=== PATIENT | female | born 1950 | race Caucasian/White ===

== ENCOUNTER 2020-09-16 12:19 | Outpatient (REF) | payer MEDICARE, OTHER, SELFPAY ==
[2020-09-16 13:24] LABS: MANUAL DIFF FLAG NO
[2020-09-16 13:33] LABS: Basophils Percent Auto 0.7 % (0-2); Eosinophils Absolute Auto 0.1 X10*3/uL (0.0-0.4); Hematocrit 36.9 % (37-47); Hemoglobin 12.5 g/dl (12.0-16.0); Imm Gran Abs Auto 0.02 X10*3/uL (0.00-0.03); Imm Gran Pct Auto 0.4 % (0.0-0.4); Lymphocytes Absolute Auto 1.4 X10*3/uL (1.2-4.9); Lymphocytes Percent Auto 30.1 % (20-40); Mean Corpuscular HGB Conc 33.9 g/dl (31.0-35.0); Mean Corpuscular Hemoglobin 30.9 pg (27.0-33.0); Mean Corpuscular Volume 91.1 fL (80-98); Mean Platelet Volume 9.8 fL (9.4-12.3); Monocytes Absolute Auto 0.3 X10*3/uL (0.1-1.2); Monocytes Percent Auto 6.4 % (2-11); Neutrophils Absolute Auto 2.8 X10*3/uL (2.0-8.3); Neutrophils Percent Auto 60.4 % (45-73); Platelet Count 177 X10*3/uL (160-400); Red Blood Count 4.05 X10*6/uL (4.20-5.50); White Blood Count 4.6 X10*3/uL (4.8-10.8)
[2020-09-16 13:52] LABS: Glucose Urine UA NEG (NEG); Leukocyte Esterase Urine NEG (NEG); Nitrite Urine NEG (NEG); PH 5.5 (5.0-8.0); Urine Blood NEG (NEG); Urine Ketones NEG (NEG); Urine Protein NEG (NEG-TRACE)
[2020-09-16 13:56] LABS: Creatinine Urine 144.68 mg/dL; Microalbum/Creatinine Ratio Ur 10.3 ug/mg cr
[2020-09-16 13:57] LABS: Appearance Urine HAZY; Color Urine YELLOW
[2020-09-16 13:58] LABS: Alanine Aminotransferase 53 U/L (0-31); Albumin Level 4.1 g/dL (3.5-5.0); Alkaline Phosphatase 108 U/L (39-117); Anion Gap 11 (12-20); Aspartate Amino Transferase 59 U/L (5-31); Bilirubin Total 0.6 mg/dL (0.0-1.0); Blood Urea Nitrogen 15 mg/dL (9-16); Calcium 8.7 mg/dL (8.4-10.2); Carbon Dioxide 30 mmol/L (22-29); Chloride 104 mmol/L (96-108); Cholesterol 141 mg/dL; Estimated Glomerular Filt Rate 45; Glucose Random 180 mg/dL (60-115); HDL Cholesterol 40 mg/dL; LDL Cholesterol Calculated 59 mg/dl; Potassium 4.8 mmol/l (3.3-5.1); Sodium 140 mmol/L (135-145); Total Protein 6.5 g/dL (6.5-8.0); Triglycerides 210 mg/dL
[2020-09-16 14:18] LABS: Free T4 (Free Thyroxine) 1.03 ng/dL (0.71-1.85); Thyroid Stimulating Hormone 4.19 mIU/mL (0.32-4.0)
== END 2020-09-16 12:20 | disposition home or self-care (01) ==
LOC: HO.LAB 12:19
PROVIDERS: PCP Internal Medicine; Visit Provider Internal Medicine
DX: E11.22 Type 2 diabetes mellitus with diabetic chronic kidney disease (principal); I12.9 Hypertensive chronic kidney disease with stage 1 through stage 4 chronic kidney disease, or unspecified chronic kidney disease; N18.2 Chronic kidney disease, stage 2 (mild); E78.5 Hyperlipidemia, unspecified; E03.9 Hypothyroidism, unspecified; E66.01 Morbid (severe) obesity due to excess calories; D62 Acute posthemorrhagic anemia; K21.9 Gastro-esophageal reflux disease without esophagitis
CPT/HCPCS: 36415; 80053; 80061; 81003; 82043; 84439; 84443; 85025

== ENCOUNTER 2021-02-23 13:05 | Outpatient (REF) | payer MEDICARE, OTHER, SELFPAY ==
[2021-02-23 13:44] LABS: MANUAL DIFF FLAG NO
[2021-02-23 13:53] LABS: Glucose Urine UA NEG (NEG); Leukocyte Esterase Urine NEG (NEG); Nitrite Urine NEG (NEG); Specific Gravity - Urine 1.015 (1.005-1.025); Urine Blood NEG (NEG); Urine Ketones NEG (NEG); Urine Protein NEG (NEG-TRACE)
[2021-02-23 13:55] LABS: Appearance Urine CLEAR; Color Urine YELLOW
[2021-02-23 14:14] LABS: Basophils Percent Auto 0.7 % (0-2); Eosinophils Absolute Auto 0.1 X10*3/uL (0.0-0.4); Eosinophils Percent Auto 2.3 % (0-4); Hematocrit 37.6 % (37-47); Hemoglobin 12.2 g/dl (12.0-16.0); Imm Gran Abs Auto 0.02 X10*3/uL (0.00-0.03); Imm Gran Pct Auto 0.5 % (0.0-0.4); Lymphocytes Absolute Auto 1.7 X10*3/uL (1.2-4.9); Lymphocytes Percent Auto 38.7 % (20-40); Mean Corpuscular HGB Conc 32.4 g/dl (31.0-35.0); Mean Corpuscular Hemoglobin 30.7 pg (27.0-33.0); Mean Corpuscular Volume 94.5 fL (80-98); Monocytes Absolute Auto 0.3 X10*3/uL (0.1-1.2); Monocytes Percent Auto 6.3 % (2-11); Neutrophils Absolute Auto 2.2 X10*3/uL (2.0-8.3); Neutrophils Percent Auto 51.5 % (45-73); Platelet Count 178 X10*3/uL (160-400); Red Blood Count 3.98 X10*6/uL (4.20-5.50); Red Cell Distribution Width 13.1 % (11.0-16.0); White Blood Count 4.3 X10*3/uL (4.8-10.8)
[2021-02-23 14:19] LABS: Creatinine Urine 133.57 mg/dL; Microalbum/Creatinine Ratio Ur 4.4 ug/mg cr
[2021-02-23 14:28] LABS: Alanine Aminotransferase 26 U/L (0-31); Albumin Level 4.1 g/dL (3.5-5.0); Alkaline Phosphatase 102 U/L (39-117); Anion Gap 12 (12-20); Aspartate Amino Transferase 34 U/L (5-31); Bilirubin Total 0.8 mg/dL (0.0-1.0); Blood Urea Nitrogen 25 mg/dL (9-16); Calcium 9.3 mg/dL (8.4-10.2); Carbon Dioxide 26 mmol/L (22-29); Chloride 104 mmol/L (96-108); Cholesterol 147 mg/dL; Estimated Glomerular Filt Rate 48; Glucose Fasting 120 mg/dL (60-99); HDL Cholesterol 41 mg/dL; Iron 69 mcg/dL (30-160); LDL Cholesterol Calculated 73 mg/dl; Percent Iron Saturation 19 % (15-50); Potassium 5.3 mmol/L (3.3-5.1); Sodium 137 mmol/L (135-145); Total Iron Binding Capacity 355 mcg/dL (228-428); Total Protein 6.5 g/dL (6.5-8.0); Triglycerides 169 mg/dL; Unsaturated Iron Binding 286 ug/dL
[2021-02-23 14:38] LABS: Free T4 (Free Thyroxine) 0.84 ng/dL (0.71-1.85); Thyroid Stimulating Hormone 3.15 uIU/mL (0.32-4.0)
== END 2021-02-23 13:06 | disposition home or self-care (01) ==
LOC: HO.LAB 13:05
PROVIDERS: PCP Internal Medicine; Visit Provider Internal Medicine
DX: E11.22 Type 2 diabetes mellitus with diabetic chronic kidney disease (principal); I12.9 Hypertensive chronic kidney disease with stage 1 through stage 4 chronic kidney disease, or unspecified chronic kidney disease; N18.2 Chronic kidney disease, stage 2 (mild); K92.2 Gastrointestinal hemorrhage, unspecified; E03.9 Hypothyroidism, unspecified; D62 Acute posthemorrhagic anemia; E78.00 Pure hypercholesterolemia, unspecified
CPT/HCPCS: 36415; 80053; 80061; 81003; 82043; 83540; 84439; 84443; 85025

== ENCOUNTER 2021-06-14 11:34 | Outpatient (REF) | payer MEDICARE, OTHER, SELFPAY ==
[2021-06-14 12:53] LABS: MANUAL DIFF FLAG NO
[2021-06-14 12:59] LABS: Basophils Percent Auto 0.5 % (0-2); Eosinophils Absolute Auto 0.1 X10*3/uL (0.0-0.4); Eosinophils Percent Auto 1.8 % (0-4); Hematocrit 35.6 % (37-47); Hemoglobin 11.6 g/dl (12.0-16.0); Imm Gran Abs Auto 0.01 X10*3/uL (0.00-0.03); Imm Gran Pct Auto 0.3 % (0.0-0.4); Lymphocytes Absolute Auto 1.5 X10*3/uL (1.2-4.9); Lymphocytes Percent Auto 39.8 % (20-40); Mean Corpuscular HGB Conc 32.6 g/dl (31.0-35.0); Mean Corpuscular Hemoglobin 30.6 pg (27.0-33.0); Mean Corpuscular Volume 93.9 fL (80-98); Mean Platelet Volume 9.6 fL (9.4-12.3); Monocytes Absolute Auto 0.3 X10*3/uL (0.1-1.2); Monocytes Percent Auto 7.6 % (2-11); Neutrophils Absolute Auto 1.9 X10*3/uL (2.0-8.3); Platelet Count 174 X10*3/uL (160-400); Red Blood Count 3.79 X10*6/uL (4.20-5.50); Red Cell Distribution Width 13.3 % (11.0-16.0); White Blood Count 3.8 X10*3/uL (4.8-10.8)
[2021-06-14 13:04] LABS: Glucose Urine UA NEG (NEG); Leukocyte Esterase Urine NEG (NEG); Nitrite Urine NEG (NEG); Urine Blood NEG (NEG); Urine Ketones NEG (NEG); Urine Protein NEG (NEG-TRACE)
[2021-06-14 13:08] LABS: Appearance Urine CLEAR; Color Urine YELLOW
[2021-06-14 13:18] LABS: Estimated Average Glucose 117 mg/dL; Hemoglobin A1c % 5.7 %
[2021-06-14 13:22] LABS: Alanine Aminotransferase 21 U/L (0-31); Albumin Level 3.9 g/dL (3.5-5.0); Alkaline Phosphatase 85 U/L (39-117); Anion Gap 14 (12-20); Aspartate Amino Transferase 33 U/L (5-31); Bilirubin Total 0.6 mg/dL (0.0-1.0); Blood Urea Nitrogen 14 mg/dL (9-16); Calcium 9.4 mg/dL (8.4-10.2); Carbon Dioxide 27 mmol/L (22-29); Chloride 103 mmol/L (96-108); Cholesterol 158 mg/dL; Estimated Glomerular Filt Rate 54; Glucose Fasting 107 mg/dL (60-99); HDL Cholesterol 43 mg/dL; LDL Cholesterol Calculated 84 mg/dl; Potassium 4.7 mmol/L (3.3-5.1); Sodium 139 mmol/L (135-145); Total Protein 6.2 g/dL (6.5-8.0); Triglycerides 155 mg/dL
[2021-06-14 13:34] LABS: Free T4 (Free Thyroxine) 0.99 ng/dL (0.71-1.85); Thyroid Stimulating Hormone 4.57 uIU/mL (0.32-4.0)
[2021-06-14 13:41] LABS: Creatinine Urine 77.28 mg/dL; Microalbum/Creatinine Ratio Ur 10.3 ug/mg cr
== END 2021-06-14 11:35 | disposition home or self-care (01) ==
LOC: HO.LAB 11:34
PROVIDERS: PCP Internal Medicine; Visit Provider Internal Medicine
DX: D62 Acute posthemorrhagic anemia (principal); I12.9 Hypertensive chronic kidney disease with stage 1 through stage 4 chronic kidney disease, or unspecified chronic kidney disease; B18.2 Chronic viral hepatitis C; E11.22 Type 2 diabetes mellitus with diabetic chronic kidney disease; K92.2 Gastrointestinal hemorrhage, unspecified; E78.00 Pure hypercholesterolemia, unspecified; E03.9 Hypothyroidism, unspecified; E66.01 Morbid (severe) obesity due to excess calories; Z68.42 Body mass index [BMI] 45.0-49.9, adult
CPT/HCPCS: 36415; 80053; 80061; 81003; 82043; 83036; 84439; 84443; 85025

== ENCOUNTER 2021-09-29 23:22 | Emergency (ER) | payer MEDICARE, OTHER, SELFPAY ==
[2021-09-30 00:07] VITALS: BP 198/123; PULSE 102; RESP 20; TEMP 36.8; O2SAT 95; BMI 42.0
--- NOTE | 2021-09-30 03:13 | ED.ABDPAIN ---
HPI - Abdominal Pain General Chief Complaint: Abdominal Pain Stated Complaint: CONSTIPATION Time Seen by Provider: 09/30/21 03:13 Source: patient Mode of arrival: ambulatory Limitations: no limitations History of Present Illness HPI narrative: patient with a history of diverticulitis and perforation with colostomy and then reversal. patient states she has a picket fence with so much diverticulii. Patient with a history of small intestine bleed that was treated with medication. Patient has diarrhea almost everyday. 3 days ago patient had some dietary indiscretion. On Sunday she had a normal BM but today she feels constipated with pain in the rectal area. Pertinent past history: diverticulitis Onset (ago): day(s) Pain Consistency: intermittent Severity: mild Associated symptoms: nausea Related Data Home Medications Medication Instructions Recorded Confirmed clonazepam 0.5 mg tablet 0.5 mg PO TID PRN 09/20/20 06/21/21 escitalopram oxalate 10 mg tablet 10 mg PO QAM 09/20/20 06/21/21 metformin 1,000 mg tablet 1,000 mg PO BID 09/20/20 06/21/21 Previous Rx's Medication Instructions Recorded montelukast 10 mg tablet 10 mg PO BEDTIME #90 tab 09/16/20 levothyroxine 100 mcg tablet 100 mcg PO QAM #90 tab 11/21/20 sucralfate 1 gram tablet 1 g PO BID #60 tab 12/10/20 pioglitazone 45 mg tablet 45 mg PO DAILY #90 tab 07/30/21 losartan 100 mg tablet 100 mg PO DAILY #90 tab 08/04/21 psyllium husk 0.4 gram capsule 0.4 g PO DAILY #30 cap 09/30/21 (Metamucil) Allergies Allergy/AdvReac Type Severity Reaction Status Date / Time adhesive tape [ADHESIVE TAPE] Allergy Mild RASH Verified 06/21/21 12:59 Cephalosporins Allergy Unknown ANAPHYLAXIS Verified 06/21/21 12:59 [CEPHALOSPORINS] gluten Allergy Unknown Unknown Verified 06/21/21 12:59 ketorolac Allergy Unknown hives Verified 06/21/21 12:59 lactase [From Dairy Aid] Allergy Unknown Unknown Verified 06/21/21 12:59 Penicillins [PENICILLINS] Allergy Unknown SWELLING Verified 06/21/21 12:59 Opioids - Morphine Analogues AdvReac Severe VERY SICK, Verified 06/21/21 12:59 [OPIOIDS - MORPHINE DIZZY, ANALOGUES] VOMITING Review of Systems Constitutional: Reports no additional constitutional complaints Eyes: Reports no additional eye complaints Denies dizziness Cardiovascular: Reports no additional cardiovascular complaints Respiratory: Reports as per HPI Gastrointestinal: Reports no additional gastrointestinal complaints Genitourinary: Reports no additional female genitourinary complaints Musculoskeletal: Reports no additional musculoskeletal complaints Skin/Breast: Denies rash Reports system reviewed and no additional complaints, except as documented, Denies dizziness and Denies Sensory deficit (Neuro) Psychiatric: Denies anxiety Physical Exam Vital Signs: Vital Signs: Last Vital Signs Temp 98.6 F 09/30/21 08:18 Pulse 88 09/30/21 08:18 Resp 19 09/30/21 08:18 BP 146/61 H 09/30/21 08:18 Pulse Ox 95 09/30/21 08:18 Body Mass Index 42.0 Const: General: healthy appearing Nutritional Appearance: obese Orientation/consciousness: oriented to person and patient oriented x3 Limitations: no limitations HENMT: Head: Yes normal to inspection Ears: external ears normal General nose exam: Normal external nose present Mouth: Normal oral and palatal mucosa present and oropharynx normal Throat: Yes posterior oropharynx normal Eyes: General: appearance normal, both eyes and all related structures Neck: Other: supple Neck: Yes normal visual inspection Chest: Chest palpation & inspection: normal inspection of the chest Resp: Auscultation: clear to auscultation bilaterally Cardio: Jugular venous distension: no JVD Rate: regular rate Rhythm: regular rhythm Heart sounds: S1 normal heart sound present and S2 normal heart sound present GI: Other: hyperactive BS, obese, diffusely tender. : General: Yes no CVA tenderness Back/Spine/Pelvis: Back: no CVA tenderness Skin: General skin exam: no rashes or lesions noted Neuro: General: oriented to person and patient oriented x3 Cranial nerves: Yes CN's II-XII intact bilaterally Motor exam (neuro): 5/5 motor strength present throughout Sensory Exam: No Sensory deficit (Neuro) Extrem: General: Yes normal to inspection Psych: Appearance: grossly normal Procedures Procedure Narrative Procedure Narrative: fecal disimpaction performed by me Course Reevaluation(s) Reevaluation #1: patient with fecal impaction that was removed, will give soap suds enema and dc home Time: 08:29 MDM - Abdominal Pain Lab Data Result diagrams: 09/30/21 05:27 09/30/21 05:27 Labs: Lab Results 09/30/21 09/30/21 Range/Units 05:27 05:27 WBC 7.6 (4.8-10.8) X10*3/uL RBC 4.17 L (4.20-5.50) X10*6/uL Hgb 12.8 (12.0-16.0) g/dl Hct 39.2 (37.0-47.0) % MCV 94.0 (80.0-98.0) fL MCH 30.7 (27.0-33.0) pg MCHC 32.7 (31.0-35.0) g/dl RDW 12.8 (11.0-16.0) % Plt Count 218 (160-400) X10*3/uL MPV 9.6 (9.4-12.3) fL Immature Gran % (Auto) 0.5 H (0.0-0.4) % Neut % (Auto) 79.8 H (45-73) % Lymph % (Auto) 16.3 L (20-40) % [place] % (Auto) 3.2 (2-11) % Eos % (Auto) 0.1 (0-4) % Baso % (Auto) 0.1 (0-2) % Lymph # (Auto) 1.2 (1.2-4.9) X10*3/uL [place] # (Auto) 0.2 (0.1-1.2) X10*3/uL Eos # (Auto) 0.0 (0.0-0.4) X10*3/uL Baso # (Auto) 0.0 (0.0-0.2) X10*3/uL Abs Immat Gran (auto) 0.04 H (0.00-0.03) X10*3/uL Absolute Neuts (auto) 6.1 (2.0-8.3) x10*3/uL Absolute Nucleated RBC 0.000 (0.0-0.012) X10*3/uL Nucleated RBC % (auto) 0.0 (0.0-0.2) /100WBC Sodium 141 (135-145) mmol/L Potassium 4.5 (3.3-5.1) mmol/L Chloride 101 (96-108) mmol/L Carbon Dioxide 29 (22-29) mmol/L Anion Gap 16 (12-20) BUN 15 (9-16) mg/dL Creatinine 1.06 (0.5-1.4) mg/dL Estim Creat Clear Calc 60.5 Estimated GFR 51 Random Glucose 163 H (60-115) mg/dL Calcium 9.4 (8.4-10.2) mg/dL Total Bilirubin 0.7 (0.0-1.0) mg/dL Direct Bilirubin 0.3 (0.0-0.5) mg/dL AST 40 H (5-31) U/L ALT 33 H (0-31) U/L Alkaline Phosphatase 88 (39-117) U/L Total Protein 7.0 (6.5-8.0) g/dL Albumin 4.4 (3.5-5.0) g/dL Lipase 19 (8-78) U/L Discharge Plan Discharge Clinical Impression: Fecal impaction in rectum Constipation Qualifiers: Constipation type: unspecified constipation type Qualified Code(s): K59.00 - Constipation, unspecified Patient Disposition: Home, Self-Care Instructions: Constipation (ED) Prescriptions: New psyllium husk [Metamucil] 0.4 gram capsule 0.4 g PO DAILY Qty: 30 RF: 0 No Action montelukast 10 mg tablet 10 mg PO BEDTIME Qty: 90 RF: 12 levothyroxine 100 mcg tablet 100 mcg PO QAM Qty: 90 RF: 3 sucralfate 1 gram tablet 1 g PO BID Qty: 60 RF: 3 pioglitazone 45 mg tablet 45 mg PO DAILY Qty: 90 RF: 1 losartan 100 mg tablet 100 mg PO DAILY Qty: 90 RF: 3 metformin 1,000 mg tablet 1,000 mg PO BID RF: 0 clonazepam 0.5 mg tablet 0.5 mg PO TID PRN (Reason: anxiety) RF: 0 escitalopram oxalate 10 mg tablet 10 mg PO QAM RF: 0 Referrals: Delonte Bishop MD [Primary Care Provider] - 5 days [facility] Past Medical History Medical History Acquired hypothyroidism Anemia due to acute blood loss Anxiety Arthralgia Asthma Benign essential hypertension Chronic kidney disease (CKD), stage II (mild) Depression Diabetes mellitus Gastrointestinal hemorrhage GERD without esophagitis Insomnia Morbid obesity with BMI of 45.0-49.9, adult Pure hypercholesterolemia Surgical History H/O wrist surgery History of colectomy History of colonoscopy History of D&C History of tonsillectomy Family History Family History Father No problems noted. Mother No problems noted. Other Substance abuse Social History Social History Alcohol intake: never Patient Tobacco Use Status: Never used Tobacco Use of substances other than those prescribed or required for medical reasons: No Advance Directives: No Advance Directives Information Provided: No
[2021-09-30 05:28] VITALS: BP 154/69; PULSE 86; RESP 20; O2SAT 96
[2021-09-30 05:33] LABS: Basophils Percent Auto 0.1 % (0-2); Eosinophils Percent Auto 0.1 % (0-4); Hematocrit 39.2 % (37.0-47.0); Hemoglobin 12.8 g/dl (12.0-16.0); Imm Gran Abs Auto 0.04 X10*3/uL (0.00-0.03); Imm Gran Pct Auto 0.5 % (0.0-0.4); Lymphocytes Absolute Auto 1.2 X10*3/uL (1.2-4.9); Lymphocytes Percent Auto 16.3 % (20-40); MANUAL DIFF FLAG NO; Mean Corpuscular HGB Conc 32.7 g/dl (31.0-35.0); Mean Corpuscular Hemoglobin 30.7 pg (27.0-33.0); Mean Platelet Volume 9.6 fL (9.4-12.3); Monocytes Absolute Auto 0.2 X10*3/uL (0.1-1.2); Monocytes Percent Auto 3.2 % (2-11); Neutrophils Absolute Auto 6.1 x10*3/uL (2.0-8.3); Neutrophils Percent Auto 79.8 % (45-73); Platelet Count 218 X10*3/uL (160-400); Red Blood Count 4.17 X10*6/uL (4.20-5.50); Red Cell Distribution Width 12.8 % (11.0-16.0); White Blood Count 7.6 X10*3/uL (4.8-10.8)
[2021-09-30 05:48] LABS: Alanine Aminotransferase 33 U/L (0-31); Albumin Level 4.4 g/dL (3.5-5.0); Alkaline Phosphatase 88 U/L (39-117); Anion Gap 16 (12-20); Aspartate Amino Transferase 40 U/L (5-31); Bilirubin Direct 0.3 mg/dL (0.0-0.5); Bilirubin Total 0.7 mg/dL (0.0-1.0); Blood Urea Nitrogen 15 mg/dL (9-16); Calcium 9.4 mg/dL (8.4-10.2); Carbon Dioxide 29 mmol/L (22-29); Chloride 101 mmol/L (96-108); Creatinine Clr Calc Pharmacy 60.5; Estimated Glomerular Filt Rate 51; Glucose Random 163 mg/dL (60-115); Lipase 19 U/L (8-78); Potassium 4.5 mmol/L (3.3-5.1); Sodium 141 mmol/L (135-145)
[2021-09-30 08:18] VITALS: BP 146/61; PULSE 88; RESP 19; TEMP 37; O2SAT 95
== END 2021-09-30 09:38 | disposition home or self-care (01) ==
PROVIDERS: Emergency Provider Emergency Medicine; PCP Internal Medicine
DX: K56.41 Fecal impaction (principal); E66.01 Morbid (severe) obesity due to excess calories; E11.22 Type 2 diabetes mellitus with diabetic chronic kidney disease; I12.9 Hypertensive chronic kidney disease with stage 1 through stage 4 chronic kidney disease, or unspecified chronic kidney disease; N18.2 Chronic kidney disease, stage 2 (mild)
CPT/HCPCS: 36415; 80053; 82248; 83690; 85025; 99284; 99285

== ENCOUNTER 2021-10-14 12:47 | Outpatient (REF) | payer MEDICARE, OTHER, SELFPAY ==
[2021-10-14 13:16] LABS: MANUAL DIFF FLAG NO
[2021-10-14 13:32] LABS: Basophils Percent Auto 0.5 % (0-2); Eosinophils Absolute Auto 0.1 X10*3/uL (0.0-0.4); Eosinophils Percent Auto 3.5 % (0-4); Hematocrit 38.1 % (37.0-47.0); Hemoglobin 12.4 g/dl (12.0-16.0); Imm Gran Abs Auto 0.01 X10*3/uL (0.00-0.03); Imm Gran Pct Auto 0.3 % (0.0-0.4); Lymphocytes Absolute Auto 1.3 X10*3/uL (1.2-4.9); Lymphocytes Percent Auto 35.9 % (20-40); Mean Corpuscular HGB Conc 32.5 g/dl (31.0-35.0); Mean Corpuscular Hemoglobin 30.1 pg (27.0-33.0); Mean Corpuscular Volume 92.5 fL (80.0-98.0); Mean Platelet Volume 9.5 fL (9.4-12.3); Monocytes Absolute Auto 0.3 X10*3/uL (0.1-1.2); Monocytes Percent Auto 7.1 % (2-11); Neutrophils Absolute Auto 1.9 x10*3/uL (2.0-8.3); Neutrophils Percent Auto 52.7 % (45-73); Platelet Count 175 X10*3/uL (160-400); Red Blood Count 4.12 X10*6/uL (4.20-5.50); Red Cell Distribution Width 12.9 % (11.0-16.0); White Blood Count 3.7 X10*3/uL (4.8-10.8)
[2021-10-14 14:01] LABS: Estimated Average Glucose 126 mg/dL
[2021-10-14 14:05] LABS: Alanine Aminotransferase 28 U/L (0-31); Alkaline Phosphatase 77 U/L (39-117); Anion Gap 14 (12-20); Aspartate Amino Transferase 38 U/L (5-31); Bilirubin Total 0.8 mg/dL (0.0-1.0); Blood Urea Nitrogen 15 mg/dL (9-16); Calcium 9.7 mg/dL (8.4-10.2); Carbon Dioxide 27 mmol/L (22-29); Chloride 104 mmol/L (96-108); Cholesterol 152 mg/dL; Estimated Glomerular Filt Rate 52; Glucose Fasting 130 mg/dL (60-99); HDL Cholesterol 41 mg/dL; LDL Cholesterol Calculated 72 mg/dl; Potassium 5.1 mmol/L (3.3-5.1); Sodium 140 mmol/L (135-145); Total Protein 6.5 g/dL (6.5-8.0); Triglycerides 199 mg/dL
[2021-10-14 14:25] LABS: TSH reflex Free T4 2.75 uIU/mL (0.32-4.0); Vitamin D 25-OH Total 51.4 ng/mL (>30)
[2021-10-14 15:06] LABS: Appearance Urine CLEAR; Color Urine YELLOW; Glucose Urine UA NEG (NEG); Leukocyte Esterase Urine TRACE (NEG); Nitrite Urine NEG (NEG); PH 6.5 (5.0-8.0); Specific Gravity - Urine <= 1.005 (1.005-1.025); UACC Culture Trigger YES; Urine Blood NEG (NEG); Urine Ketones NEG (NEG); Urine Protein NEG (NEG-TRACE)
[2021-10-14 15:18] LABS: RBC Urine 0-2 /HPF (0); WBC Urine 0-2 /HPF (0-4)
[2021-10-14 15:19] LABS: Bacteria Urine TRACE /LPF
[2021-10-14 15:39] LABS: Creatinine Urine 44.33 mg/dL; Microalbumin Urine < 5.0 mg/L
== END 2021-10-14 12:48 | disposition home or self-care (01) ==
LOC: HO.LAB 12:47
PROVIDERS: PCP Internal Medicine; Visit Provider Internal Medicine
DX: I10 Essential (primary) hypertension (principal); E55.9 Vitamin D deficiency, unspecified; E78.00 Pure hypercholesterolemia, unspecified; E11.9 Type 2 diabetes mellitus without complications
CPT/HCPCS: 36415; 80053; 80061; 81001; 82043; 82306; 83036; 84443; 85025; 87086

== ENCOUNTER 2022-02-21 12:46 | Outpatient (REF) | payer MEDICARE, OTHER, SELFPAY ==
[2022-02-21 12:58] LABS: MANUAL DIFF FLAG NO
[2022-02-21 13:17] LABS: Eosinophils Absolute Auto 0.2 X10*3/uL (0.0-0.4); Eosinophils Percent Auto 4.8 % (0-4); Hematocrit 37.8 % (37.0-47.0); Hemoglobin 12.5 g/dl (12.0-16.0); Imm Gran Abs Auto 0.01 X10*3/uL (0.00-0.03); Imm Gran Pct Auto 0.3 % (0.0-0.4); Lymphocytes Absolute Auto 1.7 X10*3/uL (1.2-4.9); Lymphocytes Percent Auto 42.2 % (20-40); Mean Corpuscular HGB Conc 33.1 g/dl (31.0-35.0); Mean Corpuscular Hemoglobin 31.2 pg (27.0-33.0); Mean Corpuscular Volume 94.3 fL (80.0-98.0); Mean Platelet Volume 9.5 fL (9.4-12.3); Monocytes Absolute Auto 0.3 X10*3/uL (0.1-1.2); Monocytes Percent Auto 6.8 % (2-11); Neutrophils Absolute Auto 1.8 x10*3/uL (2.0-8.3); Neutrophils Percent Auto 44.9 % (45-73); Platelet Count 180 X10*3/uL (160-400); Red Blood Count 4.01 X10*6/uL (4.20-5.50); Red Cell Distribution Width 13.1 % (11.0-16.0)
[2022-02-21 13:21] LABS: Estimated Average Glucose 126 mg/dL
[2022-02-21 13:49] LABS: Alanine Aminotransferase 31 U/L (0-31); Alkaline Phosphatase 92 U/L (39-117); Anion Gap 12 (12-20); Aspartate Amino Transferase 34 U/L (5-31); Bilirubin Total 0.7 mg/dL (0.0-1.0); Blood Urea Nitrogen 21 mg/dL (9-16); Calcium 9.4 mg/dL (8.4-10.2); Carbon Dioxide 29 mmol/L (22-29); Chloride 104 mmol/L (96-108); Cholesterol 171 mg/dL; Estimated Glomerular Filt Rate 54; Glucose Fasting 149 mg/dL (60-99); HDL Cholesterol 46 mg/dL; LDL Cholesterol Calculated 83 mg/dl; Potassium 4.6 mmol/L (3.3-5.1); Sodium 140 mmol/L (135-145); Total Protein 6.4 g/dL (6.5-8.0); Triglycerides 213 mg/dL
[2022-02-21 13:58] LABS: Free T4 (Free Thyroxine) 1.07 ng/dL (0.71-1.85)
[2022-02-21 14:20] LABS: Folate 18.2 ng/mL (> or = 4.0); Vitamin B12 318 pg/mL (200-900)
[2022-02-22 16:25] LABS: Appearance Urine CLEAR; Color Urine YELLOW; Glucose Urine UA NEG (NEG); Leukocyte Esterase Urine NEG (NEG); Nitrite Urine NEG (NEG); Specific Gravity - Urine <= 1.005 (1.005-1.025); Urine Blood NEG (NEG); Urine Ketones NEG (NEG); Urine Protein NEG (NEG-TRACE)
[2022-02-22 16:49] LABS: Creatinine Urine 45.16 mg/dL
== END 2022-02-21 12:47 | disposition home or self-care (01) ==
LOC: HO.LAB 12:46
PROVIDERS: PCP Internal Medicine; Visit Provider Internal Medicine
DX: I10 Essential (primary) hypertension (principal); E78.00 Pure hypercholesterolemia, unspecified; E55.9 Vitamin D deficiency, unspecified; E11.9 Type 2 diabetes mellitus without complications; E53.8 Deficiency of other specified B group vitamins; E03.9 Hypothyroidism, unspecified
CPT/HCPCS: 36415; 80053; 80061; 81003; 82043; 82306; 82607; 82746; 83036; 84439; 84443; 85025

== ENCOUNTER 2022-03-14 15:46 | Observation (INO) | payer MEDICARE, OTHER, SELFPAY ==
--- NOTE | ~2022-03-14 | CT_ITS ---
EXAMINATION: CTA OF THE HEAD AND NECK CLINICAL INFORMATION: Intermittent left visual loss. COMPARISON: None available. TECHNIQUE: Test bolus sequences followed by intravenous administration 75 mL of Omnipaque 350. Helical imaging was performed in the axial plane from the mediastinum to the skull vertex. Delayed postcontrast imaging of the head was also performed. The data was processed at the surgical technologist's workstation for generation of MIP sequences. Three-dimensional volume rendered reformatted images were also generated at an offline 3-D workstation. Stenoses are assessed in accordance with NASCET criteria unless otherwise indicated. This CT examination was performed using dose optimization techniques as appropriate, variously including the following: *Automated exposure control *Adjustment of mA and/or kV according to patient size (this includes techniques or standardized protocols for targeted exams where dose is matched to indication/reason for exam; i.e. extremities or head) *Use of iterative reconstruction technique DLP: 2266 mGy-cm. FINDINGS: CT head: There is no evidence of acute intracranial hemorrhage or territorial infarction. There is no loss of dior to white matter differentiation. No abnormal mass effect or midline shift is seen. No extra-axial fluid collections are identified. There is no abnormal enhancement. The ventricles are normal in size. There is no abnormal attenuation within the brain parenchyma. The osseous structures and soft tissues are normal. The mastoid air cells and visualized portions of the paranasal sinuses are well aerated. CTA neck: The imaged aortic arch and origins of the great vessels are normal. The common carotid arteries are widely patent. The carotid bifurcations are normal. The cervical internal carotid arteries are normal. The vertebral arteries opacify normally and are of normal caliber. The left vertebral artery is developmentally hypoplastic. There is a lobulated soft tissue density in the mediastinum on the left side adjacent to the aortic arch and main pulmonary artery which measures fluid attenuation, without mass effect. There is ossification of the posterior longitudinal ligament impressing upon the ventral thecal sac at the C3-C4 level. Mild subsegmental atelectatic changes noted in the lungs. CTA head: The intradural vertebral arteries and basilar artery are normal. The posterior cerebral arteries are widely patent. The internal carotid arteries are of normal caliber. The ROSHNI and MCA vascular complexes bilaterally are normal. The venous sinuses opacify normally. CT/CT angio head neck IMPRESSION: Normal CT angiogram of the head and neck. No vascular occlusion or significant stenosis. No acute intracranial process. Indeterminate lobulated fluid attenuation lesion in the anterior mediastinum in the region of the AP window which may represent a thymic epithelial neoplasm or thymic cyst. A nonemergent follow-up MRI of the chest without and with contrast is recommended for further characterization. Imaging findings reported to Dr. Milton at 8:17 PM on 03/14/2022.
--- NOTE | 2022-03-14 15:52 | ECG_ITS ---
Test Reason : HEADACHE Blood Pressure : / mmHG Vent. Rate : 069 BPM Atrial Rate : 069 BPM P-R Int : 176 ms QRS Dur : 098 ms QT Int : 378 ms P-R-T Axes : 067 -17 046 degrees QTc Int : 405 ms Normal sinus rhythm Normal ECG When compared with ECG of 23-DEC-2018 16:13, No significant change was found Referred By: Daphne Milton Electronically Signed By:Buddy Conde
[2022-03-14 15:57] VITALS: BP 168/72; BP 174/100; PULSE 78; PULSE 90; RESP 20; TEMP 37; O2SAT 100; O2SAT 97; BMI 44.0
[2022-03-14 16:08] LABS: Glucose, Whole Blood 130 mg/dL (60-115)
[2022-03-14 17:04] LABS: Glucose, Whole Blood 110 mg/dL (60-115)
--- NOTE | 2022-03-14 17:11 | ED.GENADULT ---
HPI - General Adult General Chief complaint: Headache Stated complaint: stroke - headache, left sided weakness Time Seen by Provider: 03/14/22 15:50 Source: patient and EMS Mode of arrival: EMS Limitations: no limitations History of Present Illness HPI narrative: Patient comes to the emergency room complaining headache and intermittent blurred/visual loss for the last 23 hours. Patient states that yesterday approximately 23 hours ago, patient started having significant headache in the front and on the left side. Patient states that she had visual changes, states that it seemed like she had a floater on the lateral aspect of the right eye and the whole visual field on the left. Patient states that the symptoms have been intermittent. Patient also states that she has been having difficulty finding words occasionally. Patient is not on any blood thinners, no other neurological deficits. Patient states that she has never been diagnosed with migraines and she usually does not get headaches. At this time, patient complaining of left-sided headache, vision in the right eye is within normal limits, mildly blurry on the left eye. Related Data Home Medications Medication Instructions Recorded Confirmed clonazepam 0.5 mg tablet 0.5 mg PO TID PRN 09/20/20 03/14/22 escitalopram oxalate 10 mg tablet 10 mg PO QAM 09/20/20 03/14/22 albuterol sulfate 90 mcg/actuation 1 puff PO QID PRN 03/14/22 03/14/22 aerosol inhaler Previous Rx's Medication Instructions Recorded losartan 100 mg tablet 100 mg PO DAILY #90 tab 08/04/21 metformin 1,000 mg tablet 1,000 mg PO BID 90 Days #180 tab 10/18/21 levothyroxine 100 mcg tablet 100 mcg PO QAM #90 tab 12/01/21 montelukast 10 mg tablet 10 mg PO BEDTIME #90 tab 12/03/21 pioglitazone 45 mg tablet 45 mg PO DAILY #90 tab 12/03/21 Allergies Allergy/AdvReac Type Severity Reaction Status Date / Time adhesive tape [ADHESIVE TAPE] Allergy Mild RASH Verified 02/28/22 13:51 Cephalosporins Allergy Unknown ANAPHYLAXIS Verified 02/28/22 13:51 [CEPHALOSPORINS] gluten Allergy Unknown Unknown Verified 02/28/22 13:51 ketorolac Allergy Unknown hives Verified 02/28/22 13:51 lactase [From Dairy Aid] Allergy Unknown Unknown Verified 02/28/22 13:51 Penicillins [PENICILLINS] Allergy Unknown SWELLING Verified 02/28/22 13:51 Opioids - Morphine Analogues AdvReac Severe VERY SICK, Verified 02/28/22 13:51 [OPIOIDS - MORPHINE DIZZY, ANALOGUES] VOMITING Review of Systems Review of Systems: Constitutional : No Weight loss, No Fever, No Chills, No Night Sweats, No Fatigue, No Malaise ENT/Mouth : No Hearing loss, No Ear Pain, No Nasal Congestion, No Sinus Pain, No Hoarseness, No sore throat, No Rhinorrhea, No Swallowing Difficulty Eyes: No Eye Pain, No Swelling, No Redness, No Foreign Body, No Discharge, complaining of intermittent visual changes, blurriness on both sides, intermittent Cardiovascular : No Chest Pain, No SOB, No Dyspnea on Exertion, No Orthopnea, No Edema, No Palpitations Respiratory : No Cough, No Sputum, No Wheezing, No Smoke Exposure, No Dyspnea Gastrointestinal : No Nausea, No Vomiting, No Diarrhea, No Constipation, No abdominal Pain, No Hematochezia, No Melena Genitourinary : no irregular bleeding, No Dysuria, No Urinary Frequency, No Hematuria, No Urinary Incontinence, No Urgency, No Flank Pain, No Urinary Flow Changes, No Hesitancy Musculoskeletal : No joint pain, No Myalgias, No Joint Swelling Skin : No Skin Lesions, No rash Neuro : No Weakness, No Numbness, No Paresthesias, No Loss of Consciousness, No Dizziness, complaining of a Headache Psych : No Anxiety/Panic, No Depression, No SI/HI/AH/VH, No Social Issues, Heme/Lymph: No Bruising, No Bleeding,No Lymphadenopathy Endocrine : No Polyuria, No Polydipsia, No Temperature Intolerance PMFSH Past Medical History Medical History Acquired hypothyroidism Anemia due to acute blood loss Anxiety Arthralgia Asthma Benign essential hypertension Chronic kidney disease (CKD), stage II (mild) Depression Diabetes mellitus Gastrointestinal hemorrhage GERD without esophagitis Insomnia Morbid obesity with BMI of 40.0-44.9, adult Morbid obesity with BMI of 45.0-49.9, adult Pure hypercholesterolemia Surgical History H/O wrist surgery History of colectomy History of colonoscopy History of D&C History of tonsillectomy Family History Family History Father No problems noted. Mother No problems noted. Other Substance abuse Social History Social History Housing: House Alcohol intake: never Patient Tobacco Use Status: Never used Tobacco Second Hand Smoke Exposure: No Advance Directives: Yes Advance Directives Information Provided: No Advance Directives on File: No service: No Current occupational status: retired Cognitive needs: No Hearing needs: No Vision needs: Yes Physical Exam ED Vital Signs: Vital Signs - 24 hr 03/14/22 15:57 Temperature 98.6 F Pulse Rate 78 Respiratory Rate 20 Blood Pressure 168/72 H Pulse Oximetry 97 BMI result Body Mass Index 44.0 Const Other: Appearance: Alert. Oriented X3. No acute distress. Eyes: Pupils equal, round and reactive to light. Visual hernandez tested, both within normal limits ENT: Pharynx normal. Neck: Normal inspection. Neck supple. No lymph nodes noted. No crepitus CVS: Normal heart rate and rhythm. Pulses normal. Normal S1 and S2 Respiratory: No respiratory distress. Breath sounds normal. No Wheezing. No rales Abdomen: Soft and nontender. No rigidity. No distention. Skin: Skin warm and dry. Normal skin color. Normal skin turgor. Extremities: No lower extremity edema. No Lacerations. No Rash Neuro: Oriented X 3. No motor deficit. No sensory deficit. Moving all extremities. No slurred speech. CN 2 through 12 grossly intact Psych: calm, cooperative, normal affect NIH Stroke Scale Level of Consciousness: Alert Level of Consciousness Questions: Answers both questions correctly Level of Consciousness Commands: Performs both tasks correctly Best Gaze: Normal Visual: No visual loss Facial Palsy: Normal Motor Arm (Right): No drift Motor Arm (Left): No drift Motor Leg (Right): No drift Motor Leg (Left): No drift Limb Ataxia: Absent Sensory: Normal Best Language: No aphasia Dysarthia: Normal Extinction and Inattention: No abnormality Score: 0 Course Course Course Narrative: Patient has been having intermittent symptoms for [address] and CTA pending. Patient is outside of the window of treatment if this would be a CVA. Patient likely having a CTA. However also patient describes that she has temporal pain on the left side. ESR and CRP pending along with all the other labs CT scan does not show any acute abnormalities. However, the patient will need a follow-up MRI to rule out a thymic epithelial neoplasm or thymic cyst At this time patient remains asymptomatic. Headache is nearly gone. It is possible that patient has migraine, but would be very strange for the patient to start having migraines at the age of 72 I discussed the patient with Dr. Berry, pt being admitted for TIA Medical Decision Making Lab Data Result diagrams: 03/14/22 17:25 03/14/22 17:25 Labs: Lab Results 03/14/22 03/14/22 03/14/22 Range/Units 16:05 16:46 16:59 WBC (4.8-10.8) X10*3/uL RBC (4.20-5.50) X10*6/uL Hgb (12.0-16.0) g/dl Hct (37.0-47.0) % MCV (80.0-98.0) fL MCH (27.0-33.0) pg MCHC (31.0-35.0) g/dl RDW (11.0-16.0) % Plt Count (160-400) X10*3/uL MPV (9.4-12.3) fL Immature Gran % (Auto) (0.0-0.4) % Neut % (Auto) (45-73) % Lymph % (Auto) (20-40) % Sandoval % (Auto) (2-11) % Eos % (Auto) (0-4) % Baso % (Auto) (0-2) % Lymph # (Auto) (1.2-4.9) X10*3/uL Sandoval # (Auto) (0.1-1.2) X10*3/uL Eos # (Auto) (0.0-0.4) X10*3/uL Baso # (Auto) (0.0-0.2) X10*3/uL Abs Immat Gran (auto) (0.00-0.03) X10*3/uL Absolute Neuts (auto) (2.0-8.3) x10*3/uL Absolute Nucleated RBC (0.0-0.012) X10*3/uL Nucleated RBC % (auto) (0.0-0.2) /100WBC ESR (0-20) MM/HR PT (9.9-13.0) SEC INR (0.9-1.1) Sodium (135-145) mmol/L Potassium (3.3-5.1) mmol/L Chloride (96-108) mmol/L Carbon Dioxide (22-29) mmol/L Anion Gap (12-20) BUN (9-16) mg/dL Creatinine (0.5-1.4) mg/dL Estim Creat Clear Calc Estimated GFR POC Glucose 130 H 110 (60-115) mg/dL Random Glucose (60-115) mg/dL Calcium (8.4-10.2) mg/dL Total Bilirubin (0.0-1.0) mg/dL Direct Bilirubin (0.0-0.5) mg/dL AST (5-31) U/L ALT (0-31) U/L Alkaline Phosphatase (39-117) U/L Troponin I High Sens (<3.5-17.0) ng/L C-Reactive Protein (< or = 0.50) mg/dL Total Protein (6.5-8.0) g/dL Albumin (3.5-5.0) g/dL COVID-19 (TERRELL) Negative (Negative) COVID-19 Clin Com See Note 03/14/22 03/14/22 03/14/22 Range/Units 16:59 17:25 17:25 WBC 5.9 (4.8-10.8) X10*3/uL RBC 4.28 (4.20-5.50) X10*6/uL Hgb 12.9 (12.0-16.0) g/dl Hct 39.6 (37.0-47.0) % MCV 92.5 (80.0-98.0) fL MCH 30.1 (27.0-33.0) pg MCHC 32.6 (31.0-35.0) g/dl RDW 13.0 (11.0-16.0) % Plt Count 195 (160-400) X10*3/uL MPV 9.2 L (9.4-12.3) fL Immature Gran % (Auto) 0.3 (0.0-0.4) % Neut % (Auto) 60.0 (45-73) % Lymph % (Auto) 30.8 (20-40) % Sandoval % (Auto) 7.1 (2-11) % Eos % (Auto) 1.3 (0-4) % Baso % (Auto) 0.5 (0-2) % Lymph # (Auto) 1.8 (1.2-4.9) X10*3/uL Sandoval # (Auto) 0.4 (0.1-1.2) X10*3/uL Eos # (Auto) 0.1 (0.0-0.4) X10*3/uL Baso # (Auto) 0.0 (0.0-0.2) X10*3/uL Abs Immat Gran (auto) 0.02 (0.00-0.03) X10*3/uL Absolute Neuts (auto) 3.6 (2.0-8.3) x10*3/uL Absolute Nucleated RBC 0.000 (0.0-0.012) X10*3/uL Nucleated RBC % (auto) 0.0 (0.0-0.2) /100WBC ESR (0-20) MM/HR PT 11.4 (9.9-13.0) SEC INR 1.0 (0.9-1.1) Sodium 141 (135-145) mmol/L Potassium 4.7 (3.3-5.1) mmol/L Chloride 102 (96-108) mmol/L Carbon Dioxide 31 H (22-29) mmol/L Anion Gap 13 (12-20) BUN 15 (9-16) mg/dL Creatinine 0.96 (0.5-1.4) mg/dL Estim Creat Clear Calc 65.4 Estimated GFR 57 POC Glucose (60-115) mg/dL Random Glucose 128 H (60-115) mg/dL Calcium 9.9 (8.4-10.2) mg/dL Total Bilirubin 0.9 (0.0-1.0) mg/dL Direct Bilirubin 0.3 (0.0-0.5) mg/dL AST 37 H (5-31) U/L ALT 31 (0-31) U/L Alkaline Phosphatase 92 (39-117) U/L Troponin I High Sens (<3.5-17.0) ng/L C-Reactive Protein (< or = 0.50) mg/dL Total Protein 6.7 (6.5-8.0) g/dL Albumin 4.0 (3.5-5.0) g/dL COVID-19 (TERRELL) (Negative) COVID-19 Clin Com 03/14/22 03/14/22 03/14/22 Range/Units 17:25 17:25 17:25 WBC (4.8-10.8) X10*3/uL RBC (4.20-5.50) X10*6/uL Hgb (12.0-16.0) g/dl Hct (37.0-47.0) % MCV (80.0-98.0) fL MCH (27.0-33.0) pg MCHC (31.0-35.0) g/dl RDW (11.0-16.0) % Plt Count (160-400) X10*3/uL MPV (9.4-12.3) fL Immature Gran % (Auto) (0.0-0.4) % Neut % (Auto) (45-73) % Lymph % (Auto) (20-40) % Sandoval % (Auto) (2-11) % Eos % (Auto) (0-4) % Baso % (Auto) (0-2) % Lymph # (Auto) (1.2-4.9) X10*3/uL Sandoval # (Auto) (0.1-1.2) X10*3/uL Eos # (Auto) (0.0-0.4) X10*3/uL Baso # (Auto) (0.0-0.2) X10*3/uL Abs Immat Gran (auto) (0.00-0.03) X10*3/uL Absolute Neuts (auto) (2.0-8.3) x10*3/uL Absolute Nucleated RBC (0.0-0.012) X10*3/uL Nucleated RBC % (auto) (0.0-0.2) /100WBC ESR 23 H (0-20) MM/HR PT (9.9-13.0) SEC INR (0.9-1.1) Sodium (135-145) mmol/L Potassium (3.3-5.1) mmol/L Chloride (96-108) mmol/L Carbon Dioxide (22-29) mmol/L Anion Gap (12-20) BUN (9-16) mg/dL Creatinine (0.5-1.4) mg/dL Estim Creat Clear Calc Estimated GFR POC Glucose (60-115) mg/dL Random Glucose (60-115) mg/dL Calcium (8.4-10.2) mg/dL Total Bilirubin (0.0-1.0) mg/dL Direct Bilirubin (0.0-0.5) mg/dL AST (5-31) U/L ALT (0-31) U/L Alkaline Phosphatase (39-117) U/L Troponin I High Sens 6.9 (<3.5-17.0) ng/L C-Reactive Protein 0.25 (< or = 0.50) mg/dL Total Protein (6.5-8.0) g/dL Albumin (3.5-5.0) g/dL COVID-19 (TERRELL) (Negative) COVID-19 Clin Com Imaging Data CT scan - head: Radiologist's impression: CTA neck: The imaged aortic arch and origins of the great vessels are normal. The common carotid arteries are widely patent. The carotid bifurcations are normal. The cervical internal carotid arteries are normal. The vertebral arteries opacify normally and are of normal caliber. The left vertebral artery is developmentally hypoplastic. There is a lobulated soft tissue density in the mediastinum on the left side adjacent to the aortic arch and main pulmonary artery which measures fluid attenuation, without mass effect. There is ossification of the posterior longitudinal ligament impressing upon the ventral thecal sac at the C3-C4 level. Mild subsegmental atelectatic changes noted in the lungs. CTA head: The intradural vertebral arteries and basilar artery are normal. The posterior cerebral arteries are widely patent. The internal carotid arteries are of normal caliber. The ROSHNI and MCA vascular complexes bilaterally are normal. The venous sinuses opacify normally. CT/CT angio head neck IMPRESSION: ? Normal CT angiogram of the head and neck. No vascular occlusion or significant stenosis. No acute intracranial process. ? Indeterminate lobulated fluid attenuation lesion in the anterior mediastinum in the region of the AP window which may represent a thymic epithelial neoplasm or thymic cyst. A nonemergent follow-up MRI of the chest without and with contrast is recommended for further characterization. Discharge Plan Discharge Clinical Impression: Brain TIA Patient Disposition: Admitted As Inpatient
[2022-03-14 17:24] LABS: COVID-19 Test Negative (Negative); IDNOW Serial# 16C4AD1C; Prothrombin Time 11.4 SEC (9.9-13.0)
[2022-03-14 17:31] LABS: MANUAL DIFF FLAG NO
[2022-03-14 17:38] LABS: Basophils Percent Auto 0.5 % (0-2); Eosinophils Absolute Auto 0.1 X10*3/uL (0.0-0.4); Eosinophils Percent Auto 1.3 % (0-4); Hematocrit 39.6 % (37.0-47.0); Hemoglobin 12.9 g/dl (12.0-16.0); Imm Gran Abs Auto 0.02 X10*3/uL (0.00-0.03); Imm Gran Pct Auto 0.3 % (0.0-0.4); Lymphocytes Absolute Auto 1.8 X10*3/uL (1.2-4.9); Lymphocytes Percent Auto 30.8 % (20-40); Mean Corpuscular HGB Conc 32.6 g/dl (31.0-35.0); Mean Corpuscular Hemoglobin 30.1 pg (27.0-33.0); Mean Corpuscular Volume 92.5 fL (80.0-98.0); Mean Platelet Volume 9.2 fL (9.4-12.3); Monocytes Absolute Auto 0.4 X10*3/uL (0.1-1.2); Monocytes Percent Auto 7.1 % (2-11); Neutrophils Absolute Auto 3.6 x10*3/uL (2.0-8.3); Platelet Count 195 X10*3/uL (160-400); Red Blood Count 4.28 X10*6/uL (4.20-5.50); White Blood Count 5.9 X10*3/uL (4.8-10.8)
[2022-03-14 17:45] LABS: C Reactive Protein 0.25 mg/dL (< or = 0.50)
[2022-03-14 17:48] LABS: Alanine Aminotransferase 31 U/L (0-31); Alkaline Phosphatase 92 U/L (39-117); Anion Gap 13 (12-20); Aspartate Amino Transferase 37 U/L (5-31); Bilirubin Direct 0.3 mg/dL (0.0-0.5); Bilirubin Total 0.9 mg/dL (0.0-1.0); Blood Urea Nitrogen 15 mg/dL (9-16); Calcium 9.9 mg/dL (8.4-10.2); Carbon Dioxide 31 mmol/L (22-29); Chloride 102 mmol/L (96-108); Creatinine Clr Calc Pharmacy 65.4; Estimated Glomerular Filt Rate 57; Glucose Random 128 mg/dL (60-115); Potassium 4.7 mmol/L (3.3-5.1); Sodium 141 mmol/L (135-145); Total Protein 6.7 g/dL (6.5-8.0)
[2022-03-14 17:53] LABS: Troponin-I High Sensitivity 6.9 ng/L (<3.5-17.0)
[2022-03-14] MEDS: Acetaminophen 325 MG TABLET 650 MG PO (18:02)
[2022-03-14 18:30] LABS: Erythrocyte Sedimentation Rate 23 MM/HR (0-20)
[2022-03-14] MEDS: iohexoL 350 MG/ML 100 ML INFUS..BTL IV (18:43)
--- NOTE | 2022-03-14 19:18 | PHA.MEDREC ---
Pharmacy Consult ? Medication Reconciliation Pharmacy has completed the medication reconciliation.
[2022-03-14 22:04] VITALS: BP 169/71; PULSE 70; RESP 20; TEMP 36.9; O2SAT 97
--- NOTE | 2022-03-14 22:46 | PM.IMHP ---
History of Present Illness Date of Service: 03/14/22 Chief Complaint: Headache this is a 72-year-old female with past medical history of hypothyroidism, anxiety, PTSD, depression, asthma, HTN, DM, insomnia, GERD, and history of GI bleed who presents to the hospital with complaints of of severe left-sided headache as well as vision disturbances. Patient reports that she was in the kitchen preparing dinner when all of a sudden she developed lateral visual lost in both eyes in the form of large floaters that blocked half of her vision. she reports this lasted few minutes, the right visual field was then recovered but then she developed left-sided lateral visual loss as well as significant 10/10 throbbing left-sided headache radiating to her neck. Patient reports that she felt like she had heavy speech, but did not have any numbness tingling or weakness in her arms or legs, no drooping of her face. Patient reports that she tried to sleep of the pain, did not use any alleviating medications. The next day she had an appointment with her psychiatrist, which she continued to have this severe 10/10 throbbing left-sided headache and therefore her psychiatrist advised her to call [phone] come to the hospital. Patient reports that she since being in the hospital receiving Tylenol her pain has now resolved. Patient otherwise denies any chest pain, no palpitations, no abdominal pain, no nausea or vomiting, no diarrhea constipation, no urinary symptoms and no lower extremity edema. On arrival to the hospital patient hemodynamically stable no significant abnormal vitals except for slightly elevated BP Labs reviewed show unremarkable findings Head and neck CT angiogram shows normal CT angiogram of the head and neck, no vascular occlusion or significant stenosis, no acute intracranial process. CT angiogram of the head and neck also showed intermediate lobulated fluid attenuation lesion in the anterior mediastinum in the region of the AP window which may represent a thymic epithelial neoplasm or thymic cyst. MRI follow-up recommended Review of Systems Review of Systems: Yes all other systems are reviewed and are negative [facility] Medical History Acquired hypothyroidism Anemia due to acute blood loss Anxiety Arthralgia Asthma Benign essential hypertension Chronic kidney disease (CKD), stage II (mild) Depression Diabetes mellitus Gastrointestinal hemorrhage GERD without esophagitis Insomnia Morbid obesity with BMI of 40.0-44.9, adult Morbid obesity with BMI of 45.0-49.9, adult Pure hypercholesterolemia Family History Father No problems noted. Mother No problems noted. Other Substance abuse Surgical History H/O wrist surgery History of colectomy History of colonoscopy History of D&C History of tonsillectomy Social History Housing: House Alcohol intake: never Patient Tobacco Use Status: Never used Tobacco Second Hand Smoke Exposure: No Advance Directives: Yes Advance Directives Information Provided: No Advance Directives on File: No service: No Current occupational status: retired Cognitive needs: No Hearing needs: No Vision needs: Yes Meds Allergies Allergy/AdvReac Type Severity Reaction Status Date / Time adhesive tape [ADHESIVE TAPE] Allergy Mild RASH Verified 02/28/22 13:51 Cephalosporins Allergy Unknown ANAPHYLAXIS Verified 02/28/22 13:51 [CEPHALOSPORINS] gluten Allergy Unknown Unknown Verified 02/28/22 13:51 ketorolac Allergy Unknown hives Verified 02/28/22 13:51 lactase [From Dairy Aid] Allergy Unknown Unknown Verified 02/28/22 13:51 Penicillins [PENICILLINS] Allergy Unknown SWELLING Verified 02/28/22 13:51 Opioids - Morphine Analogues AdvReac Severe VERY SICK, Verified 02/28/22 13:51 [OPIOIDS - MORPHINE DIZZY, ANALOGUES] VOMITING Active Medications: Current Medications Pharmacy Consult (Consult Rx Perform Med Rec) 1 each MISCELLANE ONCE PRN PRN Reason: Consult order Home Medications Medication Instructions Recorded Confirmed Last Taken Type clonazepam 0.5 mg tablet 0.5 mg PO TID PRN 09/20/20 03/14/22 03/14/22 History escitalopram oxalate 10 mg tablet 10 mg PO QAM 09/20/20 03/14/22 03/14/22 History albuterol sulfate 90 mcg/actuation 1 puff PO QID PRN 03/14/22 03/14/22 Unknown History aerosol inhaler Physical Exam Vital Signs and Narrative: Vital Signs: Last Vital Signs Temp 98.5 F 03/14/22 22:04 Pulse 70 03/14/22 22:04 Resp 20 03/14/22 22:04 BP 169/71 H 03/14/22 22:04 Pulse Ox 97 03/14/22 22:04 BMI result Body Mass Index 44.0 Const: General: cooperative and no acute distress Orientation/consciousness: patient oriented x3 Eyes: General: appearance normal, both eyes and all related structures Pupils: Equal, round and reactive pupils present Resp: Effort & Inspection: normal respiratory effort Auscultation: clear to auscultation bilaterally Cardio: Rate: regular rate Rhythm: regular rhythm GI: Palpation (GI): Soft to palpation Auscultation: normal bowel sounds Skin: General skin exam: no rashes or lesions noted Neuro: Other: No neurological deficits, no visual field defect, strength is 5/5 in all extremities General: patient oriented x3 Cranial nerves: Yes Equal, round and reactive pupils present Cognition (Neuro): normal cognition Extrem: General: Yes normal to inspection and Yes no pedal edema Results Labs CBC and Chem 7: 03/15/22 04:54 03/15/22 04:54 Labs: Laboratory Results - last 24 hr 03/14/22 03/14/22 03/14/22 16:05 16:46 16:59 MCV MCH MCHC RDW Plt Count MPV Immature Gran % (Auto) Neut % (Auto) Lymph % (Auto) Wharton % (Auto) Eos % (Auto) Baso % (Auto) Lymph # (Auto) Wharton # (Auto) Eos # (Auto) Baso # (Auto) Abs Immat Gran (auto) Absolute Neuts (auto) Absolute Nucleated RBC Nucleated RBC % (auto) ESR PT INR Anion Gap Estim Creat Clear Calc Estimated GFR POC Glucose 130 H 110 Random Glucose Calcium Total Bilirubin Direct Bilirubin AST ALT Alkaline Phosphatase Troponin I High Sens C-Reactive Protein Total Protein Albumin COVID-19 (TERRELL) Negative COVID-19 Clin Com See Note 03/14/22 03/14/22 03/14/22 16:59 17:25 17:25 MCV 92.5 MCH 30.1 MCHC 32.6 RDW 13.0 Plt Count 195 MPV 9.2 L Immature Gran % (Auto) 0.3 Neut % (Auto) 60.0 Lymph % (Auto) 30.8 Wharton % (Auto) 7.1 Eos % (Auto) 1.3 Baso % (Auto) 0.5 Lymph # (Auto) 1.8 Wharton # (Auto) 0.4 Eos # (Auto) 0.1 Baso # (Auto) 0.0 Abs Immat Gran (auto) 0.02 Absolute Neuts (auto) 3.6 Absolute Nucleated RBC 0.000 Nucleated RBC % (auto) 0.0 ESR PT 11.4 INR 1.0 Anion Gap 13 Estim Creat Clear Calc 65.4 Estimated GFR 57 POC Glucose Random Glucose 128 H Calcium 9.9 Total Bilirubin 0.9 Direct Bilirubin 0.3 AST 37 H ALT 31 Alkaline Phosphatase 92 Troponin I High Sens C-Reactive Protein Total Protein 6.7 Albumin 4.0 COVID-19 (TERRELL) COVID-19 [employer] 03/14/22 03/14/22 03/14/22 17:25 17:25 17:25 MCV MCH MCHC RDW Plt Count MPV Immature Gran % (Auto) Neut % (Auto) Lymph % (Auto) Wharton % (Auto) Eos % (Auto) Baso % (Auto) Lymph # (Auto) Wharton # (Auto) Eos # (Auto) Baso # (Auto) Abs Immat Gran (auto) Absolute Neuts (auto) Absolute Nucleated RBC Nucleated RBC % (auto) ESR 23 H PT INR Anion Gap Estim Creat Clear Calc Estimated GFR POC Glucose Random Glucose Calcium Total Bilirubin Direct Bilirubin AST ALT Alkaline Phosphatase Troponin I High Sens 6.9 C-Reactive Protein 0.25 Total Protein Albumin COVID-19 (TERRELL) COVID-19 Clin Com Imaging Radiologist's Impressions: Impressions Head/Neck CTA 03/14/22 18:50 IMPRESSION: Normal CT angiogram of the head and neck. No vascular occlusion or significant stenosis. No acute intracranial process. Indeterminate lobulated fluid attenuation lesion in the anterior mediastinum in the region of the AP window which may represent a thymic epithelial neoplasm or thymic cyst. A nonemergent follow-up MRI of the chest without and with contrast is recommended for further characterization. Imaging findings reported to Dr. Milton at 8:17 PM on 03/14/2022. Assessment and Plan (1) Headache: Status: Acute (2) Visual loss: Status: Acute Plan 72-year-old female who presents to the hospital with headache, and intermittent visual loss will be admitted for further evaluation # headache - migraine versus TIA - will consult Neurology, patient at this time reports that she is claustrophobic and may not tolerate MRI - will hold off on ordering MRI pending evaluation by neurology # visual loss - described above large floaters blocking lateral half of vision - no visual loss on physical exam - recommended MRI but patient at this time reports that she has claustrophobia and may not tolerate MRI, pending neurology evaluation for further recommendation # diabetes - low-dose sliding scale insulin, diabetic diet # history of anxiety, depression and PTSD - continue home medications # hypertension - elevated - continue home antihypertensives DVT prophylaxis: Early ambulation Quality Stroke Does the patient have a stroke diagnosis?: No VTE Prior VTE?: No VTE Risk Level:: Medical - low VTE Device Contraindication: Treatment Not Indicated VTE Drug Contraindication: Treatment Not Indicated
[2022-03-15 04:22] VITALS: BP 139/66; PULSE 74; RESP 16; TEMP 36.8; O2SAT 99
[2022-03-15 04:59] LABS: MANUAL DIFF FLAG NO
[2022-03-15 05:00] LABS: Basophils Percent Auto 0.5 % (0-2); Eosinophils Absolute Auto 0.2 X10*3/uL (0.0-0.4); Eosinophils Percent Auto 2.8 % (0-4); Hemoglobin 12.4 g/dl (12.0-16.0); Imm Gran Abs Auto 0.01 X10*3/uL (0.00-0.03); Imm Gran Pct Auto 0.2 % (0.0-0.4); Lymphocytes Absolute Auto 2.3 X10*3/uL (1.2-4.9); Lymphocytes Percent Auto 37.9 % (20-40); Mean Corpuscular HGB Conc 32.6 g/dl (31.0-35.0); Mean Corpuscular Hemoglobin 30.2 pg (27.0-33.0); Mean Corpuscular Volume 92.5 fL (80.0-98.0); Mean Platelet Volume 9.1 fL (9.4-12.3); Monocytes Absolute Auto 0.5 X10*3/uL (0.1-1.2); Neutrophils Absolute Auto 3.1 x10*3/uL (2.0-8.3); Neutrophils Percent Auto 50.6 % (45-73); Platelet Count 186 X10*3/uL (160-400); Red Blood Count 4.11 X10*6/uL (4.20-5.50); White Blood Count 6.1 X10*3/uL (4.8-10.8)
[2022-03-15 05:15] LABS: Anion Gap 15 (12-20); Blood Urea Nitrogen 16 mg/dL (9-16); Calcium 9.5 mg/dL (8.4-10.2); Carbon Dioxide 24 mmol/L (22-29); Chloride 104 mmol/L (96-108); Creatinine Clr Calc Pharmacy 64.7; Estimated Glomerular Filt Rate 56; Glucose Random 126 mg/dL (60-115); Potassium 4.6 mmol/L (3.3-5.1); Sodium 138 mmol/L (135-145)
[2022-03-15 07:10] VITALS: BP 160/84; PULSE 79; RESP 15; TEMP 36.6; O2SAT 94
[2022-03-15 07:11] LABS: Glucose, Whole Blood 138 mg/dL (60-115)
[2022-03-15] MEDS: Levothyroxine Sodium 100 MCG TABLET PO (08:40)
--- NOTE | 2022-03-15 08:44 | PC.NURSE ---
pt a&ox3, vss - elevated blood pressure, pt reports not taking medication yesterday. denies any pain at this time. medicated per provider order, no insulin coverage needed. pt does not have IV access - flush not given. no new orders at this time.
--- NOTE | 2022-03-15 09:35 | MHC.CM.PN ---
Attempted to meet with patient in regards to discharge planning. Patient currently sleeping. No family present. Will attempt to meet again. Continue to monitor for d/c needs.
[2022-03-15] MEDS: Losartan Potassium 50 MG TABLET 100 MG PO (11:14)
[2022-03-15] MEDS: Pioglitazone HCL 45 MG TABLET PO (11:15)
--- NOTE | 2022-03-15 11:18 | PC.NURSE ---
medications held pending actos from pharmacy, and pt questions. medicated per provider order. escitalopram held per pt request - normally takes medication in the evening. pharmacy notified.
[2022-03-15 11:27] VITALS: BP 174/88; PULSE 68; RESP 19; O2SAT 96
--- NOTE | 2022-03-15 11:27 | PC.NURSE ---
pt a&ox3, vss, R upper arm IV infiltrated - removed. pt denies any pain at this time.
--- NOTE | 2022-03-15 11:57 | MHC.CM.PN ---
Met with pt to discuss discharge planning: pt resides alone, has no services and drives. Li kingx x4, Declined OBS notice signature and states her HCP is with her commonwealth attorney. Pt states she will arrange her own transportation home. CM to follow.
--- NOTE | 2022-03-15 12:29 | PM.NEUROCN ---
History of Present Illness Data of Consult Service Date: 03/15/22 Primary Care Provider: Delonte Bishop MD HPI Reason for consult: Blurred vision and headache 72 years old woman who was in usual state of health at home working in a kitchen when suddenly she had blurred vision in her right eye and little bit later in her left eye. It was like a floater in front of her eyes. In few minutes right eye cleared and then left eye had a floor in front. Little later she had severe left-sided headache. Head was split in the middle and Karen of the head was hurting. He said that she never had such headaches and she denied having headaches. Looking at her previous records she had suffered from a concussion in the past in 2017 and at that time suffered from headaches. Also she had multiple nonspecific complaints including vertigo, blurred vision or loss of vision in the past or at least episodes of that. One EEG was abnormal but there was no clear indication of epilepsy. Even this time her mentation remained intact. She came to hospital stating that blurred vision disappeared after an hour to but headache continued for many hours. She slept and next morning headache was resolved. There was no recent trauma or cold or flu-like illness. Review of Systems Review of Systems: No recent cold or flu-like illness PMFSH Past Medical History Medical History Acquired hypothyroidism Anemia due to acute blood loss Anxiety Arthralgia Asthma Benign essential hypertension Chronic kidney disease (CKD), stage II (mild) Depression Diabetes mellitus Gastrointestinal hemorrhage GERD without esophagitis Insomnia Morbid obesity with BMI of 40.0-44.9, adult Morbid obesity with BMI of 45.0-49.9, adult Pure hypercholesterolemia Family History Family History Father No problems noted. Mother No problems noted. Other Substance abuse Surgical History Surgical History H/O wrist surgery History of colectomy History of colonoscopy History of D&C History of tonsillectomy Social History Social History Housing: House Alcohol intake: never Patient Tobacco Use Status: Never used Tobacco Second Hand Smoke Exposure: No Advance Directives: Yes Advance Directives Information Provided: No Advance Directives on File: No service: No Current occupational status: retired Cognitive needs: No Hearing needs: No Vision needs: Yes Meds Allergies Allergy/AdvReac Type Severity Reaction Status Date / Time adhesive tape [ADHESIVE TAPE] Allergy Mild RASH Verified 02/28/22 13:51 Cephalosporins Allergy Unknown ANAPHYLAXIS Verified 02/28/22 13:51 [CEPHALOSPORINS] gluten Allergy Unknown Unknown Verified 02/28/22 13:51 ketorolac Allergy Unknown hives Verified 02/28/22 13:51 lactase [From Dairy Aid] Allergy Unknown Unknown Verified 02/28/22 13:51 Penicillins [PENICILLINS] Allergy Unknown SWELLING Verified 02/28/22 13:51 Opioids - Morphine Analogues AdvReac Severe VERY SICK, Verified 02/28/22 13:51 [OPIOIDS - MORPHINE DIZZY, ANALOGUES] VOMITING Active Medications: Current Medications Acetaminophen (Acetaminophen 325 Mg Tablet) 650 mg PO Q6H PRN PRN Reason: Pain, Mild (Pain Scale 1-3) Albuterol Sulfate (Albuterol Sulfate 90 Mcg 8 Gm Inhaler) 1 puff INHALE QID PRN PRN Reason: Shortness Of Breath Clonazepam (Clonazepam 0.5 Mg Tablet) 0.5 mg PO BEDTIME MITCH Clonazepam (Clonazepam 0.5 Mg Tablet) 0.75 mg PO DAILY [facility] Dextrose (Dextrose 50 % 25 Gm/50 Ml Syringe) 25 gm IVPUSH Q15M PRN; Protocol PRN Reason: per Hypoglycemia Standing Ord. Docusate Sodium (Docusate Sodium 100 Mg Capsule) 100 mg PO DAILY PRN PRN Reason: Constipation Escitalopram Oxalate (Escitalopram Oxalate 10 Mg Tablet) 10 mg PO BEDTIME [facility] Glucose (Glucose Gel 15 Gm Gel..Gram.) 15 gm PO Q15M PRN; Protocol PRN Reason: per Hypoglycemia Standing Ord. Insulin Human Lispro (Insulin Lispro 100 Unit/Ml 3 Ml Vial) 0 unit SUBCUT QIDACHS [facility]; Protocol Last Admin: 03/15/22 08:22 Dose: Not Given Documented by: Levothyroxine Sodium (Levothyroxine Sodium 100 Mcg Tablet) 100 mcg PO DAILY@0630 [facility] Last Admin: 03/15/22 08:40 Dose: 100 mcg Documented by: Losartan Potassium (Losartan Potassium 50 Mg Tablet) 100 mg PO DAILY [facility]; Protocol Last Admin: 03/15/22 11:14 Dose: 100 mg Documented by: Montelukast Sodium (Montelukast Sodium 10 Mg Tablet) 10 mg PO BEDTIME MITCH Ondansetron HCl (Ondansetron Hcl 4 Mg/2 Ml Vial) 4 mg IVPUSH Q8H PRN PRN Reason: Nausea and Vomiting Pharmacy Consult (Consult Rx Perform Med Rec) 1 each MISCELLANE ONCE PRN PRN Reason: Consult order Pioglitazone HCl (Pioglitazone Hcl 45 Mg Tablet) 45 mg PO DAILY [facility] Last Admin: 03/15/22 11:15 Dose: 45 mg Documented by: Sodium Chloride (0.9 % Sodium Chloride Flush 3 Ml Syringe) 3 ml IVFLUSH QSHIFT [facility] Last Admin: 03/15/22 08:40 Dose: Not Given Documented by: Home Medications Medication Instructions Recorded Confirmed Last Taken Type clonazepam 0.5 mg tablet 0.75 mg PO DAILY 09/20/20 03/15/22 03/14/22 History escitalopram oxalate 10 mg tablet 10 mg PO QAM 09/20/20 03/14/22 03/14/22 History albuterol sulfate 90 mcg/actuation 1 puff PO QID PRN 03/14/22 03/14/22 Unknown History aerosol inhaler clonazepam 0.5 mg tablet 1 tab PO BEDTIME 03/15/22 03/15/22 Unknown History Physical Exam Vital Signs: Vital Signs: Last Vital Signs Temp 97.9 F 03/15/22 07:10 Pulse 68 03/15/22 11:27 Resp 19 03/15/22 11:27 BP 174/88 H 03/15/22 11:27 Pulse Ox 96 03/15/22 11:27 BMI result Body Mass Index 44.0 Neuro: Other: Alert and awake with normal spontaneity of speech fluency comprehension and affect. Pupils are 3-4 mm with full visual hernandez and normal extraocular muscles. Face is symmetrical. There is no focal weakness. Deep tendon reflexes were trace to absent with flexor plantars. Affect was normal. Results Labs CBC & Chem 7: 03/15/22 04:54 03/15/22 04:54 Labs: Short CBC 03/14/22 03/15/22 Range/Units 17:25 04:54 WBC 5.9 6.1 (4.8-10.8) X10*3/uL Hgb 12.9 12.4 (12.0-16.0) g/dl Hct 39.6 38.0 (37.0-47.0) % Plt Count 195 186 (160-400) X10*3/uL BMP 03/14/22 03/15/22 17:25 04:54 Sodium 141 138 Potassium 4.7 4.6 Chloride 102 104 Carbon Dioxide 31 H 24 BUN 15 16 Creatinine 0.96 0.97 Calcium 9.9 9.5 Liver Function 03/14/22 Range/Units 17:25 Total Bilirubin 0.9 (0.0-1.0) mg/dL Direct Bilirubin 0.3 (0.0-0.5) mg/dL AST 37 H (5-31) U/L ALT 31 (0-31) U/L Alkaline Phosphatase 92 (39-117) U/L Albumin 4.0 (3.5-5.0) g/dL CTA of brain and neck did not reveal any significant abnormality. Assessment and Plan (1) Headache: Status: Acute 72 years old woman who is overall history is suggestive of migraine with aura. Because of her description that she never had migraine before performing a CTA of brain and neck was reasonable to rule out aneurysm. No such lesion was noted. Otherwise I would also consider an outpatient ophthalmology evaluation to rule out any condition causing high intracranial or intraocular pressure. She should make an appointment to see Dr. Harman after an eye appointment. Procedures Date of Service Date of Service: 03/15/22
--- NOTE | 2022-03-15 13:36 | P.DS_ITS ---
DS: Providers Provider Date of Service: 03/15/22 Date of admission: 03/14/22 22:39 Primary care physician: Delonte Bishop MD Consults: 03/14/22 22:39 Consult to Neurology Routine Consulting Provider: [facility] Reason for consultation: TIA? Has provider been notified: No DS: Diagnosis Discharge Diagnosis (1) Headache: Status: Acute DS: Summary Hospital Course Hospital Course: History of presenting illness Chief Complaint: Headache 72-year-old female with past medical history of hypothyroidism, anxiety, PTSD, depression, asthma, HTN, DM, insomnia, GERD, and history of GI bleed who presents to the hospital with complaints of of severe left-sided headache as well as vision disturbances.? Patient reports that she was in the kitchen preparing dinner when all of a sudden she developed lateral visual lost in both eyes in the form of large floaters that blocked half of her vision.? she reports this lasted few minutes, the right visual field was then recovered but then she developed left-sided lateral visual loss as well as significant 10/10 throbbing left-sided headache radiating to her neck.? Patient reports that she felt like she had heavy speech, but did not have any numbness tingling or weakness in her arms or legs, no drooping of her face.? Patient reports that she tried to sleep of the pain, did not use any alleviating medications.? The next day she had an appointment with her psychiatrist, which she continued to have this severe 10/10 throbbing left-sided headache and therefore her psychiatrist advised her to call [phone] come to the hospital.? Patient reports that she since being in the hospital receiving Tylenol her pain has now resolved. Patient otherwise denies any chest pain, no palpitations, no abdominal pain, no nausea or vomiting, no diarrhea constipation, no urinary symptoms and no lower extremity edema. On arrival to the hospital patient hemodynamically stable no significant abnormal vitals except for slightly elevated BP Labs reviewed show unremarkable findings Head and neck CT angiogram shows normal CT angiogram of the head and neck, no vascular occlusion or significant stenosis, no acute intracranial process. CT angiogram of the head and neck also showed intermediate lobulated fluid attenuation lesion in the anterior mediastinum in the region of the AP window which may represent a thymic epithelial neoplasm or thymic cyst.? MRI follow-up recommended. hospital course 72-year-old female who presents to the hospital with headache, and intermittent visual loss admitted to medical floor with a diagnosis of headache, all symptoms of headache and visual loss resolved with no recurrent episodes during hospitalization patient evaluated by Dr. Fung and he felt symptoms are likely related to migraine with aura he recommend outpatient ophthalmology follow up,and also recommended follow-up with Dr. Harman , CT angiogram of head and neck showed no vascular occlusion or significant stenosis. In regard to diabetes and hypertension she has been recommended to follow diabetic diet and home medication For history of anxiety, depression and PTSD, no acute decompensation noted continue home medication morbid obesity recommended low-calorie diet and weight reduction CT angiogram of head and neck showed indeterminate lobulated fluid attenuation lesion in the anterior mediastinum in the region of the AP window which may represent a thymic epithelial neoplasm or a thymic cyst,non emergent follow-up MRI of the chest without and with contrast is recommended for further characterization informed this abnormal result to the patient and recommend follow-up with PCP for outpatient MRI Time Spent with Patient Time attestation: Total time spent providing and/or coordinating discharge services: Discharge coordination time: Greater than 30 minutes Quality: Safe Use of Opioids Does Pt have an Active Cancer Diagnosis on the Problem List?: No Quality: Stroke Does the patient have a stroke diagnosis?: No Physical Exam Vital Signs: Vital Signs: Last Vital Signs Temp 97.9 F 03/15/22 07:10 Pulse 68 03/15/22 11:27 Resp 19 03/15/22 11:27 BP 174/88 H 03/15/22 11:27 Pulse Ox 96 03/15/22 11:27 BMI result Body Mass Index 44.0 Const: Other: General awake alert in no acute distress. Neck supple no JVD. CVS regular rate rhythm, Respiratory lungs clear to auscultation, no respiratory distress, no wheeze, no rhonchi. Gastrointestinal abdomen soft, nontender, bowel sounds audible Extremities noedema. Neuro nonfocal . Skin no rash DS: Data Data Completed and Pending Labs on day of discharge: Laboratory Results - last 24 hr 03/14/22 03/14/22 03/14/22 16:05 16:46 16:59 WBC RBC Hgb Hct MCV MCH MCHC RDW Plt Count MPV Immature Gran % (Auto) Neut % (Auto) Lymph % (Auto) [place] % (Auto) Eos % (Auto) Baso % (Auto) Lymph # (Auto) [place] # (Auto) Eos # (Auto) Baso # (Auto) Abs Immat Gran (auto) Absolute Neuts (auto) Absolute Nucleated RBC Nucleated RBC % (auto) ESR PT INR Sodium Potassium Chloride Carbon Dioxide Anion Gap BUN Creatinine Estim Creat Clear Calc Estimated GFR POC Glucose 130 H 110 Random Glucose Calcium Total Bilirubin Direct Bilirubin AST ALT Alkaline Phosphatase Troponin I High Sens C-Reactive Protein Total Protein Albumin COVID-19 (TERRELL) Negative COVID-19 Clin Com See Note 03/14/22 03/14/22 03/14/22 16:59 17:25 17:25 WBC 5.9 RBC 4.28 Hgb 12.9 Hct 39.6 MCV 92.5 MCH 30.1 MCHC 32.6 RDW 13.0 Plt Count 195 MPV 9.2 L Immature Gran % (Auto) 0.3 Neut % (Auto) 60.0 Lymph % (Auto) 30.8 [place]oshone % (Auto) 7.1 Eos % (Auto) 1.3 Baso % (Auto) 0.5 Lymph # (Auto) 1.8 [place] # (Auto) 0.4 Eos # (Auto) 0.1 Baso # (Auto) 0.0 Abs Immat Gran (auto) 0.02 Absolute Neuts (auto) 3.6 Absolute Nucleated RBC 0.000 Nucleated RBC % (auto) 0.0 ESR PT 11.4 INR 1.0 Sodium 141 Potassium 4.7 Chloride 102 Carbon Dioxide 31 H Anion Gap 13 BUN 15 Creatinine 0.96 Estim Creat Clear Calc 65.4 Estimated GFR 57 POC Glucose Random Glucose 128 H Calcium 9.9 Total Bilirubin 0.9 Direct Bilirubin 0.3 AST 37 H ALT 31 Alkaline Phosphatase 92 Troponin I High Sens C-Reactive Protein Total Protein 6.7 Albumin 4.0 COVID-19 (TERRELL) COVID-19 [facility] Com 03/14/22 03/14/22 03/14/22 17:25 17:25 17:25 WBC RBC Hgb Hct MCV MCH MCHC RDW Plt Count MPV Immature Gran % (Auto) Neut % (Auto) Lymph % (Auto) [place] % (Auto) Eos % (Auto) Baso % (Auto) Lymph # (Auto) [place] # (Auto) Eos # (Auto) Baso # (Auto) Abs Immat Gran (auto) Absolute Neuts (auto) Absolute Nucleated RBC Nucleated RBC % (auto) ESR 23 H PT INR Sodium Potassium Chloride Carbon Dioxide Anion Gap BUN Creatinine Estim Creat Clear Calc Estimated GFR POC Glucose Random Glucose Calcium Total Bilirubin Direct Bilirubin AST ALT Alkaline Phosphatase Troponin I High Sens 6.9 C-Reactive Protein 0.25 Total Protein Albumin COVID-19 (TERRELL) COVID-19 Clin Com 03/15/22 03/15/22 03/15/22 04:54 04:54 07:06 WBC 6.1 RBC 4.11 L Hgb 12.4 Hct 38.0 MCV 92.5 MCH 30.2 MCHC 32.6 RDW 13.0 Plt Count 186 MPV 9.1 L Immature Gran % (Auto) 0.2 Neut % (Auto) 50.6 Lymph % (Auto) 37.9 [place] % (Auto) 8.0 Eos % (Auto) 2.8 Baso % (Auto) 0.5 Lymph # (Auto) 2.3 [place] # (Auto) 0.5 Eos # (Auto) 0.2 Baso # (Auto) 0.0 Abs Immat Gran (auto) 0.01 Absolute Neuts (auto) 3.1 Absolute Nucleated RBC 0.000 Nucleated RBC % (auto) 0.0 ESR PT INR Sodium 138 Potassium 4.6 Chloride 104 Carbon Dioxide 24 Anion Gap 15 BUN 16 Creatinine 0.97 Estim Creat Clear Calc 64.7 Estimated GFR 56 POC Glucose 138 H Random Glucose 126 H Calcium 9.5 Total Bilirubin Direct Bilirubin AST ALT Alkaline Phosphatase Troponin I High Sens C-Reactive Protein Total Protein Albumin COVID-19 (TERRELL) COVID-19 Clin Com Discharge Plan Discharge Patient Disposition: Home, Self-Care Discharge Diagnosis: migraine with aura indeterminate lobulated lesion in anterior mediastinum Referrals: Delonte Bishop MD [Primary Care Provider] - 1 Week Discharge Medications: Continued losartan 100 mg tablet 100 mg PO DAILY Qty: 90 3RF levothyroxine 100 mcg tablet 100 mcg PO QAM Qty: 90 3RF pioglitazone 45 mg tablet 45 mg PO DAILY Qty: 90 1RF montelukast 10 mg tablet 10 mg PO BEDTIME Qty: 90 4RF albuterol sulfate 90 mcg/actuation HFA aerosol inhaler 1 puff PO QID PRN (Reason: Shortness Of Breath) 0RF clonazepam 0.5 mg tablet 1 tab PO BEDTIME 0RF metformin 1,000 mg tablet 1,000 mg PO BID 90 Days Qty: 180 3RF clonazepam 0.5 mg tablet 0.75 mg PO DAILY 0RF escitalopram oxalate 10 mg tablet 10 mg PO QAM 0RF Discharge Orders: Discharge Order (Routine); Ordered 03/15/22 Ordered By: Jessica Duncan Diet: diabetic diet Activity on Discharge: As tolerated Stand Alone Forms: Patient Portal Discharge page Care Plan Goals: admitted with headache and visual loss all symptoms resolved likely migraine with aura recommend outpatient follow-up with Dr. Harman and with procurement analyst Health Concerns: diabetes mellitus/ hypertension resume all home medications as before. Plan of Treatment: call to make follow-up appointment with Dr. Lee and with Dr. Harman call to make appointment, outpatient follow-up with primary care physician to obtain non emergent MRI chest with and without contrast for further characterization indeterminate lobulated fluid attenuation lesion in the anterior mediastinum. Assessment: as per discharge summary
== END 2022-03-15 14:05 | disposition home or self-care (01) ==
LOC: HO.ED 21:58 → HO.EDOVER 22:56
PROVIDERS: Admitting Provider Internal Medicine; Emergency Provider Emergency Medicine; PCP Internal Medicine; Visit Provider Hospitalist
DX: R51.9 Headache, unspecified (principal); H54.7 Unspecified visual loss; E11.22 Type 2 diabetes mellitus with diabetic chronic kidney disease; I12.9 Hypertensive chronic kidney disease with stage 1 through stage 4 chronic kidney disease, or unspecified chronic kidney disease; N18.2 Chronic kidney disease, stage 2 (mild); E03.9 Hypothyroidism, unspecified; E78.00 Pure hypercholesterolemia, unspecified; E66.01 Morbid (severe) obesity due to excess calories; K21.9 Gastro-esophageal reflux disease without esophagitis; J98.59 Other diseases of mediastinum, not elsewhere classified; F41.8 Other specified anxiety disorders; F43.10 Post-traumatic stress disorder, unspecified; Z68.41 Body mass index [BMI] 40.0-44.9, adult; Z87.820 Personal history of traumatic brain injury; Z20.822 Contact with and (suspected) exposure to COVID-19; Z88.0 Allergy status to penicillin; Z88.8 Allergy status to other drugs, medicaments and biological substances; Z88.6 Allergy status to analgesic agent; Z91.02 Food additives allergy status; Z91.011 Allergy to milk products; Z79.84 Long term (current) use of oral hypoglycemic drugs; Z79.899 Other long term (current) drug therapy
CPT/HCPCS: 36415; 70496; 70498; 80048; 80076; 82947; 84484; 85025; 85610; 85652; 86140; 87635; 93005; 96374; 96375; 99219; 99284; 99285; Q9967

== ENCOUNTER 2023-09-06 11:41 | Outpatient (REF) | payer MEDICARE, OTHER, SELFPAY ==
[2023-09-06 12:03] LABS: MANUAL DIFF FLAG NO
[2023-09-06 12:17] LABS: Basophils Percent Auto 0.9 % (0-2); Eosinophils Absolute Auto 0.1 X10*3/uL (0.0-0.4); Eosinophils Percent Auto 2.5 % (0-4); Hematocrit 41.9 % (37.0-47.0); Hemoglobin 14.6 g/dl (12.0-16.0); Imm Gran Abs Auto 0.03 X10*3/uL (0.00-0.03); Imm Gran Pct Auto 0.7 % (0.0-0.4); Lymphocytes Absolute Auto 1.4 X10*3/uL (1.2-4.9); Lymphocytes Percent Auto 32.1 % (20-40); Mean Corpuscular HGB Conc 34.8 g/dl (31.0-35.0); Mean Corpuscular Hemoglobin 31.5 pg (27.0-33.0); Mean Corpuscular Volume 90.5 fL (80.0-98.0); Mean Platelet Volume 10.2 fL (9.4-12.3); Monocytes Absolute Auto 0.3 X10*3/uL (0.1-1.2); Monocytes Percent Auto 5.7 % (2-11); Neutrophils Absolute Auto 2.6 x10*3/uL (2.0-8.3); Neutrophils Percent Auto 58.1 % (45-73); Platelet Count 159 X10*3/uL (160-400); Red Blood Count 4.63 X10*6/uL (4.20-5.50); Red Cell Distribution Width 12.6 % (11.0-16.0); White Blood Count 4.4 X10*3/uL (4.8-10.8)
[2023-09-06 12:41] LABS: Hemoglobin A1c % > 14.0 % (<6.0)
[2023-09-06 13:17] LABS: Alanine Aminotransferase 117 U/L (0-31); Albumin Level 4.1 g/dL (3.5-5.0); Alkaline Phosphatase 310 U/L (39-117); Anion Gap 15 (12-20); Aspartate Amino Transferase 106 U/L (5-31); Bilirubin Total 1.1 mg/dL (0.0-1.0); Blood Urea Nitrogen 12 mg/dL (9-16); Calcium 9.6 mg/dL (8.4-10.2); Carbon Dioxide 26 mmol/L (22-29); Chloride 98 mmol/L (96-108); Cholesterol 179 mg/dL (<200); Estimated Glomerular Filt Rate 49; HDL Cholesterol 58 mg/dL (>40); LDL Cholesterol Calculated 71 mg/dL (<100); Potassium 4.4 mmol/L (3.3-5.1); Sodium 135 mmol/L (135-145); Total Protein 7.2 g/dL (6.5-8.0); Triglycerides 254 mg/dL (<150)
[2023-09-06 13:21] LABS: Free T4 (Free Thyroxine) 0.93 ng/dL (0.71-1.85); Thyroid Stimulating Hormone 7.74 uIU/mL (0.32-4.0); Vitamin D 25-OH Total 32.5 ng/mL (>30)
[2023-09-06 13:22] LABS: Glucose Fasting 471 mg/dL (60-99)
[2023-09-06 13:31] LABS: Folate 14.9 ng/mL (> or = 4.0); Vitamin B12 627 pg/mL (200-900)
== END 2023-09-06 11:42 | disposition home or self-care (01) ==
LOC: HO.LAB 11:41
PROVIDERS: PCP Internal Medicine; Visit Provider Internal Medicine
DX: E55.9 Vitamin D deficiency, unspecified (principal); E53.8 Deficiency of other specified B group vitamins; E03.9 Hypothyroidism, unspecified; E78.00 Pure hypercholesterolemia, unspecified; I10 Essential (primary) hypertension; E11.9 Type 2 diabetes mellitus without complications
CPT/HCPCS: 36415; 80053; 80061; 82306; 82607; 82746; 83036; 84439; 84443; 85025

== ENCOUNTER 2023-09-07 13:39 | Outpatient (REF) | payer MEDICARE, OTHER, SELFPAY ==
[2023-09-07 13:45] LABS: Appearance Urine Clear; Color Urine Yellow; Glucose Urine UA >=1000 mg/dL (Negative); Leukocyte Esterase Urine Negative (Negative); Nitrite Urine Negative (Negative); PH 5.5 (5.0-9.0); Specific Gravity - Urine 1.025 (1.005-1.025); UMIC TRIGGER UACC YES; Urine Blood Negative (Negative); Urine Ketones Negative (Negative); Urine Protein Negative (Neg-Trace)
[2023-09-07 13:53] LABS: Bacteria Urine None Seen (None Seen); Hyaline Casts Urine 0-2 /LPF (0-2); RBC Urine 0-2 /HPF (0-2); Squamous Epithelial Cell Urine 0-2 /HPF (0-2); WBC Urine 0-5 /HPF (0-5)
[2023-09-07 14:21] LABS: Creatinine Urine 19.68 mg/dL; Microalbum/Creatinine Ratio Ur 30.4 ug/mg cr (<30)
== END 2023-09-07 13:40 | disposition home or self-care (01) ==
LOC: HO.LNP 13:39
PROVIDERS: Visit Provider Internal Medicine
DX: E11.9 Type 2 diabetes mellitus without complications (principal)
CPT/HCPCS: 81001; 82043; 82570

== ENCOUNTER 2023-12-14 14:34 | Outpatient (AMB) | payer MEDICARE, OTHER, SELFPAY ==
--- NOTE | 2023-12-14 14:35 | A.OFFPC_ITS ---
Vital Signs 12/14/23 14:36 Height 5 ft 4 in Weight 198 lb 6 oz BMI 34.0 BP 132/82 Blood Pressure Location Lt brachial Position Sitting Pulse 80 Pulse Source Pulse Oximeter Pulse Oximetry (%) 96 Oxygen Delivery Method Room Air Intake Visit Reasons: DM, Medication f/u, rescheduled from 09/21 Assistant Import Manager Required: No Accompanied by: Self / Same As Patient Allergies adhesive tape [ADHESIVE TAPE] Allergy (Mild, Verified 12/14/23 15:02) RASH Cephalosporins [CEPHALOSPORINS] Allergy (Unknown, Verified 12/14/23 15:02) ANAPHYLAXIS gluten Allergy (Unknown, Verified 12/14/23 15:02) Unknown ketorolac Allergy (Unknown, Verified 12/14/23 15:02) hives lactase [From Dairy Aid] Allergy (Unknown, Verified 12/14/23 15:02) Unknown Penicillins [PENICILLINS] Allergy (Unknown, Verified 12/14/23 15:02) SWELLING Opioids - Morphine Analogues [OPIOIDS - MORPHINE ANALOGUES] Adverse Reaction (Severe, Verified 12/14/23 15:02) VERY SICK, DIZZY, VOMITING Medication List - Last Reconciled 12/16/23 by Delonte Bishop MD albuterol sulfate 90 mcg/actuation 1 puff PO QID PRN clonazepam 0.5 mg PO BEDTIME escitalopram oxalate 10 mg PO QAM levothyroxine 100 mcg PO QAM losartan 100 mg PO DAILY metformin 1,000 mg PO BID 90 days montelukast 10 mg PO BEDTIME pioglitazone 45 mg PO DAILY Tobacco use date assessed: 12/14/23 Fall risk assessment: No Falls in past year Dental Screening Dental Screen Date: 12/14/23 Did you have a dental visit in the last 12 months?: No Did you have a dental problem in the last 6 months where you did not have access to dental care?: No Was dental information given to patient?: No HPI DM, Medication f/u, rescheduled from 09/21 HPI Details Patient comes in today for her follow up visit - she has not been back since February 2022 Patient states that she currently feels okay States that sometime back in 2021 a couple of months after her last visit, she fell and could not move because of her injuries States that she was laid up in bed for about 10 months due to her left leg/knee (hamstring?) injury but did not consider getting medically checked out and did not go for any physical therapy and decided to just give her injuries time to heal on their own States that she aggravated her injury after she recovered when she fell from her bed and got laid up for another 6 months Adds that she also took herself off Metformin over a year ago sometime when she was recovering from her injuries as she felt like they were making her gain weight and was bothering her stomach States that she has lost a lot of weight since she was last here and feels that her blood sugar should be much better controlled by this time She denies any headaches or dizziness Denies any chest pains, no shortness of breath No nausea /vomiting, no abdominal pain No change in bowel habits noted Patient had her las follow up labs done back on 09/03/23 - to discuss her results [facility] Medical History (Updated 12/16/23 @ 23:05 by Delonte Bishop MD) Obesity (BMI 30-39.9) Morbid obesity with BMI of 40.0-44.9, adult Insomnia Arthralgia Morbid obesity with BMI of 45.0-49.9, adult Depression Anxiety GERD without esophagitis Acquired hypothyroidism Gastrointestinal hemorrhage Anemia due to acute blood loss Asthma Chronic kidney disease (CKD), stage II (mild) Diabetes mellitus Pure hypercholesterolemia Benign essential hypertension Surgical History History of colonoscopy H/O wrist surgery History of colectomy History of D&C History of tonsillectomy Family History Father No problems noted. Mother No problems noted. Other Substance abuse Social History Housing: House Alcohol intake: never Patient Tobacco Use Status: Never used Tobacco e-Cigarette/Vaping Use: Never Used Second Hand Smoke Exposure: No service: No Current occupational status: retired Cognitive needs: No Hearing needs: No Vision needs: Yes Questionnaire PHQ-9 Over the last 2 weeks, how often have you been bothered by any of the following problems? 1. Little interest or pleasure in doing things: not at all 2. Feeling down, depressed, or hopeless: not at all 3. Trouble falling or staying asleep, or sleeping too much: not at all 4. Feeling tired or having little energy: not at all 5. Poor appetite or overeating: not at all 6. Feeling bad about yourself - or that you are a failure or have let yourself or your family down: not at all 7. Trouble concentrating on things, such as reading the newspaper or watching television: not at all 8. Moving or speaking so slowly that other people could have noticed. Or the opposite - being so fidgety or restless that you have been moving around a lot more than usual: not at all 9. Thoughts that you would be better off or of hurting yourself in some way: not at all Total score: 0 Depression Screening Interpretation: Negative Depression Screening Done: Yes 32313 - PHQ-9 Billing: Yes Source: Developed by Drs. Tim Mendoza, Carole Israel, Jose Cruz Gonzales and colleagues, with an educational hugh from [employer]. Thrive Questionnaire Date Thrive assessed: 12/14/23 I am a: Patient What is your living situation today?: I have a steady place to live Within the past 12 months, did the food you bought not last and you didn't have the money to get more?: Never true Within the past 12 months, did you worry whether your food would run out before you got money to buy more?: Never true Do you have trouble paying for medicines?: No Do you have trouble getting transportation to medical appointments?: No Do you have trouble paying your heating and electricity bill?: No Do you have trouble taking care of your child, family member or friend?: No Do you have trouble with day-to-day activities such as bathing, preparing meals, shopping, managing finances, etc.?: No Are you currently unemployed and looking for a job?: No Are you interested in more education?: No Please select the resources that you would like help with: None Currently or been in a relationship where the following occur: no concerns reported THRIVE Score: 0 AUDIT C Alcohol Use Questionnaire (AUDIT-C) 1. How often do you have a drink containing alcohol?: Never 3. How often do you have six or more drinks on one occasion?: Never Total Score: 0 Score Reviewed/Action Taken: Yes ISIDRA-7 AMB Questionnaire ISIDRA-7 Date ISIDRA - 7 assessed: 12/14/23 Feeling nervous, anxious, or on edge: 0 = Not at all Not being able to stop or control worryin = Not at all Worrying too much about different things: 0 = Not at all Trouble relaxin = Not at all Being so restless that it is hard to sit still: 0 = Not at all Becoming easily annoyed or irritable: 0 = Not at all Feeling afraid as if something awful might happen: 0 = Not at all Total ISIDRA-7 score (0-4 normal; 5-9 mild; 10-14 moderate; 15-21 severe): 0 Source: Developed by Drs. Tim Mendoza, Carole Israel, Jose Cruz Gonzales and colleagues, with an educational hugh from [employer]. Review of Systems Const Denies chills, Reports fatigue, Denies fever(s) and Denies headache(s) ENT Denies dysphagia, Denies dizziness, Denies otalgia, Denies headache(s), Denies odynophagia, Denies sinus pain and Denies sore throat Card Denies chest pain, Denies palpitations and Denies dyspnea Resp Denies cough and Denies dyspnea GI Denies abdominal pain, Denies constipation, Denies dysphagia, Denies heartburn, Denies diarrhea, Denies nausea, Denies odynophagia and Denies vomiting Denies difficulty voiding, Denies nocturia and Denies dysuria Musc Reports back pain, Reports arthralgias (recurrent, over multiple joint) and Reports muscle cramps (in both legs - on and off at night lately) Skin/Breast Denies rash Neuro Denies dizziness and Denies headache(s) Endo Reports fatigue and Denies palpitations Physical exam (Primary Care) Vital Signs: Last Vital Signs Pulse 80 12/14/23 14:36 BP 132/82 12/14/23 14:36 Pulse Ox 96 12/14/23 14:36 Oxygen Delivery Method Room Air 12/14/23 14:36 BMI result Body Mass Index 34.0 Tobacco/Smoking Status: Tobacco use Status Tobacco use date assessed 12/14/23 12/14/23 14:37 Patient Tobacco Use Status Never used Tobacco 12/14/23 14:37 e-Cigarette/Vaping Use Never Used 02/02/24 14:37 PHQ-9: PHQ-9 Score PHQ-9: Total score 0 12/14/23 15:04 Depression Screening Interpretation: Negative Thrive Assessment: Date of Thrive Assessment Date Thrive assessed 12/14/23 12/14/23 14:37 Currently or been in a relationship where the following occur: no concerns reported Const General: no acute distress and alert HENMT Ears: TM's normal bilaterally and EAC's normal Throat: Yes posterior oropharynx normal and Yes tonsils normal (no TP congestion noted) Neck Neck: Yes no lymphadenopathy and Yes supple Thyroid: Thyroid normal Resp Auscultation: clear to auscultation bilaterally, no rales and no wheezes Cardio Rate: regular rate Rhythm: regular rhythm Heart sounds: no murmurs GI Palpation (GI): Soft to palpation and nontender Auscultation: normal bowel sounds General: Yes no CVA tenderness Back/Spine/Pelvis Back: no CVA tenderness Skin Rashes: no rashes Extrem General: Yes no clubbing, cyanosis or edema Results AMB Hemoglobin A1c AMB Hemoglobin A1c 14.0 % Last Edit by Ramon Abreu on 12/14/23 14:50 Results Reviewed Results Reviewed: Laboratory Last Values Hgb A1c (Clinic) 14.0 % (4.0-6.0) H 12/14/23 14:50 Laboratory Tests 09/06/23 09/06/23 09/06/23 12:01 12:01 12:01 WBC 4.4 L Hgb 14.6 Hct 41.9 Plt Count 159 L Sodium 135 Potassium 4.4 Creatinine 1.09 Estimated GFR 49 Fasting Glucose 471 H* Hgb A1c (Clinic) Hemoglobin A1c % > 14.0 H Calcium 9.6 AST 106 H ALT 117 H Triglycerides 254 H Cholesterol 179 LDL Cholesterol, Calc 71 HDL Cholesterol 58 Vitamin B12 627 25-OH Vitamin D Total 32.5 TSH 7.74 H Free T4 0.93 Ur Specific [place] Urine Protein Urine Glucose (UA) Urine Blood Urine Nitrite Ur Leukocyte Esterase Microalb/Creat Ratio 09/07/23 09/07/23 12/14/23 07:58 07:58 14:50 WBC Hgb Hct Plt Count Sodium Potassium Creatinine Estimated GFR Fasting Glucose Hgb A1c (Clinic) 14.0 H Hemoglobin A1c % Calcium AST ALT Triglycerides Cholesterol LDL Cholesterol, Calc HDL Cholesterol Vitamin B12 25-OH Vitamin D Total TSH Free T4 Ur Specific [place] 1.025 Urine Protein Negative Urine Glucose (UA) >=1000 H Urine Blood Negative Urine Nitrite Negative Ur Leukocyte Esterase Negative Microalb/Creat Ratio 30.4 H Assessment and Plan Assessment & Plan (1) Diabetes mellitus: Code(s): E11.9 - Type 2 diabetes mellitus without complications Qualifiers: Diabetes mellitus type: type 2 Diabetes mellitus manager terminal insulin use: without retirement use Diabetes mellitus complication status: with kidney complications Diabetes mellitus complication detail: with chronic kidney disease Chronic kidney disease stage: stage 2 (mild) Qualified Code(s): E11.22 - Type 2 diabetes mellitus with diabetic chronic kidney disease; N18.2 - Chronic kidney disease, stage 2 (mild) Plan: Both her in-office HgbA1c done today and her HgbA1c done back in August 2023 were both at 14.0% - goal is at least <7.0% Reinforced diabetic diet Patient was on Metformin 1000 mg BID and Pioglitazone 45 mg QD in the past but she self-discontinued the medications over a year ago and is hoping that with diet and her weight loss, her diabetes would remain under control with just diet modification alone but have advised her that based on her HgbA1c at this time, diet modification alone is not possible and that he should be on some medications for her diabetes Will have her go get some follow-up labs done first and we will then determine what medications to more appropriately put her on for her diabetes (2) Benign essential hypertension: Code(s): I10 - Essential (primary) hypertension Plan: Reinforced low sodium diet - goal is systolic BP of at least 130 to 140 mm Continue Losartan 100 mg QD (3) Chronic kidney disease (CKD), stage II (mild): Code(s): N18.2 - Chronic kidney disease, stage 2 (mild) Plan: Stable - will continue to monitor GFR and renal function (4) Pure hypercholesterolemia: Code(s): E78.00 - Pure hypercholesterolemia, unspecified Plan: Results of her labs done back in August 2023 reviewed and discussed with patient Reinforced low cholesterol diet Will recheck her labs DAVID for follow up (5) Elevated LFTs: Code(s): R79.89 - Other specified abnormal findings of blood chemistry Plan: Patient's LFTs were significantly elevated on his labs done back in August 2023, with his AST and ALT both at over 100 U/L Will have patient recheck her labs and LFTs DAVID for follow up Will also add a few additional workups to evaluate her elevated ALTs further (6) Acquired hypothyroidism: Code(s): E03.9 - Hypothyroidism, unspecified Plan: Patient is clinically euthyroid; TFTs are normal on her labs back in August 2023 Continue Levothyroxine at 100 mcg QD (7) Asthma: Code(s): J45.909 - Unspecified asthma, uncomplicated Qualifiers: Asthma severity: mild Asthma persistence: intermittent Asthma complication type: uncomplicated Qualified Code(s): J45.20 - Mild intermittent asthma, uncomplicated Plan: Continue Montelukast 10 mg QD and Ventolin HFA 2 puffs QID PRN (8) GERD without esophagitis: Code(s): K21.9 - Gastro-esophageal reflux disease without esophagitis Plan: Dietary restrictions reinforced Continue Prilosec OTC 20 mg daily (9) Insomnia: Code(s): G47.00 - Insomnia, unspecified Qualifiers: Insomnia type: unspecified Qualified Code(s): G47.00 - Insomnia, unspecified Plan: Sleep hygiene reinforced (10) Anxiety: Code(s): F41.9 - Anxiety disorder, unspecified Plan: Continue Clonazepam 0.5 mg 1 tablet Q HS (11) Depression: Code(s): F32.9 - Major depressive disorder, single episode, unspecified Qualifiers: Depression Type: major depressive disorder Major depression recurrence: recurrent Active/Remission status: currently active Major depression episode severity: unspecified Qualified Code(s): F33.9 - Major depressive disorder, recurrent, unspecified Plan: Continue Lexapro 10 mg QD Follow-up with Psychiatry (Dr. Han)? as scheduled (12) Obesity (BMI 30-39.9): Code(s): E66.9 - Obesity, unspecified Plan: Reinforced diet; exercise is unrealistic given patient's physical issues and comorbidities although she has lost a lot of weight since she was last here in 2021 Plan Follow up in 2 months Orders: Orders AMB Hemoglobin A1c 12/14/23 Z13.9 - Encounter for screening, unspecified Comprehensive [place]. Panel Fast 12/14/23 E78.00 - Pure hypercholesterolemia, unspecified Complete Blood Count Auto Diff 12/14/23 D64.9 - Anemia, unspecified Microalbumin, Random (w Creat) 12/14/23 E11.9 - Type 2 diabetes mellitus without complications Lipid Panel 12/14/23 E78.00 - Pure hypercholesterolemia, unspecified Free T4 (Free Thyroxine) 12/14/23 E03.9 - Hypothyroidism, unspecified Thyroid Stimulating Hormone 12/14/23 E03.9 - Hypothyroidism, unspecified Vitamin D 25-OH Total 12/14/23 E55.9 - Vitamin D deficiency, unspecified UA CC w/rflx Micro + Cult 12/14/23 R30.0 - Dysuria Gamma Glutamyl Transpeptidase 12/14/23 R79.89 - Other specified abnormal findings of blood chemistry Hepatitis A,B,C Profile 12/14/23 R79.89 - Other specified abnormal findings of blood chemistry Coding Level of Care Code Est Pt Level 4 (91817) Diagnoses Type 2 diabetes mellitus with stage 2 chronic kidney disease, without long-term current use of insulin E11.22; N18.2 Diabetes mellitus type: type 2 Diabetes mellitus retirement insulin use: without manager terminal use Diabetes mellitus complication status: with kidney complications Diabetes mellitus complication detail: with chronic kidney disease Chronic kidney disease stage: stage 2 (mild) Benign essential hypertension I10 Chronic kidney disease (CKD), stage II (mild) N18.2 Pure hypercholesterolemia E78.00 Elevated LFTs R79.89 Acquired hypothyroidism E03.9 Mild intermittent asthma without complication J45.20 Asthma severity: mild Asthma persistence: intermittent Asthma complication type: uncomplicated GERD without esophagitis K21.9 Insomnia, unspecified type G47.00 Insomnia type: unspecified Anxiety F41.9 Episode of recurrent major depressive disorder, unspecified depression episode severity F33.9 Depression Type: major depressive disorder Major depression recurrence: recurrent Active/Remission status: currently active Major depression episode severity: unspecified Obesity (BMI 30-39.9) E66.9
[2023-12-14 14:36] VITALS: BP 132/82; PULSE 80; O2SAT 96; BMI 34.0
== END 2023-12-14 15:26 | disposition home or self-care (01) ==
PROVIDERS: PCP Internal Medicine; Visit Provider Internal Medicine
DX: I12.9 Hypertensive chronic kidney disease with stage 1 through stage 4 chronic kidney disease, or unspecified chronic kidney disease (principal); E11.22 Type 2 diabetes mellitus with diabetic chronic kidney disease; F33.9 Major depressive disorder, recurrent, unspecified; N18.2 Chronic kidney disease, stage 2 (mild); E78.00 Pure hypercholesterolemia, unspecified; R79.89 Other specified abnormal findings of blood chemistry; E03.9 Hypothyroidism, unspecified; J45.20 Mild intermittent asthma, uncomplicated; K21.9 Gastro-esophageal reflux disease without esophagitis; G47.00 Insomnia, unspecified; F41.9 Anxiety disorder, unspecified; E66.9 Obesity, unspecified
CPT/HCPCS: 83036; 99214

== ENCOUNTER 2023-12-18 11:04 | Outpatient (REF) | payer MEDICARE, OTHER, SELFPAY ==
[2023-12-18 11:55] LABS: Basophils Percent Auto 1.1 % (0-2); Eosinophils Percent Auto 1.1 % (0-4); Hemoglobin 14.3 g/dl (12.0-16.0); Imm Gran Abs Auto 0.01 X10*3/uL (0.00-0.03); Imm Gran Pct Auto 0.3 % (0.0-0.4); Lymphocytes Absolute Auto 1.5 X10*3/uL (1.2-4.9); Lymphocytes Percent Auto 38.7 % (20-40); MANUAL DIFF FLAG NO; Mean Corpuscular HGB Conc 34.9 g/dl (31.0-35.0); Mean Corpuscular Hemoglobin 31.3 pg (27.0-33.0); Mean Corpuscular Volume 89.7 fL (80.0-98.0); Monocytes Absolute Auto 0.2 X10*3/uL (0.1-1.2); Monocytes Percent Auto 6.4 % (2-11); Neutrophils Percent Auto 52.4 % (45-73); Platelet Count 145 X10*3/uL (160-400); Red Blood Count 4.57 X10*6/uL (4.20-5.50); Red Cell Distribution Width 12.8 % (11.0-16.0); White Blood Count 3.8 X10*3/uL (4.8-10.8)
[2023-12-18 14:13] LABS: Alanine Aminotransferase 49 U/L (0-31); Albumin Level 3.9 g/dL (3.5-5.0); Alkaline Phosphatase 256 U/L (39-117); Anion Gap 15 (12-20); Aspartate Amino Transferase 49 U/L (5-31); Bilirubin Total 0.9 mg/dL (0.0-1.0); Blood Urea Nitrogen 12 mg/dL (9-16); Calcium 9.1 mg/dL (8.4-10.2); Carbon Dioxide 28 mmol/L (22-29); Chloride 96 mmol/L (96-108); Cholesterol 190 mg/dL (<200); Estimated Glomerular Filt Rate 52; Free T4 (Free Thyroxine) 1.05 ng/dL (0.71-1.85); Gamma Glutamyl Transpeptidase 1119 U/L (7-33); HDL Cholesterol 59 mg/dL (>40); LDL Cholesterol Calculated 87 mg/dL (<100); Potassium 4.1 mmol/L (3.3-5.1); Sodium 135 mmol/L (135-145); Thyroid Stimulating Hormone 8.71 uIU/mL (0.32-4.0); Total Protein 6.8 g/dL (6.5-8.0); Triglycerides 221 mg/dL (<150)
[2023-12-18 14:25] LABS: Glucose Fasting 415 mg/dL (60-99)
[2023-12-19 07:35] LABS: HBS Num1 72.57 mIU/mL (0-7.99); HBc Num1 2.56 S/CO (0.00-0.79); HBsAGNum1 0.44 S/CO (0.00-0.99); Hepatitis A Antibody IgM 0.24 Index (0-0.79); Hepatitis B Surface Antigen Negative (Negative); ~HepC Num1 0.05 S/CO (0.00-0.79); ~Hepatitis A Antibody IgM Nonreactive (Nonreactive); ~Hepatitis B Surface Antibody REACTIVE (Nonreactive); ~Hepatitis C Antibody Nonreactive (Nonreactive)
[2023-12-19 09:32] LABS: HBc Num2 2.55 S/CO; HBc Num3 2.34 S/CO; Hepatitis B Core Antibody Reactive (Nonreactive)
== END 2023-12-18 11:05 | disposition home or self-care (01) ==
LOC: HO.LAB 11:04
PROVIDERS: PCP Internal Medicine; Visit Provider Internal Medicine
DX: E78.00 Pure hypercholesterolemia, unspecified (principal); D64.9 Anemia, unspecified; E03.9 Hypothyroidism, unspecified; E55.9 Vitamin D deficiency, unspecified; R79.89 Other specified abnormal findings of blood chemistry
CPT/HCPCS: 36415; 80053; 80061; 82306; 82977; 84439; 84443; 85025; 86704; 86706; 86709; 86803; 87340

== ENCOUNTER 2023-12-19 15:02 | Outpatient (REF) | payer MEDICARE, OTHER, SELFPAY ==
[2023-12-19 15:32] LABS: Appearance Urine Clear; Color Urine Yellow; Glucose Urine UA >=1000 mg/dL (Negative); Leukocyte Esterase Urine Negative (Negative); Nitrite Urine Negative (Negative); PH 6.5 (5.0-9.0); UMIC TRIGGER UACC YES; Urine Blood Negative (Negative); Urine Ketones Trace mg/dL (Negative); Urine Protein Negative (Neg-Trace)
[2023-12-19 15:43] LABS: Bacteria Urine None Seen (None Seen); Hyaline Casts Urine 0-2 /LPF (0-2); RBC Urine 0-2 /HPF (0-2); Squamous Epithelial Cell Urine 0-2 /HPF (0-2); WBC Urine 0-5 /HPF (0-5)
[2023-12-19 15:48] LABS: Creatinine Urine 42.53 mg/dL
== END 2023-12-19 15:03 | disposition home or self-care (01) ==
LOC: HO.LNP 15:02
PROVIDERS: Visit Provider Internal Medicine
DX: E11.9 Type 2 diabetes mellitus without complications (principal)
CPT/HCPCS: 81001; 82043; 82570

== ENCOUNTER 2024-02-07 12:02 | Outpatient (REF) | payer MEDICARE, OTHER, SELFPAY ==
[2024-02-07 12:24] LABS: MANUAL DIFF FLAG NO
[2024-02-07 13:52] LABS: Appearance Urine Clear; Color Urine Yellow; Glucose Urine UA >=1000 mg/dL (Negative); Leukocyte Esterase Urine Negative (Negative); Nitrite Urine Negative (Negative); UMIC TRIGGER UACC YES; Urine Blood Negative (Negative); Urine Ketones Negative (Negative); Urine Protein Negative (Neg-Trace)
[2024-02-07 13:56] LABS: Bacteria Urine None Seen (None Seen); Hyaline Casts Urine 0-2 /LPF (0-2); RBC Urine 0-2 /HPF (0-2); Squamous Epithelial Cell Urine 0-2 /HPF (0-2); WBC Urine 0-5 /HPF (0-5)
[2024-02-07 13:57] LABS: Estimated Average Glucose 306 mg/dL; Hemoglobin A1c % 12.3 % (<6.0)
[2024-02-07 14:01] LABS: Basophils Percent Auto 0.8 % (0-2); Eosinophils Absolute Auto 0.1 X10*3/uL (0.0-0.4); Eosinophils Percent Auto 1.3 % (0-4); Hematocrit 43.1 % (37.0-47.0); Imm Gran Abs Auto 0.01 X10*3/uL (0.00-0.03); Imm Gran Pct Auto 0.3 % (0.0-0.4); Lymphocytes Absolute Auto 1.3 X10*3/uL (1.2-4.9); Lymphocytes Percent Auto 32.8 % (20-40); Mean Corpuscular HGB Conc 34.8 g/dl (31.0-35.0); Mean Corpuscular Hemoglobin 31.1 pg (27.0-33.0); Mean Corpuscular Volume 89.2 fL (80.0-98.0); Mean Platelet Volume 10.4 fL (9.4-12.3); Monocytes Absolute Auto 0.3 X10*3/uL (0.1-1.2); Monocytes Percent Auto 6.4 % (2-11); Neutrophils Absolute Auto 2.3 x10*3/uL (2.0-8.3); Neutrophils Percent Auto 58.4 % (45-73); Platelet Count 152 X10*3/uL (160-400); Red Blood Count 4.83 X10*6/uL (4.20-5.50); Red Cell Distribution Width 12.5 % (11.0-16.0); White Blood Count 3.9 X10*3/uL (4.8-10.8)
[2024-02-07 14:36] LABS: Creatinine Urine 77.03 mg/dL
[2024-02-07 14:37] LABS: Alanine Aminotransferase 44 U/L (0-31); Albumin Level 4.4 g/dL (3.5-5.0); Alkaline Phosphatase 207 U/L (39-117); Anion Gap 17 (12-20); Aspartate Amino Transferase 50 U/L (5-31); Blood Urea Nitrogen 12 mg/dL (9-16); Calcium 10.6 mg/dL (8.4-10.2); Carbon Dioxide 29 mmol/L (22-29); Chloride 97 mmol/L (96-108); Cholesterol 204 mg/dL (<200); Estimated Glomerular Filt Rate > 60; HDL Cholesterol 58 mg/dL (>40); LDL Cholesterol Calculated 101 mg/dL (<100); Potassium 4.4 mmol/L (3.3-5.1); Sodium 139 mmol/L (135-145); Total Protein 7.6 g/dL (6.5-8.0); Triglycerides 225 mg/dL (<150)
[2024-02-07 14:40] LABS: Glucose Fasting 358 mg/dL (60-99)
[2024-02-07 14:52] LABS: Free T4 (Free Thyroxine) 1.03 ng/dL (0.71-1.85); Thyroid Stimulating Hormone 7.85 uIU/mL (0.32-4.0); Vitamin D 25-OH Total 35.7 ng/mL (>30)
== END 2024-02-07 12:03 | disposition home or self-care (01) ==
LOC: HO.LAB 12:02
PROVIDERS: PCP Internal Medicine; Visit Provider Internal Medicine
DX: E78.00 Pure hypercholesterolemia, unspecified (principal); D64.9 Anemia, unspecified; E03.9 Hypothyroidism, unspecified; E55.9 Vitamin D deficiency, unspecified; E11.9 Type 2 diabetes mellitus without complications; R30.0 Dysuria
CPT/HCPCS: 36415; 80053; 80061; 81001; 82043; 82306; 82570; 83036; 84439; 84443; 85025

== ENCOUNTER 2024-02-12 14:43 | Outpatient (AMB) | payer MEDICARE, OTHER, SELFPAY ==
--- NOTE | 2024-02-12 15:00 | MHC.PC.OV ---
Vital Signs 02/12/24 15:02 Height 5 ft 4 in Weight 194 lb 4 oz BMI 33.3 BP 122/74 Blood Pressure Location Lt brachial Position Sitting Pulse 78 Pulse Source Pulse Oximeter Pulse Oximetry (%) 97 Oxygen Delivery Method Room Air Intake Visit Reasons: 2mth f/u Intake Note: Patient is here to follow up on DM, GERD, CKD, HTN. 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: Not Required per policy Accompanied by: Self / Same As Patient Allergies adhesive tape [ADHESIVE TAPE] Allergy (Mild, Verified 05/16/24 12:35) RASH Cephalosporins [CEPHALOSPORINS] Allergy (Unknown, Verified 05/16/24 12:35) ANAPHYLAXIS gluten Allergy (Unknown, Verified 05/16/24 12:35) Unknown ketorolac Allergy (Unknown, Verified 05/16/24 12:35) hives lactase [From Dairy Aid] Allergy (Unknown, Verified 05/16/24 12:35) Unknown Penicillins [PENICILLINS] Allergy (Unknown, Verified 05/16/24 12:35) SWELLING Opioids - Morphine Analogues [OPIOIDS - MORPHINE ANALOGUES] Adverse Reaction (Severe, Verified 05/16/24 12:35) VERY SICK, DIZZY, VOMITING Medication List - Last Reconciled 05/16/24 by Delonte Bishop MD albuterol sulfate 90 mcg/actuation 1 puff PO QID PRN clonazepam 0.5 mg PO BEDTIME escitalopram oxalate 10 mg PO QAM ezetimibe 10 mg PO DAILY 90 days levofloxacin 500 mg PO DAILY 10 days levothyroxine 100 mcg PO QAM losartan 100 mg PO DAILY metformin ER 500 mg PO DAILY 90 days metronidazole 500 mg PO TID montelukast 10 mg PO BEDTIME primidone 50 mg PO DAILY sitagliptin phosphate (Januvia) 100 mg PO DAILY Tobacco use date assessed: 02/12/24 Dental Screening Dental Screen Date: 12/14/23 HPI 2mth f/u HPI Details Patient comes in today for her follow up visit States that she feels okay Has been experiencing increased pain of her right small (5th) finger lately Relates that she recently fell and must have injured her finger during the fall Relates also (+) mild swelling of the finger recently She denies any headaches or dizziness Denies any chest pains, no SOB No nausea/vomiting, no abdominal pain No change in bowel habits noted She had her follow up labs done a few days ago - to discuss her results [facility] Medical History Obesity (BMI 30-39.9) Morbid obesity with BMI of 40.0-44.9, adult Insomnia Arthralgia Morbid obesity with BMI of 45.0-49.9, adult Depression Anxiety GERD without esophagitis Acquired hypothyroidism Gastrointestinal hemorrhage Anemia due to acute blood loss Asthma Chronic kidney disease (CKD), stage II (mild) Diabetes mellitus Pure hypercholesterolemia Benign essential hypertension Surgical History History of colonoscopy (~07/2019) H/O wrist surgery History of colectomy History of D&C History of tonsillectomy Family History Father No problems noted. Mother No problems noted. Other Substance abuse Social History Housing: House Alcohol intake: never Patient Tobacco Use Status: Never used Tobacco e-Cigarette/Vaping Use: Never Used Second Hand Smoke Exposure: No service: No Current occupational status: retired Cognitive needs: No Hearing needs: No Vision needs: Yes Questionnaire Thrive Questionnaire Date Thrive assessed: 12/14/23 ISIDRA-7 AMB Questionnaire ISIDRA-7 Date ISIDRA - 7 assessed: 12/14/23 Source: Developed by Drs. Tim Mendoza, Carole Israel, Jose Cruz Gonzales and colleagues, with an educational hugh from [employer]. Review of Systems Const Denies chills, Reports fatigue, Denies fever(s) and Denies headache(s) ENT Denies dysphagia, Denies dizziness, Denies otalgia, Denies headache(s), Denies neck pain, Denies odynophagia, Denies sinus pain and Denies sore throat Card Denies chest pain, Denies palpitations and Denies dyspnea Resp Denies cough and Denies dyspnea GI Denies abdominal pain, Denies constipation, Denies dysphagia, Denies heartburn, Denies diarrhea, Denies nausea, Denies odynophagia and Denies vomiting Denies difficulty voiding, Denies nocturia, Denies dysuria and Denies urinary urgency Musc Details: (+) some pain and swelling of the right 5th finger - see HPI Reports back pain, Reports arthralgias (recurrent, over multiple joint), Reports muscle cramps (in both legs - on and off at night ) and Denies neck pain Skin/Breast Denies rash Neuro Denies dizziness and Denies headache(s) Endo Reports fatigue and Denies palpitations Physical exam (Primary Care) Vital Signs: Last Vital Signs Pulse 78 02/12/24 15:02 BP 122/74 02/12/24 15:02 Pulse Ox 97 02/12/24 15:02 Oxygen Delivery Method Room Air 02/12/24 15:02 BMI result Body Mass Index 33.3 Tobacco/Smoking Status: Tobacco use Status Tobacco use date assessed 02/12/24 02/12/24 15:07 Patient Tobacco Use Status Never used Tobacco 02/12/24 15:07 e-Cigarette/Vaping Use Never Used 02/12/24 15:07 Thrive Assessment: Date of Thrive Assessment Date Thrive assessed 12/14/23 02/12/24 15:07 Const General: no acute distress and alert HENMT Ears: TM's normal bilaterally and EAC's normal Throat: Yes posterior oropharynx normal and Yes tonsils normal (no TP congestion noted) Neck Neck: Yes no lymphadenopathy and Yes supple Thyroid: Thyroid normal Resp Auscultation: clear to auscultation bilaterally, no rales and no wheezes Cardio Rate: regular rate Rhythm: regular rhythm Heart sounds: no murmurs GI Palpation (GI): Soft to palpation and nontender Auscultation: normal bowel sounds General: Yes no CVA tenderness Back/Spine/Pelvis Back: no CVA tenderness Skin Rashes: no rashes Extrem General: Yes no clubbing, cyanosis or edema Right upper extremity: Extremity exam: right hand Details: tenderness Location: of the 5th digit Location: involving the entire digit and swelling Location: of the 5th digit (mild) Location: involving the entire digit Results Reviewed Results Reviewed: Laboratory Tests 12/18/23 02/07/24 02/07/24 Unknown 12:23 12:23 WBC 3.9 L Hgb 15.0 Hct 43.1 Plt Count 152 L Sodium 139 Potassium 4.4 Creatinine 0.91 Estimated GFR > 60 Fasting Glucose 358 H* Hemoglobin A1c % 12.3 H Calcium 10.6 H D GGT 1119 H AST 50 H ALT 44 H Alkaline Phosphatase 207 H Triglycerides 225 H Cholesterol 204 H LDL Cholesterol, Calc 101 H HDL Cholesterol 58 25-OH Vitamin D Total 35.7 TSH 7.85 H Free T4 1.03 Ur Specific [place] Urine Protein Urine Glucose (UA) Urine Blood Urine Nitrite Ur Leukocyte Esterase Microalb/Creat Ratio 02/07/24 12:59 WBC Hgb Hct Plt Count Sodium Potassium Creatinine Estimated GFR Fasting Glucose Hemoglobin A1c % Calcium GGT AST ALT Alkaline Phosphatase Triglycerides Cholesterol LDL Cholesterol, Calc HDL Cholesterol 25-OH Vitamin D Total TSH Free T4 Ur Specific [place] 1.020 Urine Protein Negative Urine Glucose (UA) >=1000 H Urine Blood Negative Urine Nitrite Negative Ur Leukocyte Esterase Negative Microalb/Creat Ratio 48.0 H Assessment and Plan Assessment & Plan (1) Diabetes mellitus: Code(s): E11.9 - Type 2 diabetes mellitus without complications Qualifiers: Diabetes mellitus type: type 2 Diabetes mellitus long-term insulin use: without long-term use Diabetes mellitus complication status: with kidney complications Diabetes mellitus complication detail: with chronic kidney disease Chronic kidney disease stage: stage 2 (mild) Qualified Code(s): E11.22 - Type 2 diabetes mellitus with diabetic chronic kidney disease; N18.2 - Chronic kidney disease, stage 2 (mild) Plan: Her HgbA1c was at 12.3% on her labs done a few days ago (in-office HgbA1c was at 14.0% a couple of months ago) - goal is at least <7.0% Reinforced diabetic diet Patient was on Metformin 1000 mg BID and Pioglitazone 45 mg QD in the past but she self-discontinued the medications over a year ago and was hoping that with diet and her weight loss, her diabetes would remain under control with just diet modification alone Have advised patient that based on her HgbA1c at this time, diet modification alone is not possible and that she should be on some medications to help get her diabetes under control Continue Januvia 100 mg QD Will go ahead and start her additionally on Metformin ER 500 mg QD (2) Benign essential hypertension: Code(s): I10 - Essential (primary) hypertension Plan: Reinforced low sodium diet - goal is systolic BP of at least 130 to 140 mm Continue Losartan 100 mg QD (3) Chronic kidney disease (CKD), stage II (mild): Code(s): N18.2 - Chronic kidney disease, stage 2 (mild) Plan: Stable - will continue to monitor GFR and renal function (4) Pure hypercholesterolemia: Code(s): E78.00 - Pure hypercholesterolemia, unspecified Plan: Results of her labs done a few days ago reviewed and discussed with patient Reinforced low cholesterol diet Will start her on Ezetimibe 10 mg QD Will recheck her labs and fasting lipids in 3 months for follow up (5) Elevated LFTs: Code(s): R79.89 - Other specified abnormal findings of blood chemistry Plan: Patient's LFTs were significantly elevated on his labs done back in August 2023, with his AST and ALT both at over 100 U/L They have improved significantly on his recent labs Will continue to monitor her LFTs regularly (6) Acquired hypothyroidism: Code(s): E03.9 - Hypothyroidism, unspecified Plan: Patient is clinically euthyroid; TFTs are normal on her labs back in August 2023 Continue Levothyroxine at 100 mcg QD Will recheck her TFTs in 3 months for follow up (7) Asthma: Code(s): J45.909 - Unspecified asthma, uncomplicated Qualifiers: Asthma severity: mild Asthma persistence: intermittent Asthma complication type: uncomplicated Qualified Code(s): J45.20 - Mild intermittent asthma, uncomplicated Plan: Continue Montelukast 10 mg QD and Ventolin HFA 2 puffs QID PRN (8) Pain in finger of right hand: Code(s): M79.644 - Pain in right finger(s) Plan: Will send patient for x-rays of the right 5th finger for further evaluation (9) GERD without esophagitis: Code(s): K21.9 - Gastro-esophageal reflux disease without esophagitis Plan: Dietary restrictions reinforced Continue Prilosec OTC 20 mg daily (10) Insomnia: Code(s): G47.00 - Insomnia, unspecified Qualifiers: Insomnia type: unspecified Qualified Code(s): G47.00 - Insomnia, unspecified Plan: Sleep hygiene reinforced (11) Anxiety: Code(s): F41.9 - Anxiety disorder, unspecified Plan: Continue Clonazepam 0.5 mg 1 tablet Q HS (12) Depression: Code(s): F32.9 - Major depressive disorder, single episode, unspecified Qualifiers: Depression Type: major depressive disorder Major depression recurrence: recurrent Active/Remission status: currently active Major depression episode severity: unspecified Qualified Code(s): F33.9 - Major depressive disorder, recurrent, unspecified Plan: Continue Lexapro 10 mg QD Follow-up with Psychiatry (Dr. Han)? as scheduled (13) Obesity (BMI 30-39.9): Code(s): E66.9 - Obesity, unspecified Plan: Reinforced diet; exercise is unrealistic given patient's physical issues and comorbidities although she has lost a lot of weight since she was last here in 2021 Plan Follow up in 3 months Orders: Orders XR finger RT min 2V 02/12/24 M79.644 - Pain in right finger(s), M79.89 - Other specified soft tissue disorders, Z91.81 - History of falling Complete Blood Count Auto Diff 3 Months D64.9 - Anemia, unspecified Thyroid Stimulating Hormone 3 Months E03.9 - Hypothyroidism, unspecified Comprehensive [place]. Panel Fast 3 Months E78.00 - Pure hypercholesterolemia, unspecified Lipid Panel 3 Months E78.00 - Pure hypercholesterolemia, unspecified Free T4 (Free Thyroxine) 3 Months E03.9 - Hypothyroidism, unspecified Vitamin B12 and Folate 3 Months E53.8 - Deficiency of other specified B group vitamins Vitamin D 25-OH Total 3 Months E55.9 - Vitamin D deficiency, unspecified UA CC w/rflx Micro + Cult 3 Months R30.0 - Dysuria Microalbumin, Random (w Creat) 3 Months E11.9 - Type 2 diabetes mellitus without complications Hemoglobin A1c 3 Months E11.9 - Type 2 diabetes mellitus without complications Medications: New ezetimibe 10 mg PO DAILY 90 tabs 1RF 90 days metformin ER 500 mg PO DAILY 90 tabs 1RF 90 days Coding Level of Care Code Est Pt Level 4 (58465) Complex EM visit Add On G2211 Diagnoses Type 2 diabetes mellitus with stage 2 chronic kidney disease, without long-term current use of insulin E11.22; N18.2 Diabetes mellitus type: type 2 Diabetes mellitus long-term insulin use: without long-term use Diabetes mellitus complication status: with kidney complications Diabetes mellitus complication detail: with chronic kidney disease Chronic kidney disease stage: stage 2 (mild) Benign essential hypertension I10 Chronic kidney disease (CKD), stage II (mild) N18.2 Pure hypercholesterolemia E78.00 Elevated LFTs R79.89 Acquired hypothyroidism E03.9 Mild intermittent asthma without complication J45.20 Asthma severity: mild Asthma persistence: intermittent Asthma complication type: uncomplicated Pain in finger of right hand M79.644 GERD without esophagitis K21.9 Insomnia, unspecified type G47.00 Insomnia type: unspecified Anxiety F41.9 Episode of recurrent major depressive disorder, unspecified depression episode severity F33.9 Depression Type: major depressive disorder Major depression recurrence: recurrent Active/Remission status: currently active Major depression episode severity: unspecified Obesity (BMI 30-39.9) E66.9
[2024-02-12 15:02] VITALS: BP 122/74; PULSE 78; O2SAT 97; BMI 33.3
== END 2024-02-12 15:56 | disposition home or self-care (01) ==
PROVIDERS: PCP Internal Medicine; Visit Provider Internal Medicine
DX: I12.9 Hypertensive chronic kidney disease with stage 1 through stage 4 chronic kidney disease, or unspecified chronic kidney disease (principal); E11.22 Type 2 diabetes mellitus with diabetic chronic kidney disease; N18.2 Chronic kidney disease, stage 2 (mild); F33.9 Major depressive disorder, recurrent, unspecified; E78.00 Pure hypercholesterolemia, unspecified; R79.89 Other specified abnormal findings of blood chemistry; E03.9 Hypothyroidism, unspecified; J45.20 Mild intermittent asthma, uncomplicated; M79.644 Pain in right finger(s); K21.9 Gastro-esophageal reflux disease without esophagitis; G47.00 Insomnia, unspecified; F41.9 Anxiety disorder, unspecified; E66.9 Obesity, unspecified
CPT/HCPCS: 99214; G2211

== ENCOUNTER 2024-05-07 09:31 | Emergency (ER) | payer MEDICARE, OTHER, SELFPAY ==
--- NOTE | ~2024-05-07 | CT_ITS ---
EXAMINATION: CT ABDOMEN AND PELVIS WITH CONTRAST CLINICAL INFORMATION: Left lower quadrant abdominal pain COMPARISON: 06/09/2020 TECHNIQUE: Multidetector volumetric images were obtained from the superior aspect of the liver through the pubic symphysis following administration 85 mL of Omnipaque 350 intravenous contrast. Sagittal and coronal reformatted images were obtained on the technologist's workstation. Oral contrast: No This CT examination was performed using dose optimization techniques as appropriate, variously including the following: *Automated exposure control *Adjustment of mA and/or kV according to patient size (this includes techniques or standardized protocols for targeted exams where dose is matched to indication/reason for exam; i.e. extremities or head) *Use of iterative reconstruction technique DLP: 773 mGy-cm FINDINGS: LUNG BASES: The visualized lung bases are unremarkable. LIVER, GALLBLADDER, AND BILIARY TREE: Liver is of low attenuation due to hepatic steatosis, without intrahepatic masses or ductal dilatation. There is cholelithiasis without cholecystitis. CBD is not dilated and reveals no evidence of choledocholithiasis. PANCREAS: Unremarkable. SPLEEN: Unremarkable. ADRENAL GLANDS: Unremarkable. KIDNEYS AND URETERS: The kidneys are normal in size, shape, and attenuation. No hydronephrosis, hydroureter, or calculi seen. No perinephric stranding. BLADDER: Unremarkable. GASTROINTESTINAL TRACT: The small and large bowel are unremarkable. The appendix is unremarkable. There are changes of sigmoid colon diverticulosis is minimal mesenteric fat stranding likely related to early mild diverticulitis. No evidence of perforation or abscess formation. ABDOMINAL WALL: There are postsurgical changes on the anterior abdominal wall most likely umbilical hernia repair LYMPH NODES: Normal. VASCULAR: Unremarkable. PELVIC VISCERA: Unremarkable. OSSEOUS STRUCTURES: There are mild multilevel degenerative changes in lumbar spine without fractures or lytic or blastic lesions CT/CT abdomen pelvis w IV con IMPRESSION: 1. Early mild sigmoid colon diverticulitis. 2. Cholelithiasis without cholecystitis. 3. Hepatic steatosis. Fleischner guidelines were followed.
[2024-05-07 09:45] VITALS: BP 170/90; BP 176/79; PULSE 66; PULSE 77; RESP 18; TEMP 36.7; O2SAT 96; O2SAT 97; BMI 34.6
[2024-05-07 10:20] LABS: MANUAL DIFF FLAG NO
[2024-05-07 10:22] LABS: Eosinophils Absolute Auto 0.1 X10*3/uL (0.0-0.4); Eosinophils Percent Auto 1.8 % (0-4); Hematocrit 35.5 % (37.0-47.0); Hemoglobin 12.6 g/dl (12.0-16.0); Imm Gran Abs Auto 0.01 X10*3/uL (0.00-0.03); Imm Gran Pct Auto 0.3 % (0.0-0.4); Lymphocytes Absolute Auto 1.5 X10*3/uL (1.2-4.9); Lymphocytes Percent Auto 40.1 % (20-40); Mean Corpuscular HGB Conc 35.5 g/dl (31.0-35.0); Mean Corpuscular Hemoglobin 31.6 pg (27.0-33.0); Mean Platelet Volume 9.5 fL (9.4-12.3); Monocytes Absolute Auto 0.3 X10*3/uL (0.1-1.2); Monocytes Percent Auto 7.3 % (2-11); Neutrophils Absolute Auto 1.9 x10*3/uL (2.0-8.3); Neutrophils Percent Auto 49.5 % (45-73); Platelet Count 126 X10*3/uL (160-400); Red Blood Count 3.99 X10*6/uL (4.20-5.50); Red Cell Distribution Width 12.8 % (11.0-16.0); White Blood Count 3.8 X10*3/uL (4.8-10.8)
[2024-05-07 10:40] LABS: Alanine Aminotransferase 33 U/L (0-31); Albumin Level 3.7 g/dL (3.5-5.0); Alkaline Phosphatase 121 U/L (39-117); Anion Gap 13 (12-20); Aspartate Amino Transferase 46 U/L (5-31); Blood Urea Nitrogen 13 mg/dL (9-16); Calcium 9.4 mg/dL (8.4-10.2); Carbon Dioxide 27 mmol/L (22-29); Chloride 105 mmol/L (96-108); Creatinine Clr Calc Pharmacy 38.5; Estimated Glomerular Filt Rate 37; Glucose Random 257 mg/dL (60-115); Lipase 10 U/L (8-78); Potassium 4.2 mmol/L (3.3-5.1); Sodium 141 mmol/L (135-145); Total Protein 6.3 g/dL (6.5-8.0)
[2024-05-07 11:40] LABS: Appearance Urine Clear; Color Urine Yellow; Glucose Urine UA 250 mg/dL (Negative); Leukocyte Esterase Urine Trace (Negative); Nitrite Urine Negative (Negative); UMIC TRIGGER UACC YES; Urine Blood Negative (Negative); Urine Ketones Negative (Negative); Urine Protein Negative (Neg-Trace)
[2024-05-07 11:45] LABS: Bacteria Urine None Seen (None Seen); Hyaline Casts Urine 0-2 /LPF (0-2); RBC Urine 0-2 /HPF (0-2); Squamous Epithelial Cell Urine 0-2 /HPF (0-2); WBC Urine 0-5 /HPF (0-5)
[2024-05-07] MEDS: iohexoL 350 MG/ML 100 ML INFUS..BTL IV (12:14)
[2024-05-07 12:15] VITALS: BP 180/80; PULSE 67; RESP 19; TEMP 37; O2SAT 99
[2024-05-07 14:27] VITALS: BP 184/80; PULSE 74; RESP 16; TEMP 36.5; O2SAT 97
--- NOTE | 2024-05-07 14:35 | ED_ITS ---
HPI - Abdominal Pain General Chief Complaint: Abdominal Pain Stated Complaint: LLQ PAIN,DIARRHEA PER EMS Time Seen by Provider: 05/07/24 10:10 Source: patient Mode of arrival: ambulatory Limitations: no limitations History of Present Illness ED Provider: Dr. Diamond HPI narrative: Patient with a long history of complicated diverticulitis with perforation and resection and colostomy reversal who now has LLQ pain with diarrhea no blood MD elicited complaint: abdominal pain Pertinent past history: diverticulitis Onset (ago): day(s) Pain Consistency: constant Severity: moderate Related Data Home Medications ?Medication ?Instructions ?Recorded ?Confirmed escitalopram oxalate 10 mg tablet 10 mg PO QAM 09/20/20 12/14/23 clonazepam 0.5 mg tablet 0.5 mg PO BEDTIME 12/16/23 12/14/23 Previous Rx's ?Medication ?Instructions ?Recorded albuterol sulfate 90 mcg/actuation 1 puff PO QID PRN shortness of 05/17/22 aerosol inhaler breath or wheezing #18 ea losartan 100 mg tablet 100 mg PO DAILY #90 tabs 07/06/23 levothyroxine 100 mcg tablet 100 mcg PO QAM #90 tabs 10/23/23 montelukast 10 mg tablet 10 mg PO BEDTIME #90 tabs 01/01/24 ezetimibe 10 mg tablet 10 mg PO DAILY 90 days #90 tabs 02/12/24 metformin 500 mg tablet,extended 500 mg PO DAILY 90 days #90 tabs 02/12/24 release 24 hr sitagliptin phosphate 100 mg 100 mg PO DAILY #30 tabs 04/21/24 tablet (Januvia) levofloxacin 500 mg tablet 500 mg PO DAILY 10 days #10 tabs 05/07/24 metronidazole 500 mg tablet 500 mg PO TID #30 tabs 05/07/24 Allergies Allergy/AdvReac Type Severity Reaction Status Date / Time adhesive tape [ADHESIVE TAPE] Allergy Mild RASH Verified 05/07/24 09:52 Cephalosporins Allergy Unknown ANAPHYLAXIS Verified 05/07/24 09:52 [CEPHALOSPORINS] gluten Allergy Unknown Unknown Verified 05/07/24 09:52 ketorolac Allergy Unknown hives Verified 05/07/24 09:52 lactase [From Dairy Aid] Allergy Unknown Unknown Verified 05/07/24 09:52 Penicillins [PENICILLINS] Allergy Unknown SWELLING Verified 05/07/24 09:52 Opioids - Morphine Analogues AdvReac Severe VERY SICK, Verified 05/07/24 09:52 [OPIOIDS - MORPHINE DIZZY, ANALOGUES] VOMITING Review of Systems Review of Systems Yes all other systems are reviewed and are negative Denies Sensory deficit (Neuro) PMFSH Past Medical History Medical History Obesity (BMI 30-39.9) Morbid obesity with BMI of 40.0-44.9, adult Insomnia Arthralgia Morbid obesity with BMI of 45.0-49.9, adult Depression Anxiety GERD without esophagitis Acquired hypothyroidism Gastrointestinal hemorrhage Anemia due to acute blood loss Asthma Chronic kidney disease (CKD), stage II (mild) Diabetes mellitus Pure hypercholesterolemia Benign essential hypertension Surgical History History of colonoscopy (~07/2019) H/O wrist surgery History of colectomy History of D&C History of tonsillectomy Family History Family History Father No problems noted. Mother No problems noted. Other Substance abuse Social History Social History Housing: House Alcohol intake: never Patient Tobacco Use Status: Never used Tobacco e-Cigarette/Vaping Use: Never Used Second Hand Smoke Exposure: No service: No Current occupational status: retired Cognitive needs: No Hearing needs: No Vision needs: Yes Physical Exam ED Vital Signs: Vital Signs - 24 hr 05/07/24 09:45 05/07/24 12:15 05/07/24 14:27 Temperature 98.0 F 98.6 F 97.7 F Pulse Rate 66 67 74 Respiratory Rate 18 19 16 Blood Pressure 176/79 H 180/80 H 184/80 H Pulse Oximetry 97 99 97 Oxygen Delivery Method Room Air Room Air Room Air BMI result Body Mass Index 34.6 Const Other: obese female Nutritional Appearance: obese Orientation/consciousness: oriented to person and patient oriented x3 Limitations: no limitations HENMT Head: Yes normal to inspection Ears: external ears normal General nose exam: Normal external nose present Mouth: Normal oral and palatal mucosa present and oropharynx normal Throat: Yes posterior oropharynx normal Eyes General: appearance normal, both eyes and all related structures Neck Neck: Yes normal visual inspection Chest Chest palpation & inspection: normal inspection of the chest Resp Auscultation: clear to auscultation bilaterally Cardio Jugular venous distension: no JVD Rate: regular rate Rhythm: regular rhythm Heart sounds: S1 normal heart sound present and S2 normal heart sound present GI Other: lower abdominal tenderness, left greater than right General: Yes no CVA tenderness Back/Spine/Pelvis Back: no CVA tenderness Skin General skin exam: no rashes or lesions noted Neuro General: oriented to person and patient oriented x3 Cranial nerves: Yes CN's II-XII intact bilaterally Motor exam (neuro): 5/5 motor strength present throughout Sensory Exam: No Sensory deficit (Neuro) Extrem General: Yes normal to inspection Psych Appearance: grossly normal Course Reevaluation(s) Reevaluation #1: patient with mild diverticulitis will start levaquin and flagy and dc home Time: 14:40 Medical Decision Making Differential Diagnosis Differential Diagnoses: The differential diagnosis associated with the presentation includes (diverticulitis, abdominal abscess, abdominal perforation) Admission/Observation Consideration of admission/observation: Escalation of care including admission/observation considered (upon arrival patient considered for admission) Lab Data 05/07/24 10:12 05/07/24 10:12 Labs: Lab Results 05/07/24 05/07/24 Range/Units 10:12 11:30 WBC 3.8 L (4.8-10.8) X10*3/uL RBC 3.99 L (4.20-5.50) X10*6/uL Hgb 12.6 (12.0-16.0) g/dl Hct 35.5 L (37.0-47.0) % MCV 89.0 (80.0-98.0) fL MCH 31.6 (27.0-33.0) pg MCHC 35.5 H (31.0-35.0) g/dl RDW 12.8 (11.0-16.0) % Plt Count 126 L (160-400) X10*3/uL MPV 9.5 (9.4-12.3) fL Immature Gran % (Auto) 0.3 (0.0-0.4) % Neut % (Auto) 49.5 (45-73) % Lymph % (Auto) 40.1 H (20-40) % [place] % (Auto) 7.3 (2-11) % Eos % (Auto) 1.8 (0-4) % Baso % (Auto) 1.0 (0-2) % Lymph # (Auto) 1.5 (1.2-4.9) X10*3/uL [place] # (Auto) 0.3 (0.1-1.2) X10*3/uL Eos # (Auto) 0.1 (0.0-0.4) X10*3/uL Baso # (Auto) 0.0 (0.0-0.2) X10*3/uL Abs Immat Gran (auto) 0.01 (0.00-0.03) X10*3/uL Absolute Neuts (auto) 1.9 L (2.0-8.3) x10*3/uL Absolute Nucleated RBC 0.000 (0.0-0.012) X10*3/uL Nucleated RBC % (auto) 0.0 (0.0-0.2) /100WBC Sodium 141 (135-145) mmol/L Potassium 4.2 (3.3-5.1) mmol/L Chloride 105 (96-108) mmol/L Carbon Dioxide 27 (22-29) mmol/L Anion Gap 13 (12-20) BUN 13 (9-16) mg/dL Creatinine 1.38 (0.5-1.4) mg/dL Estim Creat Clear Calc 38.5 Estimated GFR 37 Random Glucose 257 H (60-115) mg/dL Calcium 9.4 D (8.4-10.2) mg/dL Total Bilirubin 1.0 (0.0-1.0) mg/dL AST 46 H (5-31) U/L ALT 33 H (0-31) U/L Alkaline Phosphatase 121 H (39-117) U/L Total Protein 6.3 L (6.5-8.0) g/dL Albumin 3.7 (3.5-5.0) g/dL Lipase 10 (8-78) U/L Urine Color Yellow Urine Appearance Clear Urine pH 6.0 (5.0-9.0) Ur Specific [place] 1.010 (1.005-1.025) Urine Protein Negative (Neg-Trace) mg/dL Urine Glucose (UA) 250 H (Negative) mg/dL Urine Ketones Negative (Negative) mg/dL Urine Blood Negative (Negative) Urine Nitrite Negative (Negative) Ur Leukocyte Esterase Trace H (Negative) Urine RBC 0-2 (0-2) /HPF Urine WBC 0-5 (0-5) /HPF Ur Squamous Epith Cells 0-2 (0-2) /HPF Urine Bacteria None Seen (None Seen) Hyaline Casts 0-2 (0-2) /LPF Radiology Impression Discussion of test interpretation with radiology: I have reviewed the radiologist's reading. (there is mild diverticulitis) Chronic Conditions Patient?s care impacted by: Diabetes and Other (diverticulitis) Medications Administered Discontinued Medications Generic Name Dose Route Start Last Admin Trade Name Freq PRN Reason Stop Dose Admin Iohexol 100 ml 05/07/24 12:14 05/07/24 12:14 Iohexol 350 Mg/Ml 100 Ml Infus..Btl IV 05/07/24 12:15 85 ml ONCE ONE Administration Levofloxacin 500 mg 05/07/24 14:40 05/07/24 14:59 Levofloxacin 500 Mg Tablet PO 05/07/24 14:41 500 mg ONCE ONE Administration Metronidazole 500 mg 05/07/24 14:40 05/07/24 14:59 Metronidazole 500 Mg Tablet PO 05/07/24 14:41 500 mg ONCE ONE Administration Discharge Plan Discharge Clinical Impression: Diverticulitis Patient Disposition: Home, Self-Care Instructions: Diverticulitis (ED) Additional Instructions: clear liquid diet for 3 days Prescriptions: New levofloxacin 500 mg tablet 500 mg PO DAILY 10 Days Qty: 10 0RF metronidazole 500 mg tablet 500 mg PO TID Qty: 30 0RF No Action albuterol sulfate 90 mcg/actuation HFA aerosol inhaler 1 puff PO QID PRN (Reason: shortness of breath or wheezing) Qty: 18 5RF losartan 100 mg tablet 100 mg PO DAILY Qty: 90 3RF levothyroxine 100 mcg tablet 100 mcg PO QAM Qty: 90 3RF montelukast 10 mg tablet 10 mg PO BEDTIME Qty: 90 4RF Januvia 100 mg tablet 100 mg PO DAILY Qty: 30 3RF clonazepam 0.5 mg tablet 0.5 mg PO BEDTIME escitalopram oxalate 10 mg tablet 10 mg PO QAM metformin 500 mg tablet extended release 24 hr 500 mg PO DAILY 90 Days Qty: 90 1RF ezetimibe 10 mg tablet 10 mg PO DAILY 90 Days Qty: 90 1RF Referrals: Delonte Bishop MD [Primary Care Provider] - 5 days Interventions: ED Discharge Assessment Last Done: 05/07/24 15:45 Discharge Date/Time: 05/07/24 15:46 Print Language: Armenian
[2024-05-07] MEDS: metroNIDAZOLE 500 MG TABLET PO (14:59)
[2024-05-07] MEDS: levoFLOXacin 500 MG TABLET PO (14:59)
[2024-05-07 15:45] VITALS: BP 184/80; PULSE 74; RESP 18; TEMP 36.5; O2SAT 97
== END 2024-05-07 15:46 | disposition home or self-care (01) ==
PROVIDERS: Emergency Provider Emergency Medicine; PCP Internal Medicine
DX: R10.32 Left lower quadrant pain (principal); R19.7 Diarrhea, unspecified; J45.909 Unspecified asthma, uncomplicated; I12.9 Hypertensive chronic kidney disease with stage 1 through stage 4 chronic kidney disease, or unspecified chronic kidney disease; E11.22 Type 2 diabetes mellitus with diabetic chronic kidney disease; N18.2 Chronic kidney disease, stage 2 (mild)
CPT/HCPCS: 36415; 74177; 80053; 81001; 83690; 85025; 99284; Q9967

== ENCOUNTER 2024-05-13 11:52 | Outpatient (REF) | payer MEDICARE, OTHER, SELFPAY ==
[2024-05-13 12:15] LABS: MANUAL DIFF FLAG NO
[2024-05-13 12:45] LABS: Basophils Percent Auto 0.8 % (0-2); Eosinophils Absolute Auto 0.1 X10*3/uL (0.0-0.4); Eosinophils Percent Auto 2.1 % (0-4); Hematocrit 38.7 % (37.0-47.0); Imm Gran Abs Auto 0.02 X10*3/uL (0.00-0.03); Imm Gran Pct Auto 0.5 % (0.0-0.4); Lymphocytes Absolute Auto 1.4 X10*3/uL (1.2-4.9); Lymphocytes Percent Auto 36.1 % (20-40); Mean Corpuscular HGB Conc 33.6 g/dl (31.0-35.0); Mean Corpuscular Hemoglobin 30.7 pg (27.0-33.0); Mean Corpuscular Volume 91.3 fL (80.0-98.0); Mean Platelet Volume 10.2 fL (9.4-12.3); Monocytes Absolute Auto 0.2 X10*3/uL (0.1-1.2); Monocytes Percent Auto 6.1 % (2-11); Neutrophils Percent Auto 54.4 % (45-73); Platelet Count 141 X10*3/uL (160-400); Red Blood Count 4.24 X10*6/uL (4.20-5.50); Red Cell Distribution Width 13.2 % (11.0-16.0); White Blood Count 3.7 X10*3/uL (4.8-10.8)
[2024-05-13 12:59] LABS: Estimated Average Glucose 269 mg/dL
[2024-05-13 13:31] LABS: Alanine Aminotransferase 23 U/L (0-31); Albumin Level 3.9 g/dL (3.5-5.0); Alkaline Phosphatase 157 U/L (39-117); Anion Gap 12 (12-20); Aspartate Amino Transferase 37 U/L (5-31); Bilirubin Total 0.6 mg/dL (0.0-1.0); Blood Urea Nitrogen 9 mg/dL (9-16); Carbon Dioxide 29 mmol/L (22-29); Chloride 102 mmol/L (96-108); Cholesterol 117 mg/dL (<200); Estimated Glomerular Filt Rate 42; Glucose Fasting 275 mg/dL (60-99); HDL Cholesterol 50 mg/dL (>40); LDL Cholesterol Calculated 41 mg/dL (<100); Potassium 4.9 mmol/L (3.3-5.1); Sodium 138 mmol/L (135-145); Total Protein 6.6 g/dL (6.5-8.0); Triglycerides 133 mg/dL (<150)
[2024-05-13 13:36] LABS: Free T4 (Free Thyroxine) 0.91 ng/dL (0.71-1.85); Thyroid Stimulating Hormone 15.46 uIU/mL (0.32-4.0); Vitamin D 25-OH Total 28.7 ng/mL (>30)
[2024-05-13 14:06] LABS: Folate 7.3 ng/mL (> or = 4.0); Vitamin B12 283 pg/mL (200-900)
== END 2024-05-13 11:53 | disposition home or self-care (01) ==
LOC: HO.LAB 11:52
PROVIDERS: PCP Internal Medicine; Visit Provider Internal Medicine
DX: D64.9 Anemia, unspecified (principal); E03.9 Hypothyroidism, unspecified; E78.00 Pure hypercholesterolemia, unspecified; E53.8 Deficiency of other specified B group vitamins; E11.9 Type 2 diabetes mellitus without complications; E55.9 Vitamin D deficiency, unspecified
CPT/HCPCS: 36415; 80053; 80061; 82306; 82607; 82746; 83036; 84439; 84443; 85025

== ENCOUNTER 2024-05-14 14:45 | Outpatient (REF) | payer MEDICARE, OTHER, SELFPAY ==
[2024-05-14 15:00] LABS: Appearance Urine Clear; Color Urine Yellow; Glucose Urine UA >=1000 mg/dL (Negative); Leukocyte Esterase Urine Negative (Negative); Nitrite Urine Negative (Negative); Specific Gravity - Urine 1.015 (1.005-1.025); UMIC TRIGGER UACC YES; Urine Blood Negative (Negative); Urine Ketones Negative (Negative); Urine Protein Negative (Neg-Trace)
[2024-05-14 15:05] LABS: Bacteria Urine None Seen (None Seen); Hyaline Casts Urine 0-2 /LPF (0-2); RBC Urine 0-2 /HPF (0-2); Squamous Epithelial Cell Urine 0-2 /HPF (0-2); WBC Urine 0-5 /HPF (0-5)
[2024-05-14 15:25] LABS: Creatinine Urine 23.27 mg/dL
== END 2024-05-14 14:46 | disposition home or self-care (01) ==
LOC: HO.LNP 14:45
PROVIDERS: Visit Provider Internal Medicine
DX: R30.0 Dysuria (principal); E11.9 Type 2 diabetes mellitus without complications
CPT/HCPCS: 81001; 81003; 82043; 82570

== ENCOUNTER 2024-05-16 12:21 | Outpatient (AMB) | payer MEDICARE, OTHER, SELFPAY ==
--- NOTE | 2024-05-16 12:32 | MHC.PC.OV ---
Vital Signs 05/16/24 12:33 Height 5 ft 4 in Weight 197 lb 0.4 oz BMI 33.8 BP 130/82 Blood Pressure Location Lt brachial Position Sitting Pulse 79 Pulse Source Pulse Oximeter Pulse Oximetry (%) 98 Oxygen Delivery Method Room Air Intake Visit Reasons: DM, hyperlipidemia, HTN Allergies adhesive tape [ADHESIVE TAPE] Allergy (Mild, Verified 05/16/24 12:55) RASH Cephalosporins [CEPHALOSPORINS] Allergy (Unknown, Verified 05/16/24 12:55) ANAPHYLAXIS gluten Allergy (Unknown, Verified 05/16/24 12:55) Unknown ketorolac Allergy (Unknown, Verified 05/16/24 12:55) hives lactase [From Dairy Aid] Allergy (Unknown, Verified 05/16/24 12:55) Unknown Penicillins [PENICILLINS] Allergy (Unknown, Verified 05/16/24 12:55) SWELLING Opioids - Morphine Analogues [OPIOIDS - MORPHINE ANALOGUES] Adverse Reaction (Severe, Verified 05/16/24 12:55) VERY SICK, DIZZY, VOMITING Medication List - Last Reconciled 05/16/24 by Delonte Bishop MD albuterol sulfate 90 mcg/actuation 1 puff PO QID PRN clonazepam 0.5 mg PO BEDTIME escitalopram oxalate 10 mg PO QAM ezetimibe 10 mg PO DAILY 90 days levofloxacin 500 mg PO DAILY 10 days levothyroxine 100 mcg PO QAM losartan 100 mg PO DAILY metformin ER 500 mg PO DAILY 90 days metronidazole 500 mg PO TID montelukast 10 mg PO BEDTIME primidone 50 mg PO DAILY sitagliptin phosphate (Januvia) 100 mg PO DAILY Tobacco use date assessed: 02/12/24 Fall risk assessment: No Falls in past year Last assessed Fall Risk: 05/16/24 Dental Screening Dental Screen Date: 12/14/23 HPI DM, hyperlipidemia, HTN HPI Details Patient comes in today for her follow up visit She went to the ER last week for increasing LLQ abdominal pain Work ups done in the ER, including abdominal and pelvic CT, revealed (+) mild sigmoid diverticulitis and patient was started on Levofloxacin and Metronidazole and discharged home States that she is currently finishing up her Abx Rx and is now feeling a lot better, with significant improvement of her LLQ abdominal pain Patient states that she currently feels okay She denies any headaches or dizziness Denies any chest pains, no SOB No nausea/vomiting and no change in bowel habits noted She had her follow up labs done a few days ago - to discuss her results Patient adds that years ago, she used to get Rx for Nizoral cream from ENT that she applies into her ears when needed for increased itching and rash - would like to see if she can get this prescribed for her now and she will still use this only as needed [facility] Medical History (Updated 05/16/24 @ 13:42 by Delonte Bishop MD) Vitamin D deficiency Obesity (BMI 30-39.9) Morbid obesity with BMI of 40.0-44.9, adult Insomnia Arthralgia Morbid obesity with BMI of 45.0-49.9, adult Depression Anxiety GERD without esophagitis Acquired hypothyroidism Gastrointestinal hemorrhage Anemia due to acute blood loss Asthma Chronic kidney disease (CKD), stage II (mild) Diabetes mellitus Pure hypercholesterolemia Benign essential hypertension Surgical History History of colonoscopy (~07/2019) H/O wrist surgery History of colectomy History of D&C History of tonsillectomy Family History Father No problems noted. Mother No problems noted. Other Substance abuse Social History Housing: House Alcohol intake: never Patient Tobacco Use Status: Never used Tobacco e-Cigarette/Vaping Use: Never Used Second Hand Smoke Exposure: No service: No Current occupational status: retired Cognitive needs: No Hearing needs: No Vision needs: Yes Questionnaire Thrive Questionnaire Date Thrive assessed: 12/14/23 AUDIT C Alcohol Use Questionnaire (AUDIT-C) 1. How often do you have a drink containing alcohol?: Never 3. How often do you have six or more drinks on one occasion?: Never Total Score: 0 Score Reviewed/Action Taken: Yes ISIDRA-7 AMB Questionnaire ISIDRA-7 Date ISIDRA - 7 assessed: 12/14/23 Source: Developed by Drs. Tim Mendoza, Carole Israel, Jose Cruz Gonzales and colleagues, with an educational hugh from [employer]. Review of Systems Const Denies chills, Reports fatigue, Denies fever(s) and Denies headache(s) ENT Denies dysphagia, Denies dizziness, Denies otalgia, Denies headache(s), Denies neck pain, Denies odynophagia, Denies sinus pain and Denies sore throat Card Denies chest pain, Denies palpitations and Denies dyspnea Resp Denies cough and Denies dyspnea GI Denies abdominal pain, Denies constipation, Denies dysphagia, Denies heartburn, Denies diarrhea, Denies nausea, Denies odynophagia and Denies vomiting Denies difficulty voiding, Denies nocturia, Denies dysuria and Denies urinary urgency Musc Reports back pain, Reports arthralgias (recurrent, over multiple joints), Reports muscle cramps (in both legs - on and off at night ) and Denies neck pain Skin/Breast Denies rash Neuro Denies dizziness and Denies headache(s) Endo Reports fatigue and Denies palpitations Physical exam (Primary Care) Vital Signs: Last Vital Signs Pulse 79 05/16/24 12:33 BP 130/82 05/16/24 12:33 Pulse Ox 98 05/16/24 12:33 Oxygen Delivery Method Room Air 05/16/24 12:33 BMI result Body Mass Index 33.8 Tobacco/Smoking Status: Tobacco use Status Tobacco use date assessed 02/12/24 05/16/24 12:32 Patient Tobacco Use Status Never used Tobacco 05/16/24 12:32 e-Cigarette/Vaping Use Never Used 05/16/24 12:32 Thrive Assessment: Date of Thrive Assessment Date Thrive assessed 12/14/23 05/16/24 12:32 Const General: no acute distress and alert HENMT Ears: TM's normal bilaterally and EAC's normal Throat: Yes posterior oropharynx normal and Yes tonsils normal (no TP congestion noted) Neck Neck: Yes no lymphadenopathy and Yes supple Thyroid: Thyroid normal Resp Auscultation: clear to auscultation bilaterally, no rales and no wheezes Cardio Rate: regular rate Rhythm: regular rhythm Heart sounds: no murmurs GI Palpation (GI): Soft to palpation and nontender Auscultation: normal bowel sounds General: Yes no CVA tenderness Back/Spine/Pelvis Back: no CVA tenderness Skin Rashes: no rashes Extrem General: Yes no clubbing, cyanosis or edema Results Reviewed Results Reviewed: Laboratory Tests 02/07/24 05/13/24 05/14/24 12:23 12:14 07:46 WBC 3.7 L Hgb 13.0 Hct 38.7 Plt Count 141 L Sodium 138 Potassium 4.9 Creatinine 1.24 Estimated GFR 42 Fasting Glucose 275 H Hemoglobin A1c % 11.0 H Calcium 9.0 AST 37 H ALT 23 Triglycerides 133 Cholesterol 117 LDL Cholesterol, Calc 41 HDL Cholesterol 50 Vitamin B12 283 25-OH Vitamin D Total 28.7 L TSH 7.85 H 15.46 H Free T4 0.91 Urine pH 7.0 Ur Specific Harmony 1.015 Urine Protein Negative Urine Glucose (UA) >=1000 H Urine Blood Negative Urine Nitrite Negative Ur Leukocyte Esterase Negative Microalb/Creat Ratio 30.0 H Assessment and Plan Assessment & Plan (1) Sigmoid diverticulitis: Code(s): K57.32 - Diverticulitis of large intestine without perforation or abscess without bleeding Plan: Resolving - she is currently still finishing up her Levofloxacin 500 mg QD and Metronidazole 500 mg TID (Rx were prescribed for a total of 10 days) States that she is down to one more day of her Abx but she still has some twinges of pain over her LLQ States that she has a lot of problems with Levofloxacin (dizziness, insomnia and diarrhea) and prefers not to continue on this once she is done with her original Rx Will extend her Metronidazole 500 mg TID for another 4 to 5 days to help clear up her diverticulitis further She is advised to call IF her symptoms still do not completely clear up after her Abx extension - may need to start her on a different Abx then (2) Diabetes mellitus: Code(s): E11.9 - Type 2 diabetes mellitus without complications Qualifiers: Diabetes mellitus type: type 2 Diabetes mellitus longterm insulin use: without termite inspector use Diabetes mellitus complication status: with kidney complications Diabetes mellitus complication detail: with chronic kidney disease Chronic kidney disease stage: stage 2 (mild) Qualified Code(s): E11.22 - Type 2 diabetes mellitus with diabetic chronic kidney disease; N18.2 - Chronic kidney disease, stage 2 (mild) Plan: Her HgbA1c is now down to 11.0% on her recent labs (was at 12.3% a few months ago) - goal is at least <7.0% Reinforced diabetic diet Continue Januvia 100 mg QD and Metformin ER 500 mg QD - advised that she is doing well on her current Rx but patient now states that her Januvia Rx is costing her over $500 / month and she cannot afford to continue on it and is looking for more reasonable alternatives Have advised her that the older generics, including Pioglitazone and the Sulfonylureas, can all cause significant weight gain, which was one of the main reasons she stopped taking her Rx on her own a couple of years ago Have instructed her to reach out to her insurance company to find out if they will cover either Onglyza or Tradjenta as cheaper alternatives and to let me know as soon as she finds out the answer (3) Benign essential hypertension: Code(s): I10 - Essential (primary) hypertension Plan: Reinforced low sodium diet - goal is systolic BP of at least 130 to 140 mm Continue Losartan 100 mg QD (4) Chronic kidney disease (CKD), stage II (mild): Code(s): N18.2 - Chronic kidney disease, stage 2 (mild) Plan: Stable - will continue to monitor GFR and renal function (5) Pure hypercholesterolemia: Code(s): E78.00 - Pure hypercholesterolemia, unspecified Plan: Results of her labs done a few days ago reviewed and discussed with patient - she is advised that her cholesterol numbers have improved significantly from previous, much more than I anticipated Reinforced low cholesterol diet Continue Ezetimibe 10 mg QD Will recheck her labs and fasting lipids in 3 months for follow up (6) Elevated LFTs: Code(s): R79.89 - Other specified abnormal findings of blood chemistry Plan: Patient's LFTs were significantly elevated on his labs done back in August 2023, with his AST and ALT both at over 100 U/L They have improved significantly on his recent labs and they are now almost back to normal Will continue to monitor her LFTs regularly (7) Acquired hypothyroidism: Code(s): E03.9 - Hypothyroidism, unspecified Plan: Patient is clinically euthyroid; her TFTs were normal on her labs back in August 2023 but her TSH has since increased to over 15 uIU/ml on her recent labs Free T4 level remains normal but at the lower end of the normal range Patient now admits that she takes her Levothyroxine everyday but does not take it on an empty stomach and takes it sometimes with juices or other random drinks Will have her continue on Levothyroxine 100 mcg QD for now but have instructed her to start taking this first thing in the morning on an empty stomach with only water as her drink and she should not eat or drink anything else for the next 30 minutes Will recheck her TFTs in 3 months for follow up (8) Asthma: Code(s): J45.909 - Unspecified asthma, uncomplicated Qualifiers: Asthma severity: mild Asthma persistence: intermittent Asthma complication type: uncomplicated Qualified Code(s): J45.20 - Mild intermittent asthma, uncomplicated Plan: Continue Montelukast 10 mg QD and Ventolin HFA 2 puffs QID PRN (9) Vitamin D deficiency: Code(s): E55.9 - Vitamin D deficiency, unspecified Plan: She is advised that her Vitamin D level is low on her recent labs Will start her on Vitamin D3 2000 units QD - advised that she can get this OTC if her insurance will not cover the Rx (10) Pain in finger of right hand: Code(s): M79.644 - Pain in right finger(s) Plan: She was previously sent for x-rays of the right 5th finger for further evaluation but she has not gotten it done yet She is presently unable to fully extend her finger and states that it still feels sore She is advised to go and get her x-rays done DAVID for further evaluation (11) GERD without esophagitis: Code(s): K21.9 - Gastro-esophageal reflux disease without esophagitis Plan: Dietary restrictions reinforced Continue Prilosec OTC 20 mg daily (12) Insomnia: Code(s): G47.00 - Insomnia, unspecified Qualifiers: Insomnia type: unspecified Qualified Code(s): G47.00 - Insomnia, unspecified Plan: Sleep hygiene reinforced (13) Anxiety: Code(s): F41.9 - Anxiety disorder, unspecified Plan: Continue Clonazepam 0.5 mg 1 tablet Q HS (14) Depression: Code(s): F32.9 - Major depressive disorder, single episode, unspecified Qualifiers: Depression Type: major depressive disorder Major depression recurrence: recurrent Active/Remission status: currently active Major depression episode severity: unspecified Qualified Code(s): F33.9 - Major depressive disorder, recurrent, unspecified Plan: Continue Lexapro 10 mg QD Follow-up with Psychiatry (Dr. Han)? as scheduled (15) Obesity (BMI 30-39.9): Code(s): E66.9 - Obesity, unspecified Plan: Reinforced diet; exercise is unrealistic given patient's physical issues and comorbidities although she has lost a lot of weight since she was last here in 2021 Plan Follow up in 3 months Orders: Orders Hemoglobin A1c 3 Months E11.9 - Type 2 diabetes mellitus without complications Complete Blood Count Auto Diff 3 Months D64.9 - Anemia, unspecified Thyroid Stimulating Hormone 3 Months E03.9 - Hypothyroidism, unspecified UA CC w/rflx Micro + Cult 3 Months R30.0 - Dysuria Vitamin D 25-OH Total 3 Months E55.9 - Vitamin D deficiency, unspecified Comprehensive [place]. Panel Fast 3 Months E78.00 - Pure hypercholesterolemia, unspecified Lipid Panel 3 Months E78.00 - Pure hypercholesterolemia, unspecified Free T4 (Free Thyroxine) 3 Months E03.9 - Hypothyroidism, unspecified Microalbumin, Random (w Creat) 3 Months E11.9 - Type 2 diabetes mellitus without complications Vitamin B12 and Folate 3 Months E53.8 - Deficiency of other specified B group vitamins Medications: New cholecalciferol (vitamin D3) 50 mcg PO DAILY 90 days 90 caps 3RF E55.9 - Vitamin D deficiency, unspecified ketoconazole 2% 1 appl topical DAILY 30 grams 0RF pruritic rash metronidazole 500 mg PO Q8H 5 days 15 tabs 0RF diverticulitis Coding Level of Care Code Est Pt Level 4 (78781) Complex EM visit Add On G2211 Diagnoses Sigmoid diverticulitis K57.32 Type 2 diabetes mellitus with stage 2 chronic kidney disease, without long-term current use of insulin E11.22; N18.2 Diabetes mellitus type: type 2 Diabetes mellitus termite inspector insulin use: without termite inspector use Diabetes mellitus complication status: with kidney complications Diabetes mellitus complication detail: with chronic kidney disease Chronic kidney disease stage: stage 2 (mild) Benign essential hypertension I10 Chronic kidney disease (CKD), stage II (mild) N18.2 Pure hypercholesterolemia E78.00 Elevated LFTs R79.89 Acquired hypothyroidism E03.9 Mild intermittent asthma without complication J45.20 Asthma severity: mild Asthma persistence: intermittent Asthma complication type: uncomplicated Vitamin D deficiency E55.9 Pain in finger of right hand M79.644 GERD without esophagitis K21.9 Insomnia, unspecified type G47.00 Insomnia type: unspecified Anxiety F41.9 Episode of recurrent major depressive disorder, unspecified depression episode severity F33.9 Depression Type: major depressive disorder Major depression recurrence: recurrent Active/Remission status: currently active Major depression episode severity: unspecified Obesity (BMI 30-39.9) E66.9
[2024-05-16 12:33] VITALS: BP 130/82; PULSE 79; O2SAT 98; BMI 33.8
== END 2024-05-16 13:27 | disposition home or self-care (01) ==
PROVIDERS: PCP Internal Medicine; Visit Provider Internal Medicine
DX: I12.9 Hypertensive chronic kidney disease with stage 1 through stage 4 chronic kidney disease, or unspecified chronic kidney disease (principal); E11.22 Type 2 diabetes mellitus with diabetic chronic kidney disease; F33.9 Major depressive disorder, recurrent, unspecified; N18.2 Chronic kidney disease, stage 2 (mild); K57.32 Diverticulitis of large intestine without perforation or abscess without bleeding; E78.00 Pure hypercholesterolemia, unspecified; R79.89 Other specified abnormal findings of blood chemistry; E03.9 Hypothyroidism, unspecified; J45.20 Mild intermittent asthma, uncomplicated; E55.9 Vitamin D deficiency, unspecified; M79.644 Pain in right finger(s); K21.9 Gastro-esophageal reflux disease without esophagitis
CPT/HCPCS: 99214; G2211

== ENCOUNTER 2024-07-08 14:22 | Outpatient (AMB) | payer MEDICARE, OTHER, SELFPAY ==
--- NOTE | 2024-07-08 14:33 | A.OFFVIS_ITS ---
Vital Signs 07/08/24 14:37 Height 5 ft 4 in Weight 200 lb 2.876 oz BMI 34.4 BP 98/68 Blood Pressure Location Rt brachial Position Sitting Pulse 86 Pulse Source Pulse Oximeter Intake Visit Reasons: T2DM/LVM Intake Note: New patient present today for Diabetes Mellitus. Last Diabetic Eye exam: January 2024 Last Podiatry Visit: Does not see a Hairspring Vibrator Random Glucose:464 mg/dl 2:46 pm, re-check 433 mg/dL, 3:43 pm HgA1C: 11.0% 05/13/2024 Knit Goods Cutter Hand Required: No Accompanied by: Self / Same As Patient Allergies adhesive tape [ADHESIVE TAPE] Allergy (Mild, Verified 07/08/24 14:39) RASH Cephalosporins [CEPHALOSPORINS] Allergy (Unknown, Verified 07/08/24 14:39) ANAPHYLAXIS gluten Allergy (Unknown, Verified 07/08/24 14:39) Unknown ketorolac Allergy (Unknown, Verified 07/08/24 14:39) hives lactase [From Dairy Aid] Allergy (Unknown, Verified 07/08/24 14:39) Unknown Penicillins [PENICILLINS] Allergy (Unknown, Verified 07/08/24 14:39) SWELLING Opioids - Morphine Analogues [OPIOIDS - MORPHINE ANALOGUES] Adverse Reaction (Severe, Verified 07/08/24 14:39) VERY SICK, DIZZY, VOMITING HPI Comments Details: This is a 74-year-old female with a past medical history of type 2 diabetes, diverticulitis, vitamin-D deficiency, morbid obesity, GERD, hypothyroidism, asthma , hypertension and CKD stage 3 presenting for initial diabetic consult. The patient was diagnosed with type 2 diabetes at age 50. She has not seen Endocrinology in the past. Her hemoglobin A1c was 11% on 05/13/2024. This had decreased from 12.3% on 02/07/2024. A1c was over 14% in August 2023. Per chart review patient has chronic hyperglycemia. Her initial POC today is 464. She had cranberry juice and boiled eggs in the afternoon for lunch. Patient denies symptoms of hyperglycemia. States she feels completely fine. Specifically no blurry vision, weakness, nausea, dizziness, confusion, vomiting, chest pain or shortness of breath. No polyuria/polydipsia. She does not monitor BG. Her current regimen is metformin extended release 500 mg once daily and Januvia 100 mg. She was previously on Actos which resulted in weight gain. She has been off of this for more than a year. Diet: awful, dairy free and gluten free and no ruffage due to diverticulitis. Eats eggs, tuna fish sandwiches and dairy/gluten free ice cream every day. No cookies or cakes. Hypoglycemia symptoms: none Hyperglycemia symptoms: none Eye exam: up to date Microvascular complications: nephropathy (CKD), no retinopathy but she has cataracts Macrovascular complications: none Hypertension: treated with Losartan 100 mg. Blood pressure is soft today, but she denies dizziness. Hyperlipidemia: treated with Zetia 10 mg. LDL at goal <100. ROS: Constitutional: No unexplained weight loss, fever, chills, fatigue or night sweats. Eyes: No vision changes, blurry vision, double vision, eye pain, eye redness, eye discharge. Respiratory: No shortness of breath, cough or sputum production. Cardiovascular: No chest pain, chest pressure or chest discomfort. No palpitations or pedal edema. Gastrointestinal: No anorexia, nausea, vomiting or diarrhea. No abdominal pain or blood in stool. Genitourinary: No dysuria, hematuria, urinary frequency. Neurologic: No headache, dizziness, syncope, unilateral weakness, ataxia, numbness or tingling in the extremities. Skin: No rash or itching. Endocrine: No cold or heat intolerance. No polyuria or polydipsia. Physical exam: Constitutional: Alert, in no distress. Eyes: Pupils are equal, round and reactive to light. Extraocular muscles intact. Mouth/Throat: No oral lesions. Neck: Supple, Full range of motion. No lymphadenopathy. No palpable thyroid masses. Respiratory: Clear to auscultation. Cardiovascular: S1 S2 regular. No murmurs. Neurologic: No focal neurological deficits. Symmetric patellar reflexes. Moves all extremities spontaneously. Sensation intact bilaterally. Skin: No rashes or discoloration Extremities: Warm and well perfused. No clubbing, cyanosis or edema. Right foot: Warm and well perfused. No clubbing, cyanosis or edema. DP pulse 2+.Intact sensation to monofilament. Left foot: Warm and well perfused. No clubbing, cyanosis or edema. DP pulse 2+. Intact sensation to monofilament. [facility] Medical History (Updated 07/08/24 @ 16:02 by KIMBERLY Madrigal) Type 2 diabetes mellitus with hyperglycemia Vitamin D deficiency Obesity (BMI 30-39.9) Morbid obesity with BMI of 40.0-44.9, adult Insomnia Arthralgia Morbid obesity with BMI of 45.0-49.9, adult Depression Anxiety GERD without esophagitis Acquired hypothyroidism Gastrointestinal hemorrhage Anemia due to acute blood loss Asthma Chronic kidney disease (CKD), stage II (mild) Diabetes mellitus Pure hypercholesterolemia Benign essential hypertension Surgical History History of colonoscopy (~07/2019) H/O wrist surgery History of colectomy History of D&C History of tonsillectomy Family History Father No problems noted. Mother No problems noted. Other Substance abuse Social History Housing: House Alcohol intake: never Patient Tobacco Use Status: Never used Tobacco e-Cigarette/Vaping Use: Never Used Second Hand Smoke Exposure: No service: No Current occupational status: retired Cognitive needs: No Hearing needs: No Vision needs: Yes Physical Exam Vital Signs: Last Vital Signs Pulse 86 07/08/24 14:37 BP 98/68 07/08/24 14:37 BMI result Body Mass Index 34.4 Results Reviewed Results Reviewed: Laboratory Last Values Glucose (Clinic) 464 mg/dL (60-115) H* 07/08/24 14:46 Laboratory Tests 05/07/24 05/13/24 05/14/24 10:12 12:14 07:46 Creatinine 1.38 1.24 Estimated GFR 37 42 Hemoglobin A1c % 11.0 H Triglycerides 133 Cholesterol 117 LDL Cholesterol, Calc 41 HDL Cholesterol 50 TSH 15.46 H Urine Creatinine 23.27 Urine Microalbumin 7.0 Microalb/Creat Ratio 30.0 H Assessment & Plan Assessment & Plan (1) Type 2 diabetes mellitus with hyperglycemia: Code(s): E11.65 - Type 2 diabetes mellitus with hyperglycemia Category: Medical Qualifiers: Diabetes mellitus predatory animal exterminator insulin use: with predatory animal exterminator use Qualified Code(s): E11.65 - Type 2 diabetes mellitus with hyperglycemia; Z79.4 - predatory animal exterminator (current) use of insulin (2) Morbid obesity with BMI of 45.0-49.9, adult: Code(s): E66.01 - Morbid (severe) obesity due to excess calories; Z68.42 - Body mass index [BMI] 45.0-49.9, adult Category: Medical Plan In summary this is a 74-year-old female with a long history of type 2 diabetes which is currently poorly controlled who presents with hyperglycemia. Patient declined short-acting insulin in the office today. She was given water to drink and her POC decreased to 433. Advised patient this is still very high and recommended administering insulin and monitoring in the office over the next hour to get blood glucose under 400. We discussed that blood glucose over this threshold puts her at risk for DKA which can result in rapid progression to coma and . She verbalizes understanding. Patient continued to adamantly decline insulin in the office. States she will continue to drink water and call 911 if she develops symptoms of hyperglycemia to be transported to ED. Reviewed case with Dr. Mcknight. The patient provided the following written instructions: Januvia not likely to be beneficial at this point. Stop medication. Patient agreeable to start basal bolus insulin. Prescribed Lantus Solostar 10 units nightly. Referred to critical care educator for titration. Increase metformin ER to 500 mg twice daily. Discussed side effects and CKD with the patient. I would not increase higher in this patient with CKD. Will bring her back in a couple of weeks for recheck and repeat creatinine at that time. Submitted Mounjaro 2.5 mg once weekly. She denies contraindications to GLP1. Side effects reviewed in detail with the patient. Discussed cardiovascular benefits and weight loss with this type of medication. Discussed possible link with increased depression and suicidal thoughts. FDA is still investigating this. She will contact the office if she experiences mood changes on it and stop the indication. Given prescription for Humalog advised to take 6 units if blood glucose before meals is over 200. She is very hesitant about this and may not start at this time. Advised patient still beneficial to have script on hand particularly with hyperglycemia in office today. She agrees. Ordered glucometer and freestyle Raven. Referred urgently to critical care educator. Lifestyle modifications reviewed in detail with the patient. Review treatment of hypo and hyperglycemia. Glucose tabs sent to pharmacy. Follow up in 1-2 weeks for diabetes. Orders: Referrals Diabetes Education Referral E11.65 - Type 2 diabetes mellitus with hyperglycemia Medications: New blood-glucose meter,continuous (FreeStyle Raven 3 [place]) as directed 1 ea 0RF insulin glargine (Lantus Solostar U-100 Insulin) 10 units (0.1 mL) subcut .qhs 15 mL 4RF blood-glucose meter (FreeStyle Lite Meter kit) check glucose up to 5 times a day 1 ea 0RF E11.9 - Type 2 diabetes mellitus without complications lancets (FreeStyle Lancets) Use as directed to monitor glucose up to 5 times daily 200 ea 5RF blood-glucose sensor (FreeStyle Raven 3 Sensor device) apply new sensor every 14 days as directed 2 ea 11RF pen needle, diabetic (BD Ultra-Fine Mini Pen Needle) As directed 100 ea 5RF blood sugar diagnostic (FreeStyle Lite Strips) As directed to check glucose up to 5 times daily 200 ea 5RF tirzepatide (Mounjaro) for 4 weeks 2.5 mg (0.5 mL) subcut QWEEK 2 mL 3RF insulin lispro (Humalog KwikPen (U-100) Insulin) Administer 6 units before meals if your glucose is greater than 200 6 units (0.06 mL) subcut TID 15 mL 5RF glucose (Dex4 Glucose) until symptoms of low blood sugar are controlled 16 grams (4 x 4 gram) PO Q15M PRN 60 tabs 1RF hypoglycemia Changed From metformin ER 500 mg PO DAILY 90 days 90 tabs 1RF To metformin ER 500 mg PO BID 90 days 180 tabs 1RF Discontinued metronidazole Discontinued Reason: Doctor's Order 500 mg PO TID 30 tabs 0RF sitagliptin phosphate (Januvia) Discontinued Reason: Doctor's Order 100 mg PO DAILY 30 tabs 3RF metronidazole Discontinued Reason: Patient Completed Course 500 mg PO Q8H 5 days 15 tabs 0RF diverticulitis Coding Level of Care Code New Pt Level 5 (65481) Complex EM visit Add On G2211 Diagnoses Type 2 diabetes mellitus with hyperglycemia, with long-term current use of insulin E11.65; Z79.4 Diabetes mellitus senior living insulin use: with senior living use Morbid obesity with BMI of 45.0-49.9, adult E66.01; Z68.42 Time Spent (min) 70 Comment Reviewing chart/labs, direct patient care, consulting precepting physician, completing doc
[2024-07-08 14:37] VITALS: BP 98/68; PULSE 86; BMI 34.4
[2024-07-08 14:52] LABS: Glucose, Whole Blood 464 mg/dL (60-115)
[2024-07-08 15:45] LABS: Glucose, Whole Blood 433 mg/dL (60-115)
== END 2024-07-08 15:53 | disposition home or self-care (01) ==
PROVIDERS: PCP Internal Medicine; Visit Provider Physician Assistant Medical
DX: E11.65 Type 2 diabetes mellitus with hyperglycemia (principal); Z79.4 Long term (current) use of insulin; E66.01 Morbid (severe) obesity due to excess calories; Z68.34 Body mass index [BMI] 34.0-34.9, adult
CPT/HCPCS: 99205; G2211

== ENCOUNTER → 2024-07-08 14:22 | Outpatient (BNVA) | payer MEDICARE, OTHER, SELFPAY | PROVIDERS: PCP Internal Medicine; Visit Provider Physician Assistant Medical | DX: E11.65 Type 2 diabetes mellitus with hyperglycemia (principal); E66.01 Morbid (severe) obesity due to excess calories; Z79.4 Long term (current) use of insulin; Z68.34 Body mass index [BMI] 34.0-34.9, adult | CPT/HCPCS: 82947; 99202 ==

== ENCOUNTER 2024-07-25 12:52 | Outpatient (REF) | payer MEDICARE, OTHER, SELFPAY ==
[2024-07-25 15:48] LABS: Estimated Glomerular Filt Rate 51
== END 2024-07-25 12:53 | disposition home or self-care (01) ==
LOC: HO.LAB 12:52
PROVIDERS: PCP Internal Medicine; Visit Provider Physician Assistant Medical
DX: E11.65 Type 2 diabetes mellitus with hyperglycemia (principal); E66.01 Morbid (severe) obesity due to excess calories; Z68.42 Body mass index [BMI] 45.0-49.9, adult; Z79.4 Long term (current) use of insulin
CPT/HCPCS: 36415; 82565; 82947; 99212

== ENCOUNTER 2024-07-25 12:52 | Outpatient (AMB) | payer MEDICARE, OTHER, SELFPAY ==
--- NOTE | 2024-07-25 12:56 | A.OFFVIS_ITS ---
Vital Signs 07/25/24 12:58 Height 5 ft 4 in Weight 198 lb 6.656 oz BMI 34.1 BP 114/68 Blood Pressure Location Rt brachial Position Sitting Pulse 75 Pulse Source Pulse Oximeter Intake Visit Reasons: Diabetes/LVM Intake Note: Patient present today for a follow-up on Type 2 Diabetes Mellitus. Caitlin is on backorder, confirmed with [facility]. Last Diabetic Eye exam: January 2024 Last Podiatry Visit: Does not see a Thimble Press Operator Most [id number]: 11.0% 05/13/2024 Random Glucose: 382 mg/dL, Today Head Turning Machine Operator Required: No Accompanied by: Self / Same As Patient Allergies adhesive tape [ADHESIVE TAPE] Allergy (Mild, Verified 07/08/24 14:39) RASH Cephalosporins [CEPHALOSPORINS] Allergy (Unknown, Verified 07/08/24 14:39) ANAPHYLAXIS gluten Allergy (Unknown, Verified 07/08/24 14:39) Unknown ketorolac Allergy (Unknown, Verified 07/08/24 14:39) hives lactase [From Dairy Aid] Allergy (Unknown, Verified 07/08/24 14:39) Unknown Penicillins [PENICILLINS] Allergy (Unknown, Verified 07/08/24 14:39) SWELLING Opioids - Morphine Analogues [OPIOIDS - MORPHINE ANALOGUES] Adverse Reaction (Severe, Verified 07/08/24 14:39) VERY SICK, DIZZY, VOMITING HPI Comments Details: This is a 74-year-old female with a past medical history of type 2 diabetes, diverticulitis, vitamin-D deficiency, morbid obesity, GERD, hypothyroidism, asthma , hypertension and CKD stage 3 presenting for continued diabetic management. She was last seen by me 07/08/24 for an initial consult. The patient was diagnosed with type 2 diabetes at age 50. Her hemoglobin A1c was 11% on 05/13/2024. This had decreased from 12.3% on 02/07/2024. A1c was over 14% in August 2023. Her POC is 382. Patient denies symptoms of hyperglycemia. Specifically no blurry vision, weakness, nausea, dizziness, confusion, vomiting, chest pain or shortness of breath. No polyuria/polydipsia. She picked up the fingerstick glucometer, but she says she is not using it and never will. Freestyle libre3 was not dispensed. It has come to my attention today there is a nationwide backorder. Her current regimen is metformin extended release 500 mg once twice daily. Pharmacy did not dispense pen needles for Lantus so she has not started it yet. She has an appointment with the visual educator and would like teaching done then. She stopped the Januvia as directed. She was previously on Actos which resulted in weight gain. She is not using the short acting insulin. Mounjaro 2.5 mg is back ordered so she did not receive this either. She is very prone to yeast infections. Diet reviewed previously: awful, dairy free and gluten free and no ruffage due to diverticulitis. Eats eggs, tuna fish sandwiches and dairy/gluten free ice cream every day. No cookies or cakes. Hypoglycemia symptoms: none Hyperglycemia symptoms: none Eye exam: up to date Microvascular complications: nephropathy (CKD), no retinopathy but she has cataracts Macrovascular complications: none Hypertension: treated with Losartan 100 mg. Hyperlipidemia: treated with Zetia 10 mg. LDL at goal <100. She plans to get flu, COVID-19 and RSV vaccines at the pharmacy. ROS: Constitutional: No unexplained weight loss, fever, chills, fatigue or night sweats. Eyes: No vision changes, blurry vision, double vision, eye pain, eye redness, eye discharge. Respiratory: No shortness of breath, cough or sputum production. Cardiovascular: No chest pain, chest pressure or chest discomfort. No palpitations or pedal edema. Gastrointestinal: No anorexia, nausea, vomiting or diarrhea. No abdominal pain or blood in stool. Genitourinary: No dysuria, hematuria, urinary frequency. Neurologic: No headache, dizziness, syncope, unilateral weakness, ataxia, numbness or tingling in the extremities. Skin: No rash or itching. Endocrine: No cold or heat intolerance. No polyuria or polydipsia. Physical exam: Constitutional: Alert, in no distress. Eyes: Pupils are equal, round and reactive to light. Extraocular muscles intact. Respiratory: Clear to auscultation. Cardiovascular: S1 S2 regular. No murmurs. Neurologic: No focal neurological deficits. Symmetric patellar reflexes. Moves all extremities spontaneously. Sensation intact bilaterally. Skin: No rashes or discoloration Extremities: Warm and well perfused. No clubbing, cyanosis or edema. [facility] Medical History (Updated 07/08/24 @ 16:02 by KIMBERLY Madrigal) Type 2 diabetes mellitus with hyperglycemia Vitamin D deficiency Obesity (BMI 30-39.9) Morbid obesity with BMI of 40.0-44.9, adult Insomnia Arthralgia Morbid obesity with BMI of 45.0-49.9, adult Depression Anxiety GERD without esophagitis Acquired hypothyroidism Gastrointestinal hemorrhage Anemia due to acute blood loss Asthma Chronic kidney disease (CKD), stage II (mild) Diabetes mellitus Pure hypercholesterolemia Benign essential hypertension Surgical History History of colonoscopy (~07/2019) H/O wrist surgery History of colectomy History of D&C History of tonsillectomy Family History Father No problems noted. Mother No problems noted. Other Substance abuse Social History Housing: House Alcohol intake: never Patient Tobacco Use Status: Never used Tobacco e-Cigarette/Vaping Use: Never Used Second Hand Smoke Exposure: No service: No Current occupational status: retired Cognitive needs: No Hearing needs: No Vision needs: Yes Physical Exam Vital Signs: Last Vital Signs Pulse 75 07/25/24 12:58 BP 114/68 07/25/24 12:58 BMI result Body Mass Index 34.1 Assessment & Plan Assessment & Plan (1) Type 2 diabetes mellitus with hyperglycemia: Code(s): E11.65 - Type 2 diabetes mellitus with hyperglycemia Category: Medical Qualifiers: Diabetes mellitus halfway insulin use: with yarn conditioner use Qualified Code(s): E11.65 - Type 2 diabetes mellitus with hyperglycemia; Z79.4 - weapons mechanic (current) use of insulin (2) Morbid obesity with BMI of 45.0-49.9, adult: Code(s): E66.01 - Morbid (severe) obesity due to excess calories; Z68.42 - Body mass index [BMI] 45.0-49.9, adult Category: Medical Plan In summary this is a 74-year-old female with a history of type 2 diabetes which is currently poorly controlled. The patient provided the following written instructions: Prescribed Lantus Solostar 10 units nightly at initial visit. Pen needles sent to pharmacy again. Continue metformin ER to 500 mg twice daily. Discussed side effects and CKD with the patient. I would not increase higher in this patient with CKD. Recheck creatinine today. Mounjaro backordered. Sent Ozempic 0.25 mg weekly as alternative. She denies contraindications to GLP1. Side effects reviewed in detail with the patient. Discussed cardiovascular benefits and weight loss with this type of medication. Discussed possible link with increased depression and suicidal thoughts. FDA is still investigating this. She will contact the office if she experiences mood changes on it and stop the indication. She has the prescription for Humalog and has been advised to take 6 units if blood glucose before meals is over 200. She does not plan to start it. Sent Dexcom7 since freestyle libre3 is unavailable. Patient instructed to contact the office if she is unable to get any of these prescriptions from her pharmacy. Lifestyle modifications reviewed in detail with the patient. Review treatment of hypo and hyperglycemia. Follow up in 4-5 weeks for diabetes. Orders: Orders Creatinine Today E11.65 - Type 2 diabetes mellitus with hyperglycemia, Z79.4 - penitentiary (current) use of insulin Medications: New blood-glucose sensor (Dexcom G7 Sensor device) apply new sensor every 10 days as directed 3 ea 11RF pen needle, diabetic (BD [place] 2nd Gen Pen Needle) As directed 200 ea 5RF semaglutide (Ozempic) for 4 weeks 0.25 mg (0.368 mL) subcut QWEEK 3 mL 0RF blood-glucose meter,continuous (Dexcom G7 Latin Professor) As directed 1 ea 0RF Discontinued pen needle, diabetic (BD Ultra-Fine Mini Pen Needle) Discontinued Reason: Doctor's Order As directed 100 ea 5RF tirzepatide (Mounjaro) for 4 weeks Discontinued Reason: Doctor's Order 2.5 mg (0.5 mL) subcut QWEEK 2 mL 3RF Patient Instructions: The starting dose of Mounjaro was backordered. I sent a prescription for Ozempic (semaglutide) 0.25 mg once weekly instead. Please let me know if you don't pick it up at the pharmacy within the next week. I sent the needles for the lantus insulin pen again to the pharmacy. Please let me know if you don't pick it up at the pharmacy within the next week. Freestyle Libre3 meter is backordered. I sent the dexcom G7 continuous glucose monitor instead. Please let me know if you don't pick it up at the pharmacy within the next week. Please continue Metformin 500 mg twice daily. Coding Level of Care Code Est Pt Level 5 (45410) Complex EM visit Add On G2211 Diagnoses Type 2 diabetes mellitus with hyperglycemia, with long-term current use of insulin E11.65; Z79.4 Diabetes mellitus yarn conditioner insulin use: with halfway use Morbid obesity with BMI of 45.0-49.9, adult E66.01; Z68.42 Time Spent (min) 56 Comment direct patient care and completing documentation
[2024-07-25 12:58] VITALS: BP 114/68; PULSE 75; BMI 34.1
[2024-07-25 13:12] LABS: Glucose, Whole Blood 382 mg/dL (60-115)
== END 2024-07-25 13:43 | disposition home or self-care (01) ==
PROVIDERS: PCP Internal Medicine; Visit Provider Physician Assistant Medical
DX: E11.65 Type 2 diabetes mellitus with hyperglycemia (principal); Z79.4 Long term (current) use of insulin; E66.09 Other obesity due to excess calories; Z68.34 Body mass index [BMI] 34.0-34.9, adult

== ENCOUNTER 2024-08-11 12:55 | Outpatient (AMB) | payer MEDICARE, OTHER, SELFPAY ==
--- NOTE | 2024-08-11 14:02 | A.OFFVIS_ITS ---
Intake Intake Visit Reasons: T2DM/CONFIRMED [place] Equipment Repairer Required: No Accompanied by: Self / Same As Patient Allergies adhesive tape [ADHESIVE TAPE] Allergy (Mild, Verified 07/08/24 14:39) RASH Cephalosporins [CEPHALOSPORINS] Allergy (Unknown, Verified 07/08/24 14:39) ANAPHYLAXIS gluten Allergy (Unknown, Verified 07/08/24 14:39) Unknown ketorolac Allergy (Unknown, Verified 07/08/24 14:39) hives lactase [From Dairy Aid] Allergy (Unknown, Verified 07/08/24 14:39) Unknown Penicillins [PENICILLINS] Allergy (Unknown, Verified 07/08/24 14:39) SWELLING Opioids - Morphine Analogues [OPIOIDS - MORPHINE ANALOGUES] Adverse Reaction (Severe, Verified 07/08/24 14:39) VERY SICK, DIZZY, VOMITING HPI Comprehensive Diabetes Asmnt Most Recent Diabetes Results: Hemoglobin A1c 6.5 % 05/05/20 Microalb/Creat Ratio 30.0 ug/mg cr (<30) H 05/14/24 Cholesterol 117 mg/dL (<200) 05/13/24 HDL Cholesterol 50 mg/dL (>40) 05/13/24 Triglycerides 133 mg/dL (<150) 05/13/24 Creatinine 1.05 mg/dL (0.5-1.4) 07/25/24 Blood Urea Nitrogen 9 mg/dL (9-16) 05/13/24 Sodium 138 mmol/L (135-145) 05/13/24 Potassium 4.9 mmol/L (3.3-5.1) 05/13/24 Chloride 102 mmol/L (96-108) 05/13/24 Carbon Dioxide 29 mmol/L (22-29) 05/13/24 Calcium 9.0 mg/dL (8.4-10.2) 05/13/24 AST 37 U/L (5-31) H 05/13/24 ALT 23 U/L (0-31) 05/13/24 Total Protein 6.6 g/dL (6.5-8.0) 05/13/24 Albumin 3.9 g/dL (3.5-5.0) 05/13/24 [facility] Medical History (Updated 07/08/24 @ 16:02 by KIMBERLY Madrigal) Type 2 diabetes mellitus with hyperglycemia Vitamin D deficiency Obesity (BMI 30-39.9) Morbid obesity with BMI of 40.0-44.9, adult Insomnia Arthralgia Morbid obesity with BMI of 45.0-49.9, adult Depression Anxiety GERD without esophagitis Acquired hypothyroidism Gastrointestinal hemorrhage Anemia due to acute blood loss Asthma Chronic kidney disease (CKD), stage II (mild) Diabetes mellitus Pure hypercholesterolemia Benign essential hypertension Surgical History History of colonoscopy (~07/2019) H/O wrist surgery History of colectomy History of D&C History of tonsillectomy Family History Father No problems noted. Mother No problems noted. Other Substance abuse Social History Housing: House Alcohol intake: never Patient Tobacco Use Status: Never used Tobacco e-Cigarette/Vaping Use: Never Used Second Hand Smoke Exposure: No service: No Current occupational status: retired Cognitive needs: No Hearing needs: No Vision needs: Yes Assessment & Plan Assessment & Plan (1) Type 2 diabetes mellitus with hyperglycemia: Code(s): E11.65 - Type 2 diabetes mellitus with hyperglycemia Qualifiers: Diabetes mellitus shelter insulin use: with shelter use Qualified Code(s): E11.65 - Type 2 diabetes mellitus with hyperglycemia; Z79.4 - adjunct faculty for medical terminology (current) use of insulin Plan: Insulin/Incretin?Mimetic Education visit Patient will be starting Lantus 10 units daily, Ozempic 0.25 mg weekly Instructed patient to contact pharmacy regarding Humalog, Dexcom G7 sensors and pen needles scripts Patient has not received these items from the pharmacy Patient Education: Patient was instructed and provided with demonstration of the following: Insulin action and Incretin Mimetics medication storage how to set up medication pen/or syringe and vial Handwashing insulin injection site rotation Site rotation recognizing hypertrophy Testing blood glucose Removing and disposing needle from insulin pen Safe disposal of sharps Target blood sugar Signs/ symptoms/treatment of hypoglycemia/hyperglycemia expiration of open insulin pen Patient verbalized understanding of education provided and was able to demonstrate proper use of inject into injection pillow Reviewed rule of 15s to treat glucose under 70 mg/dL All questions were answered and patient was advised to contact the office with any questions or concerns. Patient at visit to set up an insert Dexcom G7 Instructed patient sensors water proof you can shower, or swim do not submerge sensor in water for over 30 minutes Is sensor falls off cannot put back in you need to replace sensor, customer service number given to patient for sensor replacement Sensor placed on the back of R arm Patient left visit with sensor in warmup Reviewed how to interpret trend arrows Reminded patient that to check finger sticks if symptoms do not match sensor reading. Discussed lag time between finger stick and sensor data.? Instructed patient she should always keep blood glucometer for backup testing if needed Reviewed delay of CGM from fingersticks Reminded pt that if symptoms do not match sensor still needs to check fingersticks. Portions of this note were created using voice recognition software, please excuse any words or phrases that may have been misinterpreted. Patient Instructions: Patient instruction: CGM provides information on blood glucose control throughout the day, including hyperglycemia and hypoglycemia. ? Continue to monitor blood glucose as instructed. Follow nutrition guidelines provided. Report any discomfort promptly to health care provider. ?Stay well-hydrated. You can bathe ,shower, swim and exercise while wearing the glucose sensor. Do not submerge glucose sensor in water for more than 30 minutes. Coding Level of Care Code Est Pt Level 1 (90072) Diagnoses Type 2 diabetes mellitus with hyperglycemia, with long-term current use of insulin E11.65; Z79.4 Diabetes mellitus shelter insulin use: with termite inspector use
== END 2024-08-11 14:04 | disposition home or self-care (01) ==
PROVIDERS: PCP Internal Medicine; Visit Provider Registered Nurse Diabetes Educator
DX: E11.65 Type 2 diabetes mellitus with hyperglycemia (principal); Z79.4 Long term (current) use of insulin

== ENCOUNTER → 2024-08-11 12:55 | Outpatient (BNVA) | payer MEDICARE, OTHER, SELFPAY | PROVIDERS: PCP Internal Medicine; Visit Provider Registered Nurse Diabetes Educator | DX: E11.65 Type 2 diabetes mellitus with hyperglycemia (principal); Z79.4 Long term (current) use of insulin | CPT/HCPCS: 99211 ==

== ENCOUNTER 2024-08-29 11:38 | Outpatient (AMB) | payer MEDICARE, OTHER, SELFPAY ==
[2024-08-29 11:41] VITALS: BP 132/86; PULSE 82; BMI 34.0
--- NOTE | 2024-08-29 11:41 | A.OFFVIS_ITS ---
Vital Signs 08/29/24 11:41 Height 5 ft 4 in Weight 198 lb 3.129 oz BMI 34.0 BP 132/86 Blood Pressure Location Lt brachial Position Sitting Pulse 82 Pulse Source Pulse Oximeter Intake Visit Reasons: diabetes CGM review/CONFIRMED Intake Note: Patient present today to follow up on Type 2 Diabetes Mellitus. Last Diabetic Eye exam: January 2024 Last Podiatry Visit: Does not see a Bottler Random Glucose: 210 mg/dl HgA1C: 13.6% Prison Keeper Required: No Accompanied by: Self / Same As Patient Allergies adhesive tape [ADHESIVE TAPE] Allergy (Mild, Verified 08/29/24 11:47) RASH Cephalosporins [CEPHALOSPORINS] Allergy (Unknown, Verified 08/29/24 11:47) ANAPHYLAXIS gluten Allergy (Unknown, Verified 08/29/24 11:47) Unknown ketorolac Allergy (Unknown, Verified 08/29/24 11:47) hives lactase [From Dairy Aid] Allergy (Unknown, Verified 08/29/24 11:47) Unknown Penicillins [PENICILLINS] Allergy (Unknown, Verified 08/29/24 11:47) SWELLING Opioids - Morphine Analogues [OPIOIDS - MORPHINE ANALOGUES] Adverse Reaction (Severe, Verified 08/29/24 11:47) VERY SICK, DIZZY, VOMITING HPI Comments Details: This is a 74-year-old female with a past medical history of type 2 diabetes, diverticulitis, vitamin-D deficiency, morbid obesity, GERD, hypothyroidism, asthma, hypertension and CKD stage 3 presenting for continued diabetic management. She was last seen by me 07/25/24. The patient was diagnosed with type 2 diabetes at age 50. Her hemoglobin A1c is 13.6% today. POC 210. Patient denies symptoms of hyperglycemia. Specifically no blurry vision, weakness, nausea, dizziness, confusion, vomiting, chest pain or shortness of breath. No polyuria/polydipsia. She picked up the fingerstick glucometer, but she says she is not using it and never will. Patient says the Dexcom reader placed by the para educator fell off. We do not have any glucose readings to review today. The pharmacy has not dispensed a prescription yet. I am looking into the prior authorization. Her current regimen is metformin extended release 500 mg once twice daily. She started Lantus 10 units nightly about 2 weeks ago as well as Ozempic 0.25 mg weekly. She has some nausea on Ozempic, but it only lasts 1 or 2 days. She was previously on Actos which resulted in weight gain. She is not using the short acting insulin. Diet reviewed previously: awful, dairy free and gluten free and no ruffage due to diverticulitis. Eats eggs, tuna fish sandwiches and dairy/gluten free ice cream every day. No cookies or cakes. Hypoglycemia symptoms: none Hyperglycemia symptoms: none Eye exam: up to date Microvascular complications: nephropathy (CKD), no retinopathy but she has cataracts Macrovascular complications: none Hypertension: treated with Losartan 100 mg. Hyperlipidemia: treated with Zetia 10 mg. LDL at goal <100. ROS: Constitutional: No unexplained weight loss, fever, chills, fatigue or night sweats. Eyes: No vision changes, blurry vision, double vision, eye pain, eye redness, eye discharge. Respiratory: No shortness of breath, cough or sputum production. Cardiovascular: No chest pain, chest pressure or chest discomfort. No palpitations or pedal edema. Gastrointestinal: No anorexia, vomiting or diarrhea. No abdominal pain or blood in stool. Genitourinary: No dysuria, hematuria, urinary frequency. Neurologic: No headache, dizziness, syncope, unilateral weakness, ataxia, numbness or tingling in the extremities. Skin: No rash or itching. Endocrine: No cold or heat intolerance. No polyuria or polydipsia. Physical exam: Constitutional: Alert, in no distress. Eyes: Pupils are equal, round and reactive to light. Extraocular muscles intact. Respiratory: Clear to auscultation. Cardiovascular: S1 S2 regular. No murmurs. Neurologic: No focal neurological deficits. Symmetric patellar reflexes. Moves all extremities spontaneously. Sensation intact bilaterally. Skin: No rashes or discoloration Extremities: Warm and well perfused. No clubbing, cyanosis or edema. [facility] Medical History (Updated 07/08/24 @ 16:02 by KIMBERLY Madrigal) Type 2 diabetes mellitus with hyperglycemia Vitamin D deficiency Obesity (BMI 30-39.9) Morbid obesity with BMI of 40.0-44.9, adult Insomnia Arthralgia Morbid obesity with BMI of 45.0-49.9, adult Depression Anxiety GERD without esophagitis Acquired hypothyroidism Gastrointestinal hemorrhage Anemia due to acute blood loss Asthma Chronic kidney disease (CKD), stage II (mild) Diabetes mellitus Pure hypercholesterolemia Benign essential hypertension Surgical History History of colonoscopy (~07/2019) H/O wrist surgery History of colectomy History of D&C History of tonsillectomy Family History Father No problems noted. Mother No problems noted. Other Substance abuse Social History Housing: House Alcohol intake: never Patient Tobacco Use Status: Never used Tobacco e-Cigarette/Vaping Use: Never Used Second Hand Smoke Exposure: No service: No Current occupational status: retired Cognitive needs: No Hearing needs: No Vision needs: Yes Physical Exam Vital Signs: Last Vital Signs Pulse 82 08/29/24 11:41 BP 132/86 08/29/24 11:41 BMI result Body Mass Index 34.0 Results AMB Hemoglobin A1c AMB Hemoglobin A1c 13.6 % Last Edit by DOMINIC Tinoco on 08/29/24 12:01 Results Reviewed Results Reviewed: Laboratory Last Values Glucose (Clinic) 210 mg/dL (60-115) H 08/29/24 11:50 Hgb A1c (Clinic) 13.6 % (4.0-6.0) H 08/29/24 12:00 Assessment & Plan Assessment & Plan (1) Type 2 diabetes mellitus with hyperglycemia: Code(s): E11.65 - Type 2 diabetes mellitus with hyperglycemia Category: Medical Qualifiers: Diabetes mellitus halfway insulin use: with halfway use Qualified Code(s): E11.65 - Type 2 diabetes mellitus with hyperglycemia; Z79.4 - long-term (current) use of insulin (2) Morbid obesity with BMI of 45.0-49.9, adult: Code(s): E66.01 - Morbid (severe) obesity due to excess calories; Z68.42 - Body mass index [BMI] 45.0-49.9, adult Category: Medical Plan In summary this is a 74-year-old female with a history of type 2 diabetes with nephropathy who currently started Lantus and Ozempic and is also taking metformin. I placed a Dexcom G7 sensor on the patient today. She left with reader in the waiting period. We will look into the prior authorization for her prescription for the Dexcom G7 sensors. She is not willing to do fingerstick glucose checks. Continue current regimen. Follow up in 2 weeks to review CGM for type 2 diabetes. She is having labs done in September. Added BNP for screening. If this is greater than 50 I will order an echocardiogram. Patient instructed to contact the office if she is unable to get any of these prescriptions from her pharmacy. Lifestyle modifications reviewed in detail with the patient. Review treatment of hypo and hyperglycemia. Orders: Orders AMB Hemoglobin A1c Today E11.65 - Type 2 diabetes mellitus with hyperglycemia, Z13.9 - Encounter for screening, unspecified, Z79.4 - long-term (current) use of insulin B Type Natriuretic Peptide Today E11.9 - Type 2 diabetes mellitus without complications Coding Level of Care Code Est Pt Level 4 (77195) Complex EM visit Add On G2211 Diagnoses Type 2 diabetes mellitus with hyperglycemia, with long-term current use of in sulin E11.65; Z79.4 Diabetes mellitus rat exterminator insulin use: with rat exterminator use Morbid obesity with BMI of 45.0-49.9, adult E66.01; Z68.42
[2024-08-29 11:54] LABS: Glucose, Whole Blood 210 mg/dL (60-115)
== END 2024-08-29 12:24 | disposition home or self-care (01) ==
PROVIDERS: PCP Internal Medicine; Visit Provider Physician Assistant Medical
DX: E11.65 Type 2 diabetes mellitus with hyperglycemia (principal); Z79.4 Long term (current) use of insulin; E66.01 Morbid (severe) obesity due to excess calories; Z68.42 Body mass index [BMI] 45.0-49.9, adult; Z13.9 Encounter for screening, unspecified

== ENCOUNTER → 2024-08-29 11:38 | Outpatient (BNVA) | payer MEDICARE, OTHER, SELFPAY | PROVIDERS: PCP Internal Medicine; Visit Provider Physician Assistant Medical | DX: E11.65 Type 2 diabetes mellitus with hyperglycemia (principal); E11.22 Type 2 diabetes mellitus with diabetic chronic kidney disease; E11.21 Type 2 diabetes mellitus with diabetic nephropathy; I12.9 Hypertensive chronic kidney disease with stage 1 through stage 4 chronic kidney disease, or unspecified chronic kidney disease; N18.2 Chronic kidney disease, stage 2 (mild); E78.5 Hyperlipidemia, unspecified; E66.01 Morbid (severe) obesity due to excess calories; Z68.34 Body mass index [BMI] 34.0-34.9, adult; Z79.4 Long term (current) use of insulin | CPT/HCPCS: 82947; 83036; 99212 ==

== ENCOUNTER 2024-09-10 11:31 | Outpatient (REF) | payer MEDICARE, OTHER, SELFPAY ==
[2024-09-10 12:08] LABS: MANUAL DIFF FLAG NO
[2024-09-10 12:22] LABS: Basophils Percent Auto 0.8 % (0-2); Eosinophils Absolute Auto 0.1 X10*3/uL (0.0-0.4); Eosinophils Percent Auto 1.8 % (0-4); Hematocrit 39.3 % (37.0-47.0); Hemoglobin 13.8 g/dl (12.0-16.0); Imm Gran Abs Auto 0.01 X10*3/uL (0.00-0.03); Imm Gran Pct Auto 0.3 % (0.0-0.4); Lymphocytes Absolute Auto 1.6 X10*3/uL (1.2-4.9); Lymphocytes Percent Auto 41.4 % (20-40); Mean Corpuscular HGB Conc 35.1 g/dl (31.0-35.0); Mean Corpuscular Hemoglobin 31.6 pg (27.0-33.0); Mean Corpuscular Volume 89.9 fL (80.0-98.0); Monocytes Absolute Auto 0.3 X10*3/uL (0.1-1.2); Monocytes Percent Auto 6.7 % (2-11); Neutrophils Absolute Auto 1.9 x10*3/uL (2.0-8.3); Platelet Count 126 X10*3/uL (160-400); Red Blood Count 4.37 X10*6/uL (4.20-5.50); Red Cell Distribution Width 12.9 % (11.0-16.0); White Blood Count 3.9 X10*3/uL (4.8-10.8)
[2024-09-10 12:30] LABS: Estimated Average Glucose 263 mg/dL; Hemoglobin A1C 330.9178 umol/L; Hemoglobin A1c % 10.8 % (<6.0); Total Hemoglobin (HGBA1C) 3488.4018 umol/L
[2024-09-10 12:47] LABS: B Type Natriuretic Peptide 88 pg/mL (<100)
[2024-09-10 13:09] LABS: Alanine Aminotransferase 37 U/L (0-31); Albumin Level 3.9 g/dL (3.5-5.0); Alkaline Phosphatase 115 U/L (39-117); Anion Gap 14 (12-20); Aspartate Amino Transferase 56 U/L (5-31); Bilirubin Total 0.8 mg/dL (0.0-1.0); Blood Urea Nitrogen 19 mg/dL (9-16); Calcium 9.1 mg/dL (8.4-10.2); Carbon Dioxide 26 mmol/L (22-29); Chloride 104 mmol/L (96-108); Cholesterol 129 mg/dL (<200); Estimated Glomerular Filt Rate 60; Glucose Fasting 176 mg/dL (60-99); HDL Cholesterol 41 mg/dL (>40); LDL Cholesterol Calculated 56 mg/dL (<100); Potassium 4.3 mmol/L (3.3-5.1); Sodium 140 mmol/L (135-145); Total Protein 6.7 g/dL (6.5-8.0); Triglycerides 164 mg/dL (<150)
[2024-09-10 13:20] LABS: Free T4 (Free Thyroxine) 1.16 ng/dL (0.71-1.85); Thyroid Stimulating Hormone 3.82 uIU/mL (0.32-4.0); Vitamin D 25-OH Total 35.3 ng/mL (>30)
[2024-09-10 13:33] LABS: Folate 9.4 ng/mL (> or = 4.0); Vitamin B12 301 pg/mL (200-900)
== END 2024-09-10 11:32 | disposition home or self-care (01) ==
LOC: HO.LAB 11:31
PROVIDERS: Physician Assistant Medical; PCP Internal Medicine; Visit Provider Internal Medicine
DX: E11.9 Type 2 diabetes mellitus without complications (principal); D64.9 Anemia, unspecified; E03.9 Hypothyroidism, unspecified; E55.9 Vitamin D deficiency, unspecified; E78.00 Pure hypercholesterolemia, unspecified; E53.8 Deficiency of other specified B group vitamins
CPT/HCPCS: 36415; 80053; 80061; 82306; 82607; 82746; 83036; 83880; 84439; 84443; 85025

== ENCOUNTER 2024-09-11 15:24 | Outpatient (REF) | payer MEDICARE, OTHER, SELFPAY ==
[2024-09-11 15:31] LABS: Appearance Urine Clear; Color Urine Yellow; Glucose Urine UA Negative (Negative); Leukocyte Esterase Urine Negative (Negative); Nitrite Urine Negative (Negative); PH 5.5 (5.0-9.0); Urine Blood Negative (Negative); Urine Ketones Negative (Negative); Urine Protein Negative (Neg-Trace)
[2024-09-11 16:10] LABS: Microalbum/Creatinine Ratio Ur 15.1 ug/mg cr (<30)
== END 2024-09-11 15:25 | disposition home or self-care (01) ==
LOC: HO.LNP 15:24
PROVIDERS: Visit Provider Internal Medicine
DX: E11.9 Type 2 diabetes mellitus without complications (principal); R30.0 Dysuria
CPT/HCPCS: 81003; 82043; 82570

== ENCOUNTER 2024-09-12 12:20 | Outpatient (AMB) | payer MEDICARE, OTHER, SELFPAY ==
[2024-09-12 12:23] VITALS: BP 122/74; PULSE 75; O2SAT 97; BMI 33.2
--- NOTE | 2024-09-12 12:23 | MHC.PC.OV ---
Vital Signs 09/12/24 12:23 Height 5 ft 4 in Weight 193 lb 8 oz BMI 33.2 BP 122/74 Blood Pressure Location Lt brachial Position Sitting Pulse 75 Pulse Source Pulse Oximeter Pulse Oximetry (%) 97 Oxygen Delivery Method Room Air Intake Visit Reasons: DM, hypothyroidism, hyperlipidemia, HTN Investigative Agent Required: No Accompanied by: Self / Same As Patient Allergies adhesive tape [ADHESIVE TAPE] Allergy (Mild, Verified 09/12/24 13:07) RASH Cephalosporins [CEPHALOSPORINS] Allergy (Unknown, Verified 09/12/24 13:07) ANAPHYLAXIS gluten Allergy (Unknown, Verified 09/12/24 13:07) Unknown ketorolac Allergy (Unknown, Verified 09/12/24 13:07) hives lactase [From Dairy Aid] Allergy (Unknown, Verified 09/12/24 13:07) Unknown Penicillins [PENICILLINS] Allergy (Unknown, Verified 09/12/24 13:07) SWELLING Opioids - Morphine Analogues [OPIOIDS - MORPHINE ANALOGUES] Adverse Reaction (Severe, Verified 09/12/24 13:07) VERY SICK, DIZZY, VOMITING Medication List - Last Reconciled 09/12/24 by Delonte Bishop MD albuterol sulfate 90 mcg/actuation 1 puff PO QID PRN blood sugar diagnostic (FreeStyle Lite Strips) As directed to check glucose up to 5 times daily blood-glucose meter (FreeStyle Lite Meter kit) check glucose up to 5 times a day blood-glucose meter,continuous (Dexcom G7 Planning Management It Specialist) As directed blood-glucose sensor (Dexcom G7 Sensor device) apply new sensor every 10 days as directed cholecalciferol (vitamin D3) 50 mcg PO DAILY 90 days clonazepam 0.5 mg PO BEDTIME escitalopram oxalate 10 mg PO QAM ezetimibe 10 mg PO DAILY 90 days glucose (Dex4 Glucose) 16 grams (4 x 4 gram) PO Q15M PRN insulin glargine (Lantus Solostar U-100 Insulin) 10 units (0.1 mL) subcut .qhs insulin lispro (Humalog KwikPen (U-100) Insulin) 6 units (0.06 mL) subcut TID ketoconazole 2% 1 appl topical DAILY lancets (FreeStyle Lancets) Use as directed to monitor glucose up to 5 times daily levothyroxine 100 mcg PO QAM losartan 100 mg PO DAILY metformin ER 500 mg PO BID 90 days montelukast 10 mg PO BEDTIME pen needle, diabetic (BD Melba 2nd Gen Pen Needle) As directed up to 4 times daily primidone 50 mg PO DAILY semaglutide (Ozempic) 0.25 mg (0.368 mL) subcut QWEEK Tobacco use date assessed: 09/12/24 Fall risk assessment: 2 + Falls in past year Last assessed Fall Risk: 09/12/24 Dental Screening Dental Screen Date: 09/12/24 Did you have a dental visit in the last 12 months?: Yes Did you have a dental problem in the last 6 months where you did not have access to dental care?: No Was dental information given to patient?: Patient has dentist HPI DM, hypothyroidism, hyperlipidemia, HTN HPI Details Patient comes in today for her follow up visit States that she feels okay She denies any headaches or dizziness Denies any chest pains, no SOB No nausea/vomiting but relates that she's had on and off abdominal pain (mostly over the lower abdomen) for years now and also has frequent/recurrent loose stools Relates that she was seeing Dr. Lara in the past for GI follow up but has not seen GI since Dr. Lara retired a few years ago and would like to get a referral to go back to see GI again for her stomach and bowel issues She is also requesting for a referral to rheumatology for her joint pains, which she's had for years now More recently, she notes that her right thumb seems to be locking up on her a lot and it sometimes gets painful States that she was referred to rheumatology a few years ago but she was never seen - states that she was advised that the doctor was not there when she presented for her scheduled appt back in 2019 and she was never given another appt since She had her follow up labs done a couple of days ago - to discuss her results FOR[facility]LY [facility], [facility] Medical History (Updated 09/14/24 @ 05:57 by Delonte Bishop MD) Type 2 diabetes mellitus with hyperglycemia Vitamin D deficiency Obesity (BMI 30-39.9) Insomnia Arthralgia Depression Anxiety GERD without esophagitis Acquired hypothyroidism Gastrointestinal hemorrhage Anemia due to acute blood loss Asthma Chronic kidney disease (CKD), stage II (mild) Diabetes mellitus Pure hypercholesterolemia Benign essential hypertension Surgical History History of colonoscopy (~07/2019) H/O wrist surgery History of colectomy History of D&C History of tonsillectomy Family History Father No problems noted. Mother No problems noted. Other Substance abuse Social History Housing: House Alcohol intake: never Patient Tobacco Use Status: Never used Tobacco e-Cigarette/Vaping Use: Never Used Second Hand Smoke Exposure: No service: No Current occupational status: retired Cognitive needs: No Hearing needs: No Vision needs: Yes Questionnaire PHQ-9 Over the last 2 weeks, how often have you been bothered by any of the following problems? 1. Little interest or pleasure in doing things: not at all 2. Feeling down, depressed, or hopeless: not at all 3. Trouble falling or staying asleep, or sleeping too much: not at all 4. Feeling tired or having little energy: not at all 5. Poor appetite or overeating: not at all 6. Feeling bad about yourself - or that you are a failure or have let yourself or your family down: not at all 7. Trouble concentrating on things, such as reading the newspaper or watching television: not at all 8. Moving or speaking so slowly that other people could have noticed. Or the opposite - being so fidgety or restless that you have been moving around a lot more than usual: not at all 9. Thoughts that you would be better off or of hurting yourself in some way: not at all Total score: 0 Depression Screening Interpretation: Negative Depression Screening Done: Yes 98142 - PHQ-9 Billing: Yes Source: Developed by Drs. Tim Mendoza, Carole Israel, Jose Cruz Gonzales and colleagues, with an educational hugh from [employer]. Thrive Questionnaire Date Thrive assessed: 09/12/24 I am a: Patient What is your living situation today?: I have a steady place to live Within the past 12 months, did the food you bought not last and you didn't have the money to get more?: Never true Within the past 12 months, did you worry whether your food would run out before you got money to buy more?: Never true Do you have trouble paying for medicines?: No Do you have trouble getting transportation to medical appointments?: No Do you have trouble paying your heating and electricity bill?: No Do you have trouble taking care of your child, family member or friend?: No Do you have trouble with day-to-day activities such as bathing, preparing meals, shopping, managing finances, etc.?: No Are you currently unemployed and looking for a job?: No Are you interested in more education?: No Please select the resources that you would like help with: None Currently or been in a relationship where the following occur: No concerns reported THRIVE Score: 0 AUDIT C Alcohol Use Questionnaire (AUDIT-C) 1. How often do you have a drink containing alcohol?: Never 3. How often do you have six or more drinks on one occasion?: Never Total Score: 0 Score Reviewed/Action Taken: Yes ISIDRA-7 AMB Questionnaire ISIDRA-7 Date ISIDRA - 7 assessed: 09/12/24 Feeling nervous, anxious, or on edge: 0 = Not at all Not being able to stop or control worryin = Not at all Worrying too much about different things: 0 = Not at all Trouble relaxin = Not at all Being so restless that it is hard to sit still: 0 = Not at all Becoming easily annoyed or irritable: 0 = Not at all Feeling afraid as if something awful might happen: 0 = Not at all Total ISIDRA-7 score (0-4 normal; 5-9 mild; 10-14 moderate; 15-21 severe): 0 Source: Developed by Drs. Tim Mendoza, Carole Israel, Jose Cruz Gonzales and colleagues, with an educational hugh from [employer]. Review of Systems Const Denies chills, Reports fatigue, Denies fever(s) and Denies headache(s) ENT Denies dysphagia, Denies dizziness, Denies otalgia, Denies headache(s), Denies neck pain, Denies odynophagia and Denies sore throat Card Denies chest pain, Denies palpitations and Denies dyspnea Resp Denies chest congestion, Denies cough and Denies dyspnea GI Reports abdominal pain (frequent, mostly over the lower abdomen - chronic), Denies constipation, Denies dysphagia, Denies heartburn, Reports diarrhea (recurrent), Denies nausea, Denies odynophagia and Denies vomiting Denies difficulty voiding, Denies nocturia, Denies dysuria and Denies urinary urgency Musc Reports back pain, Reports arthralgias (recurrent, over multiple joints), Reports muscle cramps (in both legs - on and off at night ) and Denies neck pain Skin/Breast Denies rash Neuro Denies dizziness and Denies headache(s) Endo Reports fatigue and Denies palpitations Physical exam (Primary Care) Vital Signs: Last Vital Signs Pulse 75 09/12/24 12:23 BP 122/74 09/12/24 12:23 Pulse Ox 97 09/12/24 12:23 Oxygen Delivery Method Room Air 09/12/24 12:23 BMI result Body Mass Index 33.2 Tobacco/Smoking Status: Tobacco use Status Tobacco use date assessed 09/12/24 09/12/24 12:34 Patient Tobacco Use Status Never used Tobacco 09/12/24 12:34 e-Cigarette/Vaping Use Never Used 09/12/24 12:34 PHQ-9: PHQ-9 Score PHQ-9: Total score 0 09/12/24 16:07 Depression Screening Interpretation: Negative Thrive Assessment: Date of Thrive Assessment Date Thrive assessed 09/12/24 09/12/24 12:34 Currently or been in a relationship where the following occur: No concerns reported Const General: no acute distress and alert HENMT Ears: TM's normal bilaterally and EAC's normal Throat: Yes posterior oropharynx normal and Yes tonsils normal (no TP congestion noted) Neck Neck: Yes no lymphadenopathy and Yes supple Thyroid: Thyroid normal Resp Auscultation: clear to auscultation bilaterally, no rales and no wheezes Cardio Rate: regular rate Rhythm: regular rhythm Heart sounds: no murmurs GI Palpation (GI): Soft to palpation and nontender Auscultation: normal bowel sounds General: Yes no CVA tenderness Back/Spine/Pelvis Back: no CVA tenderness Skin Rashes: no rashes Extrem General: Yes no clubbing, cyanosis or edema Results Reviewed Results Reviewed: Laboratory Tests 08/29/24 09/10/24 09/11/24 12:00 12:05 09:37 WBC 3.9 L Hgb 13.8 Hct 39.3 Plt Count 126 L Sodium 140 Potassium 4.3 Creatinine 0.92 Estimated GFR 60 Fasting Glucose 176 H Hgb A1c (Clinic) 13.6 H Hemoglobin A1c % 10.8 H Calcium 9.1 AST 56 H ALT 37 H Triglycerides 164 H Cholesterol 129 LDL Cholesterol, Calc 56 HDL Cholesterol 41 Vitamin B12 301 25-OH Vitamin D Total 35.3 TSH 3.82 Free T4 1.16 Ur Specific [place] 1.010 Urine Protein Negative Urine Glucose (UA) Negative Urine Blood Negative Urine Nitrite Negative Ur Leukocyte Esterase Negative Microalb/Creat Ratio 15.1 Coding Level of Care Code Est Pt Level 4 (14402) Complex EM visit Add On G2211 Diagnoses Type 2 diabetes mellitus with stage 2 chronic kidney disease, without long-term current use of insulin E11.22; N18.2 Diabetes mellitus type: type 2 Diabetes mellitus longitudinal float operator insulin use: without longitudinal float operator use Diabetes mellitus complication status: with kidney complications Diabetes mellitus complication detail: with chronic kidney disease Chronic kidney disease stage: stage 2 (mild) Benign essential hypertension I10 Pure hypercholesterolemia E78.00 Chronic kidney disease (CKD), stage II (mild) N18.2 Elevated LFTs R79.89 Acquired hypothyroidism E03.9 Mild intermittent asthma without complication J45.20 Asthma severity: mild Asthma persistence: intermittent Asthma complication type: uncomplicated Vitamin D deficiency E55.9 Arthralgia, unspecified joint M25.50 Joint pain location: unspecified GERD without esophagitis K21.9 Chronic diarrhea K52.9 Insomnia, unspecified type G47.00 Insomnia type: unspecified Anxiety F41.9 Episode of recurrent major depressive disorder, unspecified depression episode severity F33.9 Depression Type: major depressive disorder Major depression recurrence: recurrent Active/Remission status: currently active Major depression episode severity: unspecified Obesity (BMI 30-39.9) E66.9 Assessment & Plan Assessment & Plan (1) Diabetes mellitus: Code(s): E11.9 - Type 2 diabetes mellitus without complications Category: Medical Qualifiers: Diabetes mellitus type: type 2 Diabetes mellitus nursing home insulin use: without longitudinal float operator use Diabetes mellitus complication status: with kidney complications Diabetes mellitus complication detail: with chronic kidney disease Chronic kidney disease stage: stage 2 (mild) Qualified Code(s): E11.22 - Type 2 diabetes mellitus with diabetic chronic kidney disease; N18.2 - Chronic kidney disease, stage 2 (mild) Plan: Her HgbA1c was at 10.8% on her labs done a couple of days ago although her in-office HgbA1c came out at 13.6% at the endocrinology office a couple of weeks ago - goal is at least <7.0% Reinforced diabetic diet Continue Lantus 10 units Q HS, Ozempic 0.25 mg SQ once a week and Metformin ER 500 mg BID She experienced significant weight gain with Pioglitazone and sulfonylureas in the past Follow up with endocrinology as scheduled (2) Benign essential hypertension: Code(s): I10 - Essential (primary) hypertension Category: Medical Plan: Reinforced low sodium diet - goal is systolic BP of at least 130 to 140 mm or less Continue Losartan 100 mg QD (3) Pure hypercholesterolemia: Code(s): E78.00 - Pure hypercholesterolemia, unspecified Category: Medical Plan: Results of her labs done a couple of days ago reviewed and discussed with patient Reinforced low cholesterol diet Continue Ezetimibe 10 mg QD Will recheck her labs and fasting lipids in 3 months for follow up (4) Chronic kidney disease (CKD), stage II (mild): Code(s): N18.2 - Chronic kidney disease, stage 2 (mild) Category: Medical Plan: Her renal function appears to be stable on her recent labs Will continue to monitor her GFR and renal function regularly (5) Elevated LFTs: Code(s): R79.89 - Other specified abnormal findings of blood chemistry Category: Medical Plan: Patient's LFTs have increased again on her recent labs - are most likely due to hepatosteatosis and should improve with weight loss Will continue to monitor her LFTs regularly (6) Acquired hypothyroidism: Code(s): E03.9 - Hypothyroidism, unspecified Category: Medical Plan: Her TFTs are normal on her recent labs Continue Levothyroxine 100 mcg QD Will recheck her TFTs in 3 months for follow up (7) Asthma: Code(s): J45.909 - Unspecified asthma, uncomplicated Category: Medical Qualifiers: Asthma severity: mild Asthma persistence: intermittent Asthma complication type: uncomplicated Qualified Code(s): J45.20 - Mild intermittent asthma, uncomplicated Plan: Continue Montelukast 10 mg QD and Ventolin HFA 2 puffs QID PRN (8) Vitamin D deficiency: Code(s): E55.9 - Vitamin D deficiency, unspecified Category: Medical Plan: Continue Vitamin D3 2000 units QD (9) Arthralgia: Code(s): M25.50 - Pain in unspecified joint Category: Medical Qualifiers: Joint pain location: unspecified Qualified Code(s): M25.50 - Pain in unspecified joint Plan: Per request, will refer again to rheumatology for further evaluation and management (10) GERD without esophagitis: Code(s): K21.9 - Gastro-esophageal reflux disease without esophagitis Category: Medical Plan: Dietary restrictions reinforced Continue Prilosec OTC 20 mg QD (11) Chronic diarrhea: Code(s): K52.9 - Noninfective gastroenteritis and colitis, unspecified Category: Medical Plan: Will refer her to GI for further evaluation and management (12) Insomnia: Code(s): G47.00 - Insomnia, unspecified Category: Medical Qualifiers: Insomnia type: unspecified Qualified Code(s): G47.00 - Insomnia, unspecified Plan: Sleep hygiene reinforced (13) Anxiety: Code(s): F41.9 - Anxiety disorder, unspecified Category: Medical Plan: Continue Clonazepam 0.5 mg 1 tablet Q HS (14) Depression: Code(s): F32.9 - Major depressive disorder, single episode, unspecified Category: Medical Qualifiers: Depression Type: major depressive disorder Major depression recurrence: recurrent Active/Remission status: currently active Major depression episode severity: unspecified Qualified Code(s): F33.9 - Major depressive disorder, recurrent, unspecified Plan: Continue Lexapro 10 mg QD Follow-up with Psychiatry (Dr. Han)? as scheduled (15) Obesity (BMI 30-39.9): Code(s): E66.9 - Obesity, unspecified Category: Medical Plan: Reinforced diet; exercise is unrealistic given patient's physical issues and comorbidities Plan Follow up in 4 months Orders: Orders Complete Blood Count Auto Diff 4 Months D64.9 - Anemia, unspecified [employer]. Panel Fast 4 Months E78.00 - Pure hypercholesterolemia, unspecified Lipid Panel 4 Months E78.00 - Pure hypercholesterolemia, unspecified Hemoglobin A1c 4 Months E11.9 - Type 2 diabetes mellitus without complications Referrals Gastroenterology Referral K52.9 - Noninfective gastroenteritis and colitis, unspecified, R10.9 - Unspecified abdominal pain Rheumatology Referral M25.50 - Pain in unspecified joint, M65.311 - Trigger thumb, right thumb
== END 2024-09-12 13:26 | disposition home or self-care (01) ==
LOC: HO.HMCH 12:20
PROVIDERS: PCP Internal Medicine; Visit Provider Internal Medicine
DX: I12.9 Hypertensive chronic kidney disease with stage 1 through stage 4 chronic kidney disease, or unspecified chronic kidney disease (principal); E11.22 Type 2 diabetes mellitus with diabetic chronic kidney disease; N18.2 Chronic kidney disease, stage 2 (mild); F33.9 Major depressive disorder, recurrent, unspecified; E78.00 Pure hypercholesterolemia, unspecified; R79.89 Other specified abnormal findings of blood chemistry; E03.9 Hypothyroidism, unspecified; J45.20 Mild intermittent asthma, uncomplicated; E55.9 Vitamin D deficiency, unspecified; M25.50 Pain in unspecified joint; K21.9 Gastro-esophageal reflux disease without esophagitis; K52.9 Noninfective gastroenteritis and colitis, unspecified

== ENCOUNTER → 2024-09-12 12:20 | Outpatient (BNVA) | payer MEDICARE, OTHER, SELFPAY | PROVIDERS: PCP Internal Medicine; Visit Provider Internal Medicine | DX: I12.9 Hypertensive chronic kidney disease with stage 1 through stage 4 chronic kidney disease, or unspecified chronic kidney disease (principal); E11.22 Type 2 diabetes mellitus with diabetic chronic kidney disease; N18.2 Chronic kidney disease, stage 2 (mild); E78.00 Pure hypercholesterolemia, unspecified; R79.89 Other specified abnormal findings of blood chemistry; E03.9 Hypothyroidism, unspecified; E55.9 Vitamin D deficiency, unspecified; M25.50 Pain in unspecified joint; K21.9 Gastro-esophageal reflux disease without esophagitis; K52.9 Noninfective gastroenteritis and colitis, unspecified; F41.9 Anxiety disorder, unspecified; F33.9 Major depressive disorder, recurrent, unspecified; E66.9 Obesity, unspecified | CPT/HCPCS: 99212 ==

== ENCOUNTER 2024-09-17 15:27 | Outpatient (AMB) | payer MEDICARE, OTHER, SELFPAY ==
--- NOTE | 2024-09-17 15:58 | A.OFFVIS_ITS ---
Intake Intake Visit Reasons: 60 min Prison Guard Supervisor Required: No Accompanied by: Self / Same As Patient Allergies adhesive tape [ADHESIVE TAPE] Allergy (Mild, Verified 09/12/24 13:07) RASH Cephalosporins [CEPHALOSPORINS] Allergy (Unknown, Verified 09/12/24 13:07) ANAPHYLAXIS gluten Allergy (Unknown, Verified 09/12/24 13:07) Unknown ketorolac Allergy (Unknown, Verified 09/12/24 13:07) hives lactase [From Dairy Aid] Allergy (Unknown, Verified 09/12/24 13:07) Unknown Penicillins [PENICILLINS] Allergy (Unknown, Verified 09/12/24 13:07) SWELLING Opioids - Morphine Analogues [OPIOIDS - MORPHINE ANALOGUES] Adverse Reaction (Severe, Verified 09/12/24 13:07) VERY SICK, DIZZY, VOMITING HPI Comprehensive Diabetes Asmnt Most Recent Diabetes Results: Hemoglobin A1c 6.5 % 05/05/20 Microalb/Creat Ratio 15.1 ug/mg cr (<30) 09/11/24 Cholesterol 129 mg/dL (<200) 09/10/24 HDL Cholesterol 41 mg/dL (>40) 09/10/24 Triglycerides 164 mg/dL (<150) H 09/10/24 Creatinine 0.92 mg/dL (0.5-1.4) 09/10/24 Blood Urea Nitrogen 19 mg/dL (9-16) H 09/10/24 Sodium 140 mmol/L (135-145) 09/10/24 Potassium 4.3 mmol/L (3.3-5.1) 09/10/24 Chloride 104 mmol/L (96-108) 09/10/24 Carbon Dioxide 26 mmol/L (22-29) 09/10/24 Calcium 9.1 mg/dL (8.4-10.2) 09/10/24 AST 56 U/L (5-31) H 09/10/24 ALT 37 U/L (0-31) H 09/10/24 Total Protein 6.7 g/dL (6.5-8.0) 09/10/24 Albumin 3.9 g/dL (3.5-5.0) 09/10/24 [facility] Medical History (Updated 09/14/24 @ 05:57 by Delonte Bishop MD) Type 2 diabetes mellitus with hyperglycemia Vitamin D deficiency Obesity (BMI 30-39.9) Insomnia Arthralgia Depression Anxiety GERD without esophagitis Acquired hypothyroidism Gastrointestinal hemorrhage Anemia due to acute blood loss Asthma Chronic kidney disease (CKD), stage II (mild) Diabetes mellitus Pure hypercholesterolemia Benign essential hypertension Surgical History History of colonoscopy (~07/2019) H/O wrist surgery History of colectomy History of D&C History of tonsillectomy Family History Father No problems noted. Mother No problems noted. Other Substance abuse Social History Housing: House Alcohol intake: never Patient Tobacco Use Status: Never used Tobacco e-Cigarette/Vaping Use: Never Used Second Hand Smoke Exposure: No service: No Current occupational status: retired Cognitive needs: No Hearing needs: No Vision needs: Yes Assessment & Plan Assessment & Plan (1) Diabetes mellitus: Code(s): E11.9 - Type 2 diabetes mellitus without complications Qualifiers: Diabetes mellitus type: type 2 Diabetes mellitus intermission coordinator insulin use: without halfway use Diabetes mellitus complication status: with kidney complications Diabetes mellitus complication detail: with chronic kidney disease Chronic kidney disease stage: stage 2 (mild) Qualified Code(s): E11.22 - Type 2 diabetes mellitus with diabetic chronic kidney disease; N18.2 - Chronic kidney disease, stage 2 (mild) Plan: Diabetes self-management education and support participation record Assessment/scale: 1= needs instructed? 2= needs review? 3= comprehend keep point? 4= demonstrates understanding/ competent? NC= Not Covered Topics Learning Objective: Initial visit Initial or post srvc Initial or post srvc Initial or post srvc Initial or post srvc Initial or post srvc Post srvc Comments Pre Edu-assessment/plan Outcome or reassess Outcome or reassess Outcome or reassess Outcome or reassess Outcome or reassess Outcome or reassess Diabetes pathophysiology 1 Healthy eating 2 Being active 1 Taking medication 1 Monitoring glucose 2 Acute complication 1 Chronic complicated 1 Lifestyle and healthy coping 2 Diabetes distress in support 1 ?Diabetes pathophysiology: ?Defined diabetes med identify own type of diabetes; list 3 options for treating diabetes Healthy eating: ?Described effect of type, amount and ?timing of food on blood glucose; list 3 methods for planning meal Being active: ?State effect of exercise on blood glucose level Taking medication: ?State effect of diabetes medications on diabetes; name diabetes medications taking, action and side effects Monitoring glucose: ?Identify recommended blood glucose targets and personal target Acute complication: ?List symptoms and treatment of hyper and hypoglycemia, DKA, sick day guidelines and guidelines for severe weather or situations of crisis and diabetes supply manage Chronic complication: ?To find the relationship of blood glucose levels to long- term complications of diabetes in screening and preventative measures Lifestyle and healthy coping: ?Described lifestyle and healthy coping strategies to rule out diabetes self-management Diabetes to stress and support: ?Recognize Diabetes to stress and be able to identified support options Learning objectives: The patient was provided with verbal and written education on the following topics as outlined below. The patient met all learning objectives and was able to verbalize understanding and provide teach back of education topics discussed . The patient was provided with the opportunity to ask questions and all questions were answered. 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 Lantus 10 units What is Diabetes? Pathophysiology How the body produces and uses insulin Identify type of DM Risk factors Signs of Diabetes Brief overview of Diabetes Management Monitoring blood sugar Following a meal plan Regular exercise Maintaining a healthy weight Taking medication as needed Members of the care team (PCP, RN, MA, RD, CDE, reinforcing iron and rebar workers) Blood glucose monitoring When/how often to test Target blood sugar ranges Introduction to Nutrition Importance of healthy diet in managing DM Diet is personalized to individual preference Review patient?s regular diet/food preferences Who prepares meals/does food shopping/ Dining out?/ Barriers? How diet effects glucose Eating 3 balanced meals a day with small, healthy snacks between meals Review food groups Carbohydrates: What is a carbohydrate/Which food/food groups are considered carbohydrates Effect of carbohydrates on blood glucose Portion sizes Reading food labels Basic carb counting (if applicable per nursing assessment) Plate method Meal planning Recommendations: Follow plate method, consistent carbs and read nutritional labels. Smart Goal: Pt will identify foods satinder she is currently eating that contain Carbohydrates Educational Materials: The patient was provided with the following written educational materials: Planning Healthy Meals Handout Patient Response to instructions: Comprehension of Instructions: Fair Readiness to make changes: Contemplation How confident they feel about making changes: Positive Portions of this note were created using voice recognition software, please excuse any words or phrases that may have been misinterpreted. Patient Instructions: Include regular daily activity. ADA recommends 30 minutes of exercise 5 days a week. Weight loss talk to PCP or Firer Locomotive Crane before starting new plan. Test blood sugar as directed; Fasting and 2hpp largest meal. Watch trends in results. Utilize results and to assess how food, physical activity and medications affect blood sugar results. Bring glucometer or CGM to next visit. Be knowledgeable about diabetes medication, its action, side effects, efficacy, toxicity, prescribed dosage, appropriate timing and frequency of administration, effect of missed and delayed doses and instructions for storage, travel and safety. Problem solving techniques to monitor hypo/hyperglycemia episodes and treatments. Reduce risk reduction behaviors, smoking cessation, regular eye, foot and dental examinations. Coding Level of Care Code Est Pt Level 1 (70577) Diagnoses Type 2 diabetes mellitus with stage 2 chronic kidney disease, without long-term current use of insulin E11.22; N18.2 Diabetes mellitus type: type 2 Diabetes mellitus halfway insulin use: without intermission coordinator use Diabetes mellitus complication status: with kidney complications Diabetes mellitus complication detail: with chronic kidney disease Chronic kidney disease stage: stage 2 (mild)
== END 2024-09-17 16:18 | disposition home or self-care (01) ==
LOC: HO.ENCR 15:27
PROVIDERS: PCP Internal Medicine; Visit Provider Registered Nurse Diabetes Educator
DX: E11.22 Type 2 diabetes mellitus with diabetic chronic kidney disease (principal); N18.2 Chronic kidney disease, stage 2 (mild)

== ENCOUNTER → 2024-09-17 15:27 | Outpatient (BNVA) | payer MEDICARE, OTHER, SELFPAY | PROVIDERS: PCP Internal Medicine; Visit Provider Registered Nurse Diabetes Educator | DX: E11.22 Type 2 diabetes mellitus with diabetic chronic kidney disease (principal); N18.2 Chronic kidney disease, stage 2 (mild) | CPT/HCPCS: 99211 ==

== ENCOUNTER 2024-09-19 13:22 | Outpatient (AMB) | payer MEDICARE, OTHER, SELFPAY ==
--- NOTE | 2024-09-19 13:24 | A.OFFVIS_ITS ---
Vital Signs 09/19/24 13:31 Height 5 ft 4 in Weight 193 lb BMI 33.1 BP 124/78 Blood Pressure Location Rt brachial Position Sitting Pulse 80 Pulse Source Pulse Oximeter Intake Visit Reasons: T2DM/CONFIRMED Intake Note: Patient present today to follow up on Type 2 Diabetes Mellitus. Last Diabetic Eye exam: January 2024 Last Podiatry Visit: Does not see a Cabinet Assembler Most Recent HgA1C: 13.8%, 09/10/2024 Random Glucose: 158 mg/dL, Today Bellmaker Required: No Accompanied by: Self / Same As Patient Allergies adhesive tape [ADHESIVE TAPE] Allergy (Mild, Verified 09/12/24 13:07) RASH Cephalosporins [CEPHALOSPORINS] Allergy (Unknown, Verified 09/12/24 13:07) ANAPHYLAXIS gluten Allergy (Unknown, Verified 09/12/24 13:07) Unknown ketorolac Allergy (Unknown, Verified 09/12/24 13:07) hives lactase [From Dairy Aid] Allergy (Unknown, Verified 09/12/24 13:07) Unknown Penicillins [PENICILLINS] Allergy (Unknown, Verified 09/12/24 13:07) SWELLING Opioids - Morphine Analogues [OPIOIDS - MORPHINE ANALOGUES] Adverse Reaction (Severe, Verified 09/12/24 13:07) VERY SICK, DIZZY, VOMITING HPI Comments Details: This is a 74-year-old female with a past medical history of type 2 diabetes, diverticulitis, vitamin-D deficiency, morbid obesity, GERD, hypothyroidism, asthma, hypertension and CKD stage 3 presenting for continued diabetic management. The patient was diagnosed with type 2 diabetes at age 50. Her hemoglobin A1c is 13.6% a few weeks ago here, and it is 10.8% when she had it checked in primary care. Patient denies symptoms of hyperglycemia. Specifically no blurry vision, weakness, nausea, dizziness, confusion, vomiting, chest pain or shortness of breath. No polyuria/polydipsia. Dexcom reader was set up for her 2 days ago so there are only a couple days of data I reviewed: 189 average 35% range 64% high 1% very high 0% low Her current regimen is metformin extended release 500 mg twice daily. She takes Lantus 10 units nightly and Ozempic 0.25 mg weekly. She was previously on Actos which resulted in weight gain. She is not using the short acting insulin. Diet reviewed previously: awful, dairy free and gluten free and no ruffage due to diverticulitis. Eats eggs, tuna fish sandwiches and dairy/gluten free ice cream every day. No cookies or cakes. Hypoglycemia symptoms: none Hyperglycemia symptoms: none Eye exam: up to date Microvascular complications: nephropathy (CKD however since she initiated her new regimen creatine and GFR improved and on her recent labs they are normal, no retinopathy but she has cataracts Macrovascular complications: none Hypertension: treated with Losartan 100 mg. Hyperlipidemia: treated with Zetia 10 mg. LDL at goal <100. ROS: Constitutional: No unexplained weight loss, fever, chills, fatigue or night sweats. Respiratory: No shortness of breath Cardiovascular: No chest pain Neurologic: No headache, dizziness, syncope, unilateral weakness, ataxia, numbness or tingling in the extremities. Skin: No rash or itching. Endocrine: No cold or heat intolerance. No polyuria or polydipsia. Physical exam: Constitutional: Alert, in no distress. Eyes: Pupils are equal, round and reactive to light. Extraocular muscles intact. Respiratory: Clear to auscultation. Cardiovascular: S1 S2 regular. No murmurs. Skin: No rashes or discoloration Extremities: Warm and well perfused. No clubbing, cyanosis or edema. [facility] Medical History (Updated 09/14/24 @ 05:57 by Delonte Bishop MD) Type 2 diabetes mellitus with hyperglycemia Vitamin D deficiency Obesity (BMI 30-39.9) Insomnia Arthralgia Depression Anxiety GERD without esophagitis Acquired hypothyroidism Gastrointestinal hemorrhage Anemia due to acute blood loss Asthma Chronic kidney disease (CKD), stage II (mild) Diabetes mellitus Pure hypercholesterolemia Benign essential hypertension Surgical History History of colonoscopy (~07/2019) H/O wrist surgery History of colectomy History of D&C History of tonsillectomy Family History Father No problems noted. Mother No problems noted. Other Substance abuse Social History Housing: House Alcohol intake: never Patient Tobacco Use Status: Never used Tobacco e-Cigarette/Vaping Use: Never Used Second Hand Smoke Exposure: No service: No Current occupational status: retired Cognitive needs: No Hearing needs: No Vision needs: Yes Physical Exam Vital Signs: Last Vital Signs Pulse 80 09/19/24 13:31 BP 124/78 09/19/24 13:31 BMI result Body Mass Index 33.1 Results Reviewed Results Reviewed: Laboratory Last Values Glucose (Clinic) 158 mg/dL (60-115) H 09/19/24 13:36 Laboratory Tests 09/10/24 12:05 Creatinine 0.92 Estimated GFR 60 Hemoglobin A1c % 10.8 H Triglycerides 164 H Cholesterol 129 LDL Cholesterol, Calc 56 HDL Cholesterol 41 Assessment & Plan Assessment & Plan (1) Type 2 diabetes mellitus with hyperglycemia: Code(s): E11.65 - Type 2 diabetes mellitus with hyperglycemia Category: Medical Qualifiers: Diabetes mellitus intermodal dispatcher insulin use: with alf use Qualified Code(s): E11.65 - Type 2 diabetes mellitus with hyperglycemia; Z79.4 - supervisor intermediates (current) use of insulin (2) Morbid obesity with BMI of 45.0-49.9, adult: Code(s): E66.01 - Morbid (severe) obesity due to excess calories; Z68.42 - Body mass index [BMI] 45.0-49.9, adult Category: Medical Plan In summary this is a 74-year-old female with uncontrolled type 2 diabetes with nephropathy with improving glycemic control. Increase Lantus to 14 units nightly. Increase Ozempic to 0.5 mg weekly. Continue metformin extended release 500 mg twice daily. She will continue to follow with the staff educator. Lifestyle modifications reviewed in detail with the patient. Review treatment of hypo and hyperglycemia. She has glucose tablets. Follow up in 4 weeks for type 2 diabetes. Medications: New semaglutide (Ozempic) 0.5 mg (0.736 mL) subcut QWEEK 3 mL 1RF Changed From insulin glargine (Lantus Solostar U-100 Insulin) 10 units (0.1 mL) subcut .qhs 15 mL 4RF To insulin glargine (Lantus Solostar U-100 Insulin) 14 units (0.14 mL) subcut .qhs 15 mL 4RF Discontinued semaglutide (Ozempic) for 4 weeks Discontinued Reason: Doctor's Order 0.25 mg (0.368 mL) subcut QWEEK 3 mL 0RF Patient Instructions: Increase Lantus to 14 units nightly. Increase Ozempic to 0.5 mg once weekly. Continue Metformin ER 500 mg twice daily. Coding Level of Care Code Est Pt Level 4 (91534) Complex EM visit Add On G2211 Diagnoses Type 2 diabetes mellitus with hyperglycemia, with long-term current use of insulin E11.65; Z79.4 Diabetes mellitus intermodal dispatcher insulin use: with intermodal dispatcher use Morbid obesity with BMI of 45.0-49.9, adult E66.01; Z68.42
[2024-09-19 13:31] VITALS: BP 124/78; PULSE 80; BMI 33.1
[2024-09-19 13:41] LABS: Glucose, Whole Blood 158 mg/dL (60-115)
== END 2024-09-19 14:16 | disposition home or self-care (01) ==
PROVIDERS: PCP Internal Medicine; Visit Provider Physician Assistant Medical
DX: E11.65 Type 2 diabetes mellitus with hyperglycemia (principal); Z79.4 Long term (current) use of insulin; E66.01 Morbid (severe) obesity due to excess calories; Z68.42 Body mass index [BMI] 45.0-49.9, adult

== ENCOUNTER → 2024-09-19 13:22 | Outpatient (BNVA) | payer MEDICARE, OTHER, SELFPAY | PROVIDERS: PCP Internal Medicine; Visit Provider Physician Assistant Medical | DX: E11.65 Type 2 diabetes mellitus with hyperglycemia (principal); E66.01 Morbid (severe) obesity due to excess calories; Z79.4 Long term (current) use of insulin; Z68.33 Body mass index [BMI] 33.0-33.9, adult | CPT/HCPCS: 82947; 99212 ==

== ENCOUNTER 2024-09-29 15:29 | Outpatient (AMB) | payer MEDICARE, OTHER, SELFPAY ==
--- NOTE | 2024-09-29 15:47 | MHC.AMDMED ---
Intake Intake Visit Reasons: dm Accompanied by: Self / Same As Patient Allergies adhesive tape [ADHESIVE TAPE] Allergy (Mild, Verified 09/12/24 13:07) RASH Cephalosporins [CEPHALOSPORINS] Allergy (Unknown, Verified 09/12/24 13:07) ANAPHYLAXIS gluten Allergy (Unknown, Verified 09/12/24 13:07) Unknown ketorolac Allergy (Unknown, Verified 09/12/24 13:07) hives lactase [From Dairy Aid] Allergy (Unknown, Verified 09/12/24 13:07) Unknown Penicillins [PENICILLINS] Allergy (Unknown, Verified 09/12/24 13:07) SWELLING Opioids - Morphine Analogues [OPIOIDS - MORPHINE ANALOGUES] Adverse Reaction (Severe, Verified 09/12/24 13:07) VERY SICK, DIZZY, VOMITING HPI Comprehensive Diabetes Asmnt Most Recent Diabetes Results: Hemoglobin A1c 6.5 % 05/05/20 Microalb/Creat Ratio 15.1 ug/mg cr (<30) 09/11/24 Cholesterol 129 mg/dL (<200) 09/10/24 HDL Cholesterol 41 mg/dL (>40) 09/10/24 Triglycerides 164 mg/dL (<150) H 09/10/24 Creatinine 0.92 mg/dL (0.5-1.4) 09/10/24 Blood Urea Nitrogen 19 mg/dL (9-16) H 09/10/24 Sodium 140 mmol/L (135-145) 09/10/24 Potassium 4.3 mmol/L (3.3-5.1) 09/10/24 Chloride 104 mmol/L (96-108) 09/10/24 Carbon Dioxide 26 mmol/L (22-29) 09/10/24 Calcium 9.1 mg/dL (8.4-10.2) 09/10/24 AST 56 U/L (5-31) H 09/10/24 ALT 37 U/L (0-31) H 09/10/24 Total Protein 6.7 g/dL (6.5-8.0) 09/10/24 Albumin 3.9 g/dL (3.5-5.0) 09/10/24 [facility] Medical History (Updated 09/14/24 @ 05:57 by Delonte Bishop MD) Type 2 diabetes mellitus with hyperglycemia Vitamin D deficiency Obesity (BMI 30-39.9) Insomnia Arthralgia Depression Anxiety GERD without esophagitis Acquired hypothyroidism Gastrointestinal hemorrhage Anemia due to acute blood loss Asthma Chronic kidney disease (CKD), stage II (mild) Diabetes mellitus Pure hypercholesterolemia Benign essential hypertension Surgical History History of colonoscopy (~07/2019) H/O wrist surgery History of colectomy History of D&C History of tonsillectomy Family History Father No problems noted. Mother No problems noted. Other Substance abuse Social History Housing: House Alcohol intake: never Patient Tobacco Use Status: Never used Tobacco e-Cigarette/Vaping Use: Never Used Second Hand Smoke Exposure: No service: No Current occupational status: retired Cognitive needs: No Hearing needs: No Vision needs: Yes Assessment & Plan Assessment & Plan (1) Diabetes mellitus: Code(s): E11.9 - Type 2 diabetes mellitus without complications Qualifiers: Diabetes mellitus type: type 2 Diabetes mellitus superintendent container terminal insulin use: without fdc use Diabetes mellitus complication status: with kidney complications Diabetes mellitus complication detail: with chronic kidney disease Chronic kidney disease stage: stage 2 (mild) Qualified Code(s): E11.22 - Type 2 diabetes mellitus with diabetic chronic kidney disease; N18.2 - Chronic kidney disease, stage 2 (mild) Plan Personal Continuous Glucose Monitor: Patients CGM information reviewed, Pt uses Dexcom G7 Sensor data: Hypoglycemia: ? 0% Hyperglycemia:? 63% Time in Range:? 37% Average glucose for the last 2 weeks? 194 mg/dL Patient is currently taking Lantus 14 units nightly Patient has no episodes of hypoglycemia still running above target Suggested to patient she increase Lantus from 14 units to 16 units, she has a follow-up appointment with Susie physician's office administrative assistant on 10/21/2024 Reviewed how to interpret trend arrows Reminded patient that to check finger sticks if symptoms do not match sensor reading. Discussed lag time between finger stick and sensor data.? Patient able to insert sensor independently in office without issue.? Portions of this note were created using voice recognition software, please excuse any words or phrases that may have been misinterpreted. Patient Instructions: Contact certified breastfeeding educator with questions or concerns Follow-up in 3 months after next A1c Coding Level of Care Code Est Pt Level 1 (59936) Diagnoses Type 2 diabetes mellitus with stage 2 chronic kidney disease, without long-term current use of insulin E11.22; N18.2 Diabetes mellitus type: type 2 Diabetes mellitus superintendent container terminal insulin use: without superintendent container terminal use Diabetes mellitus complication status: with kidney complications Diabetes mellitus complication detail: with chronic kidney disease Chronic kidney disease stage: stage 2 (mild)
== END 2024-09-29 15:49 | disposition home or self-care (01) ==
PROVIDERS: PCP Internal Medicine; Visit Provider Registered Nurse Diabetes Educator
DX: E11.22 Type 2 diabetes mellitus with diabetic chronic kidney disease (principal); N18.2 Chronic kidney disease, stage 2 (mild)

== ENCOUNTER → 2024-09-29 15:29 | Outpatient (BNVA) | payer MEDICARE, OTHER, SELFPAY | PROVIDERS: PCP Internal Medicine; Visit Provider Registered Nurse Diabetes Educator | DX: E11.22 Type 2 diabetes mellitus with diabetic chronic kidney disease (principal); N18.2 Chronic kidney disease, stage 2 (mild) | CPT/HCPCS: 99211 ==

== ENCOUNTER 2024-10-21 13:32 | Outpatient (AMB) | payer MEDICARE, OTHER, SELFPAY ==
--- NOTE | 2024-10-21 13:34 | MHC.OFFVIS ---
Vital Signs 10/21/24 13:35 Height 5 ft 4.17 in Weight 193 lb BMI 32.9 BP 124/54 L Blood Pressure Location Lt brachial Position Sitting Pulse 87 Pulse Source Pulse Oximeter Intake Visit Reasons: DM/CONF Intake Note: Patient present today for T2DM Last Diabetic eye exam: 01/2024 Last Podiatry Visit: Doesn't have one Random Glucose: 124 mg/dl HgA1C: 10.8% 09/10/24 Top Stitcher Required: No Accompanied by: Self / Same As Patient Allergies adhesive tape [ADHESIVE TAPE] Allergy (Mild, Verified 10/21/24 13:43) RASH Cephalosporins [CEPHALOSPORINS] Allergy (Unknown, Verified 10/21/24 13:43) ANAPHYLAXIS gluten Allergy (Unknown, Verified 10/21/24 13:43) Unknown ketorolac Allergy (Unknown, Verified 10/21/24 13:43) hives lactase [From Dairy Aid] Allergy (Unknown, Verified 10/21/24 13:43) Unknown Penicillins [PENICILLINS] Allergy (Unknown, Verified 10/21/24 13:43) SWELLING Opioids - Morphine Analogues [OPIOIDS - MORPHINE ANALOGUES] Adverse Reaction (Severe, Verified 10/21/24 13:43) VERY SICK, DIZZY, VOMITING HPI Comments Details: This is a 74-year-old female with a past medical history of type 2 diabetes, diverticulitis, vitamin-D deficiency, morbid obesity, GERD, hypothyroidism, asthma, hypertension and CKD stage 3 presenting for continued diabetic management. The patient was diagnosed with type 2 diabetes at age 50. Her hemoglobin A1c is 10.8% 09/10/24. Reviewed Dexcom download 10/08/2024-10/21/2024 Average glucose 148 Standard deviation 19 mg/dL Time in range 93% Hyperglycemia 7% 0% hypoglycemia Only 3 of 14 days with CGM data. Patient says she did not have a sensor on because she was hesitant to change it, but she did finally do this. Re-educated her on sensor application and told her to call the office if she would like to come in and have it placed. Her current regimen is metformin extended release 500 mg twice daily, Lantus 16 units nightly and Ozempic 0.5 mg weekly. She was previously on Actos which resulted in weight gain. Hypoglycemia symptoms: none Hyperglycemia symptoms: none Eye exam: up to date Microvascular complications: nephropathy (CKD and microalbuminuria though with recent improvement in glycemic control and medication adjustments her creatinine and GFR are normal and there is no microalbuminuria on her recent urinalysis). no retinopathy but she has cataracts Macrovascular complications: none Hypertension: treated with Losartan 100 mg. Hyperlipidemia: treated with Zetia 10 mg. LDL at goal <100. ROS: Constitutional: No unexplained weight loss, fever, chills, fatigue or night sweats. Respiratory: No shortness of breath Cardiovascular: No chest pain Neurologic: No headache, dizziness, syncope, unilateral weakness, ataxia, numbness or tingling in the extremities. Skin: No rash or itching. Endocrine: No cold or heat intolerance. No polyuria or polydipsia. Physical exam: Constitutional: Alert, in no distress. Eyes: Pupils are equal, round and reactive to light. Extraocular muscles intact. Neck: No lymphadenopathy or thyroid enlargement. Respiratory: Clear to auscultation. Cardiovascular: S1 S2 regular. No murmurs. Skin: No rashes or discoloration Extremities: Warm and well perfused. No clubbing, cyanosis or edema. [facility] Medical History (Updated 09/14/24 @ 05:57 by Delonte Bishop MD) Type 2 diabetes mellitus with hyperglycemia Vitamin D deficiency Obesity (BMI 30-39.9) Insomnia Arthralgia Depression Anxiety GERD without esophagitis Acquired hypothyroidism Gastrointestinal hemorrhage Anemia due to acute blood loss Asthma Chronic kidney disease (CKD), stage II (mild) Diabetes mellitus Pure hypercholesterolemia Benign essential hypertension Surgical History History of colonoscopy (~07/2019) H/O wrist surgery History of colectomy History of D&C History of tonsillectomy Family History Father No problems noted. Mother No problems noted. Other Substance abuse Social History Housing: House Alcohol intake: never Patient Tobacco Use Status: Never used Tobacco e-Cigarette/Vaping Use: Never Used Second Hand Smoke Exposure: No service: No Current occupational status: retired Cognitive needs: No Hearing needs: No Vision needs: Yes Physical Exam Vital Signs: Last Vital Signs Pulse 87 10/21/24 13:35 BP 124/54 L 10/21/24 13:35 BMI result Body Mass Index 32.9 Results Reviewed Results Reviewed: Laboratory Last Values Glucose (Clinic) 124 mg/dL (60-115) H 10/21/24 13:45 Laboratory Tests Laboratory Tests 09/10/24 12:05 B-Natriuretic Peptide 88 Laboratory Tests 09/11/24 09:37 Urine Creatinine 39.60 Urine Microalbumin 6.0 Microalb/Creat Ratio 15.1 09/10/24 12:05 Creatinine 0.92 Estimated GFR 60 Hemoglobin A1c % 10.8 H Triglycerides 164 H Cholesterol 129 LDL Cholesterol, Calc 56 HDL Cholesterol 41 Assessment & Plan Assessment & Plan (1) Type 2 diabetes mellitus with hyperglycemia: Code(s): E11.65 - Type 2 diabetes mellitus with hyperglycemia Category: Medical Qualifiers: Diabetes mellitus intermediate insulin use: with intermediate school teacher use Qualified Code(s): E11.65 - Type 2 diabetes mellitus with hyperglycemia; Z79.4 - [facility] (current) use of insulin (2) Morbid obesity with BMI of 45.0-49.9, adult: Code(s): E66.01 - Morbid (severe) obesity due to excess calories; Z68.42 - Body mass index [BMI] 45.0-49.9, adult Category: Medical Plan In summary this is a 74-year-old female with type 2 diabetes with inadequate CGM data to review today, but the available data shows diabetes is controlled. Her insurance says it will stop covering Lantus in November so I sent Basaglar 16 units nightly to see if they will cover it. Continue Ozempic to 0.5 mg weekly. Continue metformin extended release 500 mg twice daily. She will continue to follow with the medical scientific officer. Lifestyle modifications reviewed in detail with the patient. Review treatment of hypo and hyperglycemia. She has glucose tablets. Follow up scheduled for type 2 diabetes. Medications: New insulin glargine (Basaglar KwikPen U-100 Insulin) Replaces Lantus. 16 units (0.16 mL) subcut QPM 15 mL 5RF Discontinued insulin lispro (Humalog KwikPen (U-100) Insulin) Administer 6 units before meals if your glucose is greater than 200 Discontinued Reason: Doctor's Order 6 units (0.06 mL) subcut TID 15 mL 5RF Coding Level of Care Code Est Pt Level 4 (22676) Complex EM visit Add On G2211 Diagnoses Type 2 diabetes mellitus with hyperglycemia, with long-term current use of insulin E11.65; Z79.4 Diabetes mellitus intermediate school teacher insulin use: with intermediate school teacher use Morbid obesity with BMI of 45.0-49.9, adult E66.01; Z68.42
[2024-10-21 13:35] VITALS: BP 124/54; PULSE 87; BMI 32.9
[2024-10-21 13:49] LABS: Glucose, Whole Blood 124 mg/dL (60-115)
--- OUTSIDE RECORDS SUMMARY | 2024-10-22 21:42 | XMS_ITS | Continuity of Care Document ---
Author Organization [employer] [facility] Address [address] [place] [address] Phone Care Team Providers Care Loading Machine Operator Helper Name Role Phone Yulissa PAYAN FAC, Josep Nickerson Unavaila ble Advance Directives Directive Yes / No Effective Date File Name No Information Encounters Encounter Description Practice Location Reason(s) For Visit Diagnoses Date Provider Providers Copied on Encounter [employer] [facility], [address] [place], [place], [id number], tel:[phone] [employer] [facility] No Information Yulissa Car. [address] [place], [place], [id number], [place]. tel:[phone] Family History Family Member Type Diagnosis Age At Onset No Information Payers Payer name Insurance type Covered green party ID Authorerickcharity brepaula(s) [facility] [id number] [facility] CI [id number] Social History Type Description Quantity Date Captured [...]
== END 2024-10-21 14:17 | disposition home or self-care (01) ==
PROVIDERS: PCP Internal Medicine; Visit Provider Physician Assistant Medical
DX: E11.65 Type 2 diabetes mellitus with hyperglycemia (principal); Z79.4 Long term (current) use of insulin; E66.01 Morbid (severe) obesity due to excess calories; Z68.42 Body mass index [BMI] 45.0-49.9, adult

== ENCOUNTER → 2024-10-21 13:32 | Outpatient (BNVA) | payer MEDICARE, OTHER, SELFPAY | PROVIDERS: PCP Internal Medicine; Visit Provider Physician Assistant Medical | DX: E11.65 Type 2 diabetes mellitus with hyperglycemia (principal); E66.01 Morbid (severe) obesity due to excess calories; Z79.4 Long term (current) use of insulin; Z68.32 Body mass index [BMI] 32.0-32.9, adult | CPT/HCPCS: 82947; 99212 ==

== ENCOUNTER 2024-11-25 10:31 | Outpatient (AMB) | payer MEDICARE, OTHER, SELFPAY ==
--- NOTE | 2024-11-25 10:36 | A.OFFVIS_ITS ---
Vital Signs 11/25/24 10:47 Height 5 ft 4 in Weight 184 lb 4.903 oz BMI 31.6 BP 132/90 H Blood Pressure Location Rt brachial Position Sitting Pulse 76 Pulse Source Pulse Oximeter Pulse Oximetry (%) 99 Oxygen Delivery Method Room Air Intake Visit Reasons: [place] screening ref Dr. Bishop Intake Note: NEW PATIENT Reason; Screening Prior hx of colo/egd? Previously est w/ Dr. Lara. Pt states she had colo/egd ~ 7 years ago. No record on file. Pt likely a poor historian. Concerns/Questions? Pt has extensive GI hx including hemorrhaging. Pt also reports occasional difficulty with bowel / fecal inconsistencies. Allergies adhesive tape [ADHESIVE TAPE] Allergy (Mild, Verified 11/25/24 10:37) RASH Cephalosporins [CEPHALOSPORINS] Allergy (Unknown, Verified 11/25/24 10:37) ANAPHYLAXIS gluten Allergy (Unknown, Verified 11/25/24 10:37) Unknown ketorolac Allergy (Unknown, Verified 11/25/24 10:37) hives lactase [From Dairy Aid] Allergy (Unknown, Verified 11/25/24 10:37) Unknown Penicillins [PENICILLINS] Allergy (Unknown, Verified 11/25/24 10:37) SWELLING Opioids - Morphine Analogues [OPIOIDS - MORPHINE ANALOGUES] Adverse Reaction (Severe, Verified 11/25/24 10:37) VERY SICK, DIZZY, VOMITING HPI HPI [place] screening ref Dr. Bishop: Details: 74 year old? female with Renae improvement in of diabetes, chronic diarrhea, vitamin-D deficiency, sigmoid diverticulitis, obesity, transaminitis,, GERD, hypothyroidism, GI bleed, asthma, CKD stage 2 hypercholesteremia, hypertension is here today for pre colonoscopy screening.? Patient was sent to us by her PCP.? Last colonoscopy in July of 2019. Patient was admitted to hospital for GI bleed. Patient had normal colonoscopy and upper endoscopy. Slow bleeding from small intestine determined. Patient has a history of sigmoid resection with colostomy revision. Since then patient reports that her bowels have never been normal. She has been having frequent diarrhea and has to avoid surgery. Family history of colitis. Patient's mom has a history of colitis. Family history of diverticular disease and diverticulitis.? Patient reports acid reflux, however states if is controlled with PPI. No history of CRC.? Denies history of difficulty with sedation or anesthesia in the past.? Negative for history of sleep apnea.? Denies any history of cardiac, renal, pulmonary, or hepatic disease.?? No history of infectious? diseases like hepatitis A, B, C, HIV or tuberculosis.? Patient is not on any anticoagulation [facility] Medical History Type 2 diabetes mellitus with hyperglycemia Vitamin D deficiency Obesity (BMI 30-39.9) Insomnia Arthralgia Depression Anxiety GERD without esophagitis Acquired hypothyroidism Gastrointestinal hemorrhage Anemia due to acute blood loss Asthma Chronic kidney disease (CKD), stage II (mild) Diabetes mellitus Pure hypercholesterolemia Benign essential hypertension Surgical History History of colonoscopy (~07/2019) H/O wrist surgery History of colectomy History of D&C History of tonsillectomy Family History Father No problems noted. Mother No problems noted. Other Substance abuse Social History Housing: House Alcohol intake: never Patient Tobacco Use Status: Never used Tobacco e-Cigarette/Vaping Use: Never Used Second Hand Smoke Exposure: No service: No Current occupational status: retired Cognitive needs: No Hearing needs: No Vision needs: Yes Review of Systems Const Denies weight gain and Denies weight loss ENT Reports no additional complaints, Denies dysphagia and Denies odynophagia Card Reports no additional complaints Resp Reports no additional complaints GI Denies abdominal pain, Denies belching, Denies melena, Reports bloating, Denies change in bowel habits, Reports constipation, Denies dysphagia, Denies excessive flatus, Denies dyspepsia, Reports heartburn (Occasional it), Denies diarrhea, Reports loose stools, Denies nausea, Denies odynophagia and Denies vomiting Musc Reports no additional complaints Neuro Reports no additional complaints Psych Reports no additional complaints Endo Reports no additional complaints Physical Exam Vital Signs: Last Vital Signs Pulse 76 11/25/24 10:47 BP 132/90 H 11/25/24 10:47 Pulse Ox 99 11/25/24 10:47 Oxygen Delivery Method Room Air 11/25/24 10:47 BMI result Body Mass Index 31.6 Const General: healthy appearing and no acute distress Nutritional Appearance: obese Orientation/consciousness: patient oriented x3 Resp Effort & Inspection: normal respiratory effort, able to speak in complete sent ences, no tracheal deviation and symmetric chest movement Auscultation: clear to auscultation bilaterally Cardio Rate: regular rate GI Inspection: No distended and Yes scar (Surgical) Palpation (GI): Soft to palpation, not firm, nontender and No hepatosplenomegaly present Auscultation: normal bowel sounds General: Yes no CVA tenderness Back/Spine/Pelvis Back: no CVA tenderness Skin General skin exam: elasticity normal, turgor normal and dry skin Neuro General: patient oriented x3 Psych Appearance: grossly normal Mental Status: mental status grossly normal Assessment & Plan Assessment & Plan (1) GERD without esophagitis: Code(s): K21.9 - Gastro-esophageal reflux disease without esophagitis Category: Medical (2) Screen for colon cancer: Code(s): Z12.11 - Encounter for screening for malignant neoplasm of colon (3) Chronic diarrhea: Code(s): K52.9 - Noninfective gastroenteritis and colitis, unspecified Category: Medical (4) Abdominal pain: Code(s): R10.9 - Unspecified abdominal pain Category: Medical Qualifiers: Abdominal location: left lower quadrant Qualified Code(s): R10.32 - Left lower quadrant pain (5) Vitamin D deficiency: Code(s): E55.9 - Vitamin D deficiency, unspecified Category: Medical (6) Sigmoid diverticulitis: Code(s): K57.32 - Diverticulitis of large intestine without perforation or abscess without bleeding Category: Medical (7) Postprandial abdominal bloating: Code(s): R14.0 - Abdominal distension (gaseous) Plan Patient will try to take Benefiber with pre and probiotics. Increase fluid intake and activity to promote better bowel motility. Patient reports diarrhea frequently throughout the day. Patient can take [id number]-lipfxbu Imodium. We will rule out IBD, malabsorption, check her thyroid panel. Will check GI panel. Most likely patient has constipation and diarrhea is because patient edema eating enough fiber. Patient describes periods of diarrhea then constipation for couple days. Patient will return in 3 weeks and we will discuss going for colonoscopy. She is agreeable to this plan and verbalizes understanding of instructions. She was given the opportunity to ask questions and all questions answered. Thank you for allowing me to participate in her care Orders: Orders Vitamin B12 and Folate Today R19.7 - Diarrhea, unspecified GI Panel Today R19.7 - Diarrhea, unspecified TSH reflex Free T4 Today K59.00 - Constipation, unspecified C Reactive Protein Today K58.9 - Irritable bowel syndrome, unspecified Calprotectin, Fecal Today R15.9 - Full incontinence of feces Vitamin D 25-OH (D2 and D3) Today E55.9 - Vitamin D deficiency, unspecified Transglutaminase Ab IgG Today R10.9 - Unspecified abdominal pain Transglutaminase IgA Today R10.9 - Unspecified abdominal pain Coding Level of Care Code New Pt Level 4 (73412) Diagnoses GERD without esophagitis K21.9 Screen for colon cancer Z12.11 Chronic diarrhea K52.9 Left lower quadrant abdominal pain R10.32 Abdominal location: left lower quadrant Vitamin D deficiency E55.9 Sigmoid diverticulitis K57.32 Postprandial abdominal bloating R14.0 Time Spent (min) 45 Comment 30 minutes spent with patient and additional 15 minute spent reviewing her records
[2024-11-25 10:47] VITALS: BP 132/90; PULSE 76; O2SAT 99; BMI 31.6
== END 2024-11-25 13:27 | disposition home or self-care (01) ==
PROVIDERS: PCP Internal Medicine; Visit Provider Nurse Practitioner Family
DX: K52.9 Noninfective gastroenteritis and colitis, unspecified (principal); K21.9 Gastro-esophageal reflux disease without esophagitis; K57.32 Diverticulitis of large intestine without perforation or abscess without bleeding; Z12.11 Encounter for screening for malignant neoplasm of colon
CPT/HCPCS: 99204

== ENCOUNTER → 2024-11-25 10:31 | Outpatient (BNVA) | payer MEDICARE, OTHER, SELFPAY | PROVIDERS: PCP Internal Medicine; Visit Provider Nurse Practitioner Family | DX: Z12.11 Encounter for screening for malignant neoplasm of colon (principal); K21.9 Gastro-esophageal reflux disease without esophagitis; K52.9 Noninfective gastroenteritis and colitis, unspecified; K57.32 Diverticulitis of large intestine without perforation or abscess without bleeding; R10.32 Left lower quadrant pain; R14.0 Abdominal distension (gaseous); E55.9 Vitamin D deficiency, unspecified | CPT/HCPCS: 99202 ==

== ENCOUNTER 2024-12-12 14:18 | Outpatient (AMB) | payer MEDICARE, OTHER, SELFPAY ==
--- NOTE | 2024-12-12 14:21 | A.OFFVIS_ITS ---
Vital Signs 12/12/24 14:23 Height 5 ft 4 in Weight 180 lb 12.465 oz BMI 31.0 BP 132/84 Blood Pressure Location Rt brachial Position Sitting Pulse 78 Pulse Source Pulse Oximeter Intake Visit Reasons: DM Intake Note: Patient present today to follow up on Type 2 Diabetes Mellitus. Last Diabetic Eye exam: 12/05/2024 Last Podiatry Visit: Does not see a Vice President Payer Random Glucose: 97 mg/dl HgA1C: 6.1% 12/12/2024 Nephrology Social Worker Required: No Accompanied by: Self / Same As Patient Allergies adhesive tape [ADHESIVE TAPE] Allergy (Mild, Verified 12/12/24 14:29) RASH Cephalosporins [CEPHALOSPORINS] Allergy (Unknown, Verified 12/12/24 14:29) ANAPHYLAXIS gluten Allergy (Unknown, Verified 12/12/24 14:29) Unknown ketorolac Allergy (Unknown, Verified 12/12/24 14:29) hives lactase [From Dairy Aid] Allergy (Unknown, Verified 12/12/24 14:29) Unknown Penicillins [PENICILLINS] Allergy (Unknown, Verified 12/12/24 14:29) SWELLING Opioids - Morphine Analogues [OPIOIDS - MORPHINE ANALOGUES] Adverse Reaction (Severe, Verified 12/12/24 14:29) VERY SICK, DIZZY, VOMITING HPI Comments Details: This is a 74-year-old female with a past medical history of type 2 diabetes, diverticulitis, vitamin-D deficiency, morbid obesity, GERD, hypothyroidism, asthma, hypertension and CKD stage 3 presenting for continued diabetic management. The patient was diagnosed with type 2 diabetes at age 50. Hemoglobin a1c today 12/12/24 6.1%. Her hemoglobin A1c was 10.8% 09/10/24. Reviewed Dexcom download 10/08/2024-10/21/2024 Average glucose 148 Standard deviation 19 mg/dL Time in range 99% Hyperglycemia 1% 0% hypoglycemia GMI 6.4% Her current regimen is metformin extended release 500 mg twice daily, Lantus 16 units nightly and Ozempic 0.5 mg weekly. She was previously on Actos which resulted in weight gain. Hypoglycemia symptoms: none Hyperglycemia symptoms: none Eye exam: up to date Microvascular complications: nephropathy (CKD and microalbuminuria though with recent improvement in glycemic control and medication adjustments her creatinine and GFR are normal and there is no microalbuminuria on her recent urinalysis). no retinopathy but she has cataracts Macrovascular complications: none Hypertension: treated with Losartan 100 mg. Hyperlipidemia: treated with Zetia 10 mg. LDL at goal <100. ROS: Constitutional: No unexplained weight loss, fever, chills, fatigue or night sweats. Respiratory: No shortness of breath Cardiovascular: No chest pain Neurologic: No headache, dizziness, syncope, unilateral weakness, ataxia, numbness or tingling in the extremities. Skin: No rash or itching. Endocrine: No cold or heat intolerance. No polyuria or polydipsia. Physical exam: Constitutional: Alert, in no distress. Eyes: Pupils are equal, round and reactive to light. Extraocular muscles intact. Neck: No lymphadenopathy or thyroid enlargement. Respiratory: Clear to auscultation. Cardiovascular: S1 S2 regular. No murmurs. Skin: No rashes or discoloration Extremities: Warm and well perfused. No clubbing, cyanosis or edema. [facility] Medical History Type 2 diabetes mellitus with hyperglycemia Vitamin D deficiency Obesity (BMI 30-39.9) Insomnia Arthralgia Depression Anxiety GERD without esophagitis Acquired hypothyroidism Gastrointestinal hemorrhage Anemia due to acute blood loss Asthma Chronic kidney disease (CKD), stage II (mild) Diabetes mellitus Pure hypercholesterolemia Benign essential hypertension Surgical History History of colonoscopy (~07/2019) H/O wrist surgery History of colectomy History of D&C History of tonsillectomy Family History Father No problems noted. Mother No problems noted. Other Substance abuse Social History Housing: House Alcohol intake: never Patient Tobacco Use Status: Never used Tobacco e-Cigarette/Vaping Use: Never Used Second Hand Smoke Exposure: No service: No Current occupational status: retired Cognitive needs: No Hearing needs: No Vision needs: Yes Physical Exam Vital Signs: Last Vital Signs Pulse 78 12/12/24 14:23 BP 132/84 12/12/24 14:23 BMI result Body Mass Index 31.0 Office Procedures Glucose Monitoring Details Details: see HPI 88545 - Glucose monitoring, continuous-physician I&R Procedure code (CPT) selection complete Results AMB Hemoglobin A1c AMB Hemoglobin A1c 6.1 % Last Edit by DOMINIC Escoto on 12/12/24 14:55 Results Reviewed Results Reviewed: Laboratory Last Values Glucose (Clinic) 97 mg/dL (60-115) 12/12/24 14:41 Laboratory Tests 09/10/24 09/11/24 12/12/24 12:05 09:37 14:45 Hgb A1c (Clinic) 6.1 H B-Natriuretic Peptide 88 Triglycerides 164 H Cholesterol 129 LDL Cholesterol, Calc 56 HDL Cholesterol 41 Vitamin B12 301 Urine Creatinine 39.60 Urine Microalbumin 6.0 Microalb/Creat Ratio 15.1 Assessment & Plan Assessment & Plan (1) Type 2 diabetes mellitus with hyperglycemia: Code(s): E11.65 - Type 2 diabetes mellitus with hyperglycemia Category: Medical Qualifiers: Diabetes mellitus 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 Her insurance says it will stop covering Lantus in November so I resubmitted Basaglar 16 units nightly to see if they will cover it. She was instructed to call if they do not fill this. She has four lantus pens left. Continue Ozempic to 0.5 mg weekly. Continue metformin extended release 500 mg twice daily. She will continue to follow with the community health educator. Lifestyle modifications reviewed in detail with the patient. Review treatment of hypo and hyperglycemia. She has glucose tablets. Follow up in 3 months for Type II diabetes. Orders: Orders AMB Hemoglobin A1c Today E11.65 - Type 2 diabetes mellitus with hyperglycemia, Z79.4 - terminal gauger (current) use of insulin AMB Glucose Monitoring Today E11.9 - Type 2 diabetes mellitus without complications Medications: Refilled insulin glargine (Basaglar KwikPen U-100 Insulin) Replaces Lantus. 16 units (0.16 mL) subcut QPM 15 mL 5RF semaglutide (Ozempic) 0.5 mg (0.736 mL) subcut QWEEK 3 mL 3RF Discontinued insulin glargine (Lantus Solostar U-100 Insulin) Discontinued Reason: Doctor's Order 14 units (0.14 mL) subcut .qhs 15 mL 4RF Coding Level of Care Code Est Pt Level 4 (01223) Diagnoses Type 2 diabetes mellitus with hyperglycemia, with long-term current use of insulin E11.65; Z79.4 Diabetes mellitus local company intermodal truck driver insulin use: with jail use CPT Codes Details - CPT: 27833 - Glucose monitoring, continuous-physician I&R ([id number])
[2024-12-12 14:23] VITALS: BP 132/84; PULSE 78; BMI 31.0
[2024-12-12 14:46] LABS: Glucose, Whole Blood 97 mg/dL (60-115)
== END 2024-12-12 15:12 | disposition home or self-care (01) ==
PROVIDERS: PCP Internal Medicine; Visit Provider Physician Assistant Medical
DX: E11.65 Type 2 diabetes mellitus with hyperglycemia (principal); Z79.4 Long term (current) use of insulin

== ENCOUNTER → 2024-12-12 14:18 | Outpatient (BNVA) | payer MEDICARE, OTHER, SELFPAY | PROVIDERS: PCP Internal Medicine; Visit Provider Physician Assistant Medical | DX: E11.65 Type 2 diabetes mellitus with hyperglycemia (principal); E55.9 Vitamin D deficiency, unspecified; E66.01 Morbid (severe) obesity due to excess calories; Z79.4 Long term (current) use of insulin; Z68.31 Body mass index [BMI] 31.0-31.9, adult | CPT/HCPCS: 82947; 83036; 99212 ==

== ENCOUNTER 2024-12-22 12:27 | Outpatient (AMB) | payer MEDICARE, OTHER, SELFPAY ==
--- NOTE | 2024-12-22 12:53 | MHC.AMDMED ---
Intake Intake Visit Reasons: 60 minutes/Confirmed Allergies adhesive tape [ADHESIVE TAPE] Allergy (Mild, Verified 12/12/24 14:29) RASH Cephalosporins [CEPHALOSPORINS] Allergy (Unknown, Verified 12/12/24 14:29) ANAPHYLAXIS gluten Allergy (Unknown, Verified 12/12/24 14:29) Unknown ketorolac Allergy (Unknown, Verified 12/12/24 14:29) hives lactase [From Dairy Aid] Allergy (Unknown, Verified 12/12/24 14:29) Unknown Penicillins [PENICILLINS] Allergy (Unknown, Verified 12/12/24 14:29) SWELLING Opioids - Morphine Analogues [OPIOIDS - MORPHINE ANALOGUES] Adverse Reaction (Severe, Verified 12/12/24 14:29) VERY SICK, DIZZY, VOMITING HPI Comprehensive Diabetes Asmnt Most Recent Diabetes Results: Hemoglobin A1c 6.5 % 05/05/20 Microalb/Creat Ratio 15.1 ug/mg cr (<30) 09/11/24 Cholesterol 129 mg/dL (<200) 09/10/24 HDL Cholesterol 41 mg/dL (>40) 09/10/24 Triglycerides 164 mg/dL (<150) H 09/10/24 Creatinine 0.92 mg/dL (0.5-1.4) 09/10/24 Blood Urea Nitrogen 19 mg/dL (9-16) H 09/10/24 Sodium 140 mmol/L (135-145) 09/10/24 Potassium 4.3 mmol/L (3.3-5.1) 09/10/24 Chloride 104 mmol/L (96-108) 09/10/24 Carbon Dioxide 26 mmol/L (22-29) 09/10/24 Calcium 9.1 mg/dL (8.4-10.2) 09/10/24 AST 56 U/L (5-31) H 09/10/24 ALT 37 U/L (0-31) H 09/10/24 Total Protein 6.7 g/dL (6.5-8.0) 09/10/24 Albumin 3.9 g/dL (3.5-5.0) 09/10/24 COUNTS INCLUDE 234 BEDS AT THE [facility] Medical History Type 2 diabetes mellitus with hyperglycemia Vitamin D deficiency Obesity (BMI 30-39.9) Insomnia Arthralgia Depression Anxiety GERD without esophagitis Acquired hypothyroidism Gastrointestinal hemorrhage Anemia due to acute blood loss Asthma Chronic kidney disease (CKD), stage II (mild) Diabetes mellitus Pure hypercholesterolemia Benign essential hypertension Surgical History History of colonoscopy (~07/2019) H/O wrist surgery History of colectomy History of D&C History of tonsillectomy Family History Father No problems noted. Mother No problems noted. Other Substance abuse Social History Housing: House Alcohol intake: never Patient Tobacco Use Status: Never used Tobacco e-Cigarette/Vaping Use: Never Used Second Hand Smoke Exposure: No service: No Current occupational status: retired Cognitive needs: No Hearing needs: No Vision needs: Yes Assessment & Plan Assessment & Plan (1) Diabetes mellitus: Code(s): E11.9 - Type 2 diabetes mellitus without complications Qualifiers: Diabetes mellitus type: type 2 Diabetes mellitus long-term insulin use: without intermediate manager use Diabetes mellitus complication status: with kidney complications Diabetes mellitus complication detail: with chronic kidney disease Chronic kidney disease stage: stage 2 (mild) Qualified Code(s): E11.22 - Type 2 diabetes mellitus with diabetic chronic kidney disease; N18.2 - Chronic kidney disease, stage 2 (mild) Plan Diabetes self-management education and support participation record Assessment/scale: 1= needs instructed? 2= needs review? 3= comprehend keep point? 4= demonstrates understanding/ competent? NC= Not Covered Topics Learning Objective: Initial visit Initial or post srvc Initial or post srvc Initial or post srvc Initial or post srvc Initial or post srvc Post srvc Comments Pre Edu-assessment/plan Outcome or reassess Outcome or reassess Outcome or reassess Outcome or reassess Outcome or reassess Outcome or reassess Diabetes pathophysiology 1 3 Healthy eating 2 3 Being active 1 3 Taking medication 1 3 Monitoring glucose 2 3 Acute complication 1 Chronic complicated 1 3 Lifestyle and healthy coping 2 Diabetes distress in support 1 3 ?Diabetes pathophysiology: ?Defined diabetes med identify own type of diabetes; list 3 options for treating diabetes Healthy eating: ?Described effect of type, amount and ?timing of food on blood glucose; list 3 methods for planning meal Being active: ?State effect of exercise on blood glucose level Taking medication: ?State effect of diabetes medications on diabetes; name diabetes medications taking, action and side effects Monitoring glucose: ?Identify recommended blood glucose targets and personal target Acute complication: ?List symptoms and treatment of hyper and hypoglycemia, DKA, sick day guidelines and guidelines for severe weather or situations of crisis and diabetes supply manage Chronic complication: ?To find the relationship of blood glucose levels to long-term complications of diabetes in screening and preventative measures Lifestyle and healthy coping: ?Described lifestyle and healthy coping strategies to rule out diabetes self-management Diabetes to stress and support: ?Recognize Diabetes to stress and be able to identified support options Learning objectives: The patient was provided with verbal and written education on the following topics as outlined below. The patient met all learning objectives and was able to verbalize understanding and provide teach back of education topics discussed . The patient was provided with the opportunity to ask questions and all questions were answered. 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 Ozempic 0.5 mg weekly Reviewed insulin action of Basaglar let patient know that she can take Basaglar with in [address] up daily dose time. If she wishes to move Basaglar from 10:00pm to 9:00 pm she can do it next time she takes Basaglar. Exercise Medical clearance Effect of exercise on blood sugar Start slowly and gradually increase pace/duration over time Goal amount of exercise Checking blood glucose/have a source of carbs with you Diabetes Complications: ?Nephropathy :Kidney Disease ?diabetes can damage the kidneys, which is not only can cause them to fail but can make them lose their ability to filter waste from the blood? ?Retinopathy: Eye complications ?Retinopathy? is the commonest long-term complication of diabetes. It is leading cause of blindness Besides, Retinopathy-People with diabetes? are also prone to cataract and Glaucoma. ?Neuropathy: Nerve damage -It involves temporary or permanent damage to nerve tissue. Nerve tissue gets injured mainly due to decreased blood flow and rise in blood glucose levels. This damage can lead to pain , or loss of sensation it can also include sexual dysfunction in both men and women ? Infections poor healing: People with diabetes? have increased susceptibility to various infections, such as? pneumonias, pyelonephritis, carbuncles and diabetic ulcers. This may be due to poor blood supply, reduced cellular immunity or hyperglycemia. ?Heart Disease And Stroke: People with diabetes are four times more prone to develop Heart disease than those who do not have diabetes ?Depression: Feeling down once in awhile is normal, but some people feel sadness that just won't go away. Life for them seems hopeless. Feeling this way most of the day for two weeks or more is a sign of serious depression ?Gum Disease: People get gum disease when plaque destroys the gums and bone around the teeth. People with diabetes can get gum disease from having high blood glucose levels for a long time Lifestyle Work Travel Stress management Problem solving Know your goals A1C Blood sugar targets Blood pressure Cholesterol/LDL Urine microalbumin Smart Goal Assessment: Pt will identify foods satinder she is currently eating that contain Carbohydrates Pt met goal 75% New Goal:? Patient will make appointment with agency manager for foot care, before next visit with early childhood educator aide Educational Materials: The patient was provided with the following written educational materials: ADCES 7 Healthy Behaviors Reducing Risks handout Patient Response to instructions: Comprehension of Instructions: Readiness to make changes: a How confident they feel about making changes: Portions of this note were created using voice recognition software, please excuse any words or phrases that may have been misinterpreted. Patient Instructions: Follow up with eye Doctor about when to resume Ozempic Follow up with critical care educator in 5 months Include regular daily activity. ADA recommends 30 minutes of exercise 5 days a week. Weight loss talk to PCP or Rvda Master Certified Rv Technician before starting new plan. Test blood sugar as directed; Fasting and 2hpp largest meal. Watch trends in results. Utilize results and to assess how food, physical activity and medications affect blood sugar results. Bring glucometer or CGM to next visit. Be knowledgeable about diabetes medication, its action, side effects, efficacy, toxicity, prescribed dosage, appropriate timing and frequency of administration, effect of missed and delayed doses and instructions for storage, travel and safety. Problem solving techniques to monitor hypo/hyperglycemia episodes and treatments. Reduce risk reduction behaviors, smoking cessation, regular eye, foot and dental examinations. Coding Level of Care Code Est Pt Level 1 (91447) Diagnoses Type 2 diabetes mellitus with stage 2 chronic kidney disease, without long-term current use of insulin E11.22; N18.2 Diabetes mellitus type: type 2 Diabetes mellitus intermediate manager insulin use: without intermediate manager use Diabetes mellitus complication status: with kidney complications Diabetes mellitus complication detail: with chronic kidney disease Chronic kidney disease stage: stage 2 (mild)
== END 2024-12-22 13:54 | disposition home or self-care (01) ==
PROVIDERS: PCP Internal Medicine; Visit Provider Registered Nurse Diabetes Educator
DX: E11.22 Type 2 diabetes mellitus with diabetic chronic kidney disease (principal); N18.2 Chronic kidney disease, stage 2 (mild)

== ENCOUNTER → 2024-12-22 12:27 | Outpatient (BNVA) | payer MEDICARE, OTHER, SELFPAY | PROVIDERS: PCP Internal Medicine; Visit Provider Registered Nurse Diabetes Educator | DX: E11.22 Type 2 diabetes mellitus with diabetic chronic kidney disease (principal); N18.2 Chronic kidney disease, stage 2 (mild) | CPT/HCPCS: 99211 ==

== ENCOUNTER 2024-12-23 10:07 | Outpatient (AMB) | payer MEDICARE, OTHER, SELFPAY ==
--- NOTE | 2024-12-23 10:09 | MHC.OFFVIS ---
Vital Signs 12/23/24 10:22 Height 5 ft 4 in Weight 180 lb 5.41 oz BMI 31.0 BP 142/100 H Blood Pressure Location Lt brachial Position Sitting Pulse 78 Pulse Source Pulse Oximeter Pulse Oximetry (%) 98 Oxygen Delivery Method Room Air Intake Visit Reasons: Joint Pain Intake Note: Patient presents for joint pain. I have joint pain on both hand especially on Rt thumb triggered finger Lf hand thumb lower joint. Feel spine on my pain and toes. I been feeling joint pain for the past 10 years. I take Tylenol helps a little. Allergies adhesive tape [ADHESIVE TAPE] Allergy (Mild, Verified 12/23/24 10:18) RASH Cephalosporins [CEPHALOSPORINS] Allergy (Unknown, Verified 12/23/24 10:18) ANAPHYLAXIS gluten Allergy (Unknown, Verified 12/23/24 10:18) Unknown ketorolac Allergy (Unknown, Verified 12/23/24 10:18) hives lactase [From Dairy Aid] Allergy (Unknown, Verified 12/23/24 10:18) Unknown Penicillins [PENICILLINS] Allergy (Unknown, Verified 12/23/24 10:18) SWELLING Opioids - Morphine Analogues [OPIOIDS - MORPHINE ANALOGUES] Adverse Reaction (Severe, Verified 12/23/24 10:18) VERY SICK, DIZZY, VOMITING Medication List - Last Reconciled 12/23/24 by Sylvia Minaya MD albuterol sulfate 90 mcg/actuation 1 puff PO QID PRN blood sugar diagnostic (FreeStyle Lite Strips) As directed to check glucose up to 5 times daily blood-glucose meter (FreeStyle Lite Meter kit) check glucose up to 5 times a day blood-glucose meter,continuous (Dexcom G7 Auto Body Repairer) As directed blood-glucose sensor (Dexcom G7 Sensor device) apply new sensor every 10 days as directed cholecalciferol (vitamin D3) 50 mcg PO DAILY 90 days clonazepam 0.5 mg PO BEDTIME escitalopram oxalate 10 mg PO QAM ezetimibe 10 mg PO DAILY 90 days glucose (Dex4 Glucose) 16 grams (4 x 4 gram) PO Q15M PRN insulin glargine (Basaglar KwikPen U-100 Insulin) 16 units (0.16 mL) subcut QPM ketoconazole 2% 1 appl topical DAILY lancets (FreeStyle Lancets) Use as directed to monitor glucose up to 5 times daily levothyroxine 100 mcg PO QAM losartan 100 mg PO DAILY metformin ER 500 mg PO BID 90 days montelukast 10 mg PO BEDTIME pen needle, diabetic (BD Melba 2nd Gen Pen Needle) As directed up to 4 times daily primidone 50 mg PO DAILY semaglutide (Ozempic) 0.5 mg (0.736 mL) subcut QWEEK HPI Comments Details: Patient is a 74 y.o. 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 She had XRs which revealed L spine OA, bilateral 1st CMC OA, hand OA, Knee OA. And since then has been managing this conservatively with Tylenol Today asking for treatment options for her L spine and bilateral hand OA [facility] Medical History Type 2 diabetes mellitus with hyperglycemia Vitamin D deficiency Obesity (BMI 30-39.9) Insomnia Arthralgia Depression Anxiety GERD without esophagitis Acquired hypothyroidism Gastrointestinal hemorrhage Anemia due to acute blood loss Asthma Chronic kidney disease (CKD), stage II (mild) Diabetes mellitus Pure hypercholesterolemia Benign essential hypertension Surgical History History of colonoscopy (~07/2019) H/O wrist surgery History of colectomy History of D&C History of tonsillectomy Family History Father No problems noted. Mother No problems noted. Other Substance abuse Social History Housing: House Alcohol intake: never Patient Tobacco Use Status: Never used Tobacco e-Cigarette/Vaping Use: Never Used Second Hand Smoke Exposure: No service: No Current occupational status: retired Cognitive needs: No Hearing needs: No Vision needs: Yes Review of Systems Const Details: Review of Systems Constitutional: Denies fever, chills, weight loss ENT: Denies vision changes, eye pain or eye redness, dental caries, dry mouth GI: Denies nausea, vomiting, diarrhea, abdominal pain, change in BM Pulm: Denies SOB, DEAN, hemoptysis, wheezing Cards: Denies chest pain, palpitations Skin: Denies Raynaud's, rash, nail changes, photosensitivity, STUDIO ARTIST: Denies headaches, weakness, paresthesias, recurrent falls MSK: as per HPI All other systems reviewed and are unremarkable except noted above Physical Exam Vital Signs: Last Vital Signs Pulse 78 12/23/24 10:22 BP 142/100 H 12/23/24 10:22 Pulse Ox 98 12/23/24 10:22 Oxygen Delivery Method Room Air 12/23/24 10:22 BMI result Body Mass Index 31.0 Vital signs reviewed Physical Examination CONSTITUITIONAL Patient alert and cooperative. Well appearing and in no apparent painful distress HEENT Conjunctiva and sclera clear. ?Pupils equal round and reactive to light. ?No lymphadenopathy. ? CHEST/RESPIRATORY SYSTEM Normal respiratory effort and able to speak in complete sentences. ?Clear to auscultation bilaterally. ?No crackles, rales, rhonchi, wheezes heard. CARDIAC SYSTEM Regular rate and rhythm. ?S1 and S2 heard no murmurs. ?Radial pulses intact bilaterally MSK Hands: ?Good digital librarian strength bilaterally. Flexion contraction noted to the 5th digit on the right the PIP (previous injury) ?No synovitis noted to the MCPs, PIPs or DIPs. ?No tenderness to palpation of these joints. Nodule felt at the 1st A1 ollie, this nodule was tender to palpation but no active triggering in the office. Heberden's nodes noted. Wrists: ?Full range of motion at the wrists without pain. ?No tenderness to palpation or synovitis noted to the wrists. Elbows: Full range of motion without pain. No tenderness, weakness, swelling, increased warmth or erythema. Shoulders: Full range of motion without pain. No tenderness, weakness, swelling, increased warmth or erythema. Hips: Full range of motion without pain. Hip bursa: No tenderness to palpation Knees: ?Full range of motion. ?No tenderness, swelling, increased warmth or erythema.?No effusion or crepitations Ankles: Full range of motion. ?No tenderness, swelling, increased warmth or erythema.? Feet: ?Negative squeeze test. ?No tenderness to palpation or swelling of the MTPs. Tender points:?No tenderness to palpation of the bilateral trapezius, supraspinatus, greater trochanters, anterior costochondral junctions, bilateral gluteal areas, bilateral suboccipital muscle insertions SKIN Skin intact without rashes. Assessment & Plan Assessment & Plan (1) Osteoarthritis of hands, bilateral: Code(s): M19.041 - Primary osteoarthritis, right hand; M19.042 - Primary osteoarthritis, left hand Category: Medical Qualifiers: Osteoarthritis type: primary Qualified Code(s): M19.041 - Primary osteoarthritis, right hand; M19.042 - Primary osteoarthritis, left hand Plan: #Primary bilateral OA Patient is a 74-year-old female with hypertension, diabetes and hyperlipidemia who presents for evaluation of hand pain, trigger finger and low back pain. With respect to her hand pain previous x-rays done (not seen) consistent with osteoarthritis which is confirmed on examination evidence of Heberden's nodes. I discussed topical diclofenac using this up to 4 times a day Plan - topical diclofenac 4 times a day - parafin wax bath at home - RTC 1 year or sooner (2) Trigger thumb of right hand: Code(s): M65.311 - Trigger thumb, right thumb Category: Medical Plan: #Right hand trigger thumb Patient is left-handed but complaining of right hand trigger thumb and this was confirmed on examination with tenderness to palpation over the A1 ollie. At this time conservative measures such as splinting and topical diclofenac Plan - Splinting x 6 weeks - Topical diclofenac 4 times a day (3) Lumbar degenerative disc disease: Code(s): M51.369 - Other intervertebral disc degeneration, lumbar region without mention of lumbar back pain or lower extremity pain Category: Medical Qualifiers: Disc-related pain type: discogenic back pain only Qualified Code(s): M51.360 - Other intervertebral disc degeneration, lumbar region with discogenic back pain only Plan: #L spine, low back pain Patient with chronic longstanding L-spine/low back pain. Treatment options are limited at this time. Discussed injections, physical therapy and chiropractors. Patient had this time does not want to pursue injections, physical therapy or chiropractors. Plan I spent 30 minutes reviewing the record and labs, taking a history, examining the patient, discussing the treatment plan and documenting in the medical record Medications: New diclofenac sodium 1% (Arthritis Pain (diclofenac)) apply to single knee, ankle, foot; for foot includes sole/toes/top of foot 4 grams topical QID 100 grams 5RF M19.041 - Primary osteoarthritis, right hand, M19.042 - Primary osteoarthritis, left hand Coding Level of Care Code New Pt Level 3 (57631) Diagnoses Primary osteoarthritis of both hands M19.041; M19.042 Osteoarthritis type: primary Trigger thumb of right hand M65.311 Degeneration of intervertebral disc of lumbar region with discogenic back pain M51.360 Disc-related pain type: discogenic back pain only
[2024-12-23 10:22] VITALS: BP 142/100; PULSE 78; O2SAT 98; BMI 31.0
== END 2024-12-23 11:02 | disposition home or self-care (01) ==
LOC: HO.RHE 10:07
PROVIDERS: PCP Internal Medicine; Visit Provider Student in an Organized Health Care Education/Training Program
DX: M19.041 Primary osteoarthritis, right hand (principal); M19.042 Primary osteoarthritis, left hand; M65.311 Trigger thumb, right thumb; M51.360 Other intervertebral disc degeneration, lumbar region with discogenic back pain only
CPT/HCPCS: 99203

== ENCOUNTER → 2024-12-23 10:07 | Outpatient (BNVA) | payer MEDICARE, OTHER, SELFPAY | PROVIDERS: PCP Internal Medicine; Visit Provider Student in an Organized Health Care Education/Training Program | DX: M19.041 Primary osteoarthritis, right hand (principal); M65.311 Trigger thumb, right thumb; M19.042 Primary osteoarthritis, left hand; M51.360 Other intervertebral disc degeneration, lumbar region with discogenic back pain only; E11.22 Type 2 diabetes mellitus with diabetic chronic kidney disease; I12.9 Hypertensive chronic kidney disease with stage 1 through stage 4 chronic kidney disease, or unspecified chronic kidney disease; N18.2 Chronic kidney disease, stage 2 (mild); E78.5 Hyperlipidemia, unspecified | CPT/HCPCS: 99202 ==

== ENCOUNTER 2025-01-20 13:02 | Outpatient (REF) | payer MEDICARE, OTHER, SELFPAY ==
[2025-01-20 13:27] LABS: MANUAL DIFF FLAG NO
[2025-01-20 13:53] LABS: Basophils Percent Auto 0.6 % (0-2); Eosinophils Absolute Auto 0.1 X10*3/uL (0.0-0.4); Eosinophils Percent Auto 1.4 % (0-4); Hematocrit 40.8 % (37.0-47.0); Hemoglobin 13.9 g/dl (12.0-16.0); Imm Gran Abs Auto 0.01 X10*3/uL (0.00-0.03); Imm Gran Pct Auto 0.2 % (0.0-0.4); Lymphocytes Absolute Auto 1.9 X10*3/uL (1.2-4.9); Lymphocytes Percent Auto 38.3 % (20-40); Mean Corpuscular HGB Conc 34.1 g/dl (31.0-35.0); Mean Corpuscular Hemoglobin 30.1 pg (27.0-33.0); Mean Corpuscular Volume 88.3 fL (80.0-98.0); Mean Platelet Volume 9.9 fL (9.4-12.3); Monocytes Absolute Auto 0.3 X10*3/uL (0.1-1.2); Monocytes Percent Auto 5.7 % (2-11); Neutrophils Absolute Auto 2.7 x10*3/uL (2.0-8.3); Neutrophils Percent Auto 53.8 % (45-73); Platelet Count 159 X10*3/uL (160-400); Red Blood Count 4.62 X10*6/uL (4.20-5.50); Red Cell Distribution Width 13.4 % (11.0-16.0); White Blood Count 5.1 X10*3/uL (4.8-10.8)
[2025-01-20 14:00] LABS: Estimated Average Glucose 111 mg/dL; Hemoglobin A1c % 5.5 % (<6.0)
[2025-01-20 14:43] LABS: Alanine Aminotransferase 55 U/L (0-31); Albumin Level 4.2 g/dL (3.5-5.0); Alkaline Phosphatase 104 U/L (39-117); Anion Gap 11 (12-20); Aspartate Amino Transferase 58 U/L (5-31); Bilirubin Total 0.9 mg/dL (0.0-1.0); Blood Urea Nitrogen 19 mg/dL (9-16); C Reactive Protein < 0.10 mg/dL (< or = 0.50); Calcium 9.6 mg/dL (8.4-10.2); Carbon Dioxide 28 mmol/L (22-29); Chloride 107 mmol/L (96-108); Cholesterol 130 mg/dL (<200); Estimated Glomerular Filt Rate > 60; Glucose Fasting 114 mg/dL (60-99); HDL Cholesterol 50 mg/dL (>40); LDL Cholesterol Calculated 52 mg/dL (<100); Potassium 4.2 mmol/L (3.3-5.1); Sodium 142 mmol/L (135-145); Total Protein 7.1 g/dL (6.5-8.0); Triglycerides 143 mg/dL (<150)
[2025-01-20 15:16] LABS: Folate 10.3 ng/mL (> or = 4.0); Vitamin B12 322 pg/mL (200-900)
--- OUTSIDE RECORDS SUMMARY | 2025-01-20 15:49 | XMS_ITS | Continuity of Care Document ---
Author Organization [facility] [facility] Address [address] [place] [address] Phone Care Team Providers Care Banana Expert Name Role Phone Yulissa PAYAN FAC, Josep Nickerson Unavaila ble Advance Directives Directive Yes / No Effective Date File Name No Information Encounters Encounter Description Practice Location Reason(s) For Visit Diagnoses Date Provider Providers Copied on Encounter [facility], [address], [place], [id number], tel:[phone] [facility] No Information Yulissa Car. [address], [place], [id number], [place]. tel:[phone] Family History Family Member Type Diagnosis Age At Onset No Information Payers Payer name Insurance type Covered constitution party ID Authorerickcharity brepaula(s) Denis [facility] [id number] [facility] CI [id number] Social History Type Description Quantity Date Captured [...]
[2025-01-20 21:38] LABS: TSH reflex Free T4 0.47 uIU/mL (0.32-4.0)
[2025-01-21 18:54] LABS: Transglutaminase Ab IgG <1.0 U/mL; Transglutaminase IgA <1.0 U/mL
[2025-01-24 13:38] LABS: Vitamin D 25-OH, D2 11 ng/mL; Vitamin D 25-OH, D3 28 ng/mL; Vitamin D 25-OH, Total 39 ng/mL (30-100)
== END 2025-01-20 13:03 | disposition home or self-care (01) ==
LOC: HO.LAB 13:02
PROVIDERS: Nurse Practitioner Family; PCP Internal Medicine; Visit Provider Internal Medicine
DX: K58.9 Irritable bowel syndrome, unspecified (principal); E78.00 Pure hypercholesterolemia, unspecified; E11.9 Type 2 diabetes mellitus without complications; D64.9 Anemia, unspecified; R19.7 Diarrhea, unspecified; K59.00 Constipation, unspecified; R10.9 Unspecified abdominal pain
CPT/HCPCS: 36415; 80053; 80061; 82306; 82607; 82746; 83036; 84443; 85025; 86140; 86364

== ENCOUNTER 2025-01-21 14:49 | Outpatient (REF) | payer MEDICARE, OTHER, SELFPAY ==
[2025-01-21 15:22] LABS: Appearance Urine Clear; Color Urine Yellow; Glucose Urine UA Negative (Negative); Leukocyte Esterase Urine Negative (Negative); Nitrite Urine Negative (Negative); PH 5.5 (5.0-9.0); Urine Blood Negative (Negative); Urine Ketones Negative (Negative); Urine Protein Negative (Neg-Trace)
--- OUTSIDE RECORDS SUMMARY | 2025-01-21 17:28 | XMS_ITS | Continuity of Care Document ---
Author Organization [employer] [facility] Address [address] [place] [address] Phone Care Team Providers Care Mobile Homes Repairer Name Role Phone Yulissa PAYAN FAC, Josep Nickerson Unavaila ble Advance Directives Directive Yes / No Effective Date File Name No Information Encounters Encounter Description Practice Location Reason(s) For Visit Diagnoses Date Provider Providers Copied on Encounter [employer] [facility], [address] [place], [place], [id number], tel:[phone] [employer] [facility] No Information Yulissa Car. [address], [place], [id number], [place]. tel:[phone] Family History Family Member Type Diagnosis Age At Onset No Information Payers Payer name Insurance type Covered alliance party ID Authorerickcharity brepaula(s) Denis [facility] [id number] [facility] CI [id number] Social History Type Description Quantity Date Captured [...]
== END 2025-01-21 14:50 | disposition home or self-care (01) ==
LOC: HO.LNP 14:49
PROVIDERS: Visit Provider Internal Medicine
DX: R30.0 Dysuria (principal)
CPT/HCPCS: 81003

== ENCOUNTER 2025-01-26 15:01 | Outpatient (AMB) | payer MEDICARE, OTHER, SELFPAY ==
--- NOTE | 2025-01-26 15:03 | A.OFFPC_ITS ---
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 Accompanied by: Self / Same As Patient Allergies adhesive tape [ADHESIVE TAPE] Allergy (Mild, Verified 01/26/25 15:29) RASH Cephalosporins [CEPHALOSPORINS] Allergy (Unknown, Verified 01/26/25 15:29) ANAPHYLAXIS gluten Allergy (Unknown, Verified 01/26/25 15:29) Unknown ketorolac Allergy (Unknown, Verified 01/26/25 15:29) hives lactase [From Dairy Aid] Allergy (Unknown, Verified 01/26/25 15:29) Unknown Penicillins [PENICILLINS] Allergy (Unknown, Verified 01/26/25 15:29) SWELLING Opioids - Morphine Analogues [OPIOIDS - MORPHINE ANALOGUES] Adverse Reaction (Severe, Verified 01/26/25 15:29) VERY SICK, DIZZY, VOMITING Medication List - Last Reconciled 01/26/25 by Delonte Bishop MD albuterol sulfate 90 mcg/actuation 1 puff PO QID PRN blood sugar diagnostic (FreeStyle Lite Strips) As directed to check glucose up to 5 times daily blood-glucose meter (FreeStyle Lite Meter kit) check glucose up to 5 times a day blood-glucose meter,continuous (Dexcom G7 Orchestrator) As directed blood-glucose sensor (Dexcom G7 Sensor device) apply new sensor every 10 days as directed cholecalciferol (vitamin D3) 50 mcg PO DAILY 90 days clonazepam 0.5 mg PO BEDTIME diclofenac sodium 1% (Arthritis Pain (diclofenac)) 4 grams topical QID escitalopram oxalate 10 mg PO QAM ezetimibe 10 mg PO DAILY 90 days glucose (Dex4 Glucose) 16 grams (4 x 4 gram) PO Q15M PRN insulin glargine (Basaglar KwikPen U-100 Insulin) 16 units (0.16 mL) subcut QPM ketoconazole 2% 1 appl topical DAILY lancets (FreeStyle Lancets) Use as directed to monitor glucose up to 5 times daily levothyroxine 100 mcg PO QAM losartan 100 mg PO DAILY metformin ER 500 mg PO BID 90 days montelukast 10 mg PO BEDTIME pen needle, diabetic (BD Melba 2nd Gen Pen Needle) As directed up to 4 times daily primidone 50 mg PO DAILY semaglutide (Ozempic) 0.5 mg (0.736 mL) subcut QWEEK Tobacco use date assessed: 01/26/25 Fall risk assessment: No Falls in past year Last assessed Fall Risk: 01/26/25 Dental Screening Dental Screen Date: 01/26/25 Did you have a dental visit in the last 12 months?: Yes Did you have a dental problem in the last 6 months where you did not have access to dental care?: No Was dental information given to patient?: Patient has dentist HPI 02/09 right eye cataract, 02/22/25 left eye HPI Details Patient comes in today for her follow-up visit She is also here today at the request of Dr. Gary Fermin for a preoperative medical examination for clearance for surgery She is scheduled for cataract extraction/phacoemulsification with IOL of the right eye under MAC on 02/09/2025, followed by the same procedure on the left eye 2 weeks later on 02/22/2025 Patient states that other than her blurred vision/impaired vision in both eyes, she feels okay She denies any headaches or dizziness Denies any chest pains, no increased shortness of breath No nausea/vomiting; still has on and off (chronic) lower abdominal pain No change in bowel habits noted - she still has on and off loose stools but th mojgan are mostly unchanged from before She had her follow-up labs done last week - to discuss her results [facility] Medical History (Updated 01/26/25 @ 15:32 by Delonte Bishop MD) Cataracts, bilateral Lumbar degenerative disc disease Osteoarthritis of hands, bilateral Type 2 diabetes mellitus with hyperglycemia Vitamin D deficiency Obesity (BMI 30-39.9) Insomnia Arthralgia Depression Anxiety GERD without esophagitis Acquired hypothyroidism Gastrointestinal hemorrhage Anemia due to acute blood loss Asthma Chronic kidney disease (CKD), stage II (mild) Diabetes mellitus Pure hypercholesterolemia Benign essential hypertension Surgical History History of colonoscopy (~07/2019) H/O wrist surgery History of colectomy History of D&C History of tonsillectomy Family History Father No problems noted. Mother No problems noted. Other Substance abuse Social History Housing: House Alcohol intake: never Patient Tobacco Use Status: Never used Tobacco e-Cigarette/Vaping Use: Never Used Second Hand Smoke Exposure: No service: No Current occupational status: retired Cognitive needs: No Hearing needs: No Vision needs: Yes Questionnaire PHQ-9 Over the last 2 weeks, how often have you been bothered by any of the following problems? 1. Little interest or pleasure in doing things: not at all 2. Feeling down, depressed, or hopeless: not at all 3. Trouble falling or staying asleep, or sleeping too much: not at all 4. Feeling tired or having little energy: not at all 5. Poor appetite or overeating: not at all 6. Feeling bad about yourself - or that you are a failure or have let yourself or your family down: not at all 7. Trouble concentrating on things, such as reading the newspaper or watching television: not at all 8. Moving or speaking so slowly that other people could have noticed. Or the opposite - being so fidgety or restless that you have been moving around a lot more than usual: not at all 9. Thoughts that you would be better off or of hurting yourself in some way: not at all Total score: 0 Depression Screening Interpretation: Negative Depression Screening Done: Yes 79448 - PHQ-9 Billing: Yes Source: Developed by Drs. Tim Mendoza, Carole Israel, Jose Cruz Gonzales and colleagues, with an educational hugh from [employer]. Thrive Questionnaire Date Thrive assessed: 01/26/25 I am a: Patient What is your living situation today?: I have a steady place to live Within the past 12 months, did the food you bought not last and you didn't have the money to get more?: Never true Within the past 12 months, did you worry whether your food would run out before you got money to buy more?: Never true Do you have trouble paying for medicines?: No Do you have trouble getting transportation to medical appointments?: No Do you have trouble paying your heating and electricity bill?: No Do you have trouble taking care of your child, family member or friend?: No Do you have trouble with day-to-day activities such as bathing, preparing meals, shopping, managing finances, etc.?: No Are you currently unemployed and looking for a job?: No Are you interested in more education?: No Please select the resources that you would like help with: None Currently or been in a relationship where the following occur: No concerns reported THRIVE Score: 0 AUDIT C Alcohol Use Questionnaire (AUDIT-C) 1. How often do you have a drink containing alcohol?: Monthly or less 2. How many drinks containing alcohol do you have on a typical day when you are drinking?: 1 or 2 3. How often do you have six or more drinks on one occasion?: Never Total Score: 1 Score Reviewed/Action Taken: Yes ISIDRA-7 AMB Questionnaire ISIDRA-7 Date ISIDRA - 7 assessed: 01/26/25 Feeling nervous, anxious, or on edge: 0 = Not at all Not being able to stop or control worryin = Not at all Worrying too much about different things: 0 = Not at all Trouble relaxin = Not at all Being so restless that it is hard to sit still: 0 = Not at all Becoming easily annoyed or irritable: 0 = Not at all Feeling afraid as if something awful might happen: 0 = Not at all Total ISIDRA-7 score (0-4 normal; 5-9 mild; 10-14 moderate; 15-21 severe): 0 Source: Developed by Drs. Tim Mendoza, Carole Israel, Jose Cruz Gonzales and colleagues, with an educational hugh from [employer]. Review of Systems Const Denies chills, Denies fatigue, Denies fever(s) and Denies headache(s) Eyes Reports blurry vision (bilaterally) ENT Denies dysphagia, Denies dizziness, Denies otalgia, Denies headache(s), Denies neck pain, Denies odynophagia and Denies sore throat Card Denies chest pain, Denies palpitations and Denies dyspnea Resp Denies chest congestion, Denies cough and Denies dyspnea GI Reports abdominal pain (frequent, mostly over the lower abdomen - chronic), De nies constipation, Denies dysphagia, Denies heartburn, Reports diarrhea (on and off), Denies nausea, Denies odynophagia and Denies vomiting Denies difficulty voiding, Denies nocturia, Denies dysuria and Denies urinary urgency Musc Reports back pain, Reports arthralgias (recurrent, over multiple joints), Reports muscle cramps (in both legs - on and off at night ) and Denies neck pain Skin/Breast Denies rash Neuro Denies dizziness and Denies headache(s) Endo Denies fatigue and Denies palpitations Physical exam (Primary Care) Vital Signs: Last Vital Signs Pulse 80 01/26/25 15:04 BP 136/84 01/26/25 15:04 Pulse Ox 99 01/26/25 15:04 Oxygen Delivery Method Room Air 01/26/25 15:04 BMI result Body Mass Index 30.0 Tobacco/Smoking Status: Tobacco use Status Tobacco use date assessed 01/26/25 01/26/25 15:07 Patient Tobacco Use Status Never used Tobacco 01/26/25 15:07 e-Cigarette/Vaping Use Never Used 01/26/25 15:07 PHQ-9: PHQ-9 Score PHQ-9: Total score 0 01/27/25 02:29 Depression Screening Interpretation: Negative Thrive Assessment: Date of Thrive Assessment Date Thrive assessed 01/26/25 01/26/25 15:07 Currently or been in a relationship where the following occur: No concerns reported Const General: no acute distress and alert HENMT Ears: TM's normal bilaterally and EAC's normal Throat: Yes posterior oropharynx normal and Yes tonsils normal (no TP congestion noted) Neck Neck: Yes supple and No lymphadenopathy Thyroid: Thyroid normal Resp Auscultation: clear to auscultation bilaterally, no rales and no wheezes Cardio Rate: regular rate Rhythm: regular rhythm Heart sounds: no murmurs GI Palpation (GI): Soft to palpation, Tenderness to palpation present (GI) (mild, over the lower abdomen), no guarding, not rigid and No Rebound tenderness present Auscultation: normal bowel sounds General: Yes no CVA tenderness Back/Spine/Pelvis Back: no CVA tenderness Thoracic/Lumbar Spine: lumbar spinal tenderness (mild) Skin Rashes: no rashes Extrem General: Yes no clubbing, cyanosis or edema Results Reviewed Results Reviewed: Laboratory Tests 12/12/24 01/20/25 01/21/25 14:45 13:25 09:40 WBC 5.1 Hgb 13.9 Hct 40.8 Plt Count 159 L D Sodium 142 Potassium 4.2 Creatinine 0.77 Estimated GFR > 60 Fasting Glucose 114 H Hgb A1c (Clinic) 6.1 H Hemoglobin A1c % 5.5 Calcium 9.6 AST 58 H ALT 55 H Triglycerides 143 Cholesterol 130 LDL Cholesterol, Calc 52 HDL Cholesterol 50 Vitamin B12 322 25-OH Vitamin D Total 39 TSH 0.47 Ur Specific [place] 1.010 Urine Protein Negative Urine Glucose (UA) Negative Urine Blood Negative Urine Nitrite Negative Ur Leukocyte Esterase Negative Tiss Transglutamin IgG <1.0 Tiss Transglutamin IgA <1.0 Coding Level of Care Code Est Pt Level 4 (22300) Complex EM visit Add On G2211 Diagnoses Preoperative examination Z01.818 Age-related cataract of both eyes, unspecified age-related cataract type H25.9 Age-related cataract type: unspecified Cataract type: age-related Type 2 diabetes mellitus with stage 2 chronic kidney disease, without long-term current use of insulin E11.22; N18.2 Chronic kidney disease stage: stage 2 (mild) Diabetes mellitus complication detail: with chronic kidney disease Diabetes mellitus complication status: with kidney complications 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 insulin use: without penitentiary use Diabetes mellitus type: type 2 Benign essential hypertension I10 Pure hypercholesterolemia E78.00 Chronic kidney disease (CKD), stage II (mild) N18.2 Elevated LFTs R79.89 Acquired hypothyroidism E03.9 Mild intermittent asthma without complication J45.20 Asthma severity: mild Asthma persistence: intermittent Asthma complication type: uncomplicated Vitamin D deficiency E55.9 Arthralgia, unspecified joint M25.50 Joint pain location: unspecified GERD without esophagitis K21.9 Chronic diarrhea K52.9 Insomnia, unspecified type G47.00 Insomnia type: unspecified Anxiety F41.9 Episode of recurrent major depressive disorder, unspecified depression episode severity F33.9 Depression Type: major depressive disorder Major depression recurrence: recurrent Active/Remission status: currently active Major depression episode severity: unspecified Obesity (BMI 30-39.9) E66.9 Additional Codes PHQ-9 - 22121 - PHQ-9 Billing: Yes ([id number]) Assessment & Plan Assessment & Plan (1) Preoperative examination: Code(s): Z01.818 - Encounter for other preprocedural examination Category: Medical Plan: Patient presents with acceptable risks for planned low cardiac risk procedure Results of her labs done last week reviewed and discussed with patient - her labs are mostly within normal limits Patient currently appears medically optimized for her scheduled cataract surgeries (2) Cataracts, bilateral: Code(s): H26.9 - Unspecified cataract Category: Medical Qualifiers: Age-related cataract type: unspecified Cataract type: age-related Qualified Code(s): H25.9 - Unspecified age-related cataract Plan: She is scheduled for cataract extraction/phacoemulsification with IOL of the right eye under MAC on 02/09/2025, followed by the same procedure on the left eye 2 weeks later on 02/22/[address] Gary Fermin (3) Diabetes mellitus: Code(s): E11.9 - Type 2 diabetes mellitus without complications Category: Medical Qualifiers: Chronic kidney disease stage: stage 2 (mild) Diabetes mellitus complication detail: with chronic kidney disease Diabetes mellitus complication status: with kidney complications Diabetes mellitus penitentiary insulin use: without penitentiary use Diabetes mellitus type: type 2 Qualified Code(s): E11.22 - Type 2 diabetes mellitus with diabetic chronic kidney disease; N18.2 - Chronic kidney disease, stage 2 (mild) Plan: Her HgbA1c was at 5.5% on her labs done last week (was previously at 10.8% back in late August 2024) - goal is at least <7.0% Reinforced diabetic diet Continue Lantus 16 units Q HS, Trulicity 0.75 mg SQ once a week and Metformin ER 500 mg BID She has experienced significant weight gain with Pioglitazone and sulfonylureas in the past Follow up with endocrinology as scheduled (4) Benign essential hypertension: Code(s): I10 - Essential (primary) hypertension Category: Medical Plan: Reinforced low sodium diet - goal is systolic BP of at least 130 to 140 mm or less Continue Losartan 100 mg QD (5) Pure hypercholesterolemia: Code(s): E78.00 - Pure hypercholesterolemia, unspecified Category: Medical Plan: Results of her labs done last week reviewed and discussed with patient Reinforced low cholesterol diet Continue Ezetimibe 10 mg QD Will recheck her labs and fasting lipids in 4 months for follow up (6) Chronic kidney disease (CKD), stage II (mild): Code(s): N18.2 - Chronic kidney disease, stage 2 (mild) Category: Medical Plan: Her renal function appears stable on her recent labs Will continue to monitor her GFR and renal function regularly (7) Elevated LFTs: Code(s): R79.89 - Other specified abnormal findings of blood chemistry Category: Medical Plan: Patient's LFTs are still slightly elevated on her recent labs - are most likely due to hepatosteatosis and should improve with weight loss Will continue to monitor her LFTs regularly (8) Acquired hypothyroidism: Code(s): E03.9 - Hypothyroidism, unspecified Category: Medical Plan: Her TFTs were normal on her recent labs Continue Levothyroxine 100 mcg QD Will recheck her TFTs in 3 months for follow up (9) Asthma: Code(s): J45.909 - Unspecified asthma, uncomplicated Category: Medical Qualifiers: Asthma severity: mild Asthma persistence: intermittent Asthma complication type: uncomplicated Qualified Code(s): J45.20 - Mild intermittent asthma, uncomplicated Plan: Continue Montelukast 10 mg QD and Ventolin HFA 2 puffs QID PRN (10) Vitamin D deficiency: Code(s): E55.9 - Vitamin D deficiency, unspecified Category: Medical Plan: Continue Vitamin D3 2000 units QD (11) Arthralgia: Code(s): M25.50 - Pain in unspecified joint Category: Medical Qualifiers: Joint pain location: unspecified Qualified Code(s): M25.50 - Pain in unspecified joint Plan: Per request, she was referred again to rheumatology for further evaluation and management and was seen by rheumatology last month Follow up with rheumatology as scheduled (12) GERD without esophagitis: Code(s): K21.9 - Gastro-esophageal reflux disease without esophagitis Category: Medical Plan: Dietary restrictions reinforced Continue Prilosec OTC 20 mg QD (13) Chronic diarrhea: Code(s): K52.9 - Noninfective gastroenteritis and colitis, unspecified Category: Medical Plan: She was seen by GI a couple of months ago and was advised to try to increase her dietary fiber intake at the time She was advised that she will be scheduled for repeat colonoscopy as soon as her GI symptoms have cleared up Follow up with [facility] as scheduled (14) Insomnia: Code(s): G47.00 - Insomnia, unspecified Category: Medical Qualifiers: Insomnia type: unspecified Qualified Code(s): G47.00 - Insomnia, unspecified Plan: Sleep hygiene reinforced (15) Anxiety: Code(s): F41.9 - Anxiety disorder, unspecified Category: Medical Plan: Continue Clonazepam 0.5 mg 1 tablet Q HS (16) Depression: Code(s): F32.9 - Major depressive disorder, single episode, unspecified Category: Medical Qualifiers: Depression Type: major depressive disorder Major depression recurrence: recurrent Active/Remission status: currently active Major depression episode severity: unspecified Qualified Code(s): F33.9 - Major depressive disorder, recurrent, unspecified Plan: Continue Lexapro 10 mg QD Follow-up with Psychiatry (Dr. Han)? as scheduled (17) Obesity (BMI 30-39.9): Code(s): E66.9 - Obesity, unspecified Category: Medical Plan: Reinforced diet; exercise is unrealistic given patient's physical issues and comorbidities Plan Patient is currently medically optimized and has no contraindications to undergo planned cataract extractions over the next few weeks She is now cleared for surgery Follow up in 4 months Orders: Orders Hemoglobin A1c 4 Months E11.9 - Type 2 diabetes mellitus without complications Complete Blood Count Auto Diff 4 Months D64.9 - Anemia, unspecified Lipid Panel 4 Months E78.00 - Pure hypercholesterolemia, unspecified UA CC w/rflx Micro + Cult 4 Months R30.0 - Dysuria Vitamin B12 and Folate 4 Months E53.8 - Deficiency of other specified B group vitamins Free T4 (Free Thyroxine) 4 Months E03.9 - Hypothyroidism, unspecified Thyroid Stimulating Hormone 4 Months E03.9 - Hypothyroidism, unspecified Comprehensive [place]. Panel Fast 4 Months E78.00 - Pure hypercholesterolemia, unspecified Microalbumin, Random (w Creat) 4 Months E11.9 - Type 2 diabetes mellitus without complications Vitamin D 25-OH Total 4 Months E55.9 - Vitamin D deficiency, unspecified Medications: Discontinued semaglutide (Ozempic) Discontinued Reason: Doctor's Order 0.5 mg (0.736 mL) subcut QWEEK 3 mL 3RF
[2025-01-26 15:04] VITALS: BP 136/84; PULSE 80; O2SAT 99
== END 2025-01-26 15:41 | disposition home or self-care (01) ==
LOC: HO.HMCH 15:02
PROVIDERS: PCP Internal Medicine; Visit Provider Internal Medicine
DX: I12.9 Hypertensive chronic kidney disease with stage 1 through stage 4 chronic kidney disease, or unspecified chronic kidney disease (principal); E11.22 Type 2 diabetes mellitus with diabetic chronic kidney disease; F33.9 Major depressive disorder, recurrent, unspecified; N18.2 Chronic kidney disease, stage 2 (mild); Z01.818 Encounter for other preprocedural examination; H25.9 Unspecified age-related cataract; E78.00 Pure hypercholesterolemia, unspecified; R79.89 Other specified abnormal findings of blood chemistry; E03.9 Hypothyroidism, unspecified; J45.20 Mild intermittent asthma, uncomplicated; E55.9 Vitamin D deficiency, unspecified; M25.50 Pain in unspecified joint

== ENCOUNTER → 2025-01-26 15:01 | Outpatient (BNVA) | payer MEDICARE, OTHER, SELFPAY | PROVIDERS: PCP Internal Medicine; Visit Provider Internal Medicine | DX: Z01.818 Encounter for other preprocedural examination (principal); H25.9 Unspecified age-related cataract; I12.9 Hypertensive chronic kidney disease with stage 1 through stage 4 chronic kidney disease, or unspecified chronic kidney disease; E11.22 Type 2 diabetes mellitus with diabetic chronic kidney disease; N18.2 Chronic kidney disease, stage 2 (mild); E78.00 Pure hypercholesterolemia, unspecified; R79.89 Other specified abnormal findings of blood chemistry; E03.9 Hypothyroidism, unspecified; J45.20 Mild intermittent asthma, uncomplicated; E55.9 Vitamin D deficiency, unspecified; M25.50 Pain in unspecified joint; K52.9 Noninfective gastroenteritis and colitis, unspecified; K21.9 Gastro-esophageal reflux disease without esophagitis; G47.00 Insomnia, unspecified; F41.9 Anxiety disorder, unspecified; F33.9 Major depressive disorder, recurrent, unspecified; E66.9 Obesity, unspecified; Z68.30 Body mass index [BMI] 30.0-30.9, adult; Z71.3 Dietary counseling and surveillance | CPT/HCPCS: 96127; 99212 ==

== ENCOUNTER 2025-02-09 09:01 | Day surgery (SDC) | payer MEDICARE, OTHER, SELFPAY ==
[2025-02-04 08:12] VITALS: BMI 29.2
[2025-02-09 09:43] VITALS: BP 155/62; PULSE 96; RESP 18; TEMP 36.2; O2SAT 99
[2025-02-09 09:47] LABS: Glucose, Whole Blood 159 mg/dL (60-115)
[2025-02-09] MEDS: Cyclopentolate 1 % Ophth Sol 2 ML DRPBTL 1 DROP EYE-RIGHT ×3 (09:47→09:49)
[2025-02-09] MEDS: Tropicamide 1 % Ophth Sol 3 ML BTL 1 DROP EYE-RIGHT ×3 (09:47→09:49)
[2025-02-09] MEDS: Lactated Ringers 500 ML 50 ML IV (09:47)
[2025-02-09] MEDS: Ketorolac Tromethamine 0.5% Op 5 ML DROPS 1 DROP EYE-RIGHT ×3 (09:47→09:49)
[2025-02-09] MEDS: Tetracaine HCl/PF 0.5% Oph Sol 4 ML DROPS 1 DROP EYE-RIGHT (09:47)
[2025-02-09] MEDS: Phenylephrine HCL 2.5% Oph SoL 2 ML BOTTLE 1 DROP EYE-RIGHT ×3 (09:48→09:49)
--- NOTE | 2025-02-09 09:50 | HO.ANESPROP2 ---
Documented by User: Rosalba Ponce NP 02/05/25 14:43 HPI - Anesthesia Eval Consult details Narrative: 75yo F for Right Cataract Extraction IOL Insertion No previous cataract on record Anesthesia Pre-Procedure Meds Is the patient on any of the following meds?: GLP1/DPP4 PMFSH Active Problems Active Problems: All Active Problems Cataracts, bilateral (Acute) Preoperative examination (Acute) Lumbar degenerative disc disease (Acute) Osteoarthritis of hands, bilateral (Acute) Trigger thumb of right hand (Acute) Abdominal pain (Acute) Chronic diarrhea (Acute) Type 2 diabetes mellitus with hyperglycemia (Acute) Vitamin D deficiency (Acute) Sigmoid diverticulitis (Acute) Status post fall (Acute) Swelling of finger of right hand (Acute) Pain in finger of right hand (Acute) Obesity (BMI 30-39.9) (Acute) Elevated LFTs (Acute) Morbid obesity with BMI of 40.0-44.9, adult (Acute) Insomnia (Acute) Encounter for Medicare annual wellness exam (Acute) Arthralgia (Acute) Morbid obesity with BMI of 45.0-49.9, adult (Acute) Depression (Acute) Anxiety (Acute) GERD without esophagitis (Acute) Acquired hypothyroidism (Acute) Gastrointestinal hemorrhage (Acute) Anemia due to acute blood loss (Acute) Asthma (Acute) Chronic kidney disease (CKD), stage II (mild) (Acute) Diabetes mellitus (Acute) Pure hypercholesterolemia (Acute) Benign essential hypertension (Acute) Past Medical History Medical History (Updated 01/26/25 @ 15:32 by Delonte Bishop MD) Cataracts, bilateral Lumbar degenerative disc disease Osteoarthritis of hands, bilateral Type 2 diabetes mellitus with hyperglycemia Vitamin D deficiency Obesity (BMI 30-39.9) Insomnia Arthralgia Depression Anxiety GERD without esophagitis Acquired hypothyroidism Gastrointestinal hemorrhage Anemia due to acute blood loss Asthma Chronic kidney disease (CKD), stage II (mild) Diabetes mellitus Pure hypercholesterolemia Benign essential hypertension Family History Family History Father No problems noted. Mother No problems noted. Other Substance abuse Surgical History Surgical History History of colonoscopy (~07/2019) H/O wrist surgery History of colectomy History of D&C History of tonsillectomy Social History Social History Housing: House Are you a primary post anesthesia care unit nurse to a significant other at home: No Do you presently have visiting nurse or other home services: No Alcohol intake: never Patient Tobacco Use Status: Never used Tobacco e-Cigarette/Vaping Use: Never Used Second Hand Smoke Exposure: No Use of substances other than those prescribed or required for medical reasons: No Have you been hit, kicked, punched, or otherwise hurt by someone within the past year? If so, by whom?: No Advance Directives: No Advance Directives Information Provided: Yes Advance Directives on File: No Recently lost weight without trying: No Eating poorly because of decreased appetite: No Nutrition Risks: No Nutritional Risk Patient : No : No service: No Current occupational status: retired Cognitive needs: No Hearing needs: No Vision needs: Yes Meds Allergies Allergy/AdvReac Type Severity Reaction Status Date / Time adhesive tape [ADHESIVE TAPE] Allergy Mild RASH Verified 01/26/25 15:29 Cephalosporins Allergy Unknown ANAPHYLAXIS Verified 01/26/25 15:29 [CEPHALOSPORINS] gluten Allergy Unknown Unknown Verified 01/26/25 15:29 ketorolac Allergy Unknown hives Verified 01/26/25 15:29 lactase [From Dairy Aid] Allergy Unknown Unknown Verified 01/26/25 15:29 Penicillins [PENICILLINS] Allergy Unknown SWELLING Verified 01/26/25 15:29 Opioids - Morphine Analogues AdvReac Severe VERY SICK, Verified 01/26/25 15:29 [OPIOIDS - MORPHINE DIZZY, ANALOGUES] VOMITING Home Medications ?Medication ?Instructions ?Recorded ?Confirmed ?Last Taken ?Type escitalopram oxalate 10 mg tablet 10 mg PO BEDTIME 09/20/20 02/04/25 03/14/22 History clonazepam 0.5 mg tablet 0.5 mg PO BEDTIME 12/16/23 02/04/25 Unknown History primidone 50 mg tablet 50 mg PO BEDTIME 05/16/24 02/04/25 Unknown History sitagliptin phosphate 100 mg 100 mg PO DAILY 02/06/25 12/12/24 History tablet (Januvia) Exam Height,Weight and Vital Signs: Height 5 ft 4 in Weight 77.111 kg Assessment and Plan Assessment Anesthesia Assessment: Chart Reviewed Documented by User: Katharina Frank DO 02/09/25 09:58 HPI - Anesthesia Eval Anesthesia Pre-Procedure Meds Is the patient on any of the following meds?: GLP1/DPP4 PMFSH Past Medical History Medical History (Updated 01/26/25 @ 15:32 by Delonte Bishop MD) Cataracts, bilateral Lumbar degenerative disc disease Osteoarthritis of hands, bilateral Type 2 diabetes mellitus with hyperglycemia Vitamin D deficiency Obesity (BMI 30-39.9) Insomnia Arthralgia Depression Anxiety GERD without esophagitis Acquired hypothyroidism Gastrointestinal hemorrhage Anemia due to acute blood loss Asthma Chronic kidney disease (CKD), stage II (mild) Diabetes mellitus Pure hypercholesterolemia Benign essential hypertension Family History Family History Father No problems noted. Mother No problems noted. Other Substance abuse Family history of problems with anesthesia: No Surgical History Surgical History History of colonoscopy (~07/2019) H/O wrist surgery History of colectomy History of D&C History of tonsillectomy History of Problems with Anesthesia: No Social History Social History Housing: House Are you a primary post anesthesia care unit nurse to a significant other at home: No Do you presently have visiting nurse or other home services: No Alcohol intake: never Patient Tobacco Use Status: Never used Tobacco e-Cigarette/Vaping Use: Never Used Second Hand Smoke Exposure: No Use of substances other than those prescribed or required for medical reasons: No Have you been hit, kicked, punched, or otherwise hurt by someone within the past year? If so, by whom?: No Advance Directives: No Advance Directives Information Provided: Yes Advance Directives on File: No Recently lost weight without trying: No Eating poorly because of decreased appetite: No Nutrition Risks: No Nutritional Risk Patient : No : No service: No Current occupational status: retired Cognitive needs: No Hearing needs: No Vision needs: Yes Meds Allergies Allergy/AdvReac Type Severity Reaction Status Date / Time adhesive tape [ADHESIVE TAPE] Allergy Mild RASH Verified 01/26/25 15:29 Cephalosporins Allergy Unknown ANAPHYLAXIS Verified 01/26/25 15:29 [CEPHALOSPORINS] gluten Allergy Unknown Unknown Verified 01/26/25 15:29 ketorolac Allergy Unknown hives Verified 01/26/25 15:29 lactase [From Dairy Aid] Allergy Unknown Unknown Verified 01/26/25 15:29 Penicillins [PENICILLINS] Allergy Unknown SWELLING Verified 01/26/25 15:29 Opioids - Morphine Analogues AdvReac Severe VERY SICK, Verified 01/26/25 15:29 [OPIOIDS - MORPHINE DIZZY, ANALOGUES] VOMITING Home Medications ?Medication ?Instructions ?Recorded ?Confirmed ?Last Taken ?Type escitalopram oxalate 10 mg tablet 10 mg PO BEDTIME 09/20/20 02/04/25 03/14/22 History clonazepam 0.5 mg tablet 0.5 mg PO BEDTIME 12/16/23 02/04/25 Unknown History primidone 50 mg tablet 50 mg PO BEDTIME 05/16/24 02/04/25 Unknown History sitagliptin phosphate 100 mg 100 mg PO DAILY 02/06/25 12/12/24 History tablet (Januvia) Exam Exam Date and Time: 02/09/25 0950 Height,Weight and Vital Signs: Height 5 ft 4 in Weight 77.111 kg Vital Signs Temperature 97.1 F 02/09/25 09:43 Pulse Rate 96 02/09/25 09:43 Respiratory Rate 18 02/09/25 09:43 Blood Pressure 155/62 H 02/09/25 09:43 Pulse Oximetry 99 02/09/25 09:43 Oxygen Delivery Method Room Air 02/09/25 09:43 Temperature 97.1 F 02/09/25 09:43 Pulse Rate 96 02/09/25 09:43 Respiratory Rate 18 02/09/25 09:43 Blood Pressure 155/62 H 02/09/25 09:43 Pulse Oximetry 99 02/09/25 09:43 Oxygen Delivery Method Room Air 02/09/25 09:43 Airway Mallampati Class: I TM Dist: >3cm Neck ROM: Full Loose/Missing/Broken Teeth: No (patient denies any loose or broken teeth) Heart: S1S2 Lungs: CTAB Assessment and Plan Assessment Anesthesia Assessment: Anesthesia Plan Discussed and Chart Reviewed Final Anesthetic Review Family History of Problems with Anesthesia: No History of Problems with Anesthesia: No NPO: Yes ASA Class: II Final Preanesthetic Review: No Changes in Pt Med Stat, Meds/Allgs Chart Reviewed, Consent Obtained/Reviewed and Anes Risks/Benef Reviewed Patient Risk: Low Procedure Risk: Low Anesthetic Plan Anesthetic Plan: MAC: and Agree w/ Assess. and Plan Disposition: Standard PACU
--- NOTE | 2025-02-09 10:34 | P.PCNO_ITS ---
Ophthalmology Procedure Procedure Date of Service: 02/09/25 Ophthalmology Viscoelastic: Healon Duet Dual Pack Pro Ophthalmology Lenses: IOL Acrysof MP - [id number] (14) Procedure Notes: PREOPERATIVE DIAGNOSIS: Decreased visual acuity right eye secondary to cataract POSTOPERATIVE DIAGNOSIS: Same PROCEDURE: Right cataract extraction with intraocular lens insertion SURGEON: Gary Fermin M.D. ANESTHESIA: Topical/MAC ESTIMATED BLOOD LOSS: None COMPLICATIONS: None After obtaining informed consent, the patient was brought to the operating room suite and placed in the supine position. After adequate sedation per anesthesia, topical drops of Tetracaine were given to the right eye. The eye was then prepped and draped in the usual sterile fashion. The operating room microscope was then positioned over the operative eye and a lid speculum placed. A paracentesis was created. Viscoelastic was then instilled into the anterior chamber. A three plane incision was then created temporally, utilizing a 2.85 mm keratome. Capsulotomy forceps were then utilized to create a circular tear capsulotomy. Hydrodissection and hydrodelineation were carried out until adequate mobilization of the nucleus occurred. Phacoemulsification was then utilized to remove the dense central nucl eus followed by removal of the cortical material utilizing the automated aspiration irrigation unit. Viscoelastic was instilled into the posterior capsular bag followed by placement of a posterior chamber intraocular lens without difficulty. The residual Viscoelastic was then removed utilizing the automated IA machine. The wound was checked and found to be watertight. The patient tolerated the procedure well and the lid speculum was removed. Intracameral injection of Vigamox 0.1 mL followed by a subtenon injection of Kenalog-40 0.2 mL were administered. The patient will be seen in the a.m.
--- NOTE | 2025-02-09 10:35 | MHC.SHP ---
Pre-Procedural Eval Section A - 24 Hr Update-Section A only Date of Service: 02/09/25 The patient is an INPATIENT: No Changes since office visit: No Cold of Flu in the past 2 weeks, No New Medical Problems, No Changes in Medication and No Patient answered all questions The patient has been examined within 24 hours of the surgical procedure. The History & Physical has been completed within 30 days and I have reviewed it.: Yes Section B - Complete if H&P > 30 days Chief Complaint: Age-related nuclear cataract, right eye Allergies: Allergies Allergy/AdvReac Type Severity Reaction Status Date / Time adhesive tape [ADHESIVE TAPE] Allergy Mild RASH Verified 01/26/25 15:29 Cephalosporins Allergy Unknown ANAPHYLAXIS Verified 01/26/25 15:29 [CEPHALOSPORINS] gluten Allergy Unknown Unknown Verified 01/26/25 15:29 ketorolac Allergy Unknown hives Verified 01/26/25 15:29 lactase [From Dairy Aid] Allergy Unknown Unknown Verified 01/26/25 15:29 Penicillins [PENICILLINS] Allergy Unknown SWELLING Verified 01/26/25 15:29 Opioids - Morphine Analogues AdvReac Severe VERY SICK, Verified 01/26/25 15:29 [OPIOIDS - MORPHINE DIZZY, ANALOGUES] VOMITING Plan Diagnosis/Plan: Unchanged I have reviewed the history and physical and performed a pertinent physical examination on my patient. No changes have occurred unless specified. Time Spent With Patient Time: Total time managing care of this patient today ____ minutes.
[2025-02-09 11:00] VITALS: BP 126/95; PULSE 91; RESP 20; TEMP 36.6; O2SAT 99
[2025-02-09 11:15] VITALS: BP 136/97; PULSE 89; RESP 20; TEMP 36.4; O2SAT 99
== END 2025-02-09 11:23 | disposition home or self-care (01) ==
PROVIDERS: PCP Internal Medicine; Visit Provider Ophthalmology
PROC: (CPT 66985; principal; 2025-02-09 11:00)
DX: H25.11 Age-related nuclear cataract, right eye (principal); H52.4 Presbyopia; D31.31 Benign neoplasm of right choroid; H52.13 Myopia, bilateral; H18.413 Arcus senilis, bilateral; I10 Essential (primary) hypertension; E11.9 Type 2 diabetes mellitus without complications; E03.9 Hypothyroidism, unspecified; J45.909 Unspecified asthma, uncomplicated; Z79.4 Long term (current) use of insulin; Z79.84 Long term (current) use of oral hypoglycemic drugs; Z79.85 Long-term (current) use of injectable non-insulin antidiabetic drugs; Z79.899 Other long term (current) drug therapy; Z88.0 Allergy status to penicillin; Z88.8 Allergy status to other drugs, medicaments and biological substances; Z87.891 Personal history of nicotine dependence
CPT/HCPCS: 66984; 82947; J2250; J3301; V2630

== ENCOUNTER 2025-02-13 12:55 | Outpatient (AMB) | payer MEDICARE, OTHER, SELFPAY ==
--- NOTE | 2025-02-13 12:58 | A.OFFVIS_ITS ---
Vital Signs 02/13/25 13:02 Height 5 ft 4 in Weight 176 lb 2.389 oz BMI 30.2 BP 132/72 Blood Pressure Location Rt brachial Position Sitting Pulse 78 Pulse Source Pulse Oximeter Pulse Oximetry (%) 97 Oxygen Delivery Method Room Air Intake Visit Reasons: T2DM Intake Note: Patient present today to follow up on Type 2 Diabetes Mellitus. Last Diabetic Eye exam: 12/05/2024 Last Podiatry Visit: Does not see a Scientist Electronics Random Glucose: 158 mg/dl HgA1C: 5.5% 01/20/2025 Academic Coach Required: No Accompanied by: Self / Same As Patient Allergies adhesive tape [ADHESIVE TAPE] Allergy (Mild, Verified 02/13/25 13:02) RASH Cephalosporins [CEPHALOSPORINS] Allergy (Unknown, Verified 02/13/25 13:02) ANAPHYLAXIS gluten Allergy (Unknown, Verified 02/13/25 13:02) Unknown ketorolac Allergy (Unknown, Verified 02/13/25 13:02) hives lactase [From Dairy Aid] Allergy (Unknown, Verified 02/13/25 13:02) Unknown Penicillins [PENICILLINS] Allergy (Unknown, Verified 02/13/25 13:02) SWELLING Opioids - Morphine Analogues [OPIOIDS - MORPHINE ANALOGUES] Adverse Reaction (Severe, Verified 02/13/25 13:02) VERY SICK, DIZZY, VOMITING Medication List - Last Reconciled 02/13/25 by KIMBERLY Madrigal albuterol sulfate 90 mcg/actuation 1 puff PO QID PRN blood sugar diagnostic (FreeStyle Lite Strips) As directed to check glucose 3 times daily blood-glucose meter (FreeStyle Lite Meter kit) check glucose up to 5 times a day blood-glucose sensor (Dexcom G7 Sensor device) apply new sensor every 10 days as directed blood-glucose,spine supervisor,cont (Dexcom G7 Excelsior Machine Operator) As directed cholecalciferol (vitamin D3) 50 mcg PO DAILY 90 days clonazepam 0.5 mg PO BEDTIME diclofenac sodium 1% (Arthritis Pain (diclofenac)) 4 grams topical QID dulaglutide (Trulicity) 0.75 mg (0.5 mL) subcut QWEEK escitalopram oxalate 10 mg PO BEDTIME ezetimibe 10 mg PO DAILY 90 days glucose (Dex4 Glucose) 16 grams (4 x 4 gram) PO Q15M PRN insulin glargine (Basaglar KwikPen U-100 Insulin) 12 units subcut QPM ketoconazole 2% 1 appl topical DAILY lancets (FreeStyle Lancets) Use as directed to monitor glucose up to 5 times daily levothyroxine 100 mcg PO QAM losartan 100 mg PO DAILY metformin ER 500 mg PO BID montelukast 10 mg PO BEDTIME pen needle, diabetic (BD Melba 2nd Gen Pen Needle) As directed up to 4 times daily primidone 50 mg PO BEDTIME HPI Comments Details: This is a 74-year-old female with a past medical history of type 2 diabetes, diverticulitis, vitamin-D deficiency, morbid obesity, GERD, hypothyroidism, asthma, hypertension and CKD stage 3 presenting for continued diabetic management. The patient was diagnosed with type 2 diabetes at age 50. Hemoglobin a1c 5.5% 01/20/2025. Her hemoglobin A1c was 10.8% 09/10/24. Reviewed Dexcom data 97% active GMI 6.6% Coefficient of variation 23.3% Average glucose 136 0% very high 11% high 89% in range 0% hypoglycemia There is a pattern of normal glucose throughout the 24 hour period. Two days ago the patient was alerted by her CGM to a low sugar of 70, but she had no symptoms. She had something sugary and then ate lunch, but the CGM was still alerting to low blood sugar at 67. She had no symptoms. She started to play around with the buttons, then the screen display went black. She contacted the office to trouble shoot. She has a freestyle Lite, but she does not use it or know how to do this. Today she brought in the glucometer and lancets, but she does not have test strips though they were sent to the pharmacy. Her current regimen is metformin extended release 500 mg twice daily, Lantus 16 units nightly and Trulicity 0.75 mg weekly. Previous medications: She was previously on Actos which resulted in weight gain. Ozempic was discontinued due to high co-pay. Hypoglycemia symptoms: none Hyperglycemia symptoms: none Eye exam: up to date Microvascular complications: nephropathy (CKD and microalbuminuria) no retinopathy but she has cataracts Macrovascular complications: none Hypertension: treated with Losartan 100 mg. Hyperlipidemia: treated with Zetia 10 mg. She has an appointment with the nurse informatics educator at the end of the month. ROS: Constitutional: No unexplained weight loss, fever, chills, fatigue or night sweats. Respiratory: No shortness of breath Cardiovascular: No chest pain Neurologic: No headache, dizziness, syncope, unilateral weakness, ataxia, numbness or tingling in the extremities. Skin: No rash or itching. Endocrine: No cold or heat intolerance. No polyuria or polydipsia. Physical exam: Constitutional: Alert, in no distress. Eyes: Pupils are equal, round and reactive to light. Extraocular muscles intact. Neck: No lymphadenopathy or thyroid enlargement. Respiratory: Clear to auscultation. Cardiovascular: S1 S2 regular. No murmurs. Skin: No rashes or discoloration Extremities: Warm and well perfused. No clubbing, cyanosis or edema. [facility] Medical History (Updated 01/26/25 @ 15:32 by Delonte Bishop MD) Cataracts, bilateral Lumbar degenerative disc disease Osteoarthritis of hands, bilateral Type 2 diabetes mellitus with hyperglycemia Vitamin D deficiency Obesity (BMI 30-39.9) Insomnia Arthralgia Depression Anxiety GERD without esophagitis Acquired hypothyroidism Gastrointestinal hemorrhage Anemia due to acute blood loss Asthma Chronic kidney disease (CKD), stage II (mild) Diabetes mellitus Pure hypercholesterolemia Benign essential hypertension Surgical History Hx of cataract surgery History of colonoscopy (~07/2019) H/O wrist surgery History of colectomy History of D&C History of tonsillectomy Family History Father No problems noted. Mother No problems noted. Other Substance abuse Social History Housing: House Are you a primary early breastfeeding care specialist to a significant other at home: No Do you presently have visiting nurse or other home services: No Alcohol intake: never Patient Tobacco Use Status: Never used Tobacco e-Cigarette/Vaping Use: Never Used Second Hand Smoke Exposure: No service: No Current occupational status: retired Cognitive needs: No Hearing needs: No Vision needs: Yes Physical Exam Vital Signs: Last Vital Signs Pulse 78 02/13/25 13:02 BP 132/72 02/13/25 13:02 Pulse Ox 97 02/13/25 13:02 Oxygen Delivery Method Room Air 02/13/25 13:02 BMI result Body Mass Index 30.2 Office Procedures Glucose Monitoring Details Details: see [facility] [id number] - Glucose monitoring, continuous-physician I&R Procedure code (CPT) selection complete Results Reviewed Results Reviewed: Laboratory Last Values Glucose (Clinic) 158 mg/dL (60-115) H 02/13/25 13:14 Laboratory Tests 09/11/24 01/20/25 09:37 13:25 Creatinine 0.77 Estimated GFR > 60 Hemoglobin A1c % 5.5 Triglycerides 143 Cholesterol 130 LDL Cholesterol, Calc 52 HDL Cholesterol 50 Vitamin B12 322 TSH 0.47 Urine Creatinine 39.60 Urine Microalbumin 6.0 Microalb/Creat Ratio 15.1 Assessment & Plan Assessment & Plan (1) Type 2 diabetes mellitus with hyperglycemia: Code(s): E11.65 - Type 2 diabetes mellitus with hyperglycemia Category: Medical Qualifiers: Diabetes mellitus [facility] insulin use: with [facility] use Qualified Code(s): E11.65 - Type 2 diabetes mellitus with hyperglycemia; Z79.4 - terminal supervisor (current) use of insulin Plan In summary this is a 74-year-old female with well controlled type 2 diabetes. We turned her Dexcom CGM back on today, and we showed her how to turn the device on and off. I placed a new sensor, and it was paired to her CGM. Glucometer teaching done with the patient. I sent another prescription for test strips to the pharmacy. Advised patient to always keep her glucometer and supp lies on hand as a backup to the CGM. If she is alerted to low glucose again she should check a fingerstick glucose if she is asymptomatic to confirm and then treat appropriately. Switching Lantus to Basaglar due to her insurance. Her hemoglobin A1c is 5.5%. GMI is 6.6% which is a higher and might be attributed to switching Ozempic to low-dose Trulicity a week ago due to insurance. She will decrease her dose of insulin to 12 units daily. If you experience low blood sugar, treat this by eating a chewable fruit candy like skittles or jelly beans (about 8 pieces), 4 ounces (1/2 cup) of fruit juice (not diet), 1 tablespoon of honey or 4 glucose tablets. If your blood sugar is under 55, take double the amount of one of the above. Recheck your blood sugar in [address] if you have symptoms of low blood sugar or do not have an accurate way to check your blood sugar. She will follow up with the nurse informatics educator at the end of the month and bring her glucometer, lancets and test strips to that appointment for another demonstration. Follow up in 3 months for Type II diabetes. Orders: Orders 2 AMB Glucose Monitoring Today E11.9 - Type 2 diabetes mellitus without complications Medications: Changed From blood sugar diagnostic (FreeStyle Lite Strips) As directed to check glucose up to 5 times daily 200 ea 5RF To blood sugar diagnostic (FreeStyle Lite Strips) As directed to check glucose 3 times daily 100 ea 5RF From insulin glargine (Basaglar KwikPen U-100 Insulin) Replaces Lantus. 16 units (0.16 mL) subcut QPM 15 mL 5RF To insulin glargine (Basaglar KwikPen U-100 Insulin) Replaces Lantus. 12 units subcut QPM Coding Level of Care Code Est Pt Level 4 (64210) Diagnoses Type 2 diabetes mellitus with hyperglycemia, with long-term current use of insulin E11.65; Z79.4 Diabetes mellitus [facility] insulin use: with [facility] use CPT Codes Details - CPT: 85392 - Glucose monitoring, continuous-physician I&R ([id number])
[2025-02-13 13:02] VITALS: BP 132/72; PULSE 78; O2SAT 97; BMI 30.2
[2025-02-13 13:23] LABS: Glucose, Whole Blood 158 mg/dL (60-115)
--- OUTSIDE RECORDS SUMMARY | 2025-02-13 14:44 | XMS_ITS | Continuity of Care Document ---
Author Organization [facility] Address [address] [place] [address] Phone Care Team Providers Care Mainframe Programmer Analyst Name Role Phone Yulissa PAYAN FAC, Josep Nickerson Unavaila ble Advance Directives Directive Yes / No Effective Date File Name No Information Encounters Encounter Description Practice Location Reason(s) For Visit Diagnoses Date Provider Providers Copied on Encounter [facility], [address] [place], [place], [id number], tel:[phone] [facility] No Information Yulissa Car. [address] [place], [place], [id number], [place]. tel:[phone] Family History Family Member Type Diagnosis Age At Onset No Information Payers Payer name Insurance type Covered green party ID Authorerickcharity brepaula(s) Denis [facility] [id number] [facility] CI [id number] Social History Type Description Quantity Date Captured [...]
== END 2025-02-13 14:14 | disposition home or self-care (01) ==
LOC: HO.ENCR 12:55
PROVIDERS: PCP Internal Medicine; Visit Provider Physician Assistant Medical
DX: E11.65 Type 2 diabetes mellitus with hyperglycemia (principal); Z79.4 Long term (current) use of insulin

== ENCOUNTER → 2025-02-13 12:55 | Outpatient (BNVA) | payer MEDICARE, OTHER, SELFPAY | PROVIDERS: PCP Internal Medicine; Visit Provider Physician Assistant Medical | DX: E11.65 Type 2 diabetes mellitus with hyperglycemia (principal); Z79.4 Long term (current) use of insulin | CPT/HCPCS: 82947; 99212 ==

== ENCOUNTER 2025-02-23 08:57 | Day surgery (SDC) | payer MEDICARE, OTHER, SELFPAY ==
--- OUTSIDE RECORDS SUMMARY | 2025-01-08 07:44 | XMS_ITS | Continuity of Care Document ---
Author Organization [employer] [facility] Address [address] [place] [address] Phone Care Team Providers Care News Reporter Name Role Phone Yulissa PAYAN FAC, Josep Nickerson Unavaila ble Advance Directives Directive Yes / No Effective Date File Name No Information Encounters Encounter Description Practice Location Reason(s) For Visit Diagnoses Date Provider Providers Copied on Encounter [employer] [facility], [address], [place], [id number], tel:[phone] [facility] No Information Yulissa Car. [address], [place], [id number], [place]. tel:[phone] Family History Family Member Type Diagnosis Age At Onset No Information Payers Payer name Insurance type Covered democrat ID Authorerickcharity brepaula(s) Denis [facility] [id number] Replaced By [facility] CI [id number] Social History Type Description Quantity Date Captured [...]
[2025-02-23 09:47] VITALS: BP 169/90; PULSE 78; RESP 14; TEMP 36.6; O2SAT 97
--- NOTE | 2025-02-23 09:59 | P.CONAN_ITS ---
HPI - Anesthesia Eval Consult details Narrative: 75 yo F presenting for left cataract extraction IOL insertion PMFSH Active Problems Active Problems: All Active Problems Cataracts, bilateral (Acute) Preoperative examination (Acute) Lumbar degenerative disc disease (Acute) Osteoarthritis of hands, bilateral (Acute) Trigger thumb of right hand (Acute) Abdominal pain (Acute) Chronic diarrhea (Acute) Type 2 diabetes mellitus with hyperglycemia (Acute) Vitamin D deficiency (Acute) Sigmoid diverticulitis (Acute) Status post fall (Acute) Swelling of finger of right hand (Acute) Pain in finger of right hand (Acute) Obesity (BMI 30-39.9) (Acute) Elevated LFTs (Acute) Morbid obesity with BMI of 40.0-44.9, adult (Acute) Insomnia (Acute) Encounter for Medicare annual wellness exam (Acute) Arthralgia (Acute) Morbid obesity with BMI of 45.0-49.9, adult (Acute) Depression (Acute) Anxiety (Acute) GERD without esophagitis (Acute) Acquired hypothyroidism (Acute) Gastrointestinal hemorrhage (Acute) Anemia due to acute blood loss (Acute) Asthma (Acute) Chronic kidney disease (CKD), stage II (mild) (Acute) Diabetes mellitus (Acute) Pure hypercholesterolemia (Acute) Benign essential hypertension (Acute) Past Medical History Medical History Cataracts, bilateral Lumbar degenerative disc disease Osteoarthritis of hands, bilateral Type 2 diabetes mellitus with hyperglycemia Vitamin D deficiency Obesity (BMI 30-39.9) Insomnia Arthralgia Depression Anxiety GERD without esophagitis Acquired hypothyroidism Gastrointestinal hemorrhage Anemia due to acute blood loss Asthma Chronic kidney disease (CKD), stage II (mild) Diabetes mellitus Pure hypercholesterolemia Benign essential hypertension Family History Family History Father No problems noted. Mother No problems noted. Other Substance abuse Family history of problems with anesthesia: No Surgical History Surgical History Hx of cataract surgery History of colonoscopy (~07/2019) H/O wrist surgery History of colectomy History of D&C History of tonsillectomy History of Problems with Anesthesia: No Social History Social History Housing: House Are you a primary healthcare or medical to a significant other at home: No Do you presently have visiting nurse or other home services: No Alcohol intake: never Patient Tobacco Use Status: Never used Tobacco e-Cigarette/Vaping Use: Never Used Second Hand Smoke Exposure: No Use of substances other than those prescribed or required for medical reasons: No Have you been hit, kicked, punched, or otherwise hurt by someone within the past year? If so, by whom?: No Advance Directives: No Advance Directives Information Provided: Yes Advance Directives on File: No Recently lost weight without trying: No Nutrition Risks: No Nutritional Risk Patient : No : No service: No Current occupational status: retired Cognitive needs: No Hearing needs: No Vision needs: Yes Meds Allergies Allergy/AdvReac Type Severity Reaction Status Date / Time adhesive tape [ADHESIVE TAPE] Allergy Mild RASH Verified 02/23/25 09:44 Cephalosporins Allergy Unknown ANAPHYLAXIS Verified 02/23/25 09:44 [CEPHALOSPORINS] gluten Allergy Unknown Unknown Verified 02/23/25 09:44 ketorolac Allergy Unknown hives Verified 02/23/25 09:44 lactase [From Dairy Aid] Allergy Unknown Unknown Verified 02/23/25 09:44 Penicillins [PENICILLINS] Allergy Unknown SWELLING Verified 02/23/25 09:44 Opioids - Morphine Analogues AdvReac Severe VERY SICK, Verified 02/23/25 09:44 [OPIOIDS - MORPHINE DIZZY, ANALOGUES] VOMITING Active Medications: Current Medications Albuterol Sulfate (Albuterol Sulfate (0.083%) 2.5 Mg/3 Ml Vial.Neb) 2.5 mg INHALE ONCE PRN PRN Reason: Shortness of Breath/Wheezing Lactated Ringer's (Lr) 500 mls @ 50 mls/hr IV .Q10H MITCH Stop: 02/23/25 19:29 Povidone Iodine (Povidone Iodine 5 % Ophth Soln 30 Ml Bottle) 1 appl EYE-LEFT PREOP PRN PRN Reason: Pre-Op Surgical Implant Prophy Home Medications ?Medication ?Instructions ?Recorded ?Confirmed ?Last Taken ?Type escitalopram oxalate 10 mg tablet 10 mg PO BEDTIME 09/20/20 02/13/25 03/14/22 History clonazepam 0.5 mg tablet 0.5 mg PO BEDTIME 12/16/23 02/13/25 Unknown History primidone 50 mg tablet 50 mg PO BEDTIME 05/16/24 02/13/25 Unknown History insulin glargine 100 unit/mL (3 12 unit subcut QPM 02/13/25 02/13/25 Unknown History mL) subcutaneous pen (Basaglar KwikPen U-100 Insulin) Exam Exam Date and Time: 02/23/2549 Height,Weight and Vital Signs: Height 5 ft 4 in Weight 79.379 kg Last Vital Signs Temp 97.9 F 02/23/25 09:47 Pulse 78 02/23/25 09:47 Resp 14 02/23/25 09:47 BP 169/90 H 02/23/25 09:47 Pulse Ox 97 02/23/25 09:47 O2 Del Method Room Air 02/23/25 09:47 Airway Mallampati Class: I TM Dist: >3cm Neck ROM: Full Loose/Missing/Broken Teeth: No (patient denies any loose or broken teeth) Heart: S1S2 Lungs: CTAB Assessment and Plan Assessment Anesthesia Assessment: Anesthesia Plan Discussed and Chart Reviewed Final Anesthetic Review Family History of Problems with Anesthesia: No History of Problems with Anesthesia: No NPO: Yes ASA Class: II Final Preanesthetic Review: No Changes in Pt Med Stat, Meds/Allgs Chart Reviewed, Consent Obtained/Reviewed and Anes Risks/Benef Reviewed Patient Risk: Low Procedure Risk: Low Anesthetic Plan Anesthetic Plan: MAC: and Agree w/ Assess. and Plan Disposition: Standard PACU
[2025-02-23] MEDS: Lactated Ringers 500 ML 50 ML IV (10:01)
[2025-02-23] MEDS: Tetracaine HCl/PF 0.5% Oph Sol 4 ML DROPS 1 DROP EYE-LEFT (10:02)
[2025-02-23 10:03] LABS: Glucose, Whole Blood 157 mg/dL (60-115)
[2025-02-23] MEDS: Cyclopentolate 1 % Ophth Sol 2 ML DRPBTL 1 DROP EYE-LEFT ×3 (10:04→10:09)
[2025-02-23] MEDS: Tropicamide 1 % Ophth Sol 3 ML BTL 1 DROP EYE-LEFT ×3 (10:04→10:10)
[2025-02-23] MEDS: Phenylephrine HCL 2.5% Oph SoL 2 ML BOTTLE 1 DROP EYE-LEFT ×3 (10:05→10:11)
[2025-02-23] MEDS: Ketorolac Tromethamine 0.5% Op 5 ML DROPS 1 DROP EYE-LEFT ×3 (10:05→10:10)
--- NOTE | 2025-02-23 10:30 | MHC.SHP ---
Pre-Procedural Eval Section A - 24 Hr Update-Section A only Date of Service: 02/23/25 The patient is an INPATIENT: No Changes since office visit: No Cold of Flu in the past 2 weeks, No New Medical Problems, No Changes in Medication and No Patient answered all questions The patient has been examined within 24 hours of the surgical procedure. The History & Physical has been completed within 30 days and I have reviewed it.: Yes Section B - Complete if H&P > 30 days Chief Complaint: Age-related nuclear cataract, left eye Allergies: Allergies Allergy/AdvReac Type Severity Reaction Status Date / Time adhesive tape [ADHESIVE TAPE] Allergy Mild RASH Verified 02/23/25 09:44 Cephalosporins Allergy Unknown ANAPHYLAXIS Verified 02/23/25 09:44 [CEPHALOSPORINS] gluten Allergy Unknown Unknown Verified 02/23/25 09:44 ketorolac Allergy Unknown hives Verified 02/23/25 09:44 lactase [From Dairy Aid] Allergy Unknown Unknown Verified 02/23/25 09:44 Penicillins [PENICILLINS] Allergy Unknown SWELLING Verified 02/23/25 09:44 Opioids - Morphine Analogues AdvReac Severe VERY SICK, Verified 02/23/25 09:44 [OPIOIDS - MORPHINE DIZZY, ANALOGUES] VOMITING Plan Diagnosis/Plan: Unchanged I have reviewed the history and physical and performed a pertinent physical examination on my patient. No changes have occurred unless specified. Time Spent With Patient Time: Total time managing care of this patient today ____ minutes.
--- NOTE | 2025-02-23 10:31 | HO.PNOPHT ---
Ophthalmology Procedure Procedure Date of Service: 02/23/25 Ophthalmology Viscoelastic: Healon Duet Dual Pack Pro Ophthalmology Lenses: IOL Acrysof MP - MA60AC (12.5) Procedure Notes: PREOPERATIVE DIAGNOSIS: Decreased visual acuity left eye secondary to cataract POSTOPERATIVE DIAGNOSIS: Same PROCEDURE: Left cataract extraction with intraocular lens insertion SURGEON: Gary Fermin M.D. ANESTHESIA: Topical/MAC ESTIMATED BLOOD LOSS: None COMPLICATIONS: None After obtaining informed consent, the patient was brought to the operation room suite and placed in the supine position. After adequate sedation per anesthesia, topical drops of Tetracaine were given to the left eye. The eye was then prepped and draped in the usual sterile fashion. The operating room microscope was then positioned over the operative eye and a lid speculum placed. A paracentesis was created. Viscoelastic was then instilled into the anterior chamber. A three plane incision was then created temporally, utilizing a 2.85 mm keratome. Capsulotomy forceps were then utilized to create a circular tear capsulotomy. Hydrodissection and hydrodelineation were carried out until adequate mobilization of the nucleus occurred. Phacoemulsification was then utilized to remove the dense central nucleus followed by removal of the cortical material utilizing the automated aspiration irrigation unit. Viscoat elastic was instilled into the posterior capsular bag followed by placement of a posterior chamber intraocular lens without difficulty. The residual Viscoat elastic was then removed utilizing the automated IA machine. The wound was check and found to be watertight. The patient tolerated the procedure well and the lid speculum was removed. Intracameral injection of Vigamox 0.1 mL followed by a subtenon injection of Kenalog-40 0.2 mL were administered. The patient will be seen in the a.m.
[2025-02-23 11:00] VITALS: BP 179/87; PULSE 69; RESP 18; TEMP 37.3; O2SAT 98
== END 2025-02-23 11:03 | disposition home or self-care (01) ==
PROVIDERS: PCP Internal Medicine; Visit Provider Ophthalmology
PROC: (CPT 66985; principal; 2025-02-23 11:30)
DX: H25.12 Age-related nuclear cataract, left eye (principal); H52.4 Presbyopia; H52.13 Myopia, bilateral; H18.413 Arcus senilis, bilateral; I10 Essential (primary) hypertension; E78.00 Pure hypercholesterolemia, unspecified; E03.9 Hypothyroidism, unspecified; E11.65 Type 2 diabetes mellitus with hyperglycemia; E11.22 Type 2 diabetes mellitus with diabetic chronic kidney disease; I12.9 Hypertensive chronic kidney disease with stage 1 through stage 4 chronic kidney disease, or unspecified chronic kidney disease; N18.2 Chronic kidney disease, stage 2 (mild); J45.909 Unspecified asthma, uncomplicated; M54.9 Dorsalgia, unspecified; Z79.4 Long term (current) use of insulin; Z79.84 Long term (current) use of oral hypoglycemic drugs; Z79.85 Long-term (current) use of injectable non-insulin antidiabetic drugs; Z79.899 Other long term (current) drug therapy; Z88.0 Allergy status to penicillin; Z88.5 Allergy status to narcotic agent; Z88.8 Allergy status to other drugs, medicaments and biological substances; Z87.891 Personal history of nicotine dependence; Z79.890 Hormone replacement therapy
CPT/HCPCS: 66984; 82947; J2250; J3301; V2630

== ENCOUNTER 2025-03-06 13:28 | Outpatient (AMB) | payer MEDICARE, OTHER, SELFPAY ==
[2025-03-06 13:38] VITALS: BP 124/68; PULSE 71; O2SAT 99
--- NOTE | 2025-03-06 13:38 | A.OFFVIS_ITS ---
Vital Signs 03/06/25 13:38 Weight 176 lb 2.389 oz BP 124/68 Blood Pressure Location Rt brachial Position Sitting Pulse 71 Pulse Source Pulse Oximeter Pulse Oximetry (%) 99 Oxygen Delivery Method Room Air Intake Visit Reasons: T2DM Intake Note: Patient present today to follow up on Type 2 Diabetes Mellitus. Last Diabetic Eye exam: 12/05/2024 Last Podiatry Visit: Does not see a Plant Controller Random Glucose: 109 mg/dl HgA1C: 5.5% 01/20/2025 Ditch Inspector Required: No Accompanied by: Self / Same As Patient Allergies adhesive tape [ADHESIVE TAPE] Allergy (Mild, Verified 03/06/25 13:44) RASH Cephalosporins [CEPHALOSPORINS] Allergy (Unknown, Verified 03/06/25 13:44) ANAPHYLAXIS gluten Allergy (Unknown, Verified 03/06/25 13:44) Unknown ketorolac Allergy (Unknown, Verified 03/06/25 13:44) hives lactase [From Dairy Aid] Allergy (Unknown, Verified 03/06/25 13:44) Unknown Penicillins [PENICILLINS] Allergy (Unknown, Verified 03/06/25 13:44) SWELLING Opioids - Morphine Analogues [OPIOIDS - MORPHINE ANALOGUES] Adverse Reaction (Severe, Verified 03/06/25 13:44) VERY SICK, DIZZY, VOMITING HPI Comments Details: This is a 74-year-old female with a past medical history of type 2 diabetes, diverticulitis, vitamin-D deficiency, morbid obesity, GERD, hypothyroidism, asthma, hypertension and CKD stage 3 presenting for continued diabetic management. The patient was diagnosed with type 2 diabetes at age 50. Hemoglobin a1c 5.5% 01/20/2025. Her hemoglobin A1c was 10.8% 09/10/24. Reviewed Dexcom download GMI 7.2% Average glucose 161 2% very high 24% high 74% in range 0% low She has a pattern of hyperglycemia in the evening and overnight. Her current regimen is metformin extended release 500 mg twice daily, Basaglar 12 units nightly and Trulicity 0.75 mg weekly. Previous medications: She was previously on Actos which resulted in weight gain. Ozempic was discontinued due to high co-pay. Switched to Trulicity. Lantus discontinued due to co-pay. Hypoglycemia symptoms: none Hyperglycemia symptoms: none Eye exam: up to date Microvascular complications: nephropathy (CKD and microalbuminuria) no retinopathy but she has cataracts Macrovascular complications: none Hypertension: treated with Losartan 100 mg. Hyperlipidemia: treated with Zetia 10 mg. ROS: Constitutional: No unexplained weight loss, fever, chills, fatigue or night sweats. Respiratory: No shortness of breath Cardiovascular: No chest pain Neurologic: No headache, dizziness, syncope, unilateral weakness, ataxia, numbness or tingling in the extremities. Skin: No rash or itching. Endocrine: No cold or heat intolerance. No polyuria or polydipsia. Physical exam: Constitutional: Alert, in no distress. Eyes: Pupils are equal, round and reactive to light. Extraocular muscles intact. Neck: No lymphadenopathy or thyroid enlargement. Respiratory: Clear to auscultation. Cardiovascular: S1 S2 regular. No murmurs. Skin: No rashes or discoloration Extremities: Warm and well perfused. No clubbing, cyanosis or edema. [facility] Medical History Cataracts, bilateral Lumbar degenerative disc disease Osteoarthritis of hands, bilateral Type 2 diabetes mellitus with hyperglycemia Vitamin D deficiency Obesity (BMI 30-39.9) Insomnia Arthralgia Depression Anxiety GERD without esophagitis Acquired hypothyroidism Gastrointestinal hemorrhage Anemia due to acute blood loss Asthma Chronic kidney disease (CKD), stage II (mild) Diabetes mellitus Pure hypercholesterolemia Benign essential hypertension Surgical History Hx of cataract surgery History of colonoscopy (~07/2019) H/O wrist surgery History of colectomy History of D&C History of tonsillectomy Family History Father No problems noted. Mother No problems noted. Other Substance abuse Social History Housing: House Are you a primary nursing care attendant to a significant other at home: No Do you presently have visiting nurse or other home services: No Alcohol intake: never Patient Tobacco Use Status: Never used Tobacco e-Cigarette/Vaping Use: Never Used Second Hand Smoke Exposure: No service: No Current occupational status: retired Cognitive needs: No Hearing needs: No Vision needs: Yes Physical Exam Vital Signs: Last Vital Signs Pulse 71 03/06/25 13:38 BP 124/68 03/06/25 13:38 Pulse Ox 99 03/06/25 13:38 Oxygen Delivery Method Room Air 03/06/25 13:38 Office Procedures Glucose Monitoring Details Details: See HPI 84755 - Glucose monitoring, continuous-physician I&R Procedure code (CPT) selection complete Results Reviewed Results Reviewed: Laboratory Last Values Glucose (Clinic) 109 mg/dL (60-115) 03/06/25 13:52 Laboratory Tests 09/11/24 01/20/25 09:37 13:25 Creatinine 0.77 Estimated GFR > 60 Hemoglobin A1c % 5.5 Triglycerides 143 Cholesterol 130 LDL Cholesterol, Calc 52 HDL Cholesterol 50 Vitamin B12 322 TSH 0.47 Urine Creatinine 39.60 Urine Microalbumin 6.0 Microalb/Creat Ratio 15.1 Assessment & Plan Assessment & Plan (1) Type 2 diabetes mellitus with hyperglycemia: Code(s): E11.65 - Type 2 diabetes mellitus with hyperglycemia Category: Medical Qualifiers: Diabetes mellitus terminal supervisor insulin use: with terminal supervisor use Qualified Code(s): E11.65 - Type 2 diabetes mellitus with hyperglycemia; Z79.4 - bed bug exterminator (current) use of insulin Plan In summary this is a 75-year-old female with type 2 diabetes. Hemoglobin A1c increased after switching Ozempic to Trulicity. Increase Trulicity to 1.5 mg weekly. Continue Basaglar 12 units daily and metformin extended release 500 mg twice a day. If you experience low blood sugar, treat this by eating a chewable fruit candy like skittles or jelly beans (about 8 pieces), 4 ounces (1/2 cup) of fruit juice (not diet), 1 tablespoon of honey or 4 glucose tablets. If your blood sugar is under 55, take double the amount of one of the above. Recheck your blood sugar in [address] if you have symptoms of low blood sugar or do not have an accurate way to check your blood sugar. Follow up in 1 month for type 2 diabetes. Orders: Orders AMB Glucose Monitoring Today E11.9 - Type 2 diabetes mellitus without complications Medications: New dulaglutide (Trulicity) Replaces Trulicity 0.75 mg weekly. 1.5 mg (0.5 mL) subcut QWEEK 2 mL 3RF Refilled metformin ER 500 mg PO BID 180 tabs 1RF Discontinued dulaglutide (Trulicity) Discontinued Reason: Doctor's Order 0.75 mg (0.5 mL) subcut QWEEK 2 mL 0RF Coding Level of Care Code Est Pt Level 4 (35751) Diagnoses Type 2 diabetes mellitus with hyperglycemia, with long-term current use of insulin E11.65; Z79.4 Diabetes mellitus terminal supervisor insulin use: with terminal supervisor use CPT Codes Details - CPT: 88413 - Glucose monitoring, continuous-physician I&R ([id number])
[2025-03-06 13:57] LABS: Glucose, Whole Blood 109 mg/dL (60-115)
--- OUTSIDE RECORDS SUMMARY | 2025-03-06 14:08 | XMS_ITS | Continuity of Care Document ---
Author Organization [employer] [facility] Address [address] [place] [address] Phone Care Team Providers Care Business Agent Name Role Phone Yulissa PAYAN FAC, Josep Nickerson Unavaila ble Advance Directives Directive Yes / No Effective Date File Name No Information Encounters Encounter Description Practice Location Reason(s) For Visit Diagnoses Date Provider Providers Copied on Encounter [employer] [facility], [address], [place], [id number], tel:[phone] [facility] No Information Yulissa Car. [address], [place], [id number], [place]. tel:[phone] Family History Family Member Type Diagnosis Age At Onset No Information Payers Payer name Insurance type Covered republican ID Authorerickcharity brepaula(s) Denis [facility] [id number] [facility] CI [id number] Social History Type Description Quantity Date Captured [...]
== END 2025-03-06 14:11 | disposition home or self-care (01) ==
LOC: HO.ENCR 13:29
PROVIDERS: PCP Internal Medicine; Visit Provider Physician Assistant Medical
DX: E11.65 Type 2 diabetes mellitus with hyperglycemia (principal); Z79.4 Long term (current) use of insulin

== ENCOUNTER → 2025-03-06 13:28 | Outpatient (BNVA) | payer MEDICARE, OTHER, SELFPAY | PROVIDERS: PCP Internal Medicine; Visit Provider Physician Assistant Medical | DX: E11.22 Type 2 diabetes mellitus with diabetic chronic kidney disease (principal); E11.65 Type 2 diabetes mellitus with hyperglycemia; I12.9 Hypertensive chronic kidney disease with stage 1 through stage 4 chronic kidney disease, or unspecified chronic kidney disease; N18.30 Chronic kidney disease, stage 3 unspecified; E55.9 Vitamin D deficiency, unspecified; E66.01 Morbid (severe) obesity due to excess calories; Z79.4 Long term (current) use of insulin | CPT/HCPCS: 82947; 99212 ==

== ENCOUNTER 2025-04-10 13:28 | Outpatient (AMB) | payer MEDICARE, OTHER, SELFPAY ==
--- NOTE | 2025-04-10 13:29 | A.OFFVIS_ITS ---
Vital Signs 04/10/25 13:33 Height 5 ft 4 in Weight 174 lb 9.698 oz BMI 30.0 BP 118/70 Blood Pressure Location Lt brachial Position Sitting Pulse 76 Pulse Source Pulse Oximeter Pulse Oximetry (%) 98 Oxygen Delivery Method Room Air Intake Visit Reasons: Type II DM, Intake Note: Patient present today to follow up on Type 2 Diabetes Mellitus. Last Diabetic Eye exam: 12/05/2024 Last Podiatry Visit: Does not see a Family And Divorce Legal Assistant Random Glucose: 110 mg/dl HgA1C: 5.5% 01/20/2025 School Bus Driver Required: No Accompanied by: Self / Same As Patient Allergies adhesive tape [ADHESIVE TAPE] Allergy (Mild, Verified 04/10/25 13:33) RASH Cephalosporins [CEPHALOSPORINS] Allergy (Unknown, Verified 04/10/25 13:33) ANAPHYLAXIS gluten Allergy (Unknown, Verified 04/10/25 13:33) Unknown ketorolac Allergy (Unknown, Verified 04/10/25 13:33) hives lactase [From Dairy Aid] Allergy (Unknown, Verified 04/10/25 13:33) Unknown Penicillins [PENICILLINS] Allergy (Unknown, Verified 04/10/25 13:33) SWELLING Opioids - Morphine Analogues [OPIOIDS - MORPHINE ANALOGUES] Adverse Reaction (Severe, Verified 04/10/25 13:33) VERY SICK, DIZZY, VOMITING Medication List - Last Reconciled 04/10/25 by KIMBERLY Madrigal albuterol sulfate 90 mcg/actuation 1 puff PO QID PRN blood sugar diagnostic (FreeStyle Lite Strips) As directed to check glucose 3 times daily blood-glucose meter (FreeStyle Lite Meter kit) check glucose up to 5 times a day blood-glucose sensor (Dexcom G7 Sensor device) apply new sensor every 10 days as directed blood-glucose,sample examiner,cont (Dexcom G7 Configuration Manager) As directed cholecalciferol (vitamin D3) 50 mcg PO DAILY 90 days clonazepam 0.5 mg PO BEDTIME diclofenac sodium 1% (Arthritis Pain (diclofenac)) 4 grams topical QID dulaglutide (Trulicity) 1.5 mg (0.5 mL) subcut QWEEK escitalopram oxalate 10 mg PO BEDTIME ezetimibe 10 mg PO DAILY 90 days glucose (Dex4 Glucose) 16 grams (4 x 4 gram) PO Q15M PRN insulin glargine (Basaglar KwikPen U-100 Insulin) 12 units subcut QPM ketoconazole 2% 1 appl topical DAILY lancets (FreeStyle Lancets) Use as directed to monitor glucose up to 5 times daily levothyroxine 100 mcg PO QAM losartan 100 mg PO DAILY metformin ER 500 mg PO BID montelukast 10 mg PO BEDTIME pen needle, diabetic (BD Melba 2nd Gen Pen Needle) As directed up to 4 times daily primidone 50 mg PO BEDTIME HPI Comments Details: This is a 75-year-old female with a past medical history of type 2 diabetes, diverticulitis, vitamin-D deficiency, morbid obesity, GERD, hypothyroidism, asthma, hypertension and CKD stage 3 presenting for continued diabetic management. The patient was diagnosed with type 2 diabetes at age 50. Hemoglobin a1c 5.5% 01/20/2025. Her hemoglobin A1c was 10.8% 09/10/24. Reviewed Dexcom clarity download Average glucose 154 G MN 7% 80% in range 20% high 0% hypoglycemia Her current regimen is metformin extended release 500 mg twice daily, Basaglar 12 units nightly and Trulicity 1.5 mg weekly. Previous medications: She was previously on Actos which resulted in weight gain. Ozempic was discontinued due to high co-pay. Switched to Trulicity. Lantus discontinued due to co-pay. Hypoglycemia symptoms: one low 64 treated with grape jelly. She had no symptoms. Hyperglycemia symptoms: none Eye exam: up to date Microvascular complications: nephropathy (CKD and microalbuminuria) no retinopathy, she had cataracts removed recently Macrovascular complications: none Hypertension: treated with Losartan 100 mg. Hyperlipidemia: treated with Zetia 10 mg. ROS: Constitutional: No unexplained weight loss, fever, chills, fatigue or night sweats. Respiratory: No shortness of breath Cardiovascular: No chest pain Neurologic: No headache, dizziness, syncope, unilateral weakness, ataxia, numbness or tingling in the extremities. Skin: No rash or itching. Endocrine: No cold or heat intolerance. No polyuria or polydipsia. Physical exam: Constitutional: Alert, in no distress. Eyes: Pupils are equal, round and reactive to light. Extraocular muscles intact. Neck: No lymphadenopathy or thyroid enlargement. Respiratory: Clear to auscultation. Cardiovascular: S1 S2 regular. No murmurs. Feet:: Warm and well perfused. No clubbing, cyanosis or edema. intact DP pulses. [facility] Medical History Cataracts, bilateral Lumbar degenerative disc disease Osteoarthritis of hands, bilateral Type 2 diabetes mellitus with hyperglycemia Vitamin D deficiency Obesity (BMI 30-39.9) Insomnia Arthralgia Depression Anxiety GERD without esophagitis Acquired hypothyroidism Gastrointestinal hemorrhage Anemia due to acute blood loss Asthma Chronic kidney disease (CKD), stage II (mild) Diabetes mellitus Pure hypercholesterolemia Benign essential hypertension Surgical History Hx of cataract surgery History of colonoscopy (~07/2019) H/O wrist surgery History of colectomy History of D&C History of tonsillectomy Family History Father No problems noted. Mother No problems noted. Other Substance abuse Social History Housing: House Are you a primary personal caregiver to a significant other at home: No Do you presently have visiting nurse or other home services: No Alcohol intake: never Patient Tobacco Use Status: Never used Tobacco e-Cigarette/Vaping Use: Never Used Second Hand Smoke Exposure: No service: No Current occupational status: retired Cognitive needs: No Hearing needs: No Vision needs: Yes Physical Exam Vital Signs: Last Vital Signs Pulse 76 04/10/25 13:33 BP 118/70 04/10/25 13:33 Pulse Ox 98 04/10/25 13:33 Oxygen Delivery Method Room Air 04/10/25 13:33 BMI result Body Mass Index 30.0 Results Reviewed Results Reviewed: Laboratory Tests 09/11/24 01/20/25 09:37 13:25 Creatinine 0.77 Estimated GFR > 60 Hemoglobin A1c % 5.5 Triglycerides 143 Cholesterol 130 LDL Cholesterol, Calc 52 HDL Cholesterol 50 Vitamin B12 322 TSH 0.47 Urine Creatinine 39.60 Urine Microalbumin 6.0 Microalb/Creat Ratio 15.1 Assessment & Plan Assessment & Plan (1) Type 2 diabetes mellitus with hyperglycemia: Code(s): E11.65 - Type 2 diabetes mellitus with hyperglycemia Category: Medical Qualifiers: Diabetes mellitus halfway insulin use: with intermodal owner operator truck driver use Qualified Code(s): E11.65 - Type 2 diabetes mellitus with hyperglycemia; Z79.4 - FPC (current) use of insulin Plan In summary this is a 75-year-old female with controlled type 2 diabetes. Continue Trulicity to 1.5 mg weekly. Continue Basaglar 12 units daily and metformin extended release 500 mg twice a day. If you experience low blood sugar, treat this by eating a chewable fruit candy like skittles or jelly beans (about 8 pieces), 4 ounces (1/2 cup) of fruit juice (not diet), 1 tablespoon of honey or 4 glucose tablets. If your blood sugar is under 55, take double the amount of one of the above. Recheck your blood sugar in [address] if you have symptoms of low blood sugar or do not have an accurate way to check your blood sugar. Patient wants to be seen in 6 week rather than 3 months. She keeps on track better this way. Orders: Orders AMB Glucose Monitoring Today E11.9 - Type 2 diabetes mellitus without complications Coding Level of Care Code Est Pt Level 4 (99378) Diagnoses Type 2 diabetes mellitus with hyperglycemia, with long-term current use of insulin E11.65; Z79.4 Diabetes mellitus halfway insulin use: with intermodal owner operator truck driver use
[2025-04-10 13:33] VITALS: BP 118/70; PULSE 76; O2SAT 98
--- OUTSIDE RECORDS SUMMARY | 2025-04-10 13:39 | XMS_ITS | Continuity of Care Document ---
Author Organization [facility] Address [address] [place] [address] Phone Care Team Providers Care Refueling Rampman Name Role Phone Yulissa PAYAN FAC, Josep Nickerson Unavaila ble Advance Directives Directive Yes / No Effective Date File Name No Information Encounters Encounter Description Practice Location Reason(s) For Visit Diagnoses Date Provider Providers Copied on Encounter [facility], [address] [place], [place], [id number], tel:[phone] [facility] No Information Yulissa Car. [address] [place] [address], [place], [id number], [place]. tel:[phone] Family History Family Member Type Diagnosis Age At Onset No Information Payers Payer name Insurance type Covered libertarian ID Authorerickcharity brepaula(s) Denis [facility] [id number] [facility] CI [id number] Social History Type Description Quantity Date Captured [...]
[2025-04-10 13:50] LABS: Glucose, Whole Blood 110 mg/dL (60-115)
== END 2025-04-10 14:10 | disposition home or self-care (01) ==
LOC: HO.ENCR 13:29
PROVIDERS: PCP Internal Medicine; Visit Provider Physician Assistant Medical
DX: E11.65 Type 2 diabetes mellitus with hyperglycemia (principal); Z79.4 Long term (current) use of insulin

== ENCOUNTER → 2025-04-10 13:28 | Outpatient (BNVA) | payer MEDICARE, OTHER, SELFPAY | PROVIDERS: PCP Internal Medicine; Visit Provider Physician Assistant Medical | DX: E11.65 Type 2 diabetes mellitus with hyperglycemia (principal); Z79.4 Long term (current) use of insulin | CPT/HCPCS: 82947; 99212 ==

== ENCOUNTER 2025-05-22 13:53 | Outpatient (AMB) | payer MEDICARE, OTHER, SELFPAY ==
--- OUTSIDE RECORDS SUMMARY | 2003-11-16 20:00 | XMS_ITS | Continuity of Care Document ---
Author Organization [employer] [facility] Address [address] [place] [address] Phone Care Team Providers Care Panel Monitor Name Role Phone Yulissa PAYAN FAC, Josep Nickerson Unavaila ble Advance Directives Directive Yes / No Effective Date File Name No Information Encounters Encounter Description Practice Location Reason(s) For Visit Diagnoses Date Provider Providers Copied on Encounter [employer] [facility], [address] [place], [place], [id number], tel:[phone] [employer] [facility] No Information Yulissa Car. [address] [place], [place], [id number], [place]. tel:[phone] Family History Family Member Type Diagnosis Age At Onset No Information Payers Payer name Insurance type Covered republican ID Authorerickcharity brepaula(s) Denis [facility] [id number] [facility] CI [id number] Social History Type Description Quantity Date Captured [...]
--- NOTE | 2025-05-22 13:53 | MHC.OFFVIS ---
Vital Signs 05/22/25 13:56 Height 5 ft 4 in Weight 184 lb 15.485 oz BMI 31.7 BP 118/88 Blood Pressure Location Lt brachial Position Sitting Pulse 88 Pulse Source Pulse Oximeter Pulse Oximetry (%) 98 Oxygen Delivery Method Room Air Intake Visit Reasons: T2DM Intake Note: Patient present today to follow up on Type 2 Diabetes Mellitus. Last Diabetic Eye exam: 12/05/2024 Last Podiatry Visit: Does not see a Collections Clerk Random Glucose: 173 mg/dl HgA1C: 7.3% 05/22/2025 Foreign Exchange Dealer Required: No Accompanied by: Self / Same As Patient Allergies adhesive tape (ADHESIVE TAPE) Allergy (Mild, Verified 05/22/25 13:56) RASH Cephalosporins (CEPHALOSPORINS) Allergy (Unknown, Verified 05/22/25 13:56) ANAPHYLAXIS gluten Allergy (Unknown, Verified 05/22/25 13:56) Unknown ketorolac Allergy (Unknown, Verified 05/22/25 13:56) hives lactase (From Dairy Aid) Allergy (Unknown, Verified 05/22/25 13:56) Unknown Penicillins (PENICILLINS) Allergy (Unknown, Verified 05/22/25 13:56) SWELLING Opioids - Morphine Analogues (OPIOIDS - MORPHINE ANALOGUES) Adverse Reaction (Severe, Verified 05/22/25 13:56) VERY SICK, DIZZY, VOMITING Medication List - Last Reconciled 05/22/25 by KIMBERLY Madrigal albuterol sulfate 90 mcg/actuation 1 puff PO QID PRN blood sugar diagnostic (FreeStyle Lite Strips) As directed to check glucose 3 times daily blood-glucose meter (FreeStyle Lite Meter kit) check glucose up to 5 times a day blood-glucose sensor (Dexcom G7 Sensor device) apply new sensor every 10 days as directed blood-glucose,electronics system mechanic,cont (Dexcom G7 Paper Baler) As directed cholecalciferol (vitamin D3) 50 mcg PO DAILY 90 days clonazepam 0.5 mg PO BEDTIME diclofenac sodium 1% (Arthritis Pain (diclofenac)) 4 grams topical QID dulaglutide (Trulicity) 3 mg (0.5 mL) subcut QWEEK escitalopram oxalate 10 mg PO BEDTIME ezetimibe 10 mg PO DAILY 90 days glucose (Dex4 Glucose) 16 grams (4 x 4 gram) PO Q15M PRN insulin glargine (Basaglar KwikPen U-100 Insulin) 12 units subcut QPM ketoconazole 2% 1 appl topical DAILY lancets (FreeStyle Lancets) Use as directed to monitor glucose up to 5 times daily levothyroxine 100 mcg PO QAM losartan 100 mg PO DAILY metformin ER 500 mg PO BID montelukast 10 mg PO BEDTIME pen needle, diabetic (BD Melba 2nd Gen Pen Needle) As directed up to 4 times daily primidone 50 mg PO BEDTIME HPI Comments Details: This is a 75-year-old female with a past medical history of type 2 diabetes, diverticulitis, vitamin-D deficiency, morbid obesity, GERD, hypothyroidism, asthma, hypertension and CKD stage 3 presenting for continued diabetic management. The patient was diagnosed with type 2 diabetes at age 50. Hemoglobin a1c 5.5% 01/20/2025. Her hemoglobin A1c was 10.8% 09/10/24. Reviewed Dexcom data May 09 to May 22 G TX 8.2% 18% very high 48% high 34% in range 0% hypoglycemia She experiences postprandial and nocturnal hyperglycemia. Her current regimen is metformin extended release 500 mg twice daily, Basaglar 12 units nightly and Trulicity 1.5 mg weekly. She has been eating a lot more cakes, carbohydrate rich snacks and sweets. She gained 10 lb. She does not find she has the same appetite suppression on Trulicity as Ozempic, but Ozempic was too expensive. Previous medications: She was previously on Actos which resulted in weight gain. Ozempic was discontinued due to high co-pay. Switched to Trulicity. Lantus discontinued due to co-pay. Hypoglycemia symptoms: None Hyperglycemia symptoms: none Eye exam: up to date Microvascular complications: nephropathy (CKD and microalbuminuria) no retinopathy, she had cataracts removed recently Macrovascular complications: none Hypertension: treated with Losartan 100 mg. Hyperlipidemia: treated with Zetia 10 mg. ROS: Constitutional: No unexplained weight loss, fever, chills, fatigue or night sweats. Respiratory: No shortness of breath Cardiovascular: No chest pain Neurologic: No headache, dizziness, syncope, unilateral weakness, ataxia, numbness or tingling in the extremities. Skin: No rash or itching. Endocrine: No cold or heat intolerance. No polyuria or polydipsia. Physical exam: Constitutional: Alert, in no distress. Eyes: Pupils are equal, round and reactive to light. Extraocular muscles intact. Neck: No lymphadenopathy or thyroid enlargement. Respiratory: Clear to auscultation. Cardiovascular: S1 S2 regular. No murmurs. [facility], [facility] Medical History Cataracts, bilateral Lumbar degenerative disc disease Osteoarthritis of hands, bilateral Type 2 diabetes mellitus with hyperglycemia Vitamin D deficiency Obesity (BMI 30-39.9) Insomnia Arthralgia Depression Anxiety GERD without esophagitis Acquired hypothyroidism Gastrointestinal hemorrhage Anemia due to acute blood loss Asthma Chronic kidney disease (CKD), stage II (mild) Diabetes mellitus Pure hypercholesterolemia Benign essential hypertension Surgical History Hx of cataract surgery History of colonoscopy (~07/2019) H/O wrist surgery History of colectomy History of D&C History of tonsillectomy Family History Father No problems noted. Mother No problems noted. Other Substance abuse Social History Housing: House Are you a primary director medicare sales to a significant other at home: No Do you presently have visiting nurse or other home services: No Alcohol intake: never Patient Tobacco Use Status: Never used Tobacco e-Cigarette/Vaping Use: Never Used Second Hand Smoke Exposure: No service: No Current occupational status: retired Cognitive needs: No Hearing needs: No Vision needs: Yes Physical Exam Vital Signs: Last Vital Signs Pulse 88 05/22/25 13:56 BP 118/88 05/22/25 13:56 Pulse Ox 98 05/22/25 13:56 Oxygen Delivery Method Room Air 05/22/25 13:56 BMI result Body Mass Index 31.7 Office Procedures Glucose Monitoring Details Details: See HPI 27655 - Glucose monitoring, continuous-physician I&R Procedure code (CPT) selection complete Results AMB Hemoglobin A1c AMB Hemoglobin A1c 7.3 % Last Edit by DOMINIC Escoto on 05/22/25 14:19 Results Reviewed Results Reviewed: Laboratory Last Values Glucose (Clinic) 173 mg/dL (60-115) H 05/22/25 14:02 Laboratory Tests 09/11/24 01/20/25 09:37 13:25 Creatinine 0.77 Estimated GFR > 60 Hemoglobin A1c % 5.5 Triglycerides 143 Cholesterol 130 LDL Cholesterol, Calc 52 HDL Cholesterol 50 Vitamin B12 322 TSH 0.47 Urine Creatinine 39.60 Urine Microalbumin 6.0 Microalb/Creat Ratio 15.1 Assessment & Plan Assessment & Plan (1) Type 2 diabetes mellitus with hyperglycemia: Code(s): E11.65 - Type 2 diabetes mellitus with hyperglycemia Category: Medical Qualifiers: Diabetes mellitus poolroom/poolhall manager insulin use: with fdc use Qualified Code(s): E11.65 - Type 2 diabetes mellitus with hyperglycemia; Z79.4 - gas plant repairer (current) use of insulin Plan In summary this is a 75-year-old female with uncontrolled type 2 diabetes. Increase Trulicity to 3 mg weekly. Continue Basaglar 12 units daily and metformin extended release 500 mg twice a day. If you experience low blood sugar, treat this by eating a chewable fruit candy like skittles or jelly beans (about 8 pieces), 4 ounces (1/2 cup) of fruit juice (not diet), 1 tablespoon of honey or 4 glucose tablets. If your blood sugar is under 55, take double the amount of one of the above. Recheck your blood sugar in [address] if you have symptoms of low blood sugar or do not have an accurate way to check your blood sugar. She will follow up in 8 weeks for type 2 diabetes. Orders: Orders AMB Hemoglobin A1c Today E11.65 - Type 2 diabetes mellitus with hyperglycemia, Z79.4 - gas plant repairer (current) use of insulin AMB Glucose Monitoring Today E11.9 - Type 2 diabetes mellitus without complications Medications: New dulaglutide (Trulicity) 3 mg (0.5 mL) subcut QWEEK 2 mL 2RF Discontinued dulaglutide (Trulicity) Replaces Trulicity 0.75 mg weekly. Discontinued Reason: Doctor's Order 1.5 mg (0.5 mL) subcut QWEEK 2 mL 3RF Coding Level of Care Code Est Pt Level 4 (81162) Diagnoses Type 2 diabetes mellitus with hyperglycemia, with long-term current use of insulin E11.65; Z79.4 Diabetes mellitus fdc insulin use: with poolroom/poolhall manager use CPT Codes Details - CPT: 34728 - Glucose monitoring, continuous-physician I&R ([id number])
[2025-05-22 13:56] VITALS: BP 118/88; PULSE 88; O2SAT 98; BMI 31.7
--- OUTSIDE RECORDS SUMMARY | 2025-05-22 13:58 | XMS_ITS | Patient Health Record ---
Author Organization [facility] Address [address] [place] [address] Care Team Providers Care It Consultant Name Role Phone Delonte Bishop MD Primary Care Provider Geovanny Prescott Jr Unavailable [phone] Allergies Allergen (clinical drug ingredient) Drug/Non Drug Allergy documented on EMR Reaction Allergy Type Onset Date Status all dairy (uncoded) Unknown Allergy Active all cephalo-sporins and opiates (uncoded) Unknown Allergy Active cefaclor Ceclor (uncoded) Unknown Allergy Act tejas Keflex (uncoded) Unknown Allergy Act tejas Penicillin (uncoded) Unknown Allergy Active Reason For Referral No Information Medications Medication SIG (Take, Route, Frequency, Duration) Notes Start Date End Date Status Levothyroxine Sodium 100 MCG 1 tablet Or ally Once a day Active Actos 45 MG 1 tablet Orally Once a day Active Fish Oil 1000 MG 1 capsule Orally Onc e a day Active glipiZIDE 5 MG 1/2 tablet Orally On ce a day Active PriLOSEC 20 MG 1 capsule Orally Onc e a day Active Singulair 10 MG 1 tablet in the even ing Orally Once a day Active Losartan Potassium 100 MG 1 tablet Orall y Once a day Active KlonoPIN 0.5 MG 1 -1/2 tablet in am1 tab in pm Orally Twice a day Active Flaxseed Oil 1000 MG 2 Orally qd Active Ibuprofen 200 MG 1 tablet as needed Orally prn Active Lexapro 10 MG 1 tablet Orally Once a day Active metFORMIN HCl 1000 MG 1 tablet with meal s Orally Twice a day Active Opcon-A 0.027-0.315 % 1 drop into affect ed eye as needed Ophthalmic prn Active Iron 325 (65 Fe) MG 1 tablet Orally Once a day Active Rogaine Extra Strength for Men 5 % 1 ml to affected area Externally 5 x a week Active Advair Diskus 250-50 MCG/DOSE 1 puff Inhalation Twice a day/prn Active Ventolin HFA 108 (90 Base) MCG/ACT 2 puffs as needed Inhalation every 4 hrs/prn Active Immunizations Vaccine Route Administration Date Status Comme nts Flu vaccine no Preserv 3 and > Unknown 09/15/2015 Admin istered Influenza Unknown 08/19/2018 Administered Problems Problem Type SNOMED Code ICD Code Onset Dates Problem Status W/U Status Risk Notes Problem 096406704 Gastro-esophagea l reflux disease without esophagitis (K21.9) Active confirmed Problem 126676946 Abdominal pain, left lower quadrant (R10.32) Active confirmed Problem 003020100 Abdominal pain, right lower quadrant (R10.31) Active confirmed Problem 07005405 Hypertension, unspecified type (I10) Active confirmed Plan Of Treatment No Information Insurance Providers Payer Name Payer Address Payer Phone Subscriber Number Group Number Insured Name Patient Relationship to Insured Coverage Start Date Coverage End Date MEDICARE OF [place] [address] [place] [address] [id number] MARY MATUTE Self - patient is the insured [facility] INDEMNITY [address] [place] [address] [id number] MARY MATUTE Self - patient is the insured Medical (General) History Medical History History ICD Code 05/19/2011 Colonoscopy Internal hemorrhoids Diverticulosis Rectal Bleeding IBS Diabetes mellitus type 2 Vertigo Allergies w/allergic asthma Hypertension Hypothyroidism Anxity Denies [place],CVA,Lung disease,renal disease osteoarthritis Surgical History Surgery Date(Month/Year) Emergent left colectomy for perforated d iverticular disease 1997 Colostomy Wrist surgery on the left & a TNA D&C tonsillectomy
[2025-05-22 14:07] LABS: Glucose, Whole Blood 173 mg/dL (60-115)
== END 2025-05-22 14:36 | disposition home or self-care (01) ==
LOC: HO.ENCR 13:53
PROVIDERS: PCP Internal Medicine; Visit Provider Physician Assistant Medical
DX: E11.65 Type 2 diabetes mellitus with hyperglycemia (principal); Z79.4 Long term (current) use of insulin

== ENCOUNTER → 2025-05-22 13:53 | Outpatient (BNVA) | payer MEDICARE, OTHER, SELFPAY | PROVIDERS: PCP Internal Medicine; Visit Provider Physician Assistant Medical | DX: E11.65 Type 2 diabetes mellitus with hyperglycemia (principal); Z79.85 Long-term (current) use of injectable non-insulin antidiabetic drugs; Z79.4 Long term (current) use of insulin | CPT/HCPCS: 82947; 83036; 99212 ==

== ENCOUNTER 2025-05-26 13:54 | Outpatient (AMB) | payer MEDICARE, OTHER, SELFPAY ==
--- OUTSIDE RECORDS SUMMARY | 2003-11-16 20:00 | XMS_ITS | Continuity of Care Document ---
Author Organization [employer] [facility] Address [address] [place] [address] Phone Care Team Providers Care Hogshead Press Operator Name Role Phone Yulissa PAYAN FAC, Josep Nickerson Unavaila ble Advance Directives Directive Yes / No Effective Date File Name No Information Encounters Encounter Description Practice Location Reason(s) For Visit Diagnoses Date Provider Providers Copied on Encounter [employer] [facility], [address] [place], [place], [id number], tel:[phone] [facility] No Information Yulissa Car. [address] [place], [place], [id number], [place]. tel:[phone] Family History Family Member Type Diagnosis Age At Onset No Information Payers Payer name Insurance type Covered republican ID Authorerickcharity brepaula(s) Denis [facility] [id number] [facility] CI [id number] Social History Type Description Quantity Date Captured [...]
--- NOTE | 2025-05-26 13:58 | MHC.OFFVIS ---
Vital Signs 05/26/25 13:59 Height 5 ft 4 in Intake Visit Reasons: 6m/ BETS Allergies adhesive tape (ADHESIVE TAPE) Allergy (Mild, Verified 05/26/25 14:06) RASH Cephalosporins (CEPHALOSPORINS) Allergy (Unknown, Verified 05/26/25 14:06) ANAPHYLAXIS gluten Allergy (Unknown, Verified 05/26/25 14:06) Unknown ketorolac Allergy (Unknown, Verified 05/26/25 14:06) hives lactase (From Dairy Aid) Allergy (Unknown, Verified 05/26/25 14:06) Unknown Penicillins (PENICILLINS) Allergy (Unknown, Verified 05/26/25 14:06) SWELLING Opioids - Morphine Analogues (OPIOIDS - MORPHINE ANALOGUES) Adverse Reaction (Severe, Verified 05/26/25 14:06) VERY SICK, DIZZY, VOMITING Medication List - Last Reconciled 05/26/25 by Char Santillan CNP albuterol sulfate 90 mcg/actuation 1 puff PO QID PRN blood sugar diagnostic (FreeStyle Lite Strips) As directed to check glucose 3 times daily blood-glucose meter (FreeStyle Lite Meter kit) check glucose up to 5 times a day blood-glucose sensor (Dexcom G7 Sensor device) apply new sensor every 10 days as directed blood-glucose,aligner barrel and receiver,cont (Dexcom G7 Cognos Report Developer) As directed clonazepam 0.5 mg PO BEDTIME diclofenac sodium 1% (Arthritis Pain (diclofenac)) 4 grams topical QID dulaglutide (Trulicity) 3 mg (0.5 mL) subcut QWEEK escitalopram oxalate 10 mg PO BEDTIME ezetimibe 10 mg PO DAILY 90 days glucose (Dex4 Glucose) 16 grams (4 x 4 gram) PO Q15M PRN insulin glargine (Basaglar KwikPen U-100 Insulin) 12 units subcut QPM ketoconazole 2% 1 appl topical DAILY lancets (FreeStyle Lancets) Use as directed to monitor glucose up to 5 times daily levothyroxine 100 mcg PO QAM losartan 100 mg PO DAILY metformin ER 500 mg PO BID montelukast 10 mg PO BEDTIME pen needle, diabetic (BD Melba 2nd Gen Pen Needle) As directed up to 4 times daily primidone 50 mg PO BEDTIME HPI Comments Details: Her tremor was great, controlled with medication. No functional impairment. No difficulty eating, drinking, or swallowing. Handwriting was okay. Occasional dizziness if she lays on right side and lasts few seconds. Balance off at times, no recent falls. Her tremor is significantly improved with primidone 50mg and can write much better. Initially had 4-5 days of vertigo after starting primidone with it which has subsided. Her balance is poor, had one fall in 10/2024 when her feet got stuck on the ground and fell backwards and was achy for a few days. She is left handed. Started with tremor in left hand and slightly in right hand. H/O Multiple small bleeds from small bowel. Also has IBS. She has some recall problems with what people tell her. Gets easily distracted and loses train of thought. On 11/04/17, she was in her garage and slipped on ice and hit back of head on cement garage floor without LOC. Had CT brain and C spine. Slowly improving in dizziness and headache. 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 No further syncopal episodes. On 02/14/17 she had a sudden onset of severe dizziness, loss of balance, lost her vision and hearing and may have blacked out. She has a history of episodic vertigo. She has chronic right hearing loss from childhood. Occasional sidestepping. Occasional word retreival problems since concussion. Had loud tinnitus in left ear that lasted hours. Given a list of dietary triggers for migraine to avoid by Dr. Fermin [facility] Medical History (Updated 05/26/25 @ 14:16 by Char Santillan CNP) Hypothyroidism Benign essential tremor Migraine Dysphagia Cataracts, bilateral Lumbar degenerative disc disease Osteoarthritis of hands, bilateral Type 2 diabetes mellitus with hyperglycemia Vitamin D deficiency Obesity (BMI 30-39.9) Insomnia Arthralgia Depression Anxiety GERD without esophagitis Acquired hypothyroidism Gastrointestinal hemorrhage Anemia due to acute blood loss Asthma Chronic kidney disease (CKD), stage II (mild) Diabetes mellitus Pure hypercholesterolemia Benign essential hypertension Surgical History Hx of cataract surgery History of colonoscopy (~07/2019) H/O wrist surgery History of colectomy History of D&C History of tonsillectomy Family History Father No problems noted. Mother No problems noted. Other Substance abuse Social History Housing: House Are you a primary direct care staffer to a significant other at home: No Do you presently have visiting nurse or other home services: No Alcohol intake: never Patient Tobacco Use Status: Never used Tobacco e-Cigarette/Vaping Use: Never Used Second Hand Smoke Exposure: No service: No Current occupational status: retired Cognitive needs: No Hearing needs: No Vision needs: Yes Review of Systems Const Denies chills, Denies daytime sleepiness, Reports difficulty sleeping, Denies fatigue, Denies fever(s), Denies frequent falls, Denies headache(s), Denies increased appetite, Denies poor appetite, Denies snoring, Denies weakness, Denies weight gain and Denies weight loss Eyes Denies loss of vision ENT Denies vertigo, Reports dizziness, Denies headache(s) and Denies neck pain Card Denies chest pain at rest, Denies chest pain with activity, Denies syncope, Denies leg edema, Denies palpitations, Denies dyspnea and Denies dyspnea on exertion Resp Denies cough, Denies dyspnea, Denies dyspnea on exertion and Denies snoring GI Denies abdominal pain, Denies constipation, Denies heartburn, Denies diarrhea and Denies nausea Denies urinary frequency, Denies urinary incontinence and Denies urinary urgency Musc Reports abnormal gait (balance difficulty), Denies back pain, Denies myalgias, Reports arthralgias, Denies neck pain, Denies numbness and Denies tingling Neuro Reports abnormal gait (balance difficulty), Denies vertigo, Reports dizziness, Denies syncope, Denies frequent falls, Denies headache(s), Denies lack of coordination, Denies loss of vision, Denies memory loss, Denies numbness, Denies restless legs, Denies seizure-like activity, Denies tingling, Denies paresthesias, Reports tremor(s) and Denies weakness Psych Reports anxiety, Reports depression, Denies auditory hallucinations, Denies memory loss and Denies visual hallucinations Endo Denies fatigue and Denies palpitations Physical Exam Const Other: General Appearance:? normal, in no acute distress. Heart:? S1, S2 normal, no murmurs. Lungs:? clear anteriorly and posteriorly. Musculoskeletal:? normal. Extremities:? no edema. Psych:? alert, oriented, cognitive function intact, cooperative with exam. Neuro Other: Abnormal Neurological Findings:?Decrease in tremor of left hand when thumb and index held in opposition position with arm outstretched. Slight tremor of right hand when thumb and index held in opposition position with arm outstretched. Slight head and voice tremor. Mental Status: alert and oriented X 3. Normal attention, orientation, memory, and affect. Cranial Nerves: Pupils are equal, round, and reactive to light. External ocular muscles are intact. Visual hernandez are full, no ptosis. Face is symmetrical, no facial weakness or droop. Facial sensations are normal. Tongue protrudes in midline. Palate elevates symmetrically. Shoulder shrugging is normal Motor Examination: Normal muscle tone, bulk and strength. No atrophy or fasciculations. No drift of the extended upper extremities. DTR 2+. Plantars are flexor. Straight Leg Raisin degrees. Sensory Exam: Normal light touch, temperature, pinprick, vibration, and joint-position sensations. Rhomberg sign is absent. Coordination: No ataxia. No titubation. Lpdppq-el-qoev, zzbw-xmbi-lwyi test, and rapid alternating movements were normal. Gait Exam: Within normal limits. Cerebellar Signs: [id number] and zjar-wd-bqzx is normal. No dysdiadochokinesia. Extrapyramidal System: Tremor as above. No rigidity with normal facial expressions. No bradykinesia. No bradyphrenia. Normal arm swing and posture. No propulsion or retropulsion. Speech: Slight voice tremor Assessment & Plan Assessment & Plan (1) Benign essential tremor: Code(s): G25.0 - Essential tremor Category: Medical Plan: Continue clonazepam 0.5mg 1.5 tablets in morning and 1 tablet at bedtime. Continue primidone 50mg 1 tablet at bedtime. (2) Dizziness: Code(s): R42 - Dizziness and giddiness Category: Medical Plan: . (3) Migraine: Code(s): G43.909 - Migraine, unspecified, not intractable, without status migrainosus Category: Medical Qualifiers: Migraine type: unspecified Status migrainosus presence: without status migrainosus Intractability: not intractable Qualified Code(s): G43.909 - Migraine, unspecified, not intractable, without status migrainosus Plan: . Plan . Coding Level of Care Code Est Pt Level 3 (90468) Diagnoses Benign essential tremor G25.0 Dizziness R42 Migraine without status migrainosus, not intractable, unspecified migraine type G43.909 Migraine type: unspecified Status migrainosus presence: without status migrainosus Intractability: not intractable
--- OUTSIDE RECORDS SUMMARY | 2025-05-26 15:13 | XMS_ITS | Patient Health Record ---
Author Organization [facility] Address [address] [place] [address] Care Team Providers Care Food And Beverage Cashier Name Role Phone Delonte Bishop MD Primary Care Provider Geovanny Prescott Jr Unavailable [phone] Allergies Allergen (clinical drug ingredient) Drug/Non Drug Allergy documented on EMR Reaction Allergy Type Onset Date Status all cephalo-sporins and opiates (uncoded) Unknown Allergy Active cefaclor Ceclor (uncoded) Unknown Allergy Act tejas Keflex (uncoded) Unknown Allergy Act tejas Penicillin (uncoded) Unknown Allergy Active all dairy (uncoded) Unknown Allergy Active Reason For Referral [...] Problem Status W/U Status Risk Notes Problem [id number] Gastro-esophagea l reflux disease without esophagitis (K21.9) Active confirmed Problem 510198752 Abdominal pain, left lower quadrant (R10.32) Active confirmed Problem 559650737 Abdominal pain, right lower quadrant (R10.31) Active confirmed Problem 89536926 Hypertension, unspecified type (I10) Active confirmed Plan Of Treatment No Information Insurance Providers Payer Name Payer Address Payer Phone Subscriber Number Group Number Insured Name Patient Relationship to Insured Coverage Start Date Coverage End Date MEDICARE OF [place] [address] [place] [address] [id number] MARY MATUTE Self - patient is the insured [facility] INDEMNITY [address] [place] [address] [id number] MARY MATUTE Self - patient is the insured Medical (General) History Medical History History ICD Code 05/19/2011 Colonoscopy Internal hemorrhoids Diverticulosis Rectal Bleeding IBS Diabetes mellitus type 2 Vertigo Allergies w/allergic asthma Hypertension Hypothyroidism Anxity Denies [place],CVA,Lung disease,renal disease osteoarthritis Surgical History Surgery Date(Month/Year) Emergent left colectomy for perforated d iverticular disease 1997 Colostomy Wrist surgery on the left & a TNA D&C tonsillectomy
== END 2025-05-26 14:21 | disposition home or self-care (01) ==
LOC: HO.HSM 13:54
PROVIDERS: PCP Internal Medicine; Referring Provider Internal Medicine; Visit Provider Registered Nurse
DX: G25.0 Essential tremor (principal); R42 Dizziness and giddiness; G43.909 Migraine, unspecified, not intractable, without status migrainosus
CPT/HCPCS: 99213

== ENCOUNTER → 2025-05-26 13:54 | Outpatient (BNVA) | payer MEDICARE, OTHER, SELFPAY | PROVIDERS: PCP Internal Medicine; Referring Provider Internal Medicine; Visit Provider Registered Nurse | DX: G25.0 Essential tremor (principal); R42 Dizziness and giddiness; G43.909 Migraine, unspecified, not intractable, without status migrainosus | CPT/HCPCS: 99212 ==

== ENCOUNTER 2025-06-29 09:52 | Outpatient (REF) | payer MEDICARE, OTHER, SELFPAY ==
--- OUTSIDE RECORDS SUMMARY | 2003-11-16 20:00 | XMS_ITS | Continuity of Care Document ---
Author Organization [employer] [facility] Address [address] [place] [address] Phone Care Team Providers Care Sporting Goods Sales Associate Name Role Phone Yulissa PAYAN FAC, Josep Nickerson Unavaila ble Advance Directives Directive Yes / No Effective Date File Name No Information Encounters Encounter Description Practice Location Reason(s) For Visit Diagnoses Date Provider Providers Copied on Encounter [employer] [facility], [address] [place], [place], [id number], tel:[phone] [facility] No Information Yulissa Car. [address] [place], [place], [id number], [place]. tel:[phone] Family History Family Member Type Diagnosis Age At Onset No Information Payers Payer name Insurance type Covered republican ID Authorerickcharity brepaula(s) Denis [facility] [id number] [facility] CI [id number] Social History Type Description Quantity Date Captured [...]
[2025-06-29 10:10] LABS: MANUAL DIFF FLAG NO
--- OUTSIDE RECORDS SUMMARY | 2025-06-29 10:43 | XMS_ITS | Patient Health Record ---
Author Organization [facility] Address [address] [place] [id number] Care Team Providers Care Rubber Vulcanizing Machine Operator Name Role Phone Delonte Bishop MD Primary Care Provider Geovanny Prescott Jr Unavailable [phone] Allergies Allergen (clinical drug ingredient) Drug/Non [...] Problem Status W/U Status Risk Notes Problem [id number] Gastro-esophagea l reflux disease without esophagitis (K21.9) Active confirmed Problem [id number] Abdominal pain, left lower quadrant (R10.32) Active confirmed Problem [id number] Abdominal pain, right lower quadrant (R10.31) Active confirmed Problem [id number] Hypertension, unspecified type (I10) Active confirmed Plan Of Treatment No Information Insurance Providers Payer Name Payer Address Payer Phone Subscriber Number Group Number Insured Name Patient Relationship to Insured Coverage Start Date Coverage End Date MEDICARE OF [place] [address] [place] [address] [id number] MARY MATUTE Self - patient is the insured [facility] IN[facility]MNITY [address] [place] [address] [id number] MARY MATUTE Self - patient is the insured Medical (General) History Medical History History ICD Code 05/19/2011 Colonoscopy Internal hemorrhoids Diverticulosis Rectal Bleeding IBS Diabetes mellitus type 2 Vertigo Allergies w/allergic asthma Hypertension Hypothyroidism Anxity Denies ID,CVA,Lung disease,renal disease osteoarthritis Surgical History Surgery Date(Month/Year) Emergent left colectomy for perforated d iverticular disease 1997 Colostomy Wrist surgery on the left & a TNA D&C tonsillectomy
[2025-06-29 10:55] LABS: Hematocrit 38.9 % (37.0-47.0); Hemoglobin 13.4 g/dl (12.0-16.0); Imm Gran Abs Auto 0.01 X10*3/uL (0.00-0.03); Imm Gran Pct Auto 0.2 % (0.0-0.4); Lymphocytes Absolute Auto 2.1 X10*3/uL (1.2-4.9); Mean Corpuscular HGB Conc 34.4 g/dl (31.0-35.0); Mean Corpuscular Hemoglobin 30.3 pg (27.0-33.0); Mean Corpuscular Volume 88.0 fL (80.0-98.0); NRBC Abs Auto 0.000 X10*3/uL (0.0-0.012); NRBC Pct Auto 0.0 /100WBC (0.0-0.2); Platelet Count 141 X10*3/uL (160-400); Red Blood Count 4.42 X10*6/uL (4.20-5.50); White Blood Count 5.3 X10*3/uL (4.8-10.8)
[2025-06-29 11:48] LABS: Alanine Aminotransferase 60 U/L (0-31); Albumin Level 4.3 g/dL (3.5-5.0); Alkaline Phosphatase 130 U/L (39-117); Anion Gap 12 (12-20); Aspartate Amino Transferase 49 U/L (5-31); Blood Urea Nitrogen 28 mg/dL (9-16); Calcium 9.6 mg/dL (8.4-10.2); Carbon Dioxide 29 mmol/L (22-29); Chloride 107 mmol/L (96-108); Cholesterol 164 mg/dL (<200); Estimated Glomerular Filt Rate > 60; HDL Cholesterol 44 mg/dL (>40); Potassium 4.8 mmol/L (3.3-5.1); Sodium 143 mmol/L (135-145); Total Protein 6.7 g/dL (6.5-8.0); Triglycerides 217 mg/dL (<150)
[2025-06-29 12:10] LABS: Free T4 (Free Thyroxine) 0.96 ng/dL (0.71-1.85); Hemoglobin A1C 234.5429 umol/L; Thyroid Stimulating Hormone 5.40 uIU/mL (0.32-4.0); Total Hemoglobin (HGBA1C) 4770.0029 umol/L
[2025-06-29 12:20] LABS: Folate 16.3 ng/mL (> or = 4.0); Vitamin B12 295 pg/mL (200-900)
[2025-06-29 16:02] LABS: Appearance Urine Clear; Glucose Urine UA Negative (Negative); PH 5.5 (5.0-9.0); Specific Gravity - Urine 1.015 (1.005-1.025)
[2025-06-29 17:38] LABS: Microalbum/Creatinine Ratio Ur 29.2 ug/mg cr (<30)
== END 2025-06-29 09:53 | disposition home or self-care (01) ==
LOC: HO.LAB 09:52
PROVIDERS: PCP Internal Medicine; Visit Provider Internal Medicine
DX: E11.9 Type 2 diabetes mellitus without complications (principal); E53.8 Deficiency of other specified B group vitamins; E03.9 Hypothyroidism, unspecified; E55.9 Vitamin D deficiency, unspecified; E78.00 Pure hypercholesterolemia, unspecified; D64.9 Anemia, unspecified; R30.0 Dysuria
CPT/HCPCS: 36415; 80053; 80061; 81003; 82043; 82306; 82570; 82607; 82746; 83036; 84439; 84443; 85025

== ENCOUNTER 2025-07-17 14:34 | Outpatient (AMB) | payer MEDICARE, OTHER, SELFPAY ==
--- OUTSIDE RECORDS SUMMARY | 2003-11-16 20:00 | XMS_ITS | Continuity of Care Document ---
Author Organization [employer] [facility] Address [address] [place] [address] Phone Care Team Providers Care Med Surg Rn Name Role Phone Yulissa PAYAN FAC, Josep Nickerson Unavaila ble Advance Directives Directive Yes / No Effective Date File Name No Information Encounters Encounter Description Practice Location Reason(s) For Visit Diagnoses Date Provider Providers Copied on Encounter [employer] [facility], [address] [place], [place], [id number], tel:[phone] [employer] [facility] No Information Yulissa Car. [address] [place], [place], [id number], [place]. tel:[phone] Family History Family Member Type Diagnosis Age At Onset No Information Payers Payer name Insurance type Covered republican ID Authorerickcharity brepaula(s) Denis [facility] [id number] [facility] CI [id number] Social History Type Description Quantity Date Captured [...]
--- NOTE | 2025-07-17 14:37 | A.OFFVIS_ITS ---
Vital Signs 07/17/25 14:41 Height 5 ft 4 in Weight 188 lb 4.396 oz BMI 32.3 BP 134/78 Blood Pressure Location Rt brachial Position Sitting Pulse 78 Pulse Source Pulse Oximeter Pulse Oximetry (%) 96 Oxygen Delivery Method Room Air Intake Visit Reasons: Type II diabetes Intake Note: Patient present today to follow up on Type 2 Diabetes Mellitus. Last Diabetic Eye exam: 12/05/2024 Last Podiatry Visit: Does not see a Plant Breeder Scientist Random Glucose: 145 mg/dl HgA1C: 6.7% 06/29/2025 Information Security Consultant Required: No Accompanied by: Self / Same As Patient Allergies adhesive tape (ADHESIVE TAPE) Allergy (Mild, Verified 07/17/25 14:44) RASH Cephalosporins (CEPHALOSPORINS) Allergy (Unknown, Verified 07/17/25 14:44) ANAPHYLAXIS gluten Allergy (Unknown, Verified 07/17/25 14:44) Unknown ketorolac Allergy (Unknown, Verified 07/17/25 14:44) hives lactase (From Dairy Aid) Allergy (Unknown, Verified 07/17/25 14:44) Unknown Penicillins (PENICILLINS) Allergy (Unknown, Verified 07/17/25 14:44) SWELLING Opioids - Morphine Analogues (OPIOIDS - MORPHINE ANALOGUES) Adverse Reaction (Severe, Verified 07/17/25 14:44) VERY SICK, DIZZY, VOMITING Medication List - Last Reconciled 07/17/25 by KIMBERLY Madrigal albuterol sulfate 90 mcg/actuation 1 puff PO QID PRN blood sugar diagnostic (FreeStyle Lite Strips) As directed to check glucose 3 times daily blood-glucose meter (FreeStyle Lite Meter kit) check glucose up to 5 times a day blood-glucose sensor (Dexcom G7 Sensor device) apply new sensor every 10 days as directed blood-glucose,cognos architect,cont (Dexcom G7 Textiles And Clothing Teacher) As directed clonazepam 0.5 mg PO BEDTIME diclofenac sodium 1% (Arthritis Pain (diclofenac)) 4 grams topical QID dulaglutide (Trulicity) 3 mg (0.5 mL) subcut QWEEK escitalopram oxalate 10 mg PO BEDTIME ezetimibe 10 mg PO DAILY 90 days glucose (Dex4 Glucose) 16 grams (4 x 4 gram) PO Q15M PRN insulin glargine (Basaglar KwikPen U-100 Insulin) 12 units subcut QPM ketoconazole 2% 1 appl topical DAILY lancets (FreeStyle Lancets) Use as directed to monitor glucose up to 5 times daily levothyroxine 100 mcg PO QAM losartan 100 mg PO DAILY metformin ER 500 mg PO BID montelukast 10 mg PO BEDTIME pen needle, diabetic (BD Melba 2nd Gen Pen Needle) As directed up to 4 times daily primidone 50 mg PO BEDTIME HPI Comments Details: This is a 75-year-old female with a past medical history of type 2 diabetes, diverticulitis, vitamin-D deficiency, morbid obesity, GERD, hypothyroidism, asthma, hypertension and CKD stage 3 presenting for continued diabetic management. The patient was diagnosed with type 2 diabetes at age 50. Hemoglobin A1c 6.7% 06/29/2025. Hemoglobin a1c 5.5% 01/20/2025. Reviewed Dexcom data G MT 8.5% Very high 24% High 51% In range 25% Hypoglycemia 0% She is having hyperglycemia throughout the day and night. Denies symptoms of hyperglycemia. POC 145, but her sensor is saying 235. 90 day GMI 8% compared to A1C 06/29/25 6.7%. Her current regimen is metformin extended release 500 mg twice daily, Basaglar 12 units nightly and Trulicity 3 mg weekly. Previous medications: She was previously on Actos which resulted in weight gain. Ozempic was discontinued due to high co-pay. Switched to Trulicity. Lantus discontinued due to co-pay. Hypoglycemia symptoms: None Hyperglycemia symptoms: none Microvascular complications: nephropathy (CKD and microalbuminuria but normal kidney function now) no retinopathy, she had cataracts removed recently Macrovascular complications: none Hypertension: treated with Losartan 100 mg. Hyperlipidemia: treated with Zetia 10 mg. She has hepatic steatosis. ROS: Constitutional: No unexplained weight loss, fever, chills, fatigue or night sweats. Respiratory: No shortness of breath Cardiovascular: No chest pain Neurologic: No headache, dizziness, syncope, unilateral weakness, ataxia, numbness or tingling in the extremities. Skin: No rash or itching. Endocrine: No cold or heat intolerance. No polyuria or polydipsia. Physical exam: Constitutional: Alert, in no distress. Eyes: Pupils are equal, round and reactive to light. Extraocular muscles intact. Neck: No lymphadenopathy or thyroid enlargement. Respiratory: Clear to auscultation. Cardiovascular: S1 S2 regular. No murmurs. [facility] Medical History (Updated 05/26/25 @ 14:16 by Char Santillan CNP) Hypothyroidism Benign essential tremor Migraine Dysphagia Cataracts, bilateral Lumbar degenerative disc disease Osteoarthritis of hands, bilateral Type 2 diabetes mellitus with hyperglycemia Vitamin D deficiency Obesity (BMI 30-39.9) Insomnia Arthralgia Depression Anxiety GERD without esophagitis Acquired hypothyroidism Gastrointestinal hemorrhage Anemia due to acute blood loss Asthma Chronic kidney disease (CKD), stage II (mild) Diabetes mellitus Pure hypercholesterolemia Benign essential hypertension Surgical History Hx of cataract surgery History of colonoscopy (~07/2019) H/O wrist surgery History of colectomy History of D&C History of tonsillectomy Family History Father No problems noted. Mother No problems noted. Other Substance abuse Social History Housing: House Are you a primary personal care home administrator to a significant other at home: No Do you presently have visiting nurse or other home services: No Alcohol intake: never Patient Tobacco Use Status: Never used Tobacco e-Cigarette/Vaping Use: Never Used Second Hand Smoke Exposure: No service: No Current occupational status: retired Cognitive needs: No Hearing needs: No Vision needs: Yes Physical Exam Vital Signs: Last Vital Signs Pulse 78 07/17/25 14:41 BP 134/78 07/17/25 14:41 Pulse Ox 96 07/17/25 14:41 Oxygen Delivery Method Room Air 07/17/25 14:41 BMI result Body Mass Index 32.3 Office Procedures Glucose Monitoring Details Details: See HPI 30421 - Glucose monitoring, continuous-physician I&R Procedure code (CPT) selection complete Results Reviewed Results Reviewed: Laboratory Last Values Glucose (Clinic) 145 mg/dL (60-115) H 07/17/25 14:50 Laboratory Tests 06/29/25 06/29/25 10:08 12:23 Creatinine 0.84 Estimated GFR > 60 Hemoglobin A1c % 6.7 H AST 49 H ALT 60 H Triglycerides 217 H Cholesterol 164 LDL Cholesterol, Calc 77 HDL Cholesterol 44 Vitamin B12 295 TSH 5.40 H Free T4 0.96 Urine Creatinine 51.32 Urine Microalbumin 15.0 Microalb/Creat Ratio 29.2 H Assessment & Plan Assessment & Plan (1) Type 2 diabetes mellitus with hyperglycemia: Code(s): E11.65 - Type 2 diabetes mellitus with hyperglycemia Category: Medical Qualifiers: Diabetes mellitus bed bug exterminator insulin use: with jail use Qualified Code(s): E11.65 - Type 2 diabetes mellitus with hyperglycemia; Z79.4 - senior living (current) use of insulin Plan In summary this is a 75-year-old female with controlled type 2 diabetes. Continue Trulicity to 3 mg weekly, Basaglar 12 units daily and metformin extended release 500 mg twice a day. Her CGM is not accurate. I will submit a prescription for a new reader. If this does not work she may need a PA to switch to ZENTICKET. I encouraged her to use a fingerstick glucometer in the meantime, but she is very needle phobic. If you experience low blood sugar, treat this by eating a chewable fruit candy like skittles or jelly beans (about 8 pieces), 4 ounces (1/2 cup) of fruit juice (not diet), 1 tablespoon of honey or 4 glucose tablets. If your blood sugar is under 50, take double the amount of one of the above. Recheck your blood sugar in [address] if you have symptoms of low blood sugar or do not have an accurate way to check your blood sugar. She will follow up in 3 months for Type II diabetes. Orders: Orders AMB Glucose Monitoring Today E11.9 - Type 2 diabetes mellitus without c omplications Medications: Refilled blood-glucose,cognos architect,cont (Dexcom G7 Textiles And Clothing Teacher) As directed 1 ea 0RF E11.65 - Type 2 diabetes mellitus with hyperglycemia, E11.9 - Type 2 diabetes mellitus without complications, Z79.4 - senior living (current) use of insulin Patient Instructions: Continue Trulicity to 3 mg weekly, Basaglar 12 units daily and metformin extended release 500 mg twice a day. I will submit a prescription for a new reader. Please call the office if you do not receive this within the next week. If you experience low blood sugar, treat this by eating a chewable fruit candy like skittles or jelly beans (about 8 pieces), 4 ounces (1/2 cup) of fruit juice (not diet), 1 tablespoon of honey or 4 glucose tablets. If your blood sugar is under 50, take double the amount of one of the above. Recheck your blood sugar in 15 minutes. 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
[2025-07-17 14:41] VITALS: BP 134/78; PULSE 78; O2SAT 96; BMI 32.3
--- OUTSIDE RECORDS SUMMARY | 2025-07-17 14:51 | XMS_ITS | Patient Health Record ---
Author Organization [facility] Address [address] [place] [id number] Care Team Providers Care Court Bailiff Name Role Phone Delonte Bishop MD Primary Care Provider Geovanny Prescott Jr Unavailable Allergies Allergen (clinical drug ingredient) Drug/Non Drug [...] Problem Status W/U Status Risk Notes Problem [id number] Gastro-esophagea l reflux disease without esophagitis (K21.9) Active confirmed Problem [id number] Abdominal pain, left lower quadrant (R10.32) Active confirmed Problem 282831312 Abdominal pain, right lower quadrant (R10.31) Active confirmed Problem 93678002 Hypertension, unspecified type (I10) Active confirmed Plan Of Treatment No Information Insurance Providers Payer Name Payer Address Payer Phone Subscriber Number Group Number Insured Name Patient Relationship to Insured Coverage Start Date Coverage End Date MED[place]ARE OF [place] [address] [place] [address] [id number] MARY MATUTE Self - patient is the insured [facility] INDEMNITY [address] [place] [address] [id number] MARY MATUTE Self - patient is the insured Medical (General) History Medical History History ICD Code 05/19/2011 Colonoscopy Internal hemorrhoids Diverticulosis Rectal Bleeding IBS Diabetes mellitus type 2 Vertigo Allergies w/allergic asthma Hypertension Hypothyroidism Anxity Denies [place],CVA,Lung disease,renal disease osteoarthritis Surgical History Surgery Date(Month/Year) Emergent left colectomy for perforated d iverticular disease 1997 Colostomy Wrist surgery on the left & a TNA D&C tonsillectomy
[2025-07-17 14:55] LABS: Glucose, Whole Blood 145 mg/dL (60-115)
== END 2025-07-17 15:13 | disposition home or self-care (01) ==
LOC: HO.ENCR 14:35
PROVIDERS: PCP Internal Medicine; Visit Provider Physician Assistant Medical
DX: E11.65 Type 2 diabetes mellitus with hyperglycemia (principal); Z79.4 Long term (current) use of insulin

== ENCOUNTER → 2025-07-17 14:34 | Outpatient (BNVA) | payer MEDICARE, OTHER, SELFPAY | PROVIDERS: PCP Internal Medicine; Visit Provider Physician Assistant Medical | DX: E11.22 Type 2 diabetes mellitus with diabetic chronic kidney disease (principal); E11.65 Type 2 diabetes mellitus with hyperglycemia; N18.2 Chronic kidney disease, stage 2 (mild); Z79.4 Long term (current) use of insulin | CPT/HCPCS: 82947; 99212 ==

== ENCOUNTER 2025-07-24 12:41 | Outpatient (AMB) | payer MEDICARE, OTHER, SELFPAY ==
--- OUTSIDE RECORDS SUMMARY | 2003-11-16 20:00 | XMS_ITS | Continuity of Care Document ---
Author Organization [employer] [facility] Address [address] [place] [address] Phone Care Team Providers Care Car Runner Name Role Phone Yulissa PAYAN FAC, Josep Nickerson Unavaila ble Advance Directives Directive Yes / No Effective Date File Name No Information Encounters Encounter Description Practice Location Reason(s) For Visit Diagnoses Date Provider Providers Copied on Encounter [facility] [facility], [address], [place], [id number], tel:[phone] [employer] [facility] No Information Yulissa Car. [address], [place], [id number], [place]. tel:[phone] Family History Family Member Type Diagnosis Age At Onset No Information Payers Payer name Insurance type Covered alliance party ID Authorerickcharity berapula(s) Denis [facility] [id number] [facility] CI [id number] Social History Type Description Quantity Date Captured [...]
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
[2025-07-24 12:46] VITALS: BP 132/80; PULSE 80; O2SAT 95; BMI 32.3
--- OUTSIDE RECORDS SUMMARY | 2025-07-24 15:04 | XMS_ITS | Patient Health Record ---
Author Organization [facility] Address [address] [place] [id number] Care Team Providers Care Steam Meter Reader Name Role Phone Delonte Bishop MD Primary [...] Problem Status W/U Status Risk Notes Problem [id number] Gastro-esophagea l reflux disease without esophagitis (K21.9) Active confirmed Problem [id number] Abdominal pain, left lower quadrant (R10.32) Active confirmed Problem [id number] Abdominal pain, right lower quadrant (R10.31) Active confirmed Problem [id number] Hypertension, unspecified type (I10) Active confirmed Plan Of Treatment No Information Insurance Providers Payer Name Payer Address Payer Phone Subscriber Number Group Number Insured Name Patient Relationship to Insured Coverage Start Date Coverage End Date MEDICARE OF [place] [address] [place] [address] [id number] MARY MATUTE Self - patient is the insured [facility] [employer] [address] [place] [address] [id number] MARY MATUTE Self - patient is the insured Medical (General) History Medical History History ICD Code 05/19/2011 Colonoscopy Internal hemorrhoids Diverticulosis Rectal Bleeding IBS Diabetes mellitus type 2 Vertigo Allergies w/allergic asthma Hypertension Hypothyroidism Anxity Denies MD,CVA,Lung disease,renal disease osteoarthritis Surgical History Surgery Date(Month/Year) Emergent left colectomy for perforated d iverticular disease 1997 Colostomy Wrist surgery on the left & a TNA D&C tonsillectomy
== END 2025-07-24 13:39 | disposition home or self-care (01) ==
LOC: HO.HMCH 12:42
PROVIDERS: PCP Internal Medicine; Visit Provider Internal Medicine
DX: I12.9 Hypertensive chronic kidney disease with stage 1 through stage 4 chronic kidney disease, or unspecified chronic kidney disease (principal); E11.22 Type 2 diabetes mellitus with diabetic chronic kidney disease; N18.2 Chronic kidney disease, stage 2 (mild); E66.9 Obesity, unspecified; Z68.30 Body mass index [BMI] 30.0-30.9, adult; E78.00 Pure hypercholesterolemia, unspecified; R79.89 Other specified abnormal findings of blood chemistry; E03.9 Hypothyroidism, unspecified; J45.20 Mild intermittent asthma, uncomplicated; E55.9 Vitamin D deficiency, unspecified; H11.31 Conjunctival hemorrhage, right eye; M25.50 Pain in unspecified joint

== ENCOUNTER → 2025-07-24 12:41 | Outpatient (BNVA) | payer MEDICARE, OTHER, SELFPAY | PROVIDERS: PCP Internal Medicine; Visit Provider Internal Medicine | DX: I12.9 Hypertensive chronic kidney disease with stage 1 through stage 4 chronic kidney disease, or unspecified chronic kidney disease (principal); E11.22 Type 2 diabetes mellitus with diabetic chronic kidney disease; N18.2 Chronic kidney disease, stage 2 (mild); E78.00 Pure hypercholesterolemia, unspecified; R79.89 Other specified abnormal findings of blood chemistry; E03.9 Hypothyroidism, unspecified; J45.20 Mild intermittent asthma, uncomplicated; E55.9 Vitamin D deficiency, unspecified; H11.31 Conjunctival hemorrhage, right eye; M25.50 Pain in unspecified joint; K21.9 Gastro-esophageal reflux disease without esophagitis; K52.9 Noninfective gastroenteritis and colitis, unspecified; G47.00 Insomnia, unspecified; F41.9 Anxiety disorder, unspecified; F33.9 Major depressive disorder, recurrent, unspecified; E66.9 Obesity, unspecified; Z68.32 Body mass index [BMI] 32.0-32.9, adult; Z71.3 Dietary counseling and surveillance | CPT/HCPCS: 96127; 99212 ==

== ENCOUNTER 2025-10-16 14:34 | Outpatient (AMB) | payer MEDICARE, OTHER, SELFPAY ==
--- OUTSIDE RECORDS SUMMARY | 2003-11-16 19:00 | XMS_ITS | Continuity of Care Document ---
Author Organization [facility] Address [address] [place] [address] Phone Care Team Providers Care Meter Reader Inspector Name Role Phone Yulissa PAYAN FAC, Josep Nickerson Unavaila ble Advance Directives Directive Yes / No Effective Date File Name No Information Encounters Encounter Description Practice Location Reason(s) For Visit Diagnoses Date Provider Providers Copied on Encounter [facility], [address], [place], [id number], tel:[phone] [facility] No Information Yulissa Car. [address], [place], [id number], [place]. tel:[phone] Family History Family Member Type Diagnosis Age At Onset No Information Payers Payer name Insurance type Covered republican ID Authorerickcharity brepaula(s) Denis [facility] [id number] [facility] CI [id number] Social History Type Description Quantity Date Captured Comments Sex Female Smoking Status No Information Chief Complaint And Reason For Visit No Information Reason For Referral Reason For Referral No Information History Of Present Illness Encounter Date Complaint History Of Prese nt Illness No Information Functional Status Date Functional Assessmen t No Information Instructions Date Instruction Additional Infor mation No Information Assessments Type Assessment Date No Information Patient Care Teams Name Effective Dates (start - stop) Status Members No Information
--- NOTE | 2025-10-16 14:35 | A.OFFVIS_ITS ---
Vital Signs 10/16/25 14:39 Height 5 ft 4 in Weight 196 lb 10.437 oz BMI 33.8 BP 118/84 Blood Pressure Location Lt brachial Position Sitting Pulse 79 Pulse Source Pulse Oximeter Pulse Oximetry (%) 99 Oxygen Delivery Method Room Air Intake Visit Reasons: T2DM Intake Note: Patient present today to follow up on Type 2 Diabetes Mellitus. 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 Required: No Accompanied by: Self / Same As Patient Allergies adhesive tape (ADHESIVE TAPE) Allergy (Mild, Verified 10/16/25 14:40) RASH Cephalosporins (CEPHALOSPORINS) Allergy (Unknown, Verified 10/16/25 14:40) ANAPHYLAXIS gluten Allergy (Unknown, Verified 10/16/25 14:40) Unknown ketorolac Allergy (Unknown, Verified 10/16/25 14:40) hives lactase (From Dairy Aid) Allergy (Unknown, Verified 10/16/25 14:40) Unknown Penicillins (PENICILLINS) Allergy (Unknown, Verified 10/16/25 14:40) SWELLING Opioids - Morphine Analogues (OPIOIDS - MORPHINE ANALOGUES) Adverse Reaction (Severe, Verified 10/16/25 14:40) VERY SICK, DIZZY, VOMITING Medication List - Last Reconciled 10/16/25 by KIMBERLY Madrigal albuterol sulfate 90 mcg/actuation 1 puff PO QID PRN blood sugar diagnostic (FreeStyle Lite Strips) As directed to check glucose 3 times daily blood-glucose meter (FreeStyle Lite Meter kit) check glucose up to 5 times a day blood-glucose sensor (Dexcom G7 Sensor device) apply new sensor every 10 days as directed blood-glucose,lawn and garden technician,cont (Dexcom G7 Immunology Teacher) As directed clonazepam 0.5 mg PO BEDTIME diclofenac sodium 1% (Arthritis Pain (diclofenac)) 4 grams topical QID dulaglutide (Trulicity) 4.5 mg (0.5 mL) subcut QWEEK escitalopram oxalate 10 mg PO BEDTIME ezetimibe 10 mg PO DAILY 90 days glucose (Dex4 Glucose) 16 grams (4 x 4 gram) PO Q15M PRN insulin glargine (Basaglar KwikPen U-100 Insulin) 12 units subcut QPM ketoconazole 2% 1 appl topical DAILY lancets (FreeStyle Lancets) Use as directed to monitor glucose up to 5 times daily levothyroxine 100 mcg PO QAM losartan 100 mg PO DAILY metformin ER 500 mg PO BID montelukast 10 mg PO BEDTIME pen needle, diabetic As directed up to 4 times daily primidone 50 mg PO BEDTIME HPI Comments Details: This is a 75-year-old female with a past medical history of type 2 diabetes, diverticulitis, vitamin-D deficiency, morbid obesity, GERD, hypothyroidism, asthma, hypertension and CKD stage 3 presenting for continued diabetic management. The patient was diagnosed with type 2 diabetes at age 50. Hemolglobin 7.4% today. Hemoglobin A1c 6.7% 06/29/2025. Reviewed Dexcom data GMI 8.1% Coefficient of variation 17.9% Very high 9% High 57% Target range 34% Hypoglycemia 0% My interpretation is that she has hyperglycemia throughout 24 hours which improves mid day. POC 157, and CGM reads 161. Her current regimen is metformin extended release 500 mg twice daily, Basaglar 12 units nightly and Trulicity 3 mg weekly. She gained weight when she had to stop Ozempic because it's too expensive with her insurance. She is asking to increase the dose of Trulicity to see if this curbs her appetite. Previous medications: She was previously on Actos which resulted in weight gain. Ozempic was discontinued due to high co-pay. Switched to Trulicity. Lantus discontinued due to co-pay. Hypoglycemia symptoms: None Hyperglycemia symptoms: none Microvascular complications: prior nephropathy (CKD and microalbuminuria but normal kidney function now) no retinopathy, she had cataracts removed Macrovascular complications: none Hypertension: treated with Losartan 100 mg. Hyperlipidemia: treated with Zetia 10 mg. She has hepatic steatosis. She's had some nosebleeds recently. Not on blood thinners or aspirin. She had a runny nose like a faucet. Clear discharge, thin, watery. Worse in cold weather and when she eats. ROS: Constitutional: No unexplained weight loss, fever, chills, fatigue or night sweats. Respiratory: No shortness of breath Cardiovascular: No chest pain Neurologic: No headache, dizziness, syncope, unilateral weakness, ataxia, numbness or tingling in the extremities. Skin: No rash or itching. Endocrine: No cold or heat intolerance. No polyuria or polydipsia. Physical exam: Constitutional: Alert, in no distress. Eyes: Pupils are equal, round and reactive to light. Extraocular muscles intact. Nose: No visible masses. No discharge. Sinuses nontender. Neck: No lymphadenopathy or thyroid enlargement. Respiratory: Clear to auscultation. Cardiovascular: S1 S2 regular. No murmurs. Feet: warm and well perfused, no edema or wounds [facility] Medical History (Updated 10/16/25 @ 15:15 by KIMBERLY Madrigal) Epistaxis Hypothyroidism Benign essential tremor Migraine Dysphagia Cataracts, bilateral Lumbar degenerative disc disease Osteoarthritis of hands, bilateral Type 2 diabetes mellitus with hyperglycemia Vitamin D deficiency Obesity (BMI 30-39.9) Insomnia Arthralgia Depression Anxiety GERD without esophagitis Acquired hypothyroidism Gastrointestinal hemorrhage Anemia due to acute blood loss Asthma Chronic kidney disease (CKD), stage II (mild) Diabetes mellitus Pure hypercholesterolemia Benign essential hypertension Surgical History Hx of cataract surgery History of colonoscopy (~07/2019) H/O wrist surgery History of colectomy History of D&C History of tonsillectomy Family History Father No problems noted. Mother No problems noted. Other Substance abuse Social History Housing: House Are you a primary medicare contact specialist to a significant other at home: No Do you presently have visiting nurse or other home services: No Alcohol intake: never Patient Tobacco Use Status: Never used Tobacco e-Cigarette/Vaping Use: Never Used Second Hand Smoke Exposure: No service: No Current occupational status: retired Cognitive needs: No Hearing needs: No Vision needs: Yes Physical Exam Vital Signs: Last Vital Signs Pulse 79 10/16/25 14:39 BP 118/84 10/16/25 14:39 Pulse Ox 99 10/16/25 14:39 Oxygen Delivery Method Room Air 10/16/25 14:39 BMI result Body Mass Index 33.8 Office Procedures Glucose Monitoring Details Details: see [facility] [id number] - Glucose monitoring, continuous-physician I&R Procedure code (CPT) selection complete Results AMB Hemoglobin A1c AMB Hemoglobin A1c 7.4 % Last Edit by DOMINIC Escoto on 10/16/25 14:57 Results Reviewed Results Reviewed: Laboratory Last Values Glucose (Clinic) 157 mg/dL (60-115) H 10/16/25 14:46 Laboratory Tests 06/29/25 06/29/25 10:08 12:23 WBC 5.3 Hgb 13.4 Hct 38.9 Plt Count 141 L Sodium 143 Potassium 4.8 Creatinine 0.84 Estimated GFR > 60 Fasting Glucose 148 H Hemoglobin A1c % 6.7 H Calcium 9.6 AST 49 H ALT 60 H Alkaline Phosphatase 130 H Triglycerides 217 H Cholesterol 164 LDL Cholesterol, Calc 77 HDL Cholesterol 44 Vitamin B12 295 25-OH Vitamin D Total 31.4 TSH 5.40 H Free T4 0.96 Ur Specific [place] 1.015 Urine Protein Negative Urine Glucose (UA) Negative Urine Blood Negative Urine Nitrite Negative Ur Leukocyte Esterase Negative Microalb/Creat Ratio 29.2 H Assessment & Plan Assessment & Plan (1) Type 2 diabetes mellitus with hyperglycemia: Code(s): E11.65 - Type 2 diabetes mellitus with hyperglycemia Category: Medical Qualifiers: Diabetes mellitus intermediate designer insulin use: with snf use Qualified Code(s): E11.65 - Type 2 diabetes mellitus with hyperglycemia; Z79.4 - prison (current) use of insulin (2) Benign essential hypertension: Code(s): I10 - Essential (primary) hypertension Category: Medical (3) Pure hypercholesterolemia: Code(s): E78.00 - Pure hypercholesterolemia, unspecified Category: Medical (4) Epistaxis: Code(s): R04.0 - Epistaxis Category: Medical Plan: Epistaxis and chronic rhinitis. Advised to use cool mist humidifier and vaseline applied to nasal septum once or twice daily. ?Vasomotor rhinitis. Asked patient to follow up with PCP. Offered to Rx ipratropium nasal spray, but patient says she will wait to discuss with PCP. Plan In summary this is a 75-year-old female with controlled type 2 diabetes. Increase Trulicity to 4.5 mg weekly, continue Basaglar 12 units daily and metformin extended release 500 mg twice a day. If renal function remains stable and A1c is still above goal consider increasing Metformin. If you experience low blood sugar, treat this by eating a chewable fruit candy like skittles or jelly beans (about 8 pieces), 4 ounces (1/2 cup) of fruit juice (not diet), 1 tablespoon of honey or 4 glucose tablets. If your blood sugar is under 50, take double the amount of one of the above. Recheck your blood sugar in [address] if you have symptoms of low blood sugar or do not have an accurate way to check your blood sugar. Continue losartan for hypertension. Recommended low-sodium diet and avoidance of caffeine. Recommended Mediterranean diet. Continue Zetia. She will follow up in 6 weeks for Type II diabetes. Orders: Orders AMB Hemoglobin A1c Today E11.65 - Type 2 diabetes mellitus with hyperglycemia, Z79.4 - prison (current) use of insulin AMB Glucose Monitoring Today E11.9 - Type 2 diabetes mellitus without complications Medications: New dulaglutide (Trulicity) 4.5 mg (0.5 mL) subcut QWEEK 2 mL 3RF Discontinued dulaglutide (Trulicity) Discontinued Reason: Doctor's Order 3 mg (0.5 mL) subcut QWEEK 2 mL 5RF Coding Level of Care Code Est Pt Level 4 (07332) Diagnoses Type 2 diabetes mellitus with hyperglycemia, with long-term current use of insulin E11.65; Z79.4 Diabetes mellitus snf insulin use: with snf use Benign essential hypertension I10 Pure hypercholesterolemia E78.00 Epistaxis R04.0 CPT Codes Details - CPT: 64052 - Glucose monitoring, continuous-physician I&R ([id number])
[2025-10-16 14:39] VITALS: BP 118/84; PULSE 79; O2SAT 99; BMI 33.8
[2025-10-16 14:53] LABS: Glucose, Whole Blood 157 mg/dL (60-115)
== END 2025-10-16 15:16 | disposition home or self-care (01) ==
LOC: HO.ENCR 14:34
PROVIDERS: PCP Internal Medicine; Visit Provider Physician Assistant Medical
DX: E11.65 Type 2 diabetes mellitus with hyperglycemia (principal); Z79.4 Long term (current) use of insulin; I10 Essential (primary) hypertension; E78.00 Pure hypercholesterolemia, unspecified; R04.0 Epistaxis

== ENCOUNTER → 2025-10-16 14:34 | Outpatient (BNVA) | payer MEDICARE, OTHER, SELFPAY | PROVIDERS: PCP Internal Medicine; Visit Provider Physician Assistant Medical | DX: E11.65 Type 2 diabetes mellitus with hyperglycemia (principal); I10 Essential (primary) hypertension; E78.00 Pure hypercholesterolemia, unspecified; R04.0 Epistaxis; Z79.4 Long term (current) use of insulin | CPT/HCPCS: 82947; 83036; 99212 ==